=== PATIENT | female | born 1945 | race Hispanic/Latino ===

== ENCOUNTER 2018-02-17 13:22 | Inpatient (IN) | payer MEDICARE ==
[2018-02-17 13:22] VITALS: BMI 15.2
[2018-02-17] MEDS ORDERED: Sodium Chloride 0.9% 1,000 ML IV ONE (14:24)
[2018-02-17 14:25] LABS: BASO # 0.1 K/uL (0.0-0.2); BASO % 1.2 % (0.0-2.0); EOS % 0.5 % (0.0-4.0); HEMOGLOBIN 13.7 g/dL (11.0-16.0); LYMPH % 13.9 % (20.0-40.0); MEAN CELL VOLUME 91.6 fL (81.0-99.0); MEAN CORPUSCULAR HEMOGLOBIN 30.7 pg (27.0-31.0); MEAN CORPUSCULAR HGB CONC 33.5 g/dL (33.0-37.0); MEAN PLATELET VOLUME 9.4 fL (7.2-11.7); MONO # 0.6 K/uL (0.0-0.8); MONO % 8.3 % (0.0-10.0); NEUT # 5.3 K/uL (1.8-7.0); NEUT % 76.1 % (50.0-75.0); NRBC % 0.1 % (0.0-2.0); RBC 4.45 Mil/uL (3.80-5.20); RED CELL DISTRIBUTION WIDTH 15.9 % (11.5-14.5); WHITE BLOOD COUNT 6.9 K/uL (4.8-10.8)
[2018-02-17 14:39] LABS: INR 1.4; PROTHROMBIN TIME 15.3 SECONDS (9.7-12.2)
[2018-02-17 14:41] LABS: ALB/GLOB RATIO 1.1 (1.0-2.1); ALBUMIN 3.4 g/dL (3.5-5.0); ALT/SGPT 85 U/L (9-52); AST/SGOT 71 U/L (14-36); BLOOD UREA NITROGEN 30 mg/dL (7-17); CALCIUM 8.8 mg/dl (8.6-10.4); GFR AFRICAN-AMERICAN > 60; GFR NON-AFRICAN AMERICAN 55
--- NOTE | 2018-02-17 14:48 | C.PDOC ---
History Of Present Illness Patient is a 72 y/o female who presents to the ED by PMD with tachycardia and complaints of chest pain and SOB for the last 1 week. Patient reports to have been recently recovering from a cold. No other physical complaints at this time. Time Seen by Provider: 02/17/18 13:56 Chief Complaint (Nursing): Palpitations History Per: Patient History/Exam Limitations: no limitations Onset/Duration Of Symptoms: Days (1 week) Current Symptoms Are (Timing): Still Present Associated Symptoms: Other (shortness of breath) Recent travel outside of the [place]: No Past Medical History Reviewed: Historical Data, Nursing Documentation, Vital Signs Vital Signs: Last Vital Signs Temp 97.7 F 02/17/18 14:03 Pulse 104 H 02/17/18 14:54 Resp 20 02/17/18 14:54 BP 123/75 02/17/18 14:54 Pulse Ox 96 02/17/18 14:54 - Medical History PMH: Anxiety, HTN Surgical History: No Surg Hx Denies: Pacemaker - [facility] Procedures CLOSED ENDOSCOPIC BIOPSY OF LARGE INTESTINE (10/22/14) VACCINATION NEC (11/03/13) Family History: States: No Known Family Hx - Social History Hx Tobacco Use: No Hx Alcohol Use: No Hx Substance Use: No - Immunization History Hx Tetanus Toxoid Vaccination: No Hx Influenza Vaccination: No Hx Pneumococcal Vaccination: No Review Of Systems Cardiovascular: Positive for: Chest Pain, Palpitations Respiratory: Positive for: Shortness of Breath Physical Exam - Physical Exam Appears: Well, Non-toxic, No Acute Distress Skin: Normal Color, Warm, Dry Head: Atraumatic, Normacephalic Oral Mucosa: Moist Chest: Symmetrical Cardiovascular: Rhythm Irregular (irregularly irregular rate and rhythm) Respiratory: Normal Breath Sounds, No Rales, No Rhonchi, No Wheezing Gastrointestinal/Abdominal: Soft, No Tenderness Extremity: Normal ROM (x4) Neurological/Psych: Oriented x3, Normal Speech, Normal Cognition ED Course And Treatment - Laboratory Results Result Diagrams: 02/17/18 14:21 02/17/18 14:21 ECG: Interpreted By Me, Viewed By Me ECG Rhythm: Atrial Fibrillation Interpretation Of ECG: normal intervals, normal axis, nonspecific st/t wave changes Rate From EC (bpm ventricular rate) O2 Sat by Pulse Oximetry: 97 Progress Note: EKG, CXR, and blood work ordered. Cardizem and IV fluids administered. Disposition Discussed With : Jt Christine Doctor Will See Patient In The: Hospital Counseled Patient/Family Regarding: Studies Performed, Diagnosis - Disposition Disposition: HOSPITALIZED Disposition Time: 15:13 Condition: FAIR Forms: [facility] (Maori) - Clinical Impression Clinical Impression: Atrial fibrillation, CHF (congestive heart failure) - Scribe Statement The provider has reviewed the documentation as recorded by the Scribe Monika Francisco All medical record entries made by the Scribe were at my direction and personally dictated by me. I have reviewed the chart and agree that the record accurately reflects my personal performance of the history, physical exam, medical decision making, and the department course for this patient. I have also personally directed, reviewed, and agree with the discharge instructions and disposition.
[2018-02-17 14:50] LABS: B-TYPE NATRIURETIC PEPTIDE 13000 pg/mL (0-900)
[2018-02-17] MEDS ORDERED: Aspirin 325 mg EC Tablets PO STA (15:13)
[2018-02-17] MEDS ORDERED: Metoprolol 1 mg/ml Inj IVP ONE (15:56)
[2018-02-17] MEDS ORDERED: Metoprolol 1 mg/ml Inj IVP STA (19:12)
--- NOTE | 2018-02-17 19:17 | RAD ---
PROCEDURE: CHEST RADIOGRAPH, 1 VIEW HISTORY: SOB COMPARISON: None available. FINDINGS: LUNGS: Prominent lung markings seen at the lung bases. PLEURA: Small bilateral pleural effusions. CARDIOVASCULAR: The heart is upper normal limit in size. OSSEOUS STRUCTURES: No significant abnormalities. VISUALIZED UPPER ABDOMEN: Normal. OTHER FINDINGS: None. IMPRESSION: Reticular and haziness noted at both lower lobes may represent mild pulmonary congestion. Small bilateral pleural effusions.
--- NOTE | 2018-02-17 19:24 | CP.PCM.PN ---
<Anel Allen DO - Last Filed: 02/17/18 19:14> Subjective - Date & Time of Evaluation Date of Evaluation: 02/17/18 Time of Evaluation: 19:14 - Subjective Subjective: House doctor note Paged to evaluate patient for elevated heart rate in 120s, 130s. Upon evaluation patient was resting comfortably in bed with at bedside. Patient was eating dinner and speaking in full sentences. Patient denies palpitations, shortness of breath, chest pain or chest tightness. Patient's only complaint is of left leg pain in her [place] for past week. Telemetry and EKG reviewed. BP 124/89, HR 111 Patient resting comfortably in bed lungs CTA heart rate irregular, tachycardic Patient given stat order 5mg lopressor IVP. Will check d-dimer and lower extremity doppler as well. Objective - Vital Signs/Intake and Output Vital Signs (last 24 hours): Temp Pulse Resp BP Pulse Ox 97.3 F L 141 H 18 122/89 95 02/17/18 17:13 02/17/18 18:58 02/17/18 17:13 02/17/18 18:58 02/17/18 17:13 - Medications Medications: Current Medications Metoprolol Tartrate (Lopressor) 5 mg IVP STAT STA Stop: 02/17/18 19:13 - Labs Labs: 02/17/18 14:21 02/17/18 14:21 PT 15.3 SECONDS (9.7-12.2) H 02/17/18 14:21 INR 1.4 02/17/18 14:21 APTT 26 SECONDS (21-34) 02/17/18 14:21 <Sonia Curry V - Last Filed: 02/17/18 21:01> Objective - Vital Signs/Intake and Output Vital Signs (last 24 hours): Temp Pulse Resp BP Pulse Ox 97.3 F L 141 H 18 122/89 95 02/17/18 17:13 02/17/18 18:58 02/17/18 17:13 02/17/18 18:58 02/17/18 17:13 - Medications Medications: Current Medications Aspirin (Aspirin Chewable) 81 mg PO DAILY [facility] Digoxin (Lanoxin) 0.5 mg IVP ONCE ONE Stop: 02/17/18 21:01 Diltiazem HCl (Cardizem) 30 mg PO Q6 [facility] Enoxaparin Sodium (Lovenox) 40 mg SC DAILY [facility] Rosuvastatin Calcium (Crestor) 10 mg PO HS [facility] - Labs Labs: 02/17/18 14:21 02/17/18 14:21 PT 15.3 SECONDS (9.7-12.2) H 02/17/18 14:21 INR 1.4 02/17/18 14:21 APTT 26 SECONDS (21-34) 02/17/18 14:21 Attending/Attestation - Attestation Notes (Text): Brief Hospitalist Note: Patient is awaiting admitting orders. New onset atrial fibrillation: received cardizem 15mg IV, cardizem 10mg IV X2, and Lopressor 2.5mg IV. Elevated probnp-->suggestive for heart failurw Chest xray does not show pulmonary edema. Nursing staff reaching to PMD for admitting orders.
[2018-02-17] MEDS ORDERED: Enoxaparin 40 mg Syringe SC ONE (19:58)
[2018-02-17] MEDS ORDERED: Metoprolol Succinate 25 mg XL Tab PO ONE (20:00)
[2018-02-17] MEDS ORDERED: Digoxin 500 mcg/2ml (0.5 mg/2ml) Inj IVP ONE (21:00)
[2018-02-17 21:24] VITALS: PULSE 144
[2018-02-18] MEDS ORDERED: Benzocaine/Menthol (Cepacol) Lozenge MT ONE (03:35)
[2018-02-18 04:19] LABS: CK-MB 3.97 ng/mL (0.0-3.38)
[2018-02-18 04:47] LABS: TROPONIN I 0.098 ng/mL (0.00-0.120)
[2018-02-18] MEDS ORDERED: Acetaminophen 650mg/20.3ml solution UD PO PRN (06:45)
[2018-02-18] MEDS: Enoxaparin 40 mg Syringe SC SCH (10:58)
--- NOTE | 2018-02-18 12:18 | CP.PCM.CON ---
History of Present Illness - History of Present Illness History of Present Illness: I was asked to evaluate patient by Dr Christine. patient is a 72 year old female with PMH HTn who presents with chest pain and dyspnea. She states symptoms are progressive and occur with ambulation. Symptoms improve with rest. The patient was found to be in atrial fibrillation. She has no history of atrial fibrillation. Review of Systems - Constitutional Constitutional: absent: As Per HPI, Anorexia, Chills, Daytime Sleepiness, Excessive Sweating, Fatigue, Fever, Frequent Falls, Headache, Increased Appetite , Lethargy, Malaise, Night Sweats, Snoring, Sleep Apnea, Weight Gain, Weight Loss, Weakness, Other - EENT Eyes: absent: As Per HPI, Blind Spots, Blurred Vision, Change in Vision, Decreased Night Vision, Diplopia, Discharge, Dry Eye, Exophthalmos, Floaters, Irritation, Itchy Eyes, Loss of Peripheral Vision, Pain, Photophobia, Requires Corrective Lenses, Sees Flashes, Spots in Vision, Tunnel Vision, Other Visual Disturbances, Loss of Vision, Other Ears: absent: As Per HPI, Decreased Hearing, Ear Discharge, Ear Pain, Tinnitus, Abnormal Hearing, Disequilibrium, Dizziness, Other Nose/Mouth/Throat: absent: As Per HPI, Epistaxis, Nasal Congestion, Nasal Discharge, Nasal Obstruction, Nasal Trauma, Nose Pain, Post Nasal Drip, Sinus Pain, Sinus Pressure, Bleeding Gums, Change in Voice, Dental Pain, Dry Mouth, Dysphagia, Halitosis, Hoarsness, Lip Swelling, Mouth Lesions, Mouth Pain, Odynophagia, Sore Throat, Throat Swelling, Tongue Swelling, Facial Pain, Neck Pain, Neck Mass, Other - Cardiovascular Cardiovascular: Chest Pain, Dyspnea - Respiratory Respiratory: Dyspnea - Gastrointestinal Gastrointestinal: absent: As Per HPI, Abdominal Pain, Belching, Bloating, Change in Bowel Habits, Change in Stool Character, Coffee Ground Emesis, Constipation, Cramping, Diarrhea, Dyspepsia, Dysphagia, Early Satiety, Excessive Flatus, Fecal Incontinence, Heartburn, Hematemesis, Hematochezia, Loose Stools, Melena, Nausea, Odynophagia, Temesmus, Vomiting, Other - Genitourinary Genitourinary: absent: As Per HPI, Change in Urinary Stream, Difficulty Urinating, Dysuria, Flank Pain, Hematuria, Pyuria, Nocturia, Urinary Incontinence, Urinary Frequency, Urinary Hesitance, Urinary Urgency, Voiding Freq/Small Amts, Freq UTI, Hx Renal/Bladder Calculi, Hx /Renal Surgery, Bladder Distension, Other - Musculoskeletal Musculoskeletal: absent: As Per HPI, Abnormal Gait, Arthralgias, Atrophy, Back Pain, Deformity, Joint Swelling, Limited Range of Motion, Loss of Height, Muscle Cramps, Muscle Weakness, Myalgias, Neck Pain, Numbness, Radiating Pain into Limb, Stiffness, Tingling, Other - Integumentary Integumentary: absent: As Per HPI, Acne, Alopecia, Bleeding Lesions, Change in Hair, Change in Nails, Change in Pigmentation, Changing Lesions, Dry Skin, Erythema, Furuncle, Hirsutism, Lesions, New Lesions, Non-Healing Lesions, Photosensitivity, Pruritus, Rash, Skin Pain, Skin Ulcer, Sores, Striae, Swelling , Unusual Bruising, Wounds, Jaundice, Other - Neurological Neurological: absent: As Per HPI, Abnormal Gait, Abnormal Hearing, Abnormal Movements, Abnormal Speech, Behavioral Changes, Burning Sensations, Confusion, Convulsions, Disequilibrium, Dizziness, Numbness, Focal Weakness, Frequent Falls , Headaches, Lack of Coordination, Loss of Vision, Memory Loss, Paresthesias, Radicular Pain, Restless Legs, Sensory Deficit, Syncope, Tingling, Tremor, Vertigo, Weakness, Other Visual Disturbances, Other - Psychiatric Psychiatric: absent: As Per HPI, Abnormal Sleep Pattern, Anhedonia, Anxiety, Auditory Hallucinations, Behavioral Changes, Change in Appetite, Change in Libido, Confusion, Depression, Difficulty Concentrating, Hallucinations, Homicidal Ideation, Hopelessness, Irritability, Memory Loss, Mood Swings, Panic Attacks, Paranoia, Suicidal Ideation, Visual Hallucinations, Tactile Hallucinations, Other - Endocrine Endocrine: absent: As Per HPI, Change in Body Appearance, Change in Libido, Cold Intolorance, Deepening of Voice, Excessive Sweating, Fatigue, Flushing, Heat Intolorance, Increase in Ring/Shoe/Hat Size, Palpitations, Polydipsia, Polyphagia, Polyuria, Other - Hematologic/Lymphatic Hematologic: absent: As Per HPI, Easy Bleeding, Easy Bruising, Lymphadenopathy, Other Past Patient History - Past Medical History & Family History Past Medical History?: Yes - Past Social History Smoking Status: Never Smoked - CARDIAC Hx Cardiac Disorders: Yes Hx Hypertension: Yes Hx Pacemaker: No - PULMONARY Hx Respiratory Disorders: No - NEUROLOGICAL Hx Neurological Disorder: No Hx Paralysis: No - HEENT Hx HEENT Problems: Yes Other/Comment: "Difficulty swallowing" - RENAL Hx Chronic Kidney Disease: No - ENDOCRINE/METABOLIC Hx Endocrine Disorders: No - HEMATOLOGICAL/ONCOLOGICAL Hx Blood Disorders: No Hx Blood Transfusions: No - INTEGUMENTARY Hx Dermatological Problems: No - MUSCULOSKELETAL/RHEUMATOLOGICAL Hx Musculoskeletal Disorders: No Hx Falls: Yes - GASTROINTESTINAL Hx Gastrointestinal Disorders: No - GENITOURINARY/GYNECOLOGICAL Hx Genitourinary Disorders: No - PSYCHIATRIC Hx Psychophysiologic Disorder: Yes Hx Anxiety: Yes Hx Depression: Yes Hx Substance Use: No - SURGICAL HISTORY Hx Surgeries: Yes Hx Tonsillectomy: Yes (At 11 yo) - ANESTHESIA Hx Anesthesia: Yes Hx Anesthesia Reactions: No Hx Malignant Hyperthermia: No Meds Allergies/Adverse Reactions: Allergies Allergy/AdvReac Type Severity Reaction Status Date / Time No Known Allergies Allergy Verified 02/17/18 14:02 - Medications Medications: Current Medications Acetaminophen (Tylenol 650mg/20.3ml Solution Ud) 650 mg PO Q4 PRN Last Admin: 02/18/18 06:39 Dose: 650 mg Aspirin (Aspirin Chewable) 81 mg PO DAILY [facility] Last Admin: 02/18/18 10:59 Dose: 81 mg Diltiazem HCl (Cardizem) 60 mg PO Q8 [facility] Last Admin: 02/18/18 06:00 Dose: 60 mg Enoxaparin Sodium (Lovenox) 40 mg SC DAILY [facility] Last Admin: 02/18/18 10:58 Dose: 40 mg Rosuvastatin Calcium (Crestor) 10 mg PO HS [facility] Last Admin: 02/17/18 21:21 Dose: 10 mg Physical Exam - Constitutional Appears: Non-toxic - Head Exam Head Exam: NORMAL INSPECTION - Eye Exam Eye Exam: Normal appearance - ENT Exam ENT Exam: Mucous Membranes Moist - Neck Exam Neck exam: Positive for: Full Rom - Respiratory Exam Respiratory Exam: Decreased Breath Sounds - Cardiovascular Exam Cardiovascular Exam: Irregular Rhythm - GI/Abdominal Exam GI & Abdominal Exam: Normal Bowel Sounds - Rectal Exam Rectal Exam: Deferred - Extremities Exam Extremities exam: Negative for: pedal edema - Back Exam Back exam: NORMAL INSPECTION - Neurological Exam Neurological exam: Alert, Oriented x3 - Psychiatric Exam Psychiatric exam: Normal Affect - Skin Skin Exam: Normal Color Results - Vital Signs Recent Vital Signs: Last Vital Signs Temp 100.7 F H 02/18/18 08:29 Pulse 88 02/18/18 08:29 Resp 18 02/18/18 08:29 BP 127/74 02/18/18 08:29 Pulse Ox 98 02/18/18 08:29 - Labs Result Diagrams: 02/17/18 14:21 02/17/18 14:21 Labs: Laboratory Results - last 24 hr 02/17/18 02/17/18 02/17/18 14:21 14:21 14:21 WBC 6.9 RBC 4.45 Hgb 13.7 Hct 40.7 MCV 91.6 MCH 30.7 MCHC 33.5 RDW 15.9 H Plt Count 252 MPV 9.4 Neut % (Auto) 76.1 H Lymph % (Auto) 13.9 L [place] % (Auto) 8.3 Eos % (Auto) 0.5 Baso % (Auto) 1.2 Neut # (Auto) 5.3 Lymph # (Auto) 1.0 [place] # (Auto) 0.6 Eos # (Auto) 0.0 Baso # (Auto) 0.1 PT 15.3 H INR 1.4 APTT 26 D-Dimer, Quantitative Sodium 141 Potassium 3.7 Chloride 102 Carbon Dioxide 24 Anion Gap 18 BUN 30 H Creatinine 1.0 Est GFR ( Amer) > 60 Est GFR (Non-Af Amer) 55 Random Glucose 131 H Calcium 8.8 Magnesium 2.1 Total Bilirubin 1.0 AST 71 H ALT 85 H Alkaline Phosphatase 96 Total Creatine Kinase CK-MB (Mass) Troponin I 0.1080 NT-Pro-B Natriuret Pep 42535 H Total Protein 6.5 Albumin 3.4 L Globulin 3.1 Albumin/Globulin Ratio 1.1 TSH 3rd Generation 02/17/18 02/18/18 19:44 03:59 WBC RBC Hgb Hct MCV MCH MCHC RDW Plt Count MPV Neut % (Auto) Lymph % (Auto) [place] % (Auto) Eos % (Auto) Baso % (Auto) Neut # (Auto) Lymph # (Auto) [place] # (Auto) Eos # (Auto) Baso # (Auto) PT INR APTT D-Dimer, Quantitative 963 H Sodium Potassium Chloride Carbon Dioxide Anion Gap BUN Creatinine Est GFR ( Amer) Est GFR (Non-Af Amer) Random Glucose Calcium Magnesium Total Bilirubin AST ALT Alkaline Phosphatase Total Creatine Kinase 457 H CK-MB (Mass) 3.97 H Troponin I 0.0980 NT-Pro-B Natriuret Pep Total Protein Albumin Globulin Albumin/Globulin Ratio TSH 3rd Generation 1.36 - EKG Data EKG Interpreted by: Myself Assessment & Plan (1) Angina at rest Assessment and Plan: patient has risk factors for CAD. Recommend evaluation for myocardial ischemia. will schedule for stress test. check echocardiogram Status: Acute (2) Atrial fibrillation Assessment and Plan: will continue lovenox. check echocardiogram. If stress test is normal perfusion, will consider KARY/cardioversion. Status: Acute
--- NOTE | 2018-02-18 17:23 | CP.PCM.HP ---
History of Present Illness - History of Present Illness History of Present Illness: Patient is a 72 y/o female who presents to the ED by PMD with tachycardia and complaints of chest pain and SOB for the last 1 week. Patient reports to have been recently recovering from a cold. No other physical complaints at this time. Present on Admission - Present on Admission Any Indicators Present on Admission: No Past Patient History - Past Medical History & Family History Past Medical History?: Yes - Past Social History Smoking Status: Never Smoked - CARDIAC Hx Cardiac Disorders: Yes Hx Hypertension: Yes Hx Pacemaker: No - PULMONARY Hx Respiratory Disorders: No - NEUROLOGICAL Hx Neurological Disorder: No Hx Paralysis: No - HEENT Hx HEENT Problems: Yes Other/Comment: "Difficulty swallowing" - RENAL Hx Chronic Kidney Disease: No - ENDOCRINE/METABOLIC Hx Endocrine Disorders: No - HEMATOLOGICAL/ONCOLOGICAL Hx Blood Disorders: No Hx Blood Transfusions: No - INTEGUMENTARY Hx Dermatological Problems: No - MUSCULOSKELETAL/RHEUMATOLOGICAL Hx Musculoskeletal Disorders: No Hx Falls: Yes - GASTROINTESTINAL Hx Gastrointestinal Disorders: No - GENITOURINARY/GYNECOLOGICAL Hx Genitourinary Disorders: No - PSYCHIATRIC Hx Psychophysiologic Disorder: Yes Hx Anxiety: Yes Hx Depression: Yes Hx Substance Use: No - SURGICAL HISTORY Hx Surgeries: Yes Hx Tonsillectomy: Yes (At 11 yo) - ANESTHESIA Hx Anesthesia: Yes Hx Anesthesia Reactions: No Hx Malignant Hyperthermia: No Meds Allergies/Adverse Reactions: Allergies Allergy/AdvReac Type Severity Reaction Status Date / Time No Known Allergies Allergy Verified 02/17/18 14:02 Results - Vital Signs Recent Vital Signs: Last Vital Signs Temp 97.4 F L 02/18/18 15:31 Pulse 108 H 02/18/18 15:31 Resp 18 02/18/18 15:31 BP 112/67 02/18/18 15:31 Pulse Ox 94 L 02/18/18 15:31 - Labs Result Diagrams: 02/17/18 14:21 02/17/18 14:21 Labs: Laboratory Results - last 24 hr 02/17/18 02/18/18 19:44 03:59 D-Dimer, Quantitative 963 H Total Creatine Kinase 457 H CK-MB (Mass) 3.97 H Troponin I 0.0980 TSH 3rd Generation 1.36
--- NOTE | 2018-02-18 17:24 | CP.PCM.PN ---
Subjective - Date & Time of Evaluation Date of Evaluation: 02/18/18 Time of Evaluation: 19:00 - Subjective Subjective: patient has elevated heart rate in 120s, 130s. Upon evaluation patient was resting comfortably in bed with at bedside. Patient was eating dinner and speaking in full sentences. Patient denies palpitations, shortness of breath, chest pain or chest tightness. Patient's only complaint is of left leg pain in her [place] for past week. Telemetry and EKG reviewed. Objective - Vital Signs/Intake and Output Vital Signs (last 24 hours): Temp Pulse Resp BP Pulse Ox 97.4 F L 108 H 18 112/67 94 L 02/18/18 15:31 02/18/18 15:31 02/18/18 15:31 02/18/18 15:31 02/18/18 15:31 - Medications Medications: Current Medications Acetaminophen (Tylenol 650mg/20.3ml Solution Ud) 650 mg PO Q4 PRN Last Admin: 02/18/18 06:39 Dose: 650 mg Aspirin (Aspirin Chewable) 81 mg PO DAILY [facility] Last Admin: 02/18/18 10:59 Dose: 81 mg Diltiazem HCl (Cardizem) 60 mg PO Q8 [facility] Last Admin: 02/18/18 14:30 Dose: 60 mg Enoxaparin Sodium (Lovenox) 40 mg SC DAILY [facility] Last Admin: 02/18/18 10:58 Dose: 40 mg Rosuvastatin Calcium (Crestor) 10 mg PO HS [facility] Last Admin: 02/17/18 21:21 Dose: 10 mg - Labs Labs: 02/17/18 14:21 02/17/18 14:21 PT 15.3 SECONDS (9.7-12.2) H 02/17/18 14:21 INR 1.4 02/17/18 14:21 APTT 26 SECONDS (21-34) 02/17/18 14:21
[2018-02-18 19:14] LABS: SQUAMOUS EPITHIAL 3 /hpf (0-5); URINE AMORPHOUS SEDIMENT OCC /ul (<OCC); URINE BILIRUBIN NEGATIVE (NEGATIVE); URINE BLOOD NEGATIVE (NEGATIVE); URINE CLARITY Turbid (Clear); URINE COLOR Yellow (YELLOW); URINE GLUCOSE (UA) NORMAL (Normal); URINE LEUKOCYTE ESTERASE 2+ Leu/uL (Negative); URINE PROTEIN 1+ mg/dL (NEGATIVE); URINE UROBILINOGEN NORMAL mg/dL (0.2-1.0)
[2018-02-19 01:06] LABS: CK-MB 1.84 ng/mL (0.0-3.38); TROPONIN I 0.082 ng/mL (0.00-0.120)
[2018-02-19 01:35] LABS: URINE CLARITY Turbid (Clear); URINE COLOR YELLOW (YELLOW); URINE GLUCOSE (UA) NEGATIVE (Normal)
[2018-02-19 01:36] LABS: URINE BILIRUBIN NEGATIVE (NEGATIVE); URINE BLOOD NEGATIVE (NEGATIVE); URINE LEUKOCYTE ESTERASE NEGATIVE Leu/uL (Negative); URINE PROTEIN 30 mg/dL (NEGATIVE); URINE UROBILINOGEN 0.2 mg/dL (0.2-1.0)
[2018-02-19 01:37] LABS: URINE AMORPHOUS SEDIMENT MODERATE /ul (<OCC)
--- NOTE | 2018-02-19 08:02 | CP.PCM.PN ---
Subjective - Date & Time of Evaluation Date of Evaluation: 02/19/18 Time of Evaluation: 07:55 - Subjective Subjective: nuclear stress test performed. await nuclear images Objective - Vital Signs/Intake and Output Vital Signs (last 24 hours): Temp Pulse Resp BP Pulse Ox 98.1 F 114 H 20 137/92 H 95 02/18/18 23:00 02/19/18 05:25 02/19/18 05:25 02/19/18 05:25 02/19/18 05:25 Intake and Output: 02/19/18 02/19/18 06:59 18:59 Intake Total 480 Balance 480 - Medications Medications: Current Medications Acetaminophen (Tylenol 650mg/20.3ml Solution Ud) 650 mg PO Q4 PRN Last Admin: 02/18/18 06:39 Dose: 650 mg Aspirin (Aspirin Chewable) 81 mg PO DAILY [facility] Last Admin: 02/18/18 10:59 Dose: 81 mg Cephalexin Monohydrate (Keflex) 500 mg PO Q6H [facility] PRN Reason: Protocol Last Admin: 02/19/18 05:30 Dose: 500 mg Enoxaparin Sodium (Lovenox) 40 mg SC DAILY [facility] Last Admin: 02/18/18 10:58 Dose: 40 mg Rosuvastatin Calcium (Crestor) 10 mg PO HS [facility] Last Admin: 02/18/18 22:00 Dose: 10 mg - Labs Labs: 02/17/18 14:21 02/17/18 14:21 PT 15.3 SECONDS (9.7-12.2) H 02/17/18 14:21 INR 1.4 02/17/18 14:21 APTT 26 SECONDS (21-34) 02/17/18 14:21 Assessment and Plan (1) Angina at rest Status: Acute (2) Atrial fibrillation Status: Acute
[2018-02-19] MEDS: Enoxaparin 40 mg Syringe SC SCH (10:06)
[2018-02-19] MEDS ORDERED: Heparin25000 units/250ml 1/2NS 25,000 UNITS/250 ML BAG IV PRN (10:33)
[2018-02-19 14:03] LABS: INR 1.5; PROTHROMBIN TIME 16.3 SECONDS (9.7-12.2)
--- NOTE | 2018-02-19 14:05 | VASCLAB ---
PROCEDURE: Lower Extremity Venous Duplex Exam. HISTORY: left leg pain, new afib DVT PRIORS: None. TECHNIQUE: Bilateral common femoral, femoral, popliteal and posterior tibial, peroneal and great saphenous veins were evaluated. Flow was assessed with color Doppler, compressibility, assessment of phasic flow and augmentation response. Report prepared by Phu Srinivasan, RVT FINDINGS: RIGHT: 1. Common Femoral Vein: 1.1. Compressibility - Fully compressible: Thrombus - None : Flow - Pulsatile: Augmentation -Normal: Reflux - . 2. Femoral Vein: 2.1. Compressibility - Fully compressible: Thrombus - None : Flow - Pulsatile: Augmentation -Normal: Reflux - . 3. Popliteal Vein: 3.1. Compressibility - Fully compressible: Thrombus - None : Flow - Pulsatile: Augmentation -Normal: Reflux - . 4. Posterior Tibial Vein: 4.1. Compressibility - Fully compressible: Thrombus - None: Flow - : Augmentation -: Reflux - . 5. Peroneal Vein: 5.1. Compressibility - Fully compressible: Thrombus - None: Flow - : Augmentation -: Reflux - . 6. Great Saphenous Vein: 6.1. Compressibility - Fully compressible: Thrombus - None: Flow - Pulsatile: Augmentation - : Reflux - . LEFT: 1. Common Femoral Vein: 1.1. Compressibility - Fully compressible: Thrombus - None: Flow - Pulsatile: Augmentation -Normal: Reflux - . 2. Femoral Vein: 2.1. Compressibility - Fully compressible: Thrombus - None: Flow - Pulsatile: Augmentation -Normal: Reflux - . 3. Popliteal Vein: 3.1. Compressibility - Fully compressible: Thrombus - None : Flow - Pulsatile: Augmentation -Normal: Reflux - . 4. Posterior Tibial Vein: 4.1. Compressibility - Fully compressible: Thrombus - None: Flow - : Augmentation -: Reflux - . 5. Peroneal Vein: 5.1. Compressibility - Fully compressible: Thrombus - None: Flow - : Augmentation -: Reflux - . 6. Great Saphenous Vein: 6.1. Compressibility - Fully compressible: Thrombus - None: Flow - Pulsatile: Augmentation - : Reflux - . OTHER FINDINGS: Right: One of the gastrocnemius veins around the mid calf was dilated and occluded with echolucent THROMBUS. Left: Most of the greater/small saphenous vein were partially occluded with echogenic and even calcified THROMBUS. IMPRESSION: Right: Positive study for infrapopliteal deep venous thrombosis. Left: No evidence of deep vein thrombosis of the left lower extremity. Evidence of chronic superficial thrombophlebitis.
--- NOTE | 2018-02-19 17:50 | CP.PCM.PN ---
Subjective - Date & Time of Evaluation Date of Evaluation: 02/19/18 Time of Evaluation: 17:45 - Subjective Subjective: nuclear stress test reveals normal myocardial perfusion. will start Xarelto [address] Burger to cover me for the rest of the week. will discuss possible KARY/cardioversion Objective - Vital Signs/Intake and Output Vital Signs (last 24 hours): Temp Pulse Resp BP Pulse Ox 97.7 F 95 H 20 123/78 95 02/19/18 15:00 02/19/18 15:00 02/19/18 15:00 02/19/18 15:00 02/19/18 15:00 Intake and Output: 02/19/18 02/19/18 06:59 18:59 Intake Total 480 312 Balance 480 312 - Medications Medications: Current Medications Acetaminophen (Tylenol 650mg/20.3ml Solution Ud) 650 mg PO Q4 PRN Last Admin: 02/18/18 06:39 Dose: 650 mg Aspirin (Aspirin Chewable) 81 mg PO DAILY [facility] Last Admin: 02/19/18 10:05 Dose: 81 mg Cephalexin Monohydrate (Keflex) 500 mg PO Q6H [facility] PRN Reason: Protocol Last Admin: 02/19/18 13:30 Dose: 500 mg Diltiazem HCl (Cardizem) 60 mg PO Q6H [facility] Last Admin: 02/19/18 14:03 Dose: 60 mg Heparin Sodium/Sodium Chloride (Heparin 98947 Units/250ml 1/2 Normal Saline) 25 ,000 units in 250 mls @ 8.655 mls/hr IV .Q24H PRN; Protocol; 18 UNITS/KG/HR PRN Reason: PROTOCOL Last Admin: 02/19/18 13:39 Dose: 18 units/kg/hr, 8.655 mls/hr Rosuvastatin Calcium (Crestor) 10 mg PO HS [facility] Last Admin: 02/18/18 22:00 Dose: 10 mg - Labs Labs: 02/17/18 14:21 02/17/18 14:21 PT 16.3 SECONDS (9.7-12.2) H 02/19/18 13:15 INR 1.5 02/19/18 13:15 APTT 26 SECONDS (21-34) 02/17/18 14:21 Assessment and Plan (1) Angina at rest Status: Acute (2) Atrial fibrillation Status: Acute
[2018-02-19 20:55] LABS: BASO % 0.6 % (0.0-2.0); EOS # 0.1 K/uL (0.0-0.7); EOS % 1.3 % (0.0-4.0); LYMPH # 0.8 K/uL (1.0-4.3); LYMPH % 10.5 % (20.0-40.0); MEAN CELL VOLUME 91.5 fL (81.0-99.0); MEAN CORPUSCULAR HGB CONC 32.7 g/dL (33.0-37.0); MEAN PLATELET VOLUME 9.3 fL (7.2-11.7); MONO # 0.8 K/uL (0.0-0.8); MONO % 10.8 % (0.0-10.0); NEUT % 76.8 % (50.0-75.0); NRBC % 0.2 % (0.0-2.0); RBC 4.33 Mil/uL (3.80-5.20); WHITE BLOOD COUNT 7.8 K/uL (4.8-10.8)
--- NOTE | 2018-02-19 23:46 | CP.PCM.PN ---
Subjective - Date & Time of Evaluation Date of Evaluation: 02/19/18 Time of Evaluation: 20:00 - Subjective Subjective: Pt seen and examined at bedside, pt still have slightly elevated heart rate, she is afebrile, on cardizem and metoprolol, on heparin drip, pending stress myoveiw report, pt might need cath/ versus Objective - Vital Signs/Intake and Output Vital Signs (last 24 hours): Temp Pulse Resp BP Pulse Ox 97.7 F 114 H 20 123/78 95 02/19/18 15:00 02/19/18 16:00 02/19/18 15:00 02/19/18 15:00 02/19/18 15:00 Intake and Output: 02/19/18 02/20/18 18:59 06:59 Intake Total 312 Balance 312 - Medications Medications: Current Medications Acetaminophen (Tylenol 650mg/20.3ml Solution Ud) 650 mg PO Q4 PRN Last Admin: 02/18/18 06:39 Dose: 650 mg Aspirin (Aspirin Chewable) 81 mg PO DAILY [facility] Last Admin: 02/19/18 10:05 Dose: 81 mg Cephalexin Monohydrate (Keflex) 500 mg PO Q6H [facility] PRN Reason: Protocol Last Admin: 02/19/18 18:40 Dose: 500 mg Diltiazem HCl (Cardizem) 60 mg PO Q6H [facility] Last Admin: 02/19/18 22:20 Dose: 60 mg Heparin Sodium/Sodium Chloride (Heparin 42604 Units/250ml 1/2 Normal Saline) 25 ,000 units in 250 mls @ 8.655 mls/hr IV .Q24H PRN; Protocol; 18 UNITS/KG/HR PRN Reason: PROTOCOL Last Admin: 02/19/18 13:39 Dose: 18 units/kg/hr, 8.655 mls/hr Rivaroxaban (Xarelto) 20 mg PO DAILY [facility] Last Admin: 02/19/18 18:40 Dose: 20 mg Rosuvastatin Calcium (Crestor) 10 mg PO HS [facility] Last Admin: 02/19/18 22:20 Dose: 10 mg - Labs Labs: 02/19/18 20:18 02/17/18 14:21 PT 16.3 SECONDS (9.7-12.2) H 02/19/18 13:15 INR 1.5 02/19/18 13:15 APTT 64 SECONDS (21-34) H D 02/19/18 20:18 - Constitutional Appears: No Acute Distress - Head Exam Head Exam: ATRAUMATIC, NORMAL INSPECTION, NORMOCEPHALIC - Eye Exam Eye Exam: EOMI, Normal appearance, PERRL Pupil Exam: NORMAL ACCOMODATION, PERRL - Respiratory Exam Respiratory Exam: Decreased Breath Sounds, Rales, Rhonchi - Cardiovascular Exam Cardiovascular Exam: Irregular Rhythm, +S1, +S2 - GI/Abdominal Exam GI & Abdominal Exam: Soft, Normal Bowel Sounds. absent: Tenderness Assessment and Plan (1) Rapid atrial fibrillation Assessment & Plan: cath vs electric cardioversion Status: Acute (2) DVT (deep venous thrombosis) Status: Acute (3) Atrial fibrillation Status: Acute (4) CHF (congestive heart failure) Status: Acute
--- NOTE | 2018-02-20 06:57 | CARD ---
APPROVED REPORT EXAM: Two-dimensional and M-mode echocardiogram with Doppler and color Doppler. Other Information Quality : GoodRhythm : INDICATION Dyspnea Atrial Fibrillation Congestive Heart Failure 2D DIMENSIONS IVSd1.0 (0.7-1.1cm)Aortic Root (2D)3.4 (2.0-3.7cm) LVDd4.6 (3.9-5.9cm)PWd1.1 (0.7-1.1cm) LVDs3.0 (2.5-4.0cm)FS (%) 34.8 % LVEF (%)64.1 (>50%) M-Mode DIMENSIONS RVDd1.70 (2.1-3.2cm)Left Atrium (MM)4.02 (2.5-4.0cm) IVSd1.11 (0.7-1.1cm)Aortic Root3.31 (2.2-3.7cm) LVDd4.79 (4.0-5.6cm)Aortic Cusp Exc.2.30 (1.5-2.0cm) PWd1.07 (0.7-1.1cm)FS (%) 35 % LVDs3.10 (2.0-3.8cm)LVEF (%)65 (>50%) Aortic Valve AI P 1/2 [id number] Mitral Valve MV E Pmukgknm80.5cm/sMV A Bcgcumkj47.1cm/sE/A ratio0.9 TDI E/Lateral E'0.0E/Medial E'0.0 Tricuspid Valve TR Peak Aadbbysn372ou/sTR Peak Gr.[id number] LEFT VENTRICLE The left ventricle is normal size. There is normal left ventricular wall thickness. Left ventricle systolic function is moderately impaired. The Ejection Fraction is 35-40%. There is global hypokinesis of the left ventricle. Tissue Doppler imaging reveals abnormal left ventricular diastolic dysfunction. RIGHT VENTRICLE The right ventricle is normal size. There is normal right ventricular wall thickness. Systolic function is moderately reduced. ATRIA The left atrium is mildly dilated. The right atrium is moderately dilated. The interatrial septum bows toward left atrium consistent with elevated right atrial pressure. AORTIC VALVE The aortic valve is normal in structure. There is mild aortic regurgitation. There is no aortic valvular stenosis. There is no aortic valvular vegetation. MITRAL VALVE The mitral valve is normal in structure. There is no evidence of mitral valve prolapse. There is no mitral valve stenosis. Mitral regurgitation is mild. TRICUSPID VALVE The tricuspid valve is normal in structure. There is moderate tricuspid regurgitation. Right ventricular systolic pressure is estimated at 30-40 mmHg. There is mild pulmonary hypertension. PULMONIC VALVE The pulmonic valve is not well visualized. There is mild pulmonic valvular regurgitation. GREAT VESSELS The aortic root is normal in size. PERICARDIAL EFFUSION There is mild posterior pericardial effusion. There is large echo free space noted below the posterior wall which could represent lung parenchyma or left pleural effusion. Please correlate clinically. <Conclusion> Left ventricle systolic function is moderately impaired. The Ejection Fraction is 35-40%. Diastolic dysfunction. There is mild aortic regurgitation. Mitral regurgitation is mild. There is moderate tricuspid regurgitation. There is mild pulmonary hypertension. There is mild pulmonic valvular regurgitation.
[2018-02-20 07:00] LABS: BASO # 0.1 K/uL (0.0-0.2); BASO % 0.9 % (0.0-2.0); EOS # 0.1 K/uL (0.0-0.7); EOS % 1.4 % (0.0-4.0); HEMOGLOBIN 12.5 g/dL (11.0-16.0); LYMPH # 0.9 K/uL (1.0-4.3); MEAN CELL VOLUME 91.2 fL (81.0-99.0); MEAN CORPUSCULAR HEMOGLOBIN 29.8 pg (27.0-31.0); MEAN CORPUSCULAR HGB CONC 32.6 g/dL (33.0-37.0); MONO # 0.8 K/uL (0.0-0.8); MONO % 10.5 % (0.0-10.0); NEUT # 5.5 K/uL (1.8-7.0); NEUT % 75.2 % (50.0-75.0); NRBC % 0.1 % (0.0-2.0); RBC 4.18 Mil/uL (3.80-5.20); WHITE BLOOD COUNT 7.3 K/uL (4.8-10.8)
[2018-02-20 07:56] LABS: BLOOD UREA NITROGEN 11 mg/dL (7-17); CALCIUM 7.9 mg/dl (8.6-10.4); GFR AFRICAN-AMERICAN > 60; GFR NON-AFRICAN AMERICAN > 60
[2018-02-20] MEDS ORDERED: Heparin25000 units/250ml 1/2NS 25,000 UNITS/250 ML BAG IV PRN (09:15)
[2018-02-20] MEDS: Potassium Chloride 20 mEq/15 ml LIQ UD PO SCH ×2 (14:05→16:19)
--- NOTE | 2018-02-20 16:19 | CP.PCM.PN ---
Subjective - Date & Time of Evaluation Date of Evaluation: 02/20/18 Time of Evaluation: 16:20 - Subjective Subjective: ASKED TO SEE PT IN CARDIOLOGY COVERAGE BY DR VARGAS. PT WITHOUT CP OR SOB. NO PALP. DISCUSSED KARY AND CV WITH PT AND FAMILY. Objective - Vital Signs/Intake and Output Vital Signs (last 24 hours): Temp Pulse Resp BP Pulse Ox 98.3 F 99 H 20 124/75 95 02/20/18 08:14 02/20/18 14:16 02/20/18 08:14 02/20/18 08:14 02/20/18 08:14 Intake and Output: 02/20/18 02/20/18 06:59 18:59 Intake Total 68.8 Balance 68.8 - Medications Medications: Current Medications Acetaminophen (Tylenol 650mg/20.3ml Solution Ud) 650 mg PO Q4 PRN Last Admin: 02/18/18 06:39 Dose: 650 mg Aspirin (Aspirin Chewable) 81 mg PO DAILY [facility] Last Admin: 02/20/18 10:57 Dose: 81 mg Cephalexin Monohydrate (Keflex) 500 mg PO Q6H [facility] PRN Reason: Protocol Last Admin: 02/20/18 14:05 Dose: 500 mg Diltiazem HCl (Cardizem) 60 mg PO Q6H [facility] Last Admin: 02/20/18 14:12 Dose: 60 mg Heparin Sodium/Sodium Chloride (Heparin 61438 Units/250ml 1/2 Normal Saline) 25 ,000 units in 250 mls @ 7.212 mls/hr IV .Q24H PRN; Protocol; 15 UNITS/KG/HR PRN Reason: PROTOCOL Rivaroxaban (Xarelto) 20 mg PO DAILY [facility] Last Admin: 02/20/18 10:57 Dose: 20 mg Rosuvastatin Calcium (Crestor) 10 mg PO HS [facility] Last Admin: 02/19/18 22:20 Dose: 10 mg - Labs Labs: 02/20/18 06:53 02/20/18 06:53 PT 16.3 SECONDS (9.7-12.2) H 02/19/18 13:15 INR 1.5 02/19/18 13:15 APTT 134 SECONDS (21-34) H* D 02/20/18 06:53 - Constitutional Appears: Well - Head Exam Head Exam: ATRAUMATIC, NORMAL INSPECTION, NORMOCEPHALIC - Eye Exam Eye Exam: EOMI, Normal appearance, PERRL. absent: Conjunctival injection, Nystagmus, Periorbital swelling, Periorbital tenderness, Scleral icterus Pupil Exam: NORMAL ACCOMODATION, PERRL - ENT Exam ENT Exam: Mucous Membranes Moist, Normal Exam. absent: Mucous Membranes Dry, Normal External Ear Exam, Normal Oropharynx, TM's Normal Bilaterally - Neck Exam Neck Exam: Full ROM, Normal Inspection. absent: Lymphadenopathy, Meningismus, Tenderness, Thyromegaly - Respiratory Exam Respiratory Exam: Clear to Ausculation Bilateral, NORMAL BREATHING PATTERN. absent: Accessory Muscle Use, Chest Wall Tenderness, Decreased Breath Sounds, Prolonged Expiratory Phase, Rales, Rhonchi, Wheezes, Respiratory Distress, Stridor - Cardiovascular Exam Cardiovascular Exam: Irregular Rhythm, +S1, +S2, Murmur. absent: Bradycardia, Tachycardia, Clicks, Diastolic murmur, Gallop, REGULAR RHYTHM, JVD, RRR, Rubs, + S4 - GI/Abdominal Exam GI & Abdominal Exam: Soft, Normal Bowel Sounds. absent: Bruit, Distended, Firm , Guarding, Rigid, Tenderness, Diminished Bowel Sounds, Hernia, Hyperactive Bowel Sounds, Hypoactive Bowel Sounds, Organomegaly, Pulsatile Mass, Rebound, Mass - Extremities Exam Extremities Exam: Full ROM, Normal Capillary Refill, Normal Inspection. absent : Calf Tenderness, Joint Swelling, Pedal Edema, Tenderness - Back Exam Back Exam: NORMAL INSPECTION. absent: CVA tenderness (L), CVA tenderness (R), Full ROM, muscle spasm, paraspinal tenderness, rash noted, tenderness, vertebral tenderness - Neurological Exam Neurological Exam: Alert, Awake, CN II-XII Intact, Normal Gait, Oriented x3. absent: Abnormal Gait, Altered, Motor Sensory Deficit, Reflexes Normal - Psychiatric Exam Psychiatric exam: Normal Affect, Normal Mood. absent: Agitated, Anxious, Depressed, Flat Affect, Homicidal Ideation, Manic, Suicidal Ideation - Skin Skin Exam: Dry, Intact, Normal Color, Warm. absent: Abrasion, Cyanosis, Diaphoretic, Erythema, Mottled, Pallor, Pallor, Petechiae, Rash, Urticaria, Vesicles Assessment and Plan (1) PAF (paroxysmal atrial fibrillation) Status: Acute (2) Angina at rest Status: Acute (3) DVT (deep venous thrombosis) Status: Acute - Assessment and Plan (Free Text) Plan: PT NOW ON XARELTO. KARY CV TOMORROW. KEEP PT ON XARELTO FOR CV. CHECK LABS IN AM. NPO IN AM. KARY AT 1PM.
[2018-02-21 07:34] LABS: HEMOGLOBIN 14.1 g/dL (11.0-16.0); MEAN CELL VOLUME 90.8 fL (81.0-99.0); MEAN CORPUSCULAR HEMOGLOBIN 30.2 pg (27.0-31.0); MEAN CORPUSCULAR HGB CONC 33.3 g/dL (33.0-37.0); MEAN PLATELET VOLUME 8.7 fL (7.2-11.7); RBC 4.68 Mil/uL (3.80-5.20); RED CELL DISTRIBUTION WIDTH 15.6 % (11.5-14.5); WHITE BLOOD COUNT 8.5 K/uL (4.8-10.8)
[2018-02-21 07:53] LABS: ALB/GLOB RATIO 1.2 (1.0-2.1); ALBUMIN 3.8 g/dL (3.5-5.0); ALT/SGPT 52 U/L (9-52); AST/SGOT 44 U/L (14-36); BLOOD UREA NITROGEN 10 mg/dL (7-17); CALCIUM 8.6 mg/dl (8.6-10.4); GFR AFRICAN-AMERICAN > 60; GFR NON-AFRICAN AMERICAN > 60
--- NOTE | 2018-02-21 09:30 | CP.PCM.PN ---
Subjective - Date & Time of Evaluation Date of Evaluation: 02/21/18 Time of Evaluation: 18:00 - Subjective Subjective: Pt seen and examined at bedside Objective - Vital Signs/Intake and Output Vital Signs (last 24 hours): Temp Pulse Resp BP Pulse Ox 97.4 F L 123 H 20 144/78 94 L 02/21/18 07:00 02/21/18 07:00 02/21/18 07:00 02/21/18 07:00 02/21/18 07:00 Intake and Output: 02/21/18 02/21/18 06:59 18:59 Intake Total 400 Balance 400 - Medications Medications: Current Medications Acetaminophen (Tylenol 650mg/20.3ml Solution Ud) 650 mg PO Q4 PRN Last Admin: 02/18/18 06:39 Dose: 650 mg Aspirin (Aspirin Chewable) 81 mg PO DAILY [facility] Last Admin: 02/20/18 10:57 Dose: 81 mg Cephalexin Monohydrate (Keflex) 500 mg PO Q6H [facility] PRN Reason: Protocol Last Admin: 02/21/18 06:56 Dose: 500 mg Diltiazem HCl (Cardizem) 60 mg PO Q6H [facility] Last Admin: 02/21/18 03:10 Dose: 60 mg Rivaroxaban (Xarelto) 20 mg PO DAILY [facility] Last Admin: 02/20/18 10:57 Dose: 20 mg Rosuvastatin Calcium (Crestor) 10 mg PO HS [facility] Last Admin: 02/20/18 21:26 Dose: 10 mg - Labs Labs: 02/21/18 07:29 02/21/18 07:29 PT 16.3 SECONDS (9.7-12.2) H 02/19/18 13:15 INR 1.5 02/19/18 13:15 APTT 134 SECONDS (21-34) H* D 02/20/18 06:53 Assessment and Plan (1) Rapid atrial fibrillation Status: Acute (2) DVT (deep venous thrombosis) Status: Acute (3) Atrial fibrillation Status: Acute (4) CHF (congestive heart failure) Status: Acute
--- NOTE | 2018-02-21 09:30 | CP.PCM.PN ---
Subjective - Date & Time of Evaluation Date of Evaluation: 02/20/18 Time of Evaluation: 17:00 - Subjective Subjective: Pt seen and examined, is more Alert, afebrile, Denies any chest pain, SOB or Palpitations Afebrile Objective - Vital Signs/Intake and Output Vital Signs (last 24 hours): Temp Pulse Resp BP Pulse Ox 97.4 F L 123 H 20 144/78 94 L 02/21/18 07:00 02/21/18 07:00 02/21/18 07:00 02/21/18 07:00 02/21/18 07:00 Intake and Output: 02/21/18 02/21/18 06:59 18:59 Intake Total 400 Balance 400 - Medications Medications: Current Medications Acetaminophen (Tylenol 650mg/20.3ml Solution Ud) 650 mg PO Q4 PRN Last Admin: 02/18/18 06:39 Dose: 650 mg Aspirin (Aspirin Chewable) 81 mg PO DAILY [facility] Last Admin: 02/20/18 10:57 Dose: 81 mg Cephalexin Monohydrate (Keflex) 500 mg PO Q6H [facility] PRN Reason: Protocol Last Admin: 02/21/18 06:56 Dose: 500 mg Diltiazem HCl (Cardizem) 60 mg PO Q6H [facility] Last Admin: 02/21/18 03:10 Dose: 60 mg Rivaroxaban (Xarelto) 20 mg PO DAILY [facility] Last Admin: 02/20/18 10:57 Dose: 20 mg Rosuvastatin Calcium (Crestor) 10 mg PO HS [facility] Last Admin: 02/20/18 21:26 Dose: 10 mg - Labs Labs: 02/21/18 07:29 02/21/18 07:29 PT 16.3 SECONDS (9.7-12.2) H 02/19/18 13:15 INR 1.5 02/19/18 13:15 APTT 134 SECONDS (21-34) H* D 02/20/18 06:53 - Constitutional Appears: No Acute Distress - Head Exam Head Exam: ATRAUMATIC, NORMAL INSPECTION, NORMOCEPHALIC - ENT Exam ENT Exam: Mucous Membranes Moist, Normal Exam - Neck Exam Neck Exam: Full ROM, Normal Inspection. absent: Lymphadenopathy - Respiratory Exam Respiratory Exam: Clear to Ausculation Bilateral, NORMAL BREATHING PATTERN - Cardiovascular Exam Cardiovascular Exam: Tachycardia, Irregular Rhythm, +S1, +S2. absent: Murmur - GI/Abdominal Exam GI & Abdominal Exam: Soft, Normal Bowel Sounds. absent: Tenderness Assessment and Plan (1) Rapid atrial fibrillation Status: Acute (2) DVT (deep venous thrombosis) Status: Acute (3) Atrial fibrillation Status: Acute (4) CHF (congestive heart failure) Status: Acute
[2018-02-21] MEDS ORDERED: Lidocaine 4% (Laryng-O-Jet) Kit MM ONE ×2 (13:21→13:23)
[2018-02-21] MEDS ORDERED: Propofol 10 mg/ml Inj (20 ML) ONE ×2 (13:21→13:23)
[2018-02-21] MEDS ORDERED: Etomidate 20 mg/10ml Inj IV ONE (13:22)
[2018-02-21] MEDS ORDERED: Esmolol 100 mg/10ml Inj IV ONE (13:22)
--- NOTE | 2018-02-21 20:07 | CP.PCM.CON ---
History of Present Illness - History of Present Illness History of Present Illness: 72 year old female with a history of being underweight, anxiety, HTN, admitted with afib/flutter, found to have a right popliteal DVT. The patient denies immobility or trauma to her extremities. She notes to shortness of breath and palpitations which brought her to the hospital. She notes to occasional pain in her legs but no significant swelling. She is currently on Xarelto and notes to feeling better. She notes she has struggled with gaining weight for sometime and has a diminished appetite. Past medical history: HTN, anxiety, underweight Past surgical history: Denies Family history: Denies hematologic and oncologic problems Social history: Denies tobacco, alcohol, and illicit drug use. Allergies: NKA Review of systems: All remaining review of systems including HEENT, cardiovascular, respiratory, gastrointestinal, genitourinary, musculoskletal, dermatologic, neurologic, and psychiatric are negative unless mentioned in the HPI. Past Patient History - Past Medical History & Family History Past Medical History?: Yes - Past Social History Smoking Status: Never Smoked - CARDIAC Hx Hypertension: Yes - PULMONARY Hx Respiratory Disorders: No - NEUROLOGICAL Hx Neurological Disorder: No Hx Paralysis: No - HEENT Hx HEENT Problems: Yes Other/Comment: "Difficulty swallowing" - RENAL Hx Chronic Kidney Disease: No - ENDOCRINE/METABOLIC Hx Endocrine Disorders: No - HEMATOLOGICAL/ONCOLOGICAL Hx Blood Disorders: No Hx Blood Transfusions: No - INTEGUMENTARY Hx Dermatological Problems: No - MUSCULOSKELETAL/RHEUMATOLOGICAL Hx Musculoskeletal Disorders: No Hx Falls: Yes - GASTROINTESTINAL Hx Gastrointestinal Disorders: No - GENITOURINARY/GYNECOLOGICAL Hx Genitourinary Disorders: No - PSYCHIATRIC Hx Psychophysiologic Disorder: Yes Hx Anxiety: Yes Hx Depression: Yes Hx Substance Use: No - SURGICAL HISTORY Hx Surgeries: Yes Hx Tonsillectomy: Yes (At 11 yo) - ANESTHESIA Hx Anesthesia: Yes Hx Anesthesia Reactions: No Hx Malignant Hyperthermia: No Meds Home Medications: Home Medication List Medication Instructions Recorded Confirmed Type Aspirin [Aspirin Chewable] 81 mg PO DAILY 30 Days chew 02/24/18 Rx Metoprolol Succinate XL [Toprol XL] 25 mg PO Q12 30 Days tab 02/24/18 Rx Rivaroxaban [Xarelto] 20 mg PO DAILY 30 Days tab 02/24/18 Rx Rosuvastatin Calcium [Crestor] 10 mg PO HS 30 Days tab 02/24/18 Rx diltiaZEM [Cardizem] 60 mg PO Q6H 30 Days tab 02/24/18 Rx Allergies/Adverse Reactions: Allergies Allergy/AdvReac Type Severity Reaction Status Date / Time No Known Allergies Allergy Verified 02/17/18 14:02 - Medications Medications: Current Medications Acetaminophen (Tylenol 650mg/20.3ml Solution Ud) 650 mg PO Q4 PRN Last Admin: 02/18/18 06:39 Dose: 650 mg Aspirin (Aspirin Chewable) 81 mg PO DAILY [facility] Last Admin: 02/21/18 10:26 Dose: 81 mg Cephalexin Monohydrate (Keflex) 500 mg PO Q6H [facility] PRN Reason: Protocol Last Admin: 02/21/18 18:19 Dose: 500 mg Diltiazem HCl (Cardizem) 60 mg PO Q6H [facility] Last Admin: 02/21/18 15:02 Dose: 60 mg Rivaroxaban (Xarelto) 20 mg PO DAILY [facility] Last Admin: 02/21/18 10:26 Dose: 20 mg Rosuvastatin Calcium (Crestor) 10 mg PO HS [facility] Last Admin: 02/20/18 21:26 Dose: 10 mg Physical Exam - Head Exam Head Exam: ATRAUMATIC - Eye Exam Eye Exam: Normal appearance - ENT Exam ENT Exam: Mucous Membranes Dry - Respiratory Exam Respiratory Exam: NORMAL BREATHING PATTERN - Cardiovascular Exam Cardiovascular Exam: +S1, +S2 - GI/Abdominal Exam GI & Abdominal Exam: Normal Bowel Sounds - Extremities Exam Extremities exam: Positive for: normal inspection - Neurological Exam Neurological exam: Oriented x3 - Psychiatric Exam Psychiatric exam: Normal Affect, Normal Mood - Skin Skin Exam: Warm Results - Vital Signs Recent Vital Signs: Last Vital Signs Temp 98.2 F 02/21/18 15:00 Pulse 105 H 02/21/18 15:00 Resp 18 02/21/18 15:00 BP 107/85 02/21/18 15:00 Pulse Ox 95 02/21/18 15:00 - Labs Result Diagrams: 02/24/18 07:21 02/24/18 07:21 Labs: Laboratory Results - last 24 hr 02/21/18 02/21/18 02/21/18 07:29 07:29 07:29 WBC 8.5 RBC 4.68 Hgb 14.1 Hct 42.4 MCV 90.8 MCH 30.2 MCHC 33.3 RDW 15.6 H Plt Count 250 MPV 8.7 Sodium 139 Potassium 4.1 Chloride 101 Carbon Dioxide 26 Anion Gap 17 BUN 10 Creatinine 0.7 Est GFR ( Amer) > 60 Est GFR (Non-Af Amer) > 60 Random Glucose 97 Calcium 8.6 Magnesium 1.8 Total Bilirubin 1.1 AST 44 H D ALT 52 D Alkaline Phosphatase 129 H D C-React Prot High Sens > 15.00 H Total Protein 7.1 Albumin 3.8 Globulin 3.2 Albumin/Globulin Ratio 1.2 Assessment & Plan (1) DVT (deep venous thrombosis) Assessment and Plan: right poplitieal; unprovoked on thereapeutic Xarelto given underweight and unprovoked clotting, will send for CT C/A/P to rule out occult malignancy Status: Acute (2) Underweight Assessment and Plan: for CT scan Status: Acute (3) Coagulopathy Assessment and Plan: secondary to anticoagulation Thank you for this interesting consult. Status: Acute
--- NOTE | 2018-02-21 22:39 | CARD ---
APPROVED REPORT EKG Measurement Heart [id number] <Conclusion> Atrial fibrillation with rapid ventricular response with a competing junctional pacemaker Nonspecific T wave abnormality Abnormal ECG
--- NOTE | 2018-02-21 22:39 | CARD ---
APPROVED REPORT EKG Measurement Heart [id number] <Conclusion> Poor data quality, interpretation may be adversely affected Atrial fibrillation with rapid ventricular response Septal infarct, age undetermined Abnormal ECG
[2018-02-22] MEDS ORDERED: Iohexol 240 (50 ml) PO ONE (07:45)
[2018-02-22] MEDS ORDERED: Iodixanol 320 MG/ML 100 ML BOTTLE IV ONE (12:14)
--- NOTE | 2018-02-22 13:34 | CT ---
PROCEDURE: CT Chest, Abdomen and Pelvis with intravenous contrast HISTORY: wt loss , COMPARISON: Chest radiographs 02/17/2018. TECHNIQUE: Helical CT of the chest, abdomen and pelvis is not performed following oral and intravenous contrast administration. IV dose administered: Visipaque 320, 100 cc Radiation dose: Total exam DLP = 280.80 mGy-cm. This CT exam was performed using one or more of the following dose reduction techniques: Automated exposure control, adjustment of the mA and/or kV according to patient size, and/or use of iterative reconstruction technique. FINDINGS: CT CHEST WITH CONTRAST: LUNGS: Limited patchy infiltrate is seen at the left upper greater than right upper lobe with compressive atelectasis identified in the bilateral lower lobes related to pleural effusions described below no definitive pulmonary mass identified bilaterally. Central airways appear clear. MEDIASTINUM: Thoracic inlet appears unremarkable. Normal caliber aorta and pulmonary arterial trunk. No aortic dissection. Cardiomegaly is identified without pulmonary vascular congestion. Minimal pericardial effusion identified. LYMPH NODES: No significant lymphadenopathy throughout the chest including bilateral axillary regions, mediastinum bilateral hilar regions. Supraclavicular fossa appear unremarkable bilaterally. PLEURA: Mild bilateral pleural effusions are symmetric. BONES: Unremarkable. OTHER FINDINGS: None. CT ABDOMEN AND PELVIS: LIVER: 1.7 cm lucency is appreciated representing a cyst with a solitary septation internally. Enhancement throughout the liver is heterogeneous and is most likely a function of late arterial phase enhancement though an element of right heart failure is not completely excluded. A Sylvie's lobe is noted in the right lobe liver inferiorly. GALLBLADDER AND BILE DUCTS: Unremarkable. PANCREAS: No pancreatic mass identified however the pancreas duct appears upper limits normal caliber 2.5 mm. SPLEEN: Heterogeneous enhancement at the upper low spleen is likely a function of late arterial phase enhancement. ADRENALS: Unremarkable. No mass. KIDNEYS AND URETERS: There is a prominent left extrarenal pelvis with the bilateral kidneys otherwise normal. VASCULATURE: Unremarkable. No aortic aneurysm. BOWEL: Stomach appears unremarkable. No bowel obstruction is evident with prominent matter retained fecal material identified at the distal rectosigmoid without impaction grossly evident. APPENDIX: Normal appendix. PERITONEUM: Trace fluid inferior right pelvis of uncertain origin. No free air. LYMPH NODES: Unremarkable. No enlarged lymph nodes. BLADDER: Unremarkable. REPRODUCTIVE: Probable posterior uterine fibroid present. The adnexal compartments appear unremarkable bilaterally. BONES: No acute fracture. OTHER FINDINGS: None. IMPRESSION: 1. Limited patchy infiltrate left upper lobe. 2. Mild bilateral pleural effusions exerts compression atelectasis at the bilateral lower lobes. 3. 1.7 cm complex cyst right lobe liver. Inhomogeneous hepatic enhancement is felt to be a function of late arterial phase of enhancement rather than right-sided are failure/passive venous congestion. Clinically correlate. 4. Pancreatic duct upper limits normal caliber. Normal caliber biliary tree. No radiodense cholelithiasis in the gallbladder. No definitive pancreatic mass appreciable. 5. Trace fluid inferior right pelvis of uncertain origin.
--- NOTE | 2018-02-22 14:57 | CARD ---
APPROVED REPORT EXAM: Transesophageal echocardiogram with color flow Doppler and Synchronized Cardioversion. INDICATION Atrial Fibrillation Aortic Valve AI P 1/2 [id number] Mitral Valve E/A ratio0.0 TDI E/Lateral E'0.0E/Medial E'0.0 Reason For Test : Rule out Intracardiac Thrombus. PROCEDURE After obtaining informed consent, patient underwent transesophageal echo in the Echo Lab. Type of Sedation : Conscious Sedation Sedation was provided by anesthesiologist. Sedation was achieved with intravenously. Transesophageal probe was inserted and advanced into esophagus without difficulty. Echo enhancement indication: R/O Thrombus. The KARY was performed without complications. Throughout the procedure, the blood pressure, pulse oximetry, cardiac rhythm, and rate were monitored. The patient tolerated the procedure without adverse effects. Recovery from conscious sedation was uneventful and vital signs were stable. LEFT VENTRICLE The left ventricle is normal size. There is normal left ventricular wall thickness. The left ventricular ejection fraction is within the normal range. No regional wall motion abnormalities noted. No left ventricle thrombus noted on this study. There is no ventricular septal defect visualized. There is no left ventricular aneurysm. There is no mass noted in the left ventricle. RIGHT VENTRICLE The right ventricle is normal size. There is normal right ventricular wall thickness. The right ventricular systolic function is normal. ATRIA The left atrium size is normal. There is increased echogenicity in the left atrial appendage is suggestive of a thrombus. The right atrium size is normal. The interatrial septum is intact with no evidence for an atrial septal defect. AORTIC VALVE The aortic valve is normal in structure. There is mild to moderate aortic regurgitation. There is no aortic valvular stenosis. There is no aortic valvular vegetation. MITRAL VALVE The mitral valve is normal in structure. There is no evidence of mitral valve prolapse. There is no mitral valve stenosis. Mitral regurgitation is mild. TRICUSPID VALVE The tricuspid valve is normal in structure. There is mild tricuspid regurgitation. There is no tricuspid valve prolapse or vegetation. There is no tricuspid valve stenosis. PULMONIC VALVE The pulmonary valve is normal in structure. There is no pulmonic valvular regurgitation. There is no pulmonic valvular stenosis. GREAT VESSELS The aortic root is normal in size. The ascending aorta is normal in size. There ismoderate atherosclerotic plaque in the aortic arch. PERICARDIAL EFFUSION There is no pericardial effusion. BILATERAL PLEURAL EFFUSIONS NOTED. <Conclusion> There is increased echogenicity in the left atrial appendage is suggestive of a thrombus. The interatrial septum is intact with no evidence for an atrial septal defect. BILATERAL PLEURAL EFFUSIONS NOTED. There ismoderate atherosclerotic plaque in the aortic arch. There is mild tricuspid regurgitation. Mitral regurgitation is mild. There is mild to moderate aortic regurgitation. CARDIOVERSION WAS NOT PERFORMED GIVEN WENCESLAO THROMBUS.
--- NOTE | 2018-02-22 16:43 | CP.PCM.PN ---
Subjective - Date & Time of Evaluation Date of Evaluation: 02/22/18 Time of Evaluation: 16:40 - Subjective Subjective: PT WITHOUT SOB OR PALP. PT CURRENT IN AFLUTTER WITH 3 TO 1 CONDUCTION. EARLIER WAS IN 2 TO 1 CONDUCTION. Objective - Vital Signs/Intake and Output Vital Signs (last 24 hours): Temp Pulse Resp BP Pulse Ox 98.0 F 104 H 20 120/75 95 02/22/18 08:41 02/22/18 11:49 02/22/18 08:41 02/22/18 08:41 02/22/18 08:41 Intake and Output: 02/22/18 02/22/18 06:59 18:59 Intake Total 480 200 Balance 480 200 - Medications Medications: Current Medications Acetaminophen (Tylenol 650mg/20.3ml Solution Ud) 650 mg PO Q4 PRN Last Admin: 02/18/18 06:39 Dose: 650 mg Aspirin (Aspirin Chewable) 81 mg PO DAILY [facility] Last Admin: 02/22/18 10:37 Dose: 81 mg Diltiazem HCl (Cardizem) 60 mg PO Q6H [facility] Last Admin: 02/22/18 10:37 Dose: 60 mg Metoprolol Succinate (Toprol Xl) 12.5 mg PO Q12 [facility] Rivaroxaban (Xarelto) 20 mg PO DAILY [facility] Last Admin: 02/22/18 11:15 Dose: 20 mg Rosuvastatin Calcium (Crestor) 10 mg PO HS [facility] Last Admin: 02/21/18 21:57 Dose: 10 mg - Labs Labs: 02/21/18 07:29 02/21/18 07:29 PT 16.3 SECONDS (9.7-12.2) H 02/19/18 13:15 INR 1.5 02/19/18 13:15 APTT 134 SECONDS (21-34) H* D 02/20/18 06:53 - Constitutional Appears: Well - Head Exam Head Exam: ATRAUMATIC, NORMAL INSPECTION, NORMOCEPHALIC - Eye Exam Eye Exam: EOMI, Normal appearance, PERRL. absent: Conjunctival injection, Nystagmus, Periorbital swelling, Periorbital tenderness, Scleral icterus Pupil Exam: NORMAL ACCOMODATION, PERRL - ENT Exam ENT Exam: Mucous Membranes Moist, Normal Exam. absent: Mucous Membranes Dry, Normal External Ear Exam, Normal Oropharynx, TM's Normal Bilaterally - Neck Exam Neck Exam: Full ROM, Normal Inspection. absent: Lymphadenopathy, Meningismus, Tenderness, Thyromegaly - Respiratory Exam Respiratory Exam: Clear to Ausculation Bilateral, NORMAL BREATHING PATTERN. absent: Accessory Muscle Use, Chest Wall Tenderness, Decreased Breath Sounds, Prolonged Expiratory Phase, Rales, Rhonchi, Wheezes, Respiratory Distress, Stridor - Cardiovascular Exam Cardiovascular Exam: Irregular Rhythm, +S1, +S2, Murmur. absent: Bradycardia, Tachycardia, Clicks, Diastolic murmur, Gallop, REGULAR RHYTHM, JVD, RRR, Rubs, + S4 - GI/Abdominal Exam GI & Abdominal Exam: Soft, Normal Bowel Sounds. absent: Bruit, Distended, Firm , Guarding, Rigid, Tenderness, Diminished Bowel Sounds, Hernia, Hyperactive Bowel Sounds, Hypoactive Bowel Sounds, Organomegaly, Pulsatile Mass, Rebound, Mass - Rectal Exam Rectal Exam: Deferred - Extremities Exam Extremities Exam: Full ROM, Normal Capillary Refill, Normal Inspection. absent : Calf Tenderness, Joint Swelling, Pedal Edema, Tenderness - Back Exam Back Exam: NORMAL INSPECTION - Neurological Exam Neurological Exam: Alert, Awake, CN II-XII Intact, Normal Gait, Oriented x3. absent: Abnormal Gait, Altered, Motor Sensory Deficit, Reflexes Normal - Psychiatric Exam Psychiatric exam: Normal Affect, Normal Mood. absent: Agitated, Anxious, Depressed, Flat Affect, Homicidal Ideation, Manic, Suicidal Ideation - Skin Skin Exam: Dry, Intact, Normal Color, Warm. absent: Abrasion, Cyanosis, Diaphoretic, Erythema, Mottled, Pallor, Pallor, Petechiae, Rash, Urticaria, Vesicles Assessment and Plan (1) LA thrombus Status: Acute (2) DVT (deep venous thrombosis) Status: Acute (3) PAF (paroxysmal atrial fibrillation) Status: Acute (4) Atrial flutter Status: Acute (5) Angina at rest Status: Acute - Assessment and Plan (Free Text) Plan: CONTINUE ANTICOAG ADD TOPROL XL 25 Q12 ONCE HR CONTROLLED CAN GO HOME. NEEDS HEM W/U FOR HYPERCOAG STATE.
[2018-02-22] MEDS: Metoprolol Succinate 12.5 mg XL Tab PO SCH ×2 (17:23→21:19)
--- NOTE | 2018-02-22 22:54 | CP.PCM.PN ---
Subjective - Date & Time of Evaluation Date of Evaluation: 02/22/18 Time of Evaluation: 18:00 - Subjective Subjective: Pt seen and examined at bedside Objective - Vital Signs/Intake and Output Vital Signs (last 24 hours): Temp Pulse Resp BP Pulse Ox 97.7 F 107 H 18 103/67 96 02/22/18 15:00 02/22/18 16:00 02/22/18 15:00 02/22/18 15:00 02/22/18 15:00 Intake and Output: 02/22/18 02/23/18 18:59 06:59 Intake Total 200 Balance 200 - Medications Medications: Current Medications Acetaminophen (Tylenol 650mg/20.3ml Solution Ud) 650 mg PO Q4 PRN Last Admin: 02/18/18 06:39 Dose: 650 mg Aspirin (Aspirin Chewable) 81 mg PO DAILY [facility] Last Admin: 02/22/18 10:37 Dose: 81 mg Diltiazem HCl (Cardizem) 60 mg PO Q6H [facility] Last Admin: 02/22/18 21:19 Dose: 60 mg Metoprolol Succinate (Toprol Xl) 12.5 mg PO Q12 [facility] Last Admin: 02/22/18 21:19 Dose: 12.5 mg Rivaroxaban (Xarelto) 20 mg PO DAILY [facility] Last Admin: 02/22/18 11:15 Dose: 20 mg Rosuvastatin Calcium (Crestor) 10 mg PO HS [facility] Last Admin: 02/22/18 21:19 Dose: 10 mg - Labs Labs: 02/21/18 07:29 02/21/18 07:29 PT 16.3 SECONDS (9.7-12.2) H 02/19/18 13:15 INR 1.5 02/19/18 13:15 APTT 134 SECONDS (21-34) H* D 02/20/18 06:53 Assessment and Plan (1) Rapid atrial fibrillation Status: Acute (2) DVT (deep venous thrombosis) Status: Acute (3) Atrial fibrillation Status: Acute (4) CHF (congestive heart failure) Status: Acute
[2018-02-23 08:24] LABS: BASO # 0.1 K/uL (0.0-0.2); EOS # 0.2 K/uL (0.0-0.7); EOS % 2.1 % (0.0-4.0); HEMOGLOBIN 14.7 g/dL (11.0-16.0); LYMPH % 13.7 % (20.0-40.0); MEAN CELL VOLUME 90.8 fL (81.0-99.0); MEAN CORPUSCULAR HEMOGLOBIN 30.5 pg (27.0-31.0); MEAN CORPUSCULAR HGB CONC 33.6 g/dL (33.0-37.0); MEAN PLATELET VOLUME 8.5 fL (7.2-11.7); MONO # 0.8 K/uL (0.0-0.8); MONO % 11.6 % (0.0-10.0); NEUT # 5.1 K/uL (1.8-7.0); NEUT % 71.6 % (50.0-75.0); RBC 4.81 Mil/uL (3.80-5.20); RED CELL DISTRIBUTION WIDTH 15.6 % (11.5-14.5); WHITE BLOOD COUNT 7.2 K/uL (4.8-10.8)
[2018-02-23 08:35] LABS: BLOOD UREA NITROGEN 11 mg/dL (7-17); CALCIUM 8.6 mg/dl (8.6-10.4); GFR AFRICAN-AMERICAN > 60; GFR NON-AFRICAN AMERICAN > 60
[2018-02-23] MEDS: Metoprolol Succinate 25 mg XL Tab PO SCH ×2 (09:08→21:12)
--- NOTE | 2018-02-23 16:33 | CP.PCM.PN ---
Subjective - Date & Time of Evaluation Date of Evaluation: 02/23/18 Time of Evaluation: 19:40 - Subjective Subjective: pt seen and examined Objective - Vital Signs/Intake and Output Vital Signs (last 24 hours): Temp Pulse Resp BP Pulse Ox 98.1 F 90 20 96/68 L 99 02/23/18 15:08 02/23/18 15:08 02/23/18 15:08 02/23/18 15:08 02/23/18 15:08 Intake and Output: 02/23/18 02/23/18 06:59 18:59 Intake Total 400 Balance 400 - Medications Medications: Current Medications Acetaminophen (Tylenol 650mg/20.3ml Solution Ud) 650 mg PO Q4 PRN Last Admin: 02/18/18 06:39 Dose: 650 mg Aspirin (Aspirin Chewable) 81 mg PO DAILY [facility] Last Admin: 02/23/18 09:08 Dose: 81 mg Diltiazem HCl (Cardizem) 60 mg PO Q6H [facility] Last Admin: 02/23/18 14:49 Dose: 60 mg Metoprolol Succinate (Toprol Xl) 25 mg PO Q12 [facility] Last Admin: 02/23/18 09:08 Dose: 25 mg Rivaroxaban (Xarelto) 20 mg PO DAILY [facility] Last Admin: 02/23/18 09:08 Dose: 20 mg Rosuvastatin Calcium (Crestor) 10 mg PO HS [facility] Last Admin: 02/22/18 21:19 Dose: 10 mg - Labs Labs: 02/23/18 08:11 02/23/18 08:11 PT 16.3 SECONDS (9.7-12.2) H 02/19/18 13:15 INR 1.5 02/19/18 13:15 APTT 134 SECONDS (21-34) H* D 02/20/18 06:53 Assessment and Plan (1) Rapid atrial fibrillation Status: Acute (2) DVT (deep venous thrombosis) Status: Acute (3) Atrial fibrillation Status: Acute (4) CHF (congestive heart failure) Status: Acute
[2018-02-23] MEDS ORDERED: Magnesium Hydroxide Susp 30 ml UD PO PRN (19:48)
--- NOTE | 2018-02-23 19:49 | CP.PCM.PN ---
Subjective - Date & Time of Evaluation Date of Evaluation: 02/23/18 Time of Evaluation: 14:00 - Subjective Subjective: continued aflutter with occasional rapid response. pt ambulating at time of visit. Objective - Vital Signs/Intake and Output Vital Signs (last 24 hours): Temp Pulse Resp BP Pulse Ox 98.1 F 113 H 20 96/68 L 99 02/23/18 15:08 02/23/18 16:00 02/23/18 15:08 02/23/18 15:08 02/23/18 15:08 - Medications Medications: Current Medications Acetaminophen (Tylenol 650mg/20.3ml Solution Ud) 650 mg PO Q4 PRN Last Admin: 02/18/18 06:39 Dose: 650 mg Aspirin (Aspirin Chewable) 81 mg PO DAILY [facility] Last Admin: 02/23/18 09:08 Dose: 81 mg Diltiazem HCl (Cardizem) 60 mg PO Q6H [facility] Last Admin: 02/23/18 14:49 Dose: 60 mg Metoprolol Succinate (Toprol Xl) 25 mg PO Q12 [facility] Last Admin: 02/23/18 09:08 Dose: 25 mg Rivaroxaban (Xarelto) 20 mg PO DAILY [facility] Last Admin: 02/23/18 09:08 Dose: 20 mg Rosuvastatin Calcium (Crestor) 10 mg PO HS [facility] Last Admin: 02/22/18 21:19 Dose: 10 mg - Labs Labs: 02/23/18 08:11 02/23/18 08:11 PT 16.3 SECONDS (9.7-12.2) H 02/19/18 13:15 INR 1.5 02/19/18 13:15 APTT 134 SECONDS (21-34) H* D 02/20/18 06:53 - Constitutional Appears: Well - Head Exam Head Exam: ATRAUMATIC, NORMAL INSPECTION, NORMOCEPHALIC - Eye Exam Eye Exam: EOMI, Normal appearance, PERRL. absent: Conjunctival injection, Nystagmus, Periorbital swelling, Periorbital tenderness, Scleral icterus Pupil Exam: NORMAL ACCOMODATION, PERRL - ENT Exam ENT Exam: Mucous Membranes Moist, Normal Exam. absent: Mucous Membranes Dry, Normal External Ear Exam, Normal Oropharynx, TM's Normal Bilaterally - Neck Exam Neck Exam: Full ROM, Normal Inspection. absent: Lymphadenopathy, Meningismus, Tenderness, Thyromegaly - Respiratory Exam Respiratory Exam: Clear to Ausculation Bilateral, NORMAL BREATHING PATTERN. absent: Accessory Muscle Use, Chest Wall Tenderness, Decreased Breath Sounds, Prolonged Expiratory Phase, Rales, Rhonchi, Wheezes, Respiratory Distress, Stridor - Cardiovascular Exam Cardiovascular Exam: Tachycardia, Irregular Rhythm, +S1, +S2, Murmur. absent: Bradycardia, Clicks, Diastolic murmur, Gallop, REGULAR RHYTHM, JVD, RRR, Rubs, + S4 - GI/Abdominal Exam GI & Abdominal Exam: Soft, Normal Bowel Sounds. absent: Bruit, Distended, Firm , Guarding, Rigid, Tenderness, Diminished Bowel Sounds, Hernia, Hyperactive Bowel Sounds, Hypoactive Bowel Sounds, Organomegaly, Pulsatile Mass, Rebound, Mass - Rectal Exam Rectal Exam: Deferred - Extremities Exam Extremities Exam: Full ROM, Normal Capillary Refill, Normal Inspection. absent : Calf Tenderness, Joint Swelling, Pedal Edema, Tenderness - Back Exam Back Exam: NORMAL INSPECTION. absent: CVA tenderness (L), CVA tenderness (R), Full ROM, muscle spasm, paraspinal tenderness, rash noted, tenderness, vertebral tenderness - Neurological Exam Neurological Exam: Alert, Awake, CN II-XII Intact, Normal Gait, Oriented x3. absent: Abnormal Gait, Altered, Motor Sensory Deficit, Reflexes Normal - Psychiatric Exam Psychiatric exam: Normal Affect, Normal Mood. absent: Agitated, Anxious, Depressed, Flat Affect, Homicidal Ideation, Manic, Suicidal Ideation - Skin Skin Exam: Dry, Intact, Normal Color, Warm. absent: Abrasion, Cyanosis, Diaphoretic, Erythema, Mottled, Pallor, Pallor, Petechiae, Rash, Urticaria, Vesicles Assessment and Plan (1) LA thrombus Status: Acute (2) DVT (deep venous thrombosis) Status: Acute (3) PAF (paroxysmal atrial fibrillation) Status: Acute (4) Atrial flutter Status: Acute (5) Angina at rest Status: Acute - Assessment and Plan (Free Text) Plan: recommend titrating metoprolol for hr control. NO AMIODARONE, GIVEN RISK OF RESTORING SR AND CVA. d/w dr Christine
[2018-02-24 07:33] LABS: BASO # 0.1 K/uL (0.0-0.2); BASO % 1.3 % (0.0-2.0); EOS # 0.2 K/uL (0.0-0.7); EOS % 2.4 % (0.0-4.0); HEMOGLOBIN 13.8 g/dL (11.0-16.0); LYMPH # 1.3 K/uL (1.0-4.3); LYMPH % 18.3 % (20.0-40.0); MEAN CELL VOLUME 89.8 fL (81.0-99.0); MEAN CORPUSCULAR HEMOGLOBIN 30.2 pg (27.0-31.0); MEAN CORPUSCULAR HGB CONC 33.7 g/dL (33.0-37.0); MEAN PLATELET VOLUME 8.5 fL (7.2-11.7); MONO # 0.8 K/uL (0.0-0.8); MONO % 11.7 % (0.0-10.0); NEUT # 4.6 K/uL (1.8-7.0); NEUT % 66.3 % (50.0-75.0); NRBC % 0.1 % (0.0-2.0); RBC 4.55 Mil/uL (3.80-5.20); RED CELL DISTRIBUTION WIDTH 15.7 % (11.5-14.5); WHITE BLOOD COUNT 6.9 K/uL (4.8-10.8)
[2018-02-24 08:27] LABS: ALBUMIN 3.4 g/dL (3.5-5.0); ALT/SGPT 47 U/L (9-52); AST/SGOT 39 U/L (14-36); BLOOD UREA NITROGEN 16 mg/dL (7-17); CALCIUM 8.3 mg/dl (8.6-10.4); GFR AFRICAN-AMERICAN > 60; GFR NON-AFRICAN AMERICAN > 60
[2018-02-24] MEDS: Metoprolol Succinate 25 mg XL Tab PO SCH (09:13)
[2018-02-24 11:32] VITALS: O2SAT 97
--- NOTE | 2018-02-24 14:23 | CP.PCM.PN ---
Subjective - Date & Time of Evaluation Date of Evaluation: 02/24/18 Time of Evaluation: 14:23 - Subjective Subjective: PATIENT SEEN AND EXAMINED AT THE BEDSIDE NO SIGN OF DISTRESS NOTED Objective - Vital Signs/Intake and Output Vital Signs (last 24 hours): Temp Pulse Resp BP Pulse Ox 97.6 F 81 18 124/77 97 02/24/18 11:31 02/24/18 12:43 02/24/18 11:31 02/24/18 07:20 02/24/18 11:31 Intake and Output: 02/24/18 02/24/18 06:59 18:59 Intake Total 480 Balance 480 - Medications Medications: Current Medications Acetaminophen (Tylenol 650mg/20.3ml Solution Ud) 650 mg PO Q4 PRN Last Admin: 02/18/18 06:39 Dose: 650 mg Aspirin (Aspirin Chewable) 81 mg PO DAILY [facility] Last Admin: 02/24/18 09:13 Dose: 81 mg Diltiazem HCl (Cardizem) 60 mg PO Q6H [facility] Last Admin: 02/24/18 09:13 Dose: 60 mg Magnesium Hydroxide (Milk Of Magnesia) 30 ml PO DAILY PRN PRN Reason: Constipation Last Admin: 02/23/18 19:56 Dose: 30 ml Metoprolol Succinate (Toprol Xl) 25 mg PO Q12 [facility] Last Admin: 02/24/18 09:13 Dose: 25 mg Rivaroxaban (Xarelto) 20 mg PO DAILY [facility] Last Admin: 02/24/18 09:13 Dose: 20 mg Rosuvastatin Calcium (Crestor) 10 mg PO HS [facility] Last Admin: 02/23/18 21:12 Dose: 10 mg - Labs Labs: 02/24/18 07:21 02/24/18 07:21 PT 16.3 SECONDS (9.7-12.2) H 02/19/18 13:15 INR 1.5 02/19/18 13:15 APTT 134 SECONDS (21-34) H* D 02/20/18 06:53 Assessment and Plan - Assessment and Plan (Free Text) Assessment: FOLLOW UP WITH DR MALAGON IN 1-2 WEEK AT HIS OFFICE ---CALL FOR APPOINTMENT FOLLOW UP WITH DR PARIS AT HIS OFFICE 1-2 WEEK ---CALL FOR APPOINTMENT FOLLOW UP WITH DR CABRERA AT HIS OFFICE ---CALL FOR APPOINTMENT CONTINUE ALL YOUR HOME MEDICATION NEW PRESCRITPION GIVEN ASPIRIN 81 MG ONE TAB BY MOUTH DAILY XARELTO 20 MG ONE TAB BY MOUTH DAILY [facility] 10 MG ONE TAB BY MOUTH AT NIGHT CARDIZEM 60 MG ONE TAB BY MOUTH EVERY 6 HOURS TOPROL XL 25 MG ONE TAB BY MOUTH EVERY 12H ACTIVITY TOLERATED CALL DR MALAGON OR GO TO THE EMERGENCY ROOM IF SYMPTOMS RETURN OR WORSENING
[2018-02-24 16:01] VITALS: BP 104/73; PULSE 91; RESP 20; TEMP 98.2
--- NOTE | 2018-02-24 16:32 | CP.PCM.PN ---
Subjective - Date & Time of Evaluation Date of Evaluation: 02/22/18 Time of Evaluation: 16:00 - Subjective Subjective: No complaints. Objective - Vital Signs/Intake and Output Vital Signs (last 24 hours): Temp Pulse Resp BP Pulse Ox 98.2 F 91 H 20 104/73 97 02/24/18 15:10 02/24/18 16:23 02/24/18 15:10 02/24/18 15:10 02/24/18 15:10 Intake and Output: 02/24/18 02/24/18 06:59 18:59 Intake Total 480 Balance 480 - Medications Medications: Current Medications Acetaminophen (Tylenol 650mg/20.3ml Solution Ud) 650 mg PO Q4 PRN Last Admin: 02/18/18 06:39 Dose: 650 mg Aspirin (Aspirin Chewable) 81 mg PO DAILY [facility] Last Admin: 02/24/18 09:13 Dose: 81 mg Diltiazem HCl (Cardizem) 60 mg PO Q6H [facility] Last Admin: 02/24/18 14:40 Dose: 60 mg Magnesium Hydroxide (Milk Of Magnesia) 30 ml PO DAILY PRN PRN Reason: Constipation Last Admin: 02/23/18 19:56 Dose: 30 ml Metoprolol Succinate (Toprol Xl) 25 mg PO Q12 [facility] Last Admin: 02/24/18 09:13 Dose: 25 mg Rivaroxaban (Xarelto) 20 mg PO DAILY [facility] Last Admin: 02/24/18 09:13 Dose: 20 mg Rosuvastatin Calcium (Crestor) 10 mg PO HS [facility] Last Admin: 02/23/18 21:12 Dose: 10 mg - Labs Labs: 02/24/18 07:21 02/24/18 07:21 PT 16.3 SECONDS (9.7-12.2) H 02/19/18 13:15 INR 1.5 02/19/18 13:15 APTT 134 SECONDS (21-34) H* D 02/20/18 06:53 - Head Exam Head Exam: ATRAUMATIC - Eye Exam Eye Exam: Normal appearance - ENT Exam ENT Exam: Mucous Membranes Dry - Respiratory Exam Respiratory Exam: NORMAL BREATHING PATTERN - Cardiovascular Exam Cardiovascular Exam: +S1, +S2 - GI/Abdominal Exam GI & Abdominal Exam: Normal Bowel Sounds Assessment and Plan (1) DVT (deep venous thrombosis) Assessment & Plan: unprovoked onthereapeutic Xarelto no overt evidence of malignancy noted on CT; cyst in liver Status: Acute (2) Underweight Assessment & Plan: no overt evidence of malignancy by CT Status: Acute (3) Coagulopathy Assessment & Plan: secondary to anticoagulation Status: Acute
--- NOTE | 2018-02-24 16:33 | CP.PCM.PN ---
Subjective - Date & Time of Evaluation Date of Evaluation: 02/23/18 Time of Evaluation: 18:00 - Subjective Subjective: No complaints. Objective - Vital Signs/Intake and Output Vital Signs (last 24 hours): Temp Pulse Resp BP Pulse Ox 98.2 F 91 H 20 104/73 97 02/24/18 15:10 02/24/18 16:23 02/24/18 15:10 02/24/18 15:10 02/24/18 15:10 Intake and Output: 02/24/18 02/24/18 06:59 18:59 Intake Total 480 Balance 480 - Medications Medications: Current Medications Acetaminophen (Tylenol 650mg/20.3ml Solution Ud) 650 mg PO Q4 PRN Last Admin: 02/18/18 06:39 Dose: 650 mg Aspirin (Aspirin Chewable) 81 mg PO DAILY [facility] Last Admin: 02/24/18 09:13 Dose: 81 mg Diltiazem HCl (Cardizem) 60 mg PO Q6H [facility] Last Admin: 02/24/18 14:40 Dose: 60 mg Magnesium Hydroxide (Milk Of Magnesia) 30 ml PO DAILY PRN PRN Reason: Constipation Last Admin: 02/23/18 19:56 Dose: 30 ml Metoprolol Succinate (Toprol Xl) 25 mg PO Q12 [facility] Last Admin: 02/24/18 09:13 Dose: 25 mg Rivaroxaban (Xarelto) 20 mg PO DAILY [facility] Last Admin: 02/24/18 09:13 Dose: 20 mg Rosuvastatin Calcium (Crestor) 10 mg PO HS [facility] Last Admin: 02/23/18 21:12 Dose: 10 mg - Labs Labs: 02/24/18 07:21 02/24/18 07:21 PT 16.3 SECONDS (9.7-12.2) H 02/19/18 13:15 INR 1.5 02/19/18 13:15 APTT 134 SECONDS (21-34) H* D 02/20/18 06:53 - Head Exam Head Exam: ATRAUMATIC - Eye Exam Eye Exam: Normal appearance - ENT Exam ENT Exam: Mucous Membranes Dry - Respiratory Exam Respiratory Exam: NORMAL BREATHING PATTERN - Cardiovascular Exam Cardiovascular Exam: +S1, +S2 - GI/Abdominal Exam GI & Abdominal Exam: Normal Bowel Sounds Assessment and Plan (1) DVT (deep venous thrombosis) Assessment & Plan: unprovoked on Xarelto Status: Acute (2) Underweight Assessment & Plan: CT shows no overt evidence of malignancy Status: Acute (3) Coagulopathy Assessment & Plan: secondary to anticoagulation Status: Acute
--- NOTE | 2018-02-24 16:34 | CP.PCM.PN ---
Subjective - Date & Time of Evaluation Date of Evaluation: 02/24/18 Time of Evaluation: 16:05 - Subjective Subjective: No complaints, fiance at bedside. Objective - Vital Signs/Intake and Output Vital Signs (last 24 hours): Temp Pulse Resp BP Pulse Ox 98.2 F 91 H 20 104/73 97 02/24/18 15:10 02/24/18 16:23 02/24/18 15:10 02/24/18 15:10 02/24/18 15:10 Intake and Output: 02/24/18 02/24/18 06:59 18:59 Intake Total 480 Balance 480 - Medications Medications: Current Medications Acetaminophen (Tylenol 650mg/20.3ml Solution Ud) 650 mg PO Q4 PRN Last Admin: 02/18/18 06:39 Dose: 650 mg Aspirin (Aspirin Chewable) 81 mg PO DAILY [facility] Last Admin: 02/24/18 09:13 Dose: 81 mg Diltiazem HCl (Cardizem) 60 mg PO Q6H [facility] Last Admin: 02/24/18 14:40 Dose: 60 mg Magnesium Hydroxide (Milk Of Magnesia) 30 ml PO DAILY PRN PRN Reason: Constipation Last Admin: 02/23/18 19:56 Dose: 30 ml Metoprolol Succinate (Toprol Xl) 25 mg PO Q12 [facility] Last Admin: 02/24/18 09:13 Dose: 25 mg Rivaroxaban (Xarelto) 20 mg PO DAILY [facility] Last Admin: 02/24/18 09:13 Dose: 20 mg Rosuvastatin Calcium (Crestor) 10 mg PO HS [facility] Last Admin: 02/23/18 21:12 Dose: 10 mg - Labs Labs: 02/24/18 07:21 02/24/18 07:21 PT 16.3 SECONDS (9.7-12.2) H 02/19/18 13:15 INR 1.5 02/19/18 13:15 APTT 134 SECONDS (21-34) H* D 02/20/18 06:53 - Head Exam Head Exam: ATRAUMATIC - Eye Exam Eye Exam: Normal appearance - ENT Exam ENT Exam: Mucous Membranes Dry - Respiratory Exam Respiratory Exam: NORMAL BREATHING PATTERN - Cardiovascular Exam Cardiovascular Exam: +S1, +S2 - GI/Abdominal Exam GI & Abdominal Exam: Normal Bowel Sounds Assessment and Plan (1) DVT (deep venous thrombosis) Assessment & Plan: unprovoked on Xarelto Status: Acute (2) Underweight Assessment & Plan: no overt evidence of malignancy by CT Status: Acute (3) Coagulopathy Assessment & Plan: secondary to anticoagulation Status: Acute
--- NOTE | 2018-02-24 16:56 | CP.PCM.PN ---
Subjective - Date & Time of Evaluation Date of Evaluation: 02/24/18 Time of Evaluation: 16:55 - Subjective Subjective: PT WO COMPLAINTS. HR STABLE IN 80S. Objective - Vital Signs/Intake and Output Vital Signs (last 24 hours): Temp Pulse Resp BP Pulse Ox 98.2 F 91 H 20 104/73 97 02/24/18 15:10 02/24/18 16:23 02/24/18 15:10 02/24/18 15:10 02/24/18 15:10 Intake and Output: 02/24/18 02/24/18 06:59 18:59 Intake Total 480 Balance 480 - Medications Medications: Current Medications Acetaminophen (Tylenol 650mg/20.3ml Solution Ud) 650 mg PO Q4 PRN Last Admin: 02/18/18 06:39 Dose: 650 mg Aspirin (Aspirin Chewable) 81 mg PO DAILY [facility] Last Admin: 02/24/18 09:13 Dose: 81 mg Diltiazem HCl (Cardizem) 60 mg PO Q6H [facility] Last Admin: 02/24/18 14:40 Dose: 60 mg Magnesium Hydroxide (Milk Of Magnesia) 30 ml PO DAILY PRN PRN Reason: Constipation Last Admin: 02/23/18 19:56 Dose: 30 ml Metoprolol Succinate (Toprol Xl) 25 mg PO Q12 [facility] Last Admin: 02/24/18 09:13 Dose: 25 mg Rivaroxaban (Xarelto) 20 mg PO DAILY [facility] Last Admin: 02/24/18 09:13 Dose: 20 mg Rosuvastatin Calcium (Crestor) 10 mg PO HS [facility] Last Admin: 02/23/18 21:12 Dose: 10 mg - Labs Labs: 02/24/18 07:21 02/24/18 07:21 PT 16.3 SECONDS (9.7-12.2) H 02/19/18 13:15 INR 1.5 02/19/18 13:15 APTT 134 SECONDS (21-34) H* D 02/20/18 06:53 - Constitutional Appears: Well - Head Exam Head Exam: ATRAUMATIC, NORMAL INSPECTION, NORMOCEPHALIC - Eye Exam Eye Exam: EOMI, Normal appearance, PERRL. absent: Conjunctival injection, Nystagmus, Periorbital swelling, Periorbital tenderness, Scleral icterus Pupil Exam: NORMAL ACCOMODATION, PERRL - ENT Exam ENT Exam: Mucous Membranes Moist, Normal Exam. absent: Mucous Membranes Dry, Normal External Ear Exam, Normal Oropharynx, TM's Normal Bilaterally - Neck Exam Neck Exam: Full ROM, Normal Inspection. absent: Lymphadenopathy, Meningismus, Tenderness, Thyromegaly - Respiratory Exam Respiratory Exam: Clear to Ausculation Bilateral, NORMAL BREATHING PATTERN. absent: Accessory Muscle Use, Chest Wall Tenderness, Decreased Breath Sounds, Prolonged Expiratory Phase, Rales, Rhonchi, Wheezes, Respiratory Distress, Stridor - Cardiovascular Exam Cardiovascular Exam: Irregular Rhythm, +S1, +S2, Murmur. absent: Bradycardia, Tachycardia, Clicks, Diastolic murmur, Gallop, REGULAR RHYTHM, JVD, RRR, Rubs, + S4 - GI/Abdominal Exam GI & Abdominal Exam: Soft, Normal Bowel Sounds. absent: Bruit, Distended, Firm , Guarding, Rigid, Tenderness, Diminished Bowel Sounds, Hernia, Hyperactive Bowel Sounds, Hypoactive Bowel Sounds, Organomegaly, Pulsatile Mass, Rebound, Mass - Rectal Exam Rectal Exam: Deferred - Extremities Exam Extremities Exam: Full ROM, Normal Capillary Refill, Normal Inspection. absent : Calf Tenderness, Joint Swelling, Pedal Edema, Tenderness - Back Exam Back Exam: NORMAL INSPECTION. absent: CVA tenderness (L), CVA tenderness (R), Full ROM, muscle spasm, paraspinal tenderness, rash noted, tenderness, vertebral tenderness - Neurological Exam Neurological Exam: Alert, Awake, CN II-XII Intact, Normal Gait, Oriented x3. absent: Abnormal Gait, Altered, Motor Sensory Deficit, Reflexes Normal - Psychiatric Exam Psychiatric exam: Normal Affect, Normal Mood. absent: Agitated, Anxious, Depressed, Flat Affect, Homicidal Ideation, Manic, Suicidal Ideation - Skin Skin Exam: Dry, Intact, Normal Color, Warm Assessment and Plan (1) LA thrombus Status: Acute (2) DVT (deep venous thrombosis) Status: Acute (3) PAF (paroxysmal atrial fibrillation) Status: Acute (4) Atrial flutter Status: Acute (5) Angina at rest Status: Acute - Assessment and Plan (Free Text) Plan: CONTINUE CURRENT MED REGIMN. REASSESS VIA KARY IN 6-8 WEEKS.
--- NOTE | 2018-02-24 17:42 | PCM.HF ---
Heart Failure Core Measure - Heart Failure Ejection Fraction: 40 % or Greater KAROLINE Inhibitor Prescribed: No Contraindication/Reason for not providing: EF IS GREATER THAN 40 Beta-Theresa Prescribed: Metoprolol Succinate Angiotensin II Receptor Theresa Prescribed: No Contraindication/Reason for not providing: EF IS GREATER THAN 40 AnticoagulationTherapy for Atrial Fibrillation/Atrialflutter: Yes Contraindication/Reason for not providing: HX OF AFIB Aldosterone Antagonist Prescribed: No Contraindication/Reason for not providing: EF IS GREATER THAN 40 Hydralazine Nitrate Prescribed: No Contraindication/Reason for not providing: EF IS GREATER THAN 40 Implantable Cardioverter Defibrillator Therapy: No Contraindication/Reason for not providing: NOT INDICATED Cardiac Resynchronization Therapy Prescribed: No Contraindication/Reason for not providing: NOT INDICATED - Follow up Will be discharged to: Home Follow Up Date (must be within 7 days from discharge): 03/02/18 Follow Up Time: 09:00
--- NOTE | 2018-02-25 00:05 | CP.PCM.DIS ---
Provider - Provider Date of Admission: 02/17/18 15:11 Attending physician: Jt Christine MD Time Spent in preparation of Discharge (in minutes): 45 Diagnosis - Discharge Diagnosis (1) Rapid atrial fibrillation Status: Acute (2) DVT (deep venous thrombosis) Status: Acute (3) Atrial fibrillation Status: Acute (4) CHF (congestive heart failure) Status: Acute Hospital Course - Lab Results Lab Results: Most Recent Lab Values WBC 6.9 K/uL (4.8-10.8) 02/24/18 07:21 RBC 4.55 Mil/uL (3.80-5.20) 02/24/18 07:21 Hgb 13.8 g/dL (11.0-16.0) 02/24/18 07:21 Hct 40.8 % (34.0-47.0) 02/24/18 07:21 MCV 89.8 fL (81.0-99.0) 02/24/18 07:21 MCH 30.2 pg (27.0-31.0) 02/24/18 07:21 MCHC 33.7 g/dL (33.0-37.0) 02/24/18 07:21 RDW 15.7 % (11.5-14.5) H 02/24/18 07:21 Plt Count 297 K/uL (130-400) 02/24/18 07:21 MPV 8.5 fL (7.2-11.7) 02/24/18 07:21 Neut % (Auto) 66.3 % (50.0-75.0) 02/24/18 07:21 Lymph % (Auto) 18.3 % (20.0-40.0) L 02/24/18 07:21 [place] % (Auto) 11.7 % (0.0-10.0) H 02/24/18 07:21 Eos % (Auto) 2.4 % (0.0-4.0) 02/24/18 07:21 Baso % (Auto) 1.3 % (0.0-2.0) 02/24/18 07:21 Neut # (Auto) 4.6 K/uL (1.8-7.0) 02/24/18 07:21 Lymph # (Auto) 1.3 K/uL (1.0-4.3) 02/24/18 07:21 [place] # (Auto) 0.8 K/uL (0.0-0.8) 02/24/18 07:21 Eos # (Auto) 0.2 K/uL (0.0-0.7) 02/24/18 07:21 Baso # (Auto) 0.1 K/uL (0.0-0.2) 02/24/18 07:21 ESR 10 mm/hr (0-20) 02/22/18 07:09 PT 16.3 SECONDS (9.7-12.2) H 02/19/18 13:15 INR 1.5 02/19/18 13:15 APTT 134 SECONDS (21-34) H* D 02/20/18 06:53 D-Dimer, Quantitative 963 ng/mlDDU (0-243) H 02/17/18 19:44 Sodium 136 mmol/L (132-148) 02/24/18 07:21 Potassium 4.3 mmol/L (3.6-5.2) 02/24/18 07:21 Chloride 103 mmol/L (98-107) 02/24/18 07:21 Carbon Dioxide 22 mmol/L (22-30) 02/24/18 07:21 Anion Gap 15 (10-20) 02/24/18 07:21 BUN 16 mg/dL (7-17) 02/24/18 07:21 Creatinine 0.8 mg/dL (0.7-1.2) 02/24/18 07:21 Est GFR ( Amer) > 60 02/24/18 07:21 Est GFR (Non-Af Amer) > 60 02/24/18 07:21 Random Glucose 101 mg/dL (65-105) 02/24/18 07:21 Calcium 8.3 mg/dl (8.6-10.4) L 02/24/18 07:21 Magnesium 1.8 mg/dL (1.6-2.3) 02/21/18 07:29 Total Bilirubin 0.9 mg/dL (0.2-1.3) 02/24/18 07:21 AST 39 U/L (14-36) H 02/24/18 07:21 ALT 47 U/L (9-52) 02/24/18 07:21 Alkaline Phosphatase 147 U/L (38-126) H 02/24/18 07:21 Total Creatine Kinase 191 U/L (30-135) H 02/19/18 00:37 CK-MB (Mass) 1.84 ng/mL (0.0-3.38) 02/19/18 00:37 Troponin I 0.0820 ng/mL (0.00-0.120) 02/19/18 00:37 C-React Prot High Sens > 15.00 mg/L (1.00-3.00) H 02/21/18 07:29 NT-Pro-B Natriuret Pep 70657 pg/mL (0-900) H 02/17/18 14:21 Total Protein 6.7 g/dL (6.3-8.3) 02/24/18 07:21 Albumin 3.4 g/dL (3.5-5.0) L 02/24/18 07:21 Globulin 3.3 gm/dL (2.2-3.9) 02/24/18 07:21 Albumin/Globulin Ratio 1.0 (1.0-2.1) 02/24/18 07:21 TSH 3rd Generation 1.36 mIU/L (0.46-4.68) 02/18/18 03:59 Urine Color Yellow (YELLOW) 02/19/18 00:50 Urine Clarity Turbid (Clear) 02/19/18 00:50 Urine pH 6.0 (5.0-8.0) 02/19/18 00:50 Ur Specific [place] 1.025 (1.003-1.030) 02/19/18 00:50 Urine Protein 30 mg/dL (NEGATIVE) 02/19/18 00:50 Urine Glucose (UA) Negative mg/dL (Normal) 02/19/18 00:50 Urine Ketones Negative mg/dL (NEGATIVE) 02/19/18 00:50 Urine Blood Negative (NEGATIVE) 02/19/18 00:50 Urine Nitrate Negative (NEGATIVE) 02/19/18 00:50 Urine Bilirubin Negative (NEGATIVE) 02/19/18 00:50 Urine Urobilinogen 0.2 mg/dL (0.2-1.0) 02/19/18 00:50 Ur Leukocyte Esterase Negative Felix/uL (Negative) 02/19/18 00:50 Urine WBC (Auto) 4 /hpf (0-5) 02/19/18 00:50 Urine RBC (Auto) 1 /hpf (0-3) 02/19/18 00:50 Ur Squamous Epith Cells 3 /hpf (0-5) 02/18/18 18:59 Amorphous Sediment Moderate /ul (<OCC) H 02/19/18 00:50 - Hospital Course Hospital Course: PT SEEN AND EXAMINED IS STABLE FOR DISCHARGE, CONTINUE CURRENT MED REGIMN. REASSESS VIA KARY IN 6-8 WEEKS. Discharge Exam - Head Exam Head Exam: ATRAUMATIC Discharge Plan - Discharge Medications Prescriptions: Aspirin [Aspirin Chewable] 81 mg PO DAILY 30 Days chew diltiaZEM [Cardizem] 60 mg PO Q6H 30 Days tab Rosuvastatin Calcium [Crestor] 10 mg PO HS 30 Days tab Metoprolol Succinate XL [Toprol XL] 25 mg PO Q12 30 Days tab Rivaroxaban [Xarelto] 20 mg PO DAILY 30 Days tab - Follow Up Plan Condition: FAIR Disposition: HOME/ ROUTINE Instructions: Rivaroxaban, Aspirin, Diltiazem, Metoprolol, Rosuvastatin, Heart Failure (DC), Pacemaker (GEN), Pulmonary Edema (DC), Ascites (DC) Additional Instructions: FOLLOW UP WITH DR CHRISTINE IN 1-2 WEEK AT HIS OFFICE ---CALL FOR APPOINTMENT FOLLOW UP WITH DR MORA AT HIS OFFICE 1-2 WEEK ---CALL FOR APPOINTMENT FOLLOW UP WITH DR BURGER AT HIS OFFICE ---CALL FOR APPOINTMENT CONTINUE ALL YOUR HOME MEDICATION NEW PRESCRITPION GIVEN ASPIRIN 81 MG ONE TAB BY MOUTH DAILY XARELTO 20 MG ONE TAB BY MOUTH DAILY CRESTOR 10 MG ONE TAB BY MOUTH AT NIGHT CARDIZEM 60 MG ONE TAB BY MOUTH EVERY 6 HOURS TOPROL XL 25 MG ONE TAB BY MOUTH EVERY 12H ACTIVITY TOLERATED CALL DR CHRISTINE OR GO TO THE EMERGENCY ROOM IF SYMPTOMS RETURN OR WORSENING Referrals: Bubba Mora MD [Staff Provider] - Jt Christine MD [Staff Provider] - Steve Burger MD [Staff Provider] -
--- NOTE | 2018-02-26 07:37 | CARD ---
APPROVED REPORT Protocol: LEXISCAN Test Type: LEXISCAN STRESS Test Indications: ATRIAL FIRILLATION Medications: LIST Target HR: 150 bpm Resting ECG: atrial fibrillation Resting Heart Rate: 107 bpm Resting Blood Pressure: 126/80mmHg submaximum (85%): 128 bpm TEST SUMMARY [id number]:02..1.0108/.0. PREINFSNHYPERV.11:[id number]/80.0. INFUSIONDOSE 101:000.00.01.0120/.0. INFUSIONDOSE 201:[id number]/80.0. INFUSIONDOSE 300:[id number]/80.0. PROCEDURE Pharmacologic stress testing was performed using 0.4mg per 5ml of regadenoson given intravenously over 7-10 seconds. POST EXERCISE Reason for Termination: Protocol Completed Target HR: No Max HR: 123 bpm 94% of Maximum Predicted HR: 150 bpm Exercise duration: 02:28 min:sec, 0 Stage Exercise capacity: 1.0METs Max Blood Pressure: 126/80mmHg Heart Rate response to exercise: appropriate Chest Pain: No, none Angina index: 0 Arrhythmia: No, none ST Change: No, none Deviation: 0 mm INTERPRETATION Stress EKG Conclusion: AWAIT NUCLEAR IMAGES EXAM: Myocardial Perfusion STRESS/REST Imaging Protocol The imaging protocol used to acquire images was Stress Tc-99m/rest Tc-99m 1 day Rest Spect myocardial perfusion imaging was performed in supine position 45 minutes following the injection of 32.5 mCi of Tc-99 Myoview. Gated Stress Spect was performed 45 minutes after intravenous 12.5 mCi Tc-99 Myoview injection. The images were gated to evaluate regional wall motion and calculate ventricular ejection fraction.Images were reconstructed using backfilter projection method in short horizontal and verticle long axis. Spect slices were generated. RESTING DATA EDV67.02hdWS1.20L/min ESV31.00mlMyocardial Kish998.00g Av. Heart Rate88.00bpm EF54.00% STRESS DATA EDV69.00mlRU2.20L/min ESV26.00mlMyocardial Czdh595.00g EF62.00% Regional WT score at stress:2.00 Regional WM score at stress:1.00 Summed WT score at stress:25.00 Av. Heart Ceca680.00bpmSummed WM score at stress:11.00 LV Perf. Quant 17 Seg. SSS0.00 17 Seg. SRS0.00 17 Seg. SDS0.00 Stress Defect Extent (% LAD)0.00Rest Defect Extent (% LAD)0.00Rev. Defect Extent (% LAD)0.00 Stress Defect Extent (% LCX)0.00Rest Defect Extent (% LCX)0.00Rev. Defect Extent (% LCX)0.00 Stress Defect Extent (% RCA)0.00Rest Defect Extent (% RCA)0.00Rev. Defect Extent (% RCA)0.00 Stress Defect Extent (% EUGENIO)0.00Rest Defect Extent (% EUGENIO)0.00Rev. Defect Extent (% EUGENIO)0.00 Other Information Quality:Excellent IMPRESSION Normal Myocardial Perfusion exercise stress study Global LV Function: Normal Stress Test Summary: Nondiagnostic LV Perfusion Summary: Normal Left Ventricle LV Size/Shape: The left ventricle is normal size. LV Thickness: There is normal left ventricular wall thickness. LV Function:Left ventricle systolic function is normal. The Ejection Fraction is 55-60%. Regional Wall Motion:No regional wall motion abnormalities noted. Metabolism/Perfusion There are no perfusion/metabolism defects. Conclusion 1. The stress and resting images show normal perfusion.
--- NOTE | 2018-02-28 23:11 | PQF ---
CDI RESPONSE TEXT: Rapid atrial fibrillation systolic CDI QUERY TEXT: CHF Acuity and Type Congestive Heart Failure is documented in the Medical Record. Please document the type and acuity (in cludes probable or suspected) Such as: Type: -- Systolic -- Diastolic -- Combined -- Other, please specify Acuity: -- Acute -- Chronic -- Acute on chronic -- Other, please specify Also please document the underlying cause of the CHF (includes probable or suspected) The patient's Clinical Indicators include: Pro Bnp 02/17 [id number] Echo 02/20 - Moderate Reduced Systolic Function Query created by: Ileana Marques on 02/27/2018 7:35 AM Electronically signed by: Jt Christine MD 02/28/2018 11:07 PM
--- NOTE | 2018-02-28 23:15 | PQF ---
CDI RESPONSE TEXT: Systolic dysfunction CDI QUERY TEXT: CHF Acuity and Type Congestive Heart Failure is documented in the Medical Record. Please document the type and acuity (in cludes probable or suspected) Such as: Type: -- Systolic -- Diastolic -- Combined -- Other, please specify Acuity: -- Acute -- Chronic -- Acute on chronic -- Other, please specify Also please document the underlying cause of the CHF (includes probable or suspected) The patient's Clinical Indicators include: ProBnp [id number] Echo 02/20 Moderate reduced Systolic Function Query created by: Ileana Marques on 02/27/2018 9:06 AM Electronically signed by: Jt Christine MD 02/28/2018 11:12 PM
== END 2018-02-24 18:40 | disposition home or self-care (01) | DRG 308 ==
LOC: C.ER 13:22 → C.9E 15:11 → C.6T 16:30
PROVIDERS: ADMIT Internal Medicine; ATTEND Internal Medicine
PROC: B24BZZ4 Ultrasonography of Heart with Aorta, Transesophageal (ICD-10-PCS; principal; 2018-02-20)
PROC: 5A2204Z Restoration of Cardiac Rhythm, Single (ICD-10-PCS; 2018-02-20)
DX: I48.0 Paroxysmal atrial fibrillation (principal); I50.23 Acute on chronic systolic (congestive) heart failure; D68.9 Coagulation defect, unspecified; I20.0 Unstable angina; I48.92 Unspecified atrial flutter; I11.0 Hypertensive heart disease with heart failure; I80.02 Phlebitis and thrombophlebitis of superficial vessels of left lower extremity; R63.6 Underweight; R13.10 Dysphagia, unspecified

== ENCOUNTER 2018-07-14 03:28 | Inpatient (IN) | payer MEDICARE ==
[2018-07-14 03:29] VITALS: BMI 15.2
[2018-07-14] MEDS ORDERED: Azithromycin 500 MG in Sodium Chloride 0.9% 250 ML IVPB STA (04:07)
[2018-07-14] MEDS ORDERED: Azithromycin 500mg/250ML NS 500 MG/250 ML BAG IVPB ONE (04:20)
[2018-07-14] MEDS ORDERED: cefTRIAXone 1 gm 1 GM/100 ML BAG IVPB ONE (04:20)
[2018-07-14 04:21] LABS: BASO # 0.1 K/uL (0.0-0.2); BASO % 1.2 % (0.0-2.0); EOS % 0.5 % (0.0-4.0); HEMOGLOBIN 13.9 g/dL (11.0-16.0); LYMPH # 0.7 K/uL (1.0-4.3); MEAN CELL VOLUME 92.5 fL (81.0-99.0); MEAN CORPUSCULAR HEMOGLOBIN 29.8 pg (27.0-31.0); MEAN CORPUSCULAR HGB CONC 32.2 g/dL (33.0-37.0); MEAN PLATELET VOLUME 8.5 fL (7.2-11.7); MONO # 0.8 K/uL (0.0-0.8); MONO % 8.8 % (0.0-10.0); NEUT # 7.1 K/uL (1.8-7.0); NEUT % 81.5 % (50.0-75.0); NRBC % 0.5 % (0.0-2.0); PLATELET COUNT 280 K/uL (130-400); RBC 4.66 Mil/uL (3.80-5.20); RED CELL DISTRIBUTION WIDTH 16.3 % (11.5-14.5); WHITE BLOOD COUNT 8.7 K/uL (4.8-10.8)
--- NOTE | 2018-07-14 04:29 | C.PDOC ---
History Of Present Illness 72 year old female presents to the emergency department with complaints of cough and weakness for the last four days. states had fever to 100.7 at home. Patient denies pain, and reports that she is currently taking Xarelto. Time Seen by Provider: 07/14/18 03:34 Chief Complaint (Nursing): Cough, Cold, Congestion History Per: Patient History/Exam Limitations: no limitations Onset/Duration Of Symptoms: Days (4) Current Symptoms Are (Timing): Still Present Location Of Pain: None Associated Symptoms: Cough, Other (weakness) Past Medical History Reviewed: Historical Data, Nursing Documentation, Vital Signs Vital Signs: Last Vital Signs Temp 98.9 F 07/14/18 03:38 Pulse 80 07/14/18 03:38 Resp 16 07/14/18 03:38 BP 120/85 07/14/18 03:38 Pulse Ox 93 L 07/14/18 03:38 - Medical History PMH: Anxiety, Atrial Fibrillation, Depression, HTN Denies: Chronic Kidney Disease Surgical History: Tonsillectomy (At 11 yo) Denies: Pacemaker - [facility] Procedures CLOSED ENDOSCOPIC BIOPSY OF LARGE INTESTINE (10/22/14) TAOISM OF CARDIAC RHYTHM, SINGLE (02/17/18) ULTRASONOGRAPHY OF HEART WITH AORTA, TRANSESOPHAGEAL (02/17/18) VACCINATION NEC (11/03/13) Family History: States: No Known Family Hx - Social History Hx Tobacco Use: No Hx Alcohol Use: No Hx Substance Use: No - Immunization History Hx Tetanus Toxoid Vaccination: No Hx Influenza Vaccination: No Hx Pneumococcal Vaccination: No Review Of Systems Except As Marked, All Systems Reviewed And Found Negative. Constitutional: Positive for: Weakness. Negative for: Fever, Chills Respiratory: Positive for: Cough Physical Exam - Physical Exam Appears: Non-toxic, No Acute Distress Skin: Warm, Dry Head: Atraumatic, Normacephalic Eye(s): bilateral: Normal Inspection, PERRL, EOMI Oral Mucosa: Moist Neck: Normal, Supple Chest: Symmetrical, No Tenderness Cardiovascular: Rhythm Regular, No Murmur Respiratory: No Rales, Rhonchi (scattered), No Wheezing Gastrointestinal/Abdominal: Soft, No Tenderness, No Guarding, No Rebound Neurological/Psych: Oriented x3, Normal Speech, Normal Cognition ED Course And Treatment - Laboratory Results Result Diagrams: 07/16/18 06:34 07/16/18 06:34 ECG: Interpreted By Me ECG Rhythm: Sinus Rhythm ECG Interpretation: No Acute Changes (No ST-T Wave changes) Rate From EC O2 Sat by Pulse Oximetry: 93 (RA) Pulse Ox Interpretation: Abnormal Medical Decision Making Medical Decision Making: ro chf vs pna Plan: EKG Chemistry Bloodwork CXR Zithromax 500mg IVBP Rocephic 1gm NaCl IV Fluids Blood Culture cxr: congestion vs developing infiltrate to left middle lobe. empric antibiotics initated. accepted by dr true vargas. vitalst table for tele. Disposition - Disposition Disposition: HOSPITALIZED Disposition Time: 04:00 Condition: FAIR - Clinical Impression Clinical Impression: CHF (congestive heart failure), Pneumonia - Scribe Statement The provider has reviewed the documentation as recorded by the Scribe (Sreedhar Mckeon) Provider Attestation: All medical record entries made by the Scribe were at my direction and personally dictated by me. I have reviewed the chart and agree that the record accurately reflects my personal performance of the history, physical exam, medical decision making, and the department course for this patient. I have also personally directed, reviewed, and agree with the discharge instructions and disposition.
[2018-07-14 04:36] LABS: ALB/GLOB RATIO 1.2 (1.0-2.1); ALBUMIN 4.3 g/dL (3.5-5.0); ALT/SGPT 35 U/L (9-52); AST/SGOT 32 U/L (14-36); BLOOD UREA NITROGEN 20 mg/dL (7-17); CALCIUM 8.8 mg/dl (8.6-10.4); GFR NON-AFRICAN AMERICAN 55; INR 2.5; PROTHROMBIN TIME 27.3 SECONDS (9.7-12.2)
[2018-07-14 04:46] LABS: B-TYPE NATRIURETIC PEPTIDE 31900 pg/mL (0-900)
[2018-07-14 07:04] LABS: BASOPHIL 1 % (0-2); EOSINOPHIL 1 % (0-4); LYMPHOCYTE 11 % (20-40); MONOCYTE 8 % (0-10); NEUTROPHIL 78 % (50-75); PLATELET ESTIMATE NORMAL (NORMAL); REACTIVE LYMPHOCYTES 1 % (0-0); TOTAL CELLS COUNTED 100
--- NOTE | 2018-07-14 09:24 | RAD ---
Date of service: 07/14/2018 HISTORY: chest pain COMPARISON: Frontal chest radiograph 02/17/2018. FINDINGS: LUNGS: Patchy density is developing in the left base with none on the right. PLEURA: Mild left pleural effusion is increased. Trace right pleural effusion is not excluded versus fibrosis blunting the right costophrenic sulcus. No pneumothorax bilaterally. CARDIOVASCULAR: Calcific atherosclerotic changes are seen related to the thoracic aorta. Mild cardiomegaly. No pulmonary vascular congestion. OSSEOUS STRUCTURES: No significant abnormalities. VISUALIZED UPPER ABDOMEN: Normal. OTHER FINDINGS: None. IMPRESSION: Interval increase in left basilar pulmonary disease including patchy infiltrate and mild left pleural effusion. Trace right pleural effusion suggested. No pulmonary vascular congestion.
[2018-07-14] MEDS ORDERED: Patient's Own Medication - Tablet/Capusle PO SCH ×2 (10:00→18:00)
[2018-07-14] MEDS ORDERED: cefTRIAXone IV 1 gm in Dextros 50 ML IVPB SCH (10:00)
[2018-07-14] MEDS ORDERED: Metoprolol Succinate 25 mg XL Tab PO SCH (10:00)
[2018-07-14] MEDS ORDERED: Ergocalciferol 50,000 Intl Units Cap PO SCH (10:00)
[2018-07-14] MEDS: guaiFENesin DM 100 mg-10 mg/5 ml UD PO PRN ×3 (10:20→22:07)
[2018-07-14] MEDS ORDERED: Albuterol 0.083% Inhal Sol (2.5 mg/3 mL) UD INH PRN (10:30)
--- NOTE | 2018-07-14 12:44 | CP.PCM.HP ---
Past Patient History - Past Medical History & Family History Past Medical History?: Yes - Past Social History Smoking Status: Never Smoked - CARDIAC Hx Atrial Fibrillation: Yes Hx Hypertension: Yes Hx Pacemaker: No - PULMONARY Hx Respiratory Disorders: No - NEUROLOGICAL Hx Neurological Disorder: No Hx Paralysis: No - HEENT Hx HEENT Problems: Yes Other/Comment: "Difficulty swallowing" - RENAL Hx Chronic Kidney Disease: No - ENDOCRINE/METABOLIC Hx Endocrine Disorders: No - HEMATOLOGICAL/ONCOLOGICAL Hx Blood Disorders: No Hx Blood Transfusions: No - INTEGUMENTARY Hx Dermatological Problems: No - MUSCULOSKELETAL/RHEUMATOLOGICAL Hx Musculoskeletal Disorders: No Hx Falls: Yes - GASTROINTESTINAL Hx Gastrointestinal Disorders: No - GENITOURINARY/GYNECOLOGICAL Hx Genitourinary Disorders: No - PSYCHIATRIC Hx Anxiety: Yes Hx Depression: Yes Hx Substance Use: No - SURGICAL HISTORY Hx Tonsillectomy: Yes (At 11 yo) - ANESTHESIA Hx Anesthesia: Yes Hx Anesthesia Reactions: No Hx Malignant Hyperthermia: No Meds Allergies/Adverse Reactions: Allergies Allergy/AdvReac Type Severity Reaction Status Date / Time No Known Allergies Allergy Verified 07/14/18 03:41 Physical Exam - Constitutional Appears: Well - Head Exam Head Exam: ATRAUMATIC, NORMAL INSPECTION, NORMOCEPHALIC - Eye Exam Eye Exam: EOMI, Normal appearance, PERRL Pupil Exam: NORMAL ACCOMODATION, PERRL - ENT Exam ENT Exam: Mucous Membranes Moist, Normal Exam - Neck Exam Neck exam: Positive for: Normal Inspection - Respiratory Exam Respiratory Exam: Decreased Breath Sounds - Cardiovascular Exam Cardiovascular Exam: REGULAR RHYTHM, +S1, +S2 - GI/Abdominal Exam GI & Abdominal Exam: Diminished Bowel Sounds, Soft - Rectal Exam Rectal Exam: Deferred Results - Vital Signs Recent Vital Signs: Last Vital Signs Temp 98.5 F 07/14/18 07:00 Pulse 72 07/14/18 08:00 Resp 20 07/14/18 07:00 BP 143/80 07/14/18 12:19 Pulse Ox 94 L 07/14/18 07:00 - Labs Result Diagrams: 07/14/18 04:18 07/14/18 04:18 Labs: Laboratory Results - last 24 hr 07/14/18 07/14/18 07/14/18 04:18 04:18 04:18 WBC 8.7 RBC 4.66 Hgb 13.9 Hct 43.1 MCV 92.5 D MCH 29.8 MCHC 32.2 L RDW 16.3 H Plt Count 280 MPV 8.5 Neut % (Auto) 81.5 H Lymph % (Auto) 8.0 L [place] % (Auto) 8.8 Eos % (Auto) 0.5 Baso % (Auto) 1.2 Neut # (Auto) 7.1 H Lymph # (Auto) 0.7 L [place] # (Auto) 0.8 Eos # (Auto) 0.0 Baso # (Auto) 0.1 Neutrophils % (Manual) 78 H Lymphocytes % (Manual) 11 L Reactive Lymphs % 1 H Monocytes % (Manual) 8 Eosinophils % (Manual) 1 Basophils % (Manual) 1 Platelet Estimate Normal PT 27.3 H INR 2.5 APTT 37 H Sodium 137 Potassium 4.2 Chloride 102 Carbon Dioxide 22 Anion Gap 18 BUN 20 H Creatinine 1.0 Est GFR ( Amer) > 60 Est GFR (Non-Af Amer) 55 Random Glucose 127 H Calcium 8.8 Total Bilirubin 0.9 AST 32 ALT 35 Alkaline Phosphatase 123 Troponin I 0.0280 NT-Pro-B Natriuret Pep 18475 H Total Protein 7.9 Albumin 4.3 Globulin 3.6 Albumin/Globulin Ratio 1.2
[2018-07-14] MEDS: Patient's Own Medication - Tablet/Capusle PO SCH (22:07)
[2018-07-15] MEDS: guaiFENesin DM 100 mg-10 mg/5 ml UD PO PRN ×4 (06:14→21:46)
[2018-07-15 07:44] LABS: BASO # 0.1 K/uL (0.0-0.2); BASO % 1.1 % (0.0-2.0); HEMOGLOBIN 13.7 g/dL (11.0-16.0); LYMPH # 1.2 K/uL (1.0-4.3); LYMPH % 16.7 % (20.0-40.0); MEAN CELL VOLUME 91.2 fL (81.0-99.0); MEAN CORPUSCULAR HEMOGLOBIN 30.6 pg (27.0-31.0); MEAN CORPUSCULAR HGB CONC 33.5 g/dL (33.0-37.0); MEAN PLATELET VOLUME 9.1 fL (7.2-11.7); MONO % 14.3 % (0.0-10.0); NEUT # 4.8 K/uL (1.8-7.0); NEUT % 67.9 % (50.0-75.0); NRBC % 0.5 % (0.0-2.0); RBC 4.47 Mil/uL (3.80-5.20)
[2018-07-15 08:10] LABS: ALB/GLOB RATIO 1.1 (1.0-2.1); ALBUMIN 3.6 g/dL (3.5-5.0); CALCIUM 8.6 mg/dl (8.6-10.4)
[2018-07-15] MEDS: Patient's Own Medication - Tablet/Capusle PO SCH ×2 (10:21→21:45)
--- NOTE | 2018-07-15 13:02 | CP.PCM.PN ---
Subjective - Date & Time of Evaluation Date of Evaluation: 07/15/18 Time of Evaluation: 10:15 - Subjective Subjective: clinically same Objective - Vital Signs/Intake and Output Vital Signs (last 24 hours): Temp Pulse Resp BP Pulse Ox 98.1 F 68 20 124/81 98 07/15/18 07:00 07/15/18 07:57 07/15/18 07:00 07/15/18 09:01 07/15/18 07:00 Intake and Output: 07/15/18 07/15/18 06:59 18:59 Intake Total Balance - Medications Medications: Current Medications Albuterol Sulfate (Albuterol 0.083% Inhal Allegra (2.5 Mg/3 Ml) Ud) 2.5 mg INH RQ6 PRN PRN Reason: Shortness of Breath Diltiazem HCl (Cardizem) 120 mg PO BID [facility] Last Admin: 07/15/18 09:01 Dose: 120 mg Ergocalciferol (Drisdol 50,000 Intl Units Cap) 1 cap PO QWK [facility] Last Admin: 07/14/18 10:20 Dose: 1 cap Guaifenesin/Dextromethorphan (Robitussin Dm) 5 ml PO Q4H PRN PRN Reason: Cough Last Admin: 07/15/18 10:41 Dose: 5 ml Home Med (Patient's Own Medication) 100 tab PO Q12H [facility] Last Admin: 07/15/18 10:21 Dose: 100 tab Ceftriaxone Sodium 1 gm/ (Sodium Chloride) 100 mls @ 100 mls/hr IVPB DAILY [facility]; Protocol Last Admin: 07/15/18 10:20 Dose: 100 mls/hr Metoprolol Tartrate (Lopressor) 25 mg PO BID [facility] Last Admin: 07/15/18 09:01 Dose: 25 mg Rivaroxaban (Xarelto) 20 mg PO DAILY [facility] Last Admin: 07/15/18 09:01 Dose: 20 mg Rosuvastatin Calcium (Crestor) 5 mg PO HS [facility] Last Admin: 07/14/18 22:07 Dose: 5 mg Zolpidem Tartrate (Ambien) 5 mg PO HS [facility] Last Admin: 07/14/18 22:07 Dose: 5 mg - Labs Labs: 07/15/18 07:34 07/15/18 07:34 PT 27.3 SECONDS (9.7-12.2) H 07/14/18 04:18 INR 2.5 07/14/18 04:18 APTT 37 SECONDS (21-34) H 07/14/18 04:18 - Constitutional Appears: Well - Head Exam Head Exam: ATRAUMATIC, NORMAL INSPECTION, NORMOCEPHALIC - Eye Exam Eye Exam: EOMI, Normal appearance, PERRL Pupil Exam: NORMAL ACCOMODATION, PERRL - ENT Exam ENT Exam: Mucous Membranes Moist, Normal Exam - Neck Exam Neck Exam: Full ROM, Normal Inspection. absent: Lymphadenopathy - Respiratory Exam Respiratory Exam: Decreased Breath Sounds - Cardiovascular Exam Cardiovascular Exam: REGULAR RHYTHM, +S1, +S2 - GI/Abdominal Exam GI & Abdominal Exam: Soft, Diminished Bowel Sounds - Rectal Exam Rectal Exam: Deferred
[2018-07-15] MEDS ORDERED: Glucagon Recombinant 1 mg Inj ONE ×2 (22:52→22:54)
[2018-07-15] MEDS ORDERED: Sodium Chloride 0.9% 1,000 ML IV ONE (22:57)
[2018-07-15] MEDS ORDERED: Glucagon Recombinant 1 mg Inj IV STA (22:58)
--- NOTE | 2018-07-15 23:02 | PCM.RRT ---
<Vijaya Bray P - Last Filed: 07/16/18 07:50> HAND TUFTER Nurses Assessment - Situation Date: 07/15/18 Time HAND TUFTER was called: 22:41 HAND TUFTER Responder Arrival Time:: 22:42 HAND TUFTER Location:: T Med/Surg HAND TUFTER Reason for Call: Bradycardia HAND TUFTER Called By: RN - IV IV Inserted during HAND TUFTER?: No IV Fluids Initiated During HAND TUFTER?: Normal saline New IV Insertion Tolerance: Good - Respiratory HAND TUFTER Delivery Method: Nasal Cannula @L/min (3) Received Nebulizer Treatments: No Was the Patient Ventilated with Bag/Mask 100% O2?: No Secretions Suctioned?: No Was the Patient Intubated?: No Was the Patient Placed on a Ventilator?: No - Medication Medications Administered During HAND TUFTER: Atropine 1mg, Glucagon 2mg, Calcium chloride 1g, IVF - Diagnostic Test Ordered EKG: Yes Chest X-Ray: Yes CT Scan: Yes (head) - Stat Labs Ordered HAND TUFTER Stat Labs Ordered: CBC, ABG CPR started during HAND TUFTER?: No - Vital Signs Vital Signs: HR 30, BP: 93/53, SpO2 88%RA - Thuy Coma Scale Coma Scale Eye Opening: Spontaneous Coma Scale Motor: Obeys Commands Movement Coma Scale Verbal: Confused/able to answer Coma Scale Total: 14 - Sepsis Screen Part 1 Sepsis Screen Part 1: Hypotensive - Vital Signs at end of HAND TUFTER Vital Signs at end of HAND TUFTER: HR: 47, BP: 93/53, RR 16, SpO2 99% on 3L NC - Recommendations 5) HAND TUFTER Level of Care Recommendations: Transfer to ICU I.Reason for HAND TUFTER - A) Acute Change in Patient: (Select all that apply): Acute change in heart rate less than 50 or greater than 120 - Neurological Status (Select all that apply): Responsive - Respiratory Oxygen Delivery Method: Nasal Cannula @L/min (3L) - Constitutional Appears: Other (Lethargic) - Head Head Exam: ATRAUMATIC, NORMOCEPHALIC - Eyes Eye Exam: EOMI, PERRL (pupils dilated and sluggish to light (following atropine administration)) - Respiratory Exam Respiratory Exam: Decreased Breath Sounds (bilaterally) - Cardiovascular Exam Cardiovascular Exam: Bradycardia, +S1, +S2 - GI/Abdominal Exam GI & Abdominal Exam: Soft, Normal Bowel Sounds. absent: Guarding, Rigid, Tenderness - Neurological Exam Additional exam: Lethargic but arousable - Extremities Exam Extremities Exam: Full ROM. absent: Calf Tenderness Plan - Assessment of Findings&Treatment Plan Plan: -Atropine 1mg -glucagon 2mg IV -Calcium chloride 1g -IVF -CXR -EKG -Ammonia level -CBC -UA -Urine culture -rapid flu -Ct head without contrast -stef <Wicho Arias P - Last Filed: 07/24/18 08:48> HAND TUFTER Nurses Assessment - Vital Signs Vital Signs: Rapid Response Vital Sign Blood Pressure 93/53 Pulse Rate 28 Respiratory Rate 16 Oxygen Saturation 90 - Vital Signs at end of HAND TUFTER Vital Signs at end of HAND TUFTER: Rapid Response End Vital Sign Blood Pressure 93/53 Pulse Rate 47 Respiratory Rate 16 Additional Comments - Additional Comments Additional Comments: see note done on the same night.
[2018-07-15] MEDS ORDERED: Albuterol-Ipratrop 3 mg / 0.5 (3 ml) UD INH STA (23:09)
[2018-07-15] MEDS ORDERED: Calcium Chloride 1000 mg/10 ml Syringe IV ONE (23:27)
--- NOTE | 2018-07-15 23:56 | CP.PCM.CON ---
History of Present Illness - History of Present Illness History of Present Illness: CCM 72 yo female with hx A-fib /HTN/Anxiety /Depression /CKD / admitted with c/o cough and weakness x 4 days. Pt started on Ab. Today had [employer] called for loraine to 29 and hypotension with lethargy. Pt given atropine and glucagon and HR in creased to 48. Also got 275 of IV fluid. MAP improved to 65. Pt arousable but not complaining of anyting. denied pain/sob/n/v. ROS- as noted All- NKDA Social- no tob/ etoh /drugs Meds- reviewed/ BB /Cardizem xarelto FH- Unknown PE T- P-47 R 12 BP88/53 Lethargic, arousable Perrl Neck-+jvd Lungs- bialt bs Heart-rr abd- benign eXt- no edema Neuro- moves all ext. Labs, EKG, [id number] Rhythm-junctional A&P Bradycardia- prob med related Lethargy CMP r/o Bronchitis Hx A-fib Hx Anxiety /Depression Hx HTN Hx CKD Hold BB/Cardizem Rx Ca+ CT head stat check ABG /TSH /Flu test Ext PM pads to be placed maintain optimal lytes transfer to ICU may require Dobutamine d/w nursing staff and hospitalist Past Patient History - Past Medical History & Family History Past Medical History?: Yes - Past Social History Smoking Status: Never Smoked - CARDIAC Hx Atrial Fibrillation: Yes Hx Hypertension: Yes Hx Pacemaker: No - PULMONARY Hx Respiratory Disorders: No - NEUROLOGICAL Hx Neurological Disorder: No Hx Paralysis: No - HEENT Hx HEENT Problems: Yes Other/Comment: "Difficulty swallowing" - RENAL Hx Chronic Kidney Disease: No - ENDOCRINE/METABOLIC Hx Endocrine Disorders: No - HEMATOLOGICAL/ONCOLOGICAL Hx Blood Disorders: No Hx Blood Transfusions: No - INTEGUMENTARY Hx Dermatological Problems: No - MUSCULOSKELETAL/RHEUMATOLOGICAL Hx Musculoskeletal Disorders: No Hx Falls: Yes - GASTROINTESTINAL Hx Gastrointestinal Disorders: No - GENITOURINARY/GYNECOLOGICAL Hx Genitourinary Disorders: No - PSYCHIATRIC Hx Anxiety: Yes Hx Depression: Yes Hx Substance Use: No - SURGICAL HISTORY Hx Tonsillectomy: Yes (At 11 yo) - ANESTHESIA Hx Anesthesia: Yes Hx Anesthesia Reactions: No Hx Malignant Hyperthermia: No Meds Allergies/Adverse Reactions: Allergies Allergy/AdvReac Type Severity Reaction Status Date / Time No Known Allergies Allergy Verified 07/14/18 03:41 - Medications Medications: Current Medications Albuterol Sulfate (Albuterol 0.083% Inhal Allegra (2.5 Mg/3 Ml) Ud) 2.5 mg INH RQ6 PRN PRN Reason: Shortness of Breath Diltiazem HCl (Cardizem) 120 mg PO BID [facility] Last Admin: 07/15/18 18:01 Dose: 120 mg Ergocalciferol (Drisdol 50,000 Intl Units Cap) 1 cap PO QWK [facility] Last Admin: 07/14/18 10:20 Dose: 1 cap Guaifenesin/Dextromethorphan (Robitussin Dm) 5 ml PO Q4H PRN PRN Reason: Cough Last Admin: 07/15/18 21:46 Dose: 5 ml Home Med (Patient's Own Medication) 100 tab PO Q12H [facility] Last Admin: 07/15/18 21:45 Dose: 100 tab Ceftriaxone Sodium 1 gm/ (Sodium Chloride) 100 mls @ 100 mls/hr IVPB DAILY [facility]; Protocol Last Admin: 07/15/18 10:20 Dose: 100 mls/hr Sodium Chloride (Sodium Chloride 0.9%) 1,000 mls @ 1,000 mls/hr IV .Q1H ONE Stop: 07/15/18 23:56 Metoprolol Tartrate (Lopressor) 25 mg PO BID [facility] Last Admin: 07/15/18 18:01 Dose: 25 mg Rivaroxaban (Xarelto) 20 mg PO DAILY [facility] Last Admin: 07/15/18 09:01 Dose: 20 mg Rosuvastatin Calcium (Crestor) 5 mg PO HS [facility] Last Admin: 07/15/18 21:46 Dose: 5 mg Zolpidem Tartrate (Ambien) 5 mg PO HS [facility] Last Admin: 07/15/18 21:46 Dose: 5 mg Results - Vital Signs Recent Vital Signs: Last Vital Signs Temp 98.1 F 07/15/18 15:00 Pulse 55 L 07/15/18 20:00 Resp 20 07/15/18 15:00 BP 106/72 07/15/18 18:01 Pulse Ox 96 07/15/18 15:00 - Labs Result Diagrams: 07/16/18 01:14 07/16/18 01:14 Labs: Laboratory Results - last 24 hr 07/15/18 07/15/18 07/15/18 07:34 07:34 22:55 WBC 7.0 RBC 4.47 Hgb 13.7 Hct 40.8 MCV 91.2 MCH 30.6 MCHC 33.5 RDW 16.0 H Plt Count 257 MPV 9.1 Neut % (Auto) 67.9 Lymph % (Auto) 16.7 L [place] % (Auto) 14.3 H Eos % (Auto) 0.0 Baso % (Auto) 1.1 Neut # (Auto) 4.8 Lymph # (Auto) 1.2 [place] # (Auto) 1.0 H Eos # (Auto) 0.0 Baso # (Auto) 0.1 Sodium 134 Potassium 4.2 Chloride 96 L Carbon Dioxide 26 Anion Gap 15 BUN 22 H Creatinine 1.1 Est GFR ( Amer) 59 Est GFR (Non-Af Amer) 49 POC Glucose (mg/dL) 121 H Random Glucose 136 H Calcium 8.6 Total Bilirubin 0.8 AST 44 H D ALT 48 Alkaline Phosphatase 111 Total Protein 6.8 Albumin 3.6 Globulin 3.2 Albumin/Globulin Ratio 1.1 Assessment & Plan (1) Bradycardia Status: Acute (2) Encephalopathy Status: Acute (3) Atrial fibrillation Status: Chronic (4) Cardiomyopathy Status: Chronic
[2018-07-16] MEDS ORDERED: DOBUTamine 500mg/250ml D5W 500 MG/250 ML BAG IV SCH (01:00)
[2018-07-16 01:05] LABS: ABG ALLEN TEST NEG; ARTERIAL BLOOD GAS O2 SAT 99.2 % (95-98); ARTERIAL BLOOD GAS PCO2 39 mm/Hg (35-45); ARTERIAL BLOOD GAS PH 7.37 (7.35-7.45); ARTERIAL BLOOD GAS PO2 118 mm/Hg (80-100); ARTERIAL BLOOD GAS TCO2 23.7 mmol/L (22-28)
[2018-07-16 01:22] LABS: BASO # 0.1 K/uL (0.0-0.2); BASO % 1.3 % (0.0-2.0); EOS % 0.3 % (0.0-4.0); HEMOGLOBIN 12.7 g/dL (11.0-16.0); LYMPH # 1.2 K/uL (1.0-4.3); LYMPH % 15.3 % (20.0-40.0); MEAN CORPUSCULAR HGB CONC 32.9 g/dL (33.0-37.0); MEAN PLATELET VOLUME 8.8 fL (7.2-11.7); MONO % 12.2 % (0.0-10.0); NEUT # 5.8 K/uL (1.8-7.0); NEUT % 70.9 % (50.0-75.0); NRBC % 0.6 % (0.0-2.0); RBC 4.24 Mil/uL (3.80-5.20); RED CELL DISTRIBUTION WIDTH 16.1 % (11.5-14.5); WHITE BLOOD COUNT 8.2 K/uL (4.8-10.8)
[2018-07-16 01:35] LABS: ALBUMIN 3.1 g/dL (3.5-5.0)
[2018-07-16 01:45] LABS: TROPONIN I 0.05 ng/mL (0.00-0.120)
[2018-07-16 02:23] LABS: GRANULAR CAST 147 /lpf (0-1); SQUAMOUS EPITHIAL 13 /hpf (0-5); URINE BACTERIA MANY (<OCC); URINE BILIRUBIN NEGATIVE (NEGATIVE); URINE BLOOD 2+ (NEGATIVE); URINE CLARITY Hazy (Clear); URINE COLOR Amber (YELLOW); URINE GLUCOSE (UA) NORMAL (Normal); URINE HYALINE CAST >20 /lpf (0-2); URINE LEUKOCYTE ESTERASE 1+ Leu/uL (Negative); URINE PROTEIN 2+ mg/dL (NEGATIVE); URINE UROBILINOGEN NORMAL mg/dL (0.2-1.0); WBC CLUMPS FEW /hpf
[2018-07-16 06:42] LABS: BASO # 0.1 K/uL (0.0-0.2); EOS % 0.2 % (0.0-4.0); HEMOGLOBIN 12.8 g/dL (11.0-16.0); LYMPH # 0.6 K/uL (1.0-4.3); LYMPH % 7.9 % (20.0-40.0); MEAN CELL VOLUME 91.7 fL (81.0-99.0); MEAN CORPUSCULAR HEMOGLOBIN 29.9 pg (27.0-31.0); MEAN CORPUSCULAR HGB CONC 32.7 g/dL (33.0-37.0); MEAN PLATELET VOLUME 8.8 fL (7.2-11.7); MONO # 0.6 K/uL (0.0-0.8); MONO % 8.7 % (0.0-10.0); NEUT # 6.1 K/uL (1.8-7.0); NEUT % 82.2 % (50.0-75.0); NRBC % 0.3 % (0.0-2.0); PLATELET COUNT 203 K/uL (130-400); RBC 4.28 Mil/uL (3.80-5.20); RED CELL DISTRIBUTION WIDTH 15.9 % (11.5-14.5); WHITE BLOOD COUNT 7.4 K/uL (4.8-10.8)
[2018-07-16 06:49] LABS: ALB/GLOB RATIO 1.1 (1.0-2.1); ALBUMIN 3.1 g/dL (3.5-5.0); CALCIUM 8.9 mg/dl (8.6-10.4)
[2018-07-16] MEDS ORDERED: Sodium Chloride 0.9% 1,000 ML IV SCH (07:00)
[2018-07-16] MEDS ORDERED: Magnesium Sulfate 1 gm in D5W 1 GM/100 ML BAG IVPB ONE (08:00)
--- NOTE | 2018-07-16 08:06 | CP.PCM.PCO ---
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 * Symptomatic bradycardia, suspected escape rhythm, then sinus loraine with 1st deg heart block, with lethargy, hypotension, with partial response with atropine, glucagon, calcium chloride, ivf * Patient on CCB and metoprol, suspect not taking meds at home and became symptomatic when started in hospital * Low ef * PAF on xeralto * Head CT done was negative for bleeding, no co2 retention, + lactate due to 1, finch inserted for flow/out put, ua/cs, labs. * Patient transferred to ICU * Primary team notified by nursing.
--- NOTE | 2018-07-16 08:31 | CP.CCUPN ---
<Aleena Tsai - Last Filed: 07/16/18 14:55> CCU Subjective - Physician Review Events Since Last Encounter (Free Text): 07/16/18 08:29 MILLER ROD MILL called overnight for symptomatic bradycardia and hypotension- patient transferred to ICU Subjective (Free Text): 07/16/18 08:29 Patient was seen and examined this morning. She is very lethargic. No acute complaints. Critical Care Time Spent (in minutes): 35 CCU Objective - Vital Signs / Intake & Output Vital Signs (Last 4 hours): Vital Signs Pulse Resp BP Pulse Ox 07/16/18 06:00 50 L 16 131/60 100 07/16/18 05:00 55 L 18 141/58 L 100 Intake and Output (Last 8hrs): Intake & Output 07/15/18 07/16/18 07/16/18 22:59 06:59 14:59 Intake Total 300 1072 3.5 Output Total 200 Balance 300 872 3.5 Weight 104 lb 1.6 oz Intake: IV 37 Intake, IV Amount 1035 3.5 rt forearm 35 3.5 rt forearm 2nd port 1000 Oral 300 0 Output: Urine 200 Urethral (Gayle) 200 Other: # Voids Urine, Voided 2 # Bowel Movements 0 - Physical Exam Physical Exam Limitations: Positive for: Clinical Condition Head: Positive for: Atraumatic, Normocephalic Pupils: Positive for: PERRL Extroacular Muscles: Positive for: EOMI Conjunctiva: Positive for: Normal Mouth: Positive for: Moist Mucous Membranes Respiratory/Chest: Positive for: Clear to Auscultation. Negative for: Respiratory Distress, Accessory Muscle Use Cardiovascular: Positive for: Normal S1, S2, Bradycardic. Negative for: Murmurs Abdomen: Negative for: Tenderness, Distention Upper Extremity: Positive for: Normal Inspection Lower Extremity: Positive for: Normal Inspection Neurological: Positive for: GCS=15, CN II-XII Intact Skin: Positive for: Warm, Dry, Normal Color Psychiatric: Positive for: Alert - Medications Active Medications: Active Medications Generic Name Dose Route Start Last Admin Trade Name Freq PRN Reason Stop Dose Admin Albuterol Sulfate 2.5 mg 07/14/18 10:30 07/16/18 01:59 Albuterol 0.083% Inhal Allegra (2.5 Mg/3 Ml) Ud INH 2.5 mg RQ6 PRN Administration Shortness of Breath Ergocalciferol 1 cap 07/14/18 10:00 07/14/18 10:20 Drisdol 50,000 Intl Units Cap PO 1 cap QWK MAGALYS Administration Guaifenesin/Dextromethorphan 5 ml 07/14/18 09:00 07/15/18 21:46 Robitussin Dm PO 5 ml Q4H PRN Administration Cough Home Med 100 tab 07/14/18 22:00 07/15/18 21:45 Patient's Own Medication PO 100 tab Q12H MAGALYS Administration Ceftriaxone Sodium 1 gm/ 100 mls @ 100 mls/hr 07/14/18 10:00 07/15/18 10:20 Sodium Chloride IVPB 100 mls/hr DAILY MAGALYS Administration Protocol Dobutamine HCl/Dextrose 500 mg in 250 mls @ 7.083 mls/hr 07/16/18 01:00 07/16/18 06:36 Dobutamine/Dextrose 5% 500mg/250ml IV 2.5 mcg/kg/min .Q24H MAGALYS 3.541 mls/hr Titration Protocol 5 MCG/KG/MIN Sodium Chloride 1,000 mls @ 100 mls/hr 07/16/18 07:00 07/16/18 07:45 Sodium Chloride 0.9% IV 100 mls/hr .Q10H MAGALYS Administration Metoprolol Tartrate 25 mg 07/14/18 10:30 07/15/18 18:01 Lopressor PO 25 mg BID MAGALYS Administration Rivaroxaban 20 mg 07/14/18 10:00 07/15/18 09:01 Xarelto PO 20 mg DAILY MAGALYS Administration Rosuvastatin Calcium 5 mg 07/14/18 22:00 07/15/18 21:46 Crestor PO 5 mg HS MAGALYS Administration - Patient Studies Lab Studies: Microbiology Studies 07/14/18 07:30 Blood Culture - Preliminary Blood NO GROWTH AFTER 48 HOURS 07/14/18 07:30 Blood Culture - Preliminary Blood NO GROWTH AFTER 48 HOURS Lab Studies 07/16/18 07/16/18 07/16/18 Range/Units 06:34 06:34 02:15 WBC 7.4 (4.8-10.8) K/uL RBC 4.28 (3.80-5.20) Mil/uL Hgb 12.8 (11.0-16.0) g/dL Hct 39.2 (34.0-47.0) % MCV 91.7 (81.0-99.0) fL MCH 29.9 (27.0-31.0) pg MCHC 32.7 L (33.0-37.0) g/dL RDW 15.9 H (11.5-14.5) % Plt Count 203 (130-400) K/uL MPV 8.8 (7.2-11.7) fL Neut % (Auto) 82.2 H (50.0-75.0) % Lymph % (Auto) 7.9 L (20.0-40.0) % Riley % (Auto) 8.7 (0.0-10.0) % Eos % (Auto) 0.2 (0.0-4.0) % Baso % (Auto) 1.0 (0.0-2.0) % Neut # (Auto) 6.1 (1.8-7.0) K/uL Lymph # (Auto) 0.6 L (1.0-4.3) K/uL Riley # (Auto) 0.6 (0.0-0.8) K/uL Eos # (Auto) 0.0 (0.0-0.7) K/uL Baso # (Auto) 0.1 (0.0-0.2) K/uL Puncture Site pCO2 (35-45) mm/Hg pO2 (80-100) mm/Hg HCO3 (21-28) mmol/L ABG pH (7.35-7.45) ABG Total CO2 (22-28) mmol/L ABG O2 Saturation (95-98) % ABG Base Excess (-2.0-3.0) mmol/L [place]quito Test ABG Potassium (3.6-5.2) mmol/L A-a O2 Difference mm/Hg Respiratory Index Sodium 132 (132-148) mmol/l Chloride 101 (98-107) mmol/L Glucose (65-105) mg/dl Lactate (0.7-2.1) mmol/L Liter Flow FiO2 % Potassium 4.6 (3.6-5.2) mmol/L Carbon Dioxide 22 (22-30) mmol/L Anion Gap 15 (10-20) BUN 30 H (7-17) mg/dL Creatinine 1.2 (0.7-1.2) mg/dL Est GFR ( Amer) 54 Est GFR (Non-Af Amer) 44 POC Glucose (mg/dL) (65-110) mg/dL Random Glucose 106 H (65-105) mg/dL Calcium 8.9 (8.6-10.4) mg/dl Phosphorus 4.7 H (2.5-4.5) mg/dL Magnesium 1.7 (1.6-2.3) mg/dL Total Bilirubin 0.9 (0.2-1.3) mg/dL AST 47 H (14-36) U/L ALT 43 (9-52) U/L Alkaline Phosphatase 92 (38-126) U/L Ammonia (9-33) umol/L Troponin I (0.00-0.120) ng/mL Total Protein 6.0 L (6.3-8.3) g/dL Albumin 3.1 L (3.5-5.0) g/dL Globulin 2.9 (2.2-3.9) gm/dL Albumin/Globulin Ratio 1.1 (1.0-2.1) TSH 3rd Generation (0.46-4.68) mIU/L Arterial Blood Potassium (3.6-5.2) mmol/L Urine Color Hallie (YELLOW) Urine Clarity Hazy (Clear) Urine pH 5.0 (5.0-8.0) Ur Specific [place] 1.020 (1.003-1.030) Urine Protein 2+ H (NEGATIVE) mg/dL Urine Glucose (UA) Normal (Normal) mg/dL Urine Ketones Negative (NEGATIVE) mg/dL Urine Blood 2+ H (NEGATIVE) Urine Nitrate Negative (NEGATIVE) Urine Bilirubin Negative (NEGATIVE) Urine Urobilinogen Normal (0.2-1.0) mg/dL Ur Leukocyte Esterase 1+ H (Negative) Felix/uL Urine WBC (Auto) 44 H (0-5) /hpf Urine RBC (Auto) 248 H (0-3) /hpf Urine WBC Clumps (Auto) Few H (NONE) /hpf Ur Squamous Epith Cells 13 H (0-5) /hpf Urine Bacteria Many H (<OCC) Hyaline Casts >20 H (0-2) /lpf Granular Casts (Auto) 147 (0-1) /lpf Influenza Typ A,B (EIA) (NEGATIVE) 07/16/18 07/16/18 07/16/18 Range/Units 01:29 01:14 01:14 WBC 8.2 (4.8-10.8) K/uL RBC 4.24 (3.80-5.20) Mil/uL Hgb 12.7 (11.0-16.0) g/dL Hct 38.5 (34.0-47.0) % MCV 91.0 (81.0-99.0) fL MCH 30.0 (27.0-31.0) pg MCHC 32.9 L (33.0-37.0) g/dL RDW 16.1 H (11.5-14.5) % Plt Count 224 (130-400) K/uL MPV 8.8 (7.2-11.7) fL Neut % (Auto) 70.9 (50.0-75.0) % Lymph % (Auto) 15.3 L (20.0-40.0) % Riley % (Auto) 12.2 H (0.0-10.0) % Eos % (Auto) 0.3 (0.0-4.0) % Baso % (Auto) 1.3 (0.0-2.0) % Neut # (Auto) 5.8 (1.8-7.0) K/uL Lymph # (Auto) 1.2 (1.0-4.3) K/uL Riley # (Auto) 1.0 H (0.0-0.8) K/uL Eos # (Auto) 0.0 (0.0-0.7) K/uL Baso # (Auto) 0.1 (0.0-0.2) K/uL Puncture Site pCO2 (35-45) mm/Hg pO2 (80-100) mm/Hg HCO3 (21-28) mmol/L ABG pH (7.35-7.45) ABG Total CO2 (22-28) mmol/L ABG O2 Saturation (95-98) % ABG Base Excess (-2.0-3.0) mmol/L [place]quito Test ABG Potassium (3.6-5.2) mmol/L A-a O2 Difference mm/Hg Respiratory Index Sodium 131 L (132-148) mmol/l Chloride 101 (98-107) mmol/L Glucose (65-105) mg/dl Lactate (0.7-2.1) mmol/L Liter Flow FiO2 % Potassium 4.7 (3.6-5.2) mmol/L Carbon Dioxide 17 L (22-30) mmol/L Anion Gap 18 (10-20) BUN 28 H (7-17) mg/dL Creatinine 1.3 H (0.7-1.2) mg/dL Est GFR ( Amer) 49 Est GFR (Non-Af Amer) 40 POC Glucose (mg/dL) (65-110) mg/dL Random Glucose 115 H (65-105) mg/dL Calcium 10.0 (8.6-10.4) mg/dl Phosphorus 5.3 H (2.5-4.5) mg/dL Magnesium 1.8 (1.6-2.3) mg/dL Total Bilirubin 0.6 (0.2-1.3) mg/dL AST 41 H (14-36) U/L ALT 46 (9-52) U/L Alkaline Phosphatase 87 (38-126) U/L Ammonia (9-33) umol/L Troponin I 0.0500 (0.00-0.120) ng/mL Total Protein 6.0 L (6.3-8.3) g/dL Albumin 3.1 L (3.5-5.0) g/dL Globulin 3.0 (2.2-3.9) gm/dL Albumin/Globulin Ratio 1.0 (1.0-2.1) TSH 3rd Generation 6.85 H (0.46-4.68) mIU/L Arterial Blood Potassium (3.6-5.2) mmol/L Urine Color (YELLOW) Urine Clarity (Clear) Urine pH (5.0-8.0) Ur Specific [place] (1.003-1.030) Urine Protein (NEGATIVE) mg/dL Urine Glucose (UA) (Normal) mg/dL Urine Ketones (NEGATIVE) mg/dL Urine Blood (NEGATIVE) Urine Nitrate (NEGATIVE) Urine Bilirubin (NEGATIVE) Urine Urobilinogen (0.2-1.0) mg/dL Ur Leukocyte Esterase (Negative) Felix/uL Urine WBC (Auto) (0-5) /hpf Urine RBC (Auto) (0-3) /hpf Urine WBC Clumps (Auto) (NONE) /hpf Ur Squamous Epith Cells (0-5) /hpf Urine Bacteria (<OCC) Hyaline Casts (0-2) /lpf Granular Casts (Auto) (0-1) /lpf Influenza Typ A,B (EIA) Negative for flu a/b (NEGATIVE) 07/16/18 07/15/18 07/15/18 Range/Units 01:14 22:55 01:00 EST WBC (4.8-10.8) K/uL RBC (3.80-5.20) Mil/uL Hgb (11.0-16.0) g/dL Hct (34.0-47.0) % MCV (81.0-99.0) fL MCH (27.0-31.0) pg MCHC (33.0-37.0) g/dL RDW (11.5-14.5) % Plt Count (130-400) K/uL MPV (7.2-11.7) fL Neut % (Auto) (50.0-75.0) % Lymph % (Auto) (20.0-40.0) % Riley % (Auto) (0.0-10.0) % Eos % (Auto) (0.0-4.0) % Baso % (Auto) (0.0-2.0) % Neut # (Auto) (1.8-7.0) K/uL Lymph # (Auto) (1.0-4.3) K/uL Riley # (Auto) (0.0-0.8) K/uL Eos # (Auto) (0.0-0.7) K/uL Baso # (Auto) (0.0-0.2) K/uL Puncture Site Rbrachial pCO2 39 (35-45) mm/Hg pO2 118 H (80-100) mm/Hg HCO3 23.0 (21-28) mmol/L ABG pH 7.37 (7.35-7.45) ABG Total CO2 23.7 (22-28) mmol/L ABG O2 Saturation 99.2 H (95-98) % ABG Base Excess -2.5 L (-2.0-3.0) mmol/L [place]quito Test Neg ABG Potassium 4.3 (3.6-5.2) mmol/L A-a O2 Difference 90.0 mm/Hg Respiratory Index 0.8 Sodium 132.0 (132-148) mmol/l Chloride 101.0 (98-107) mmol/L Glucose 114 H (65-105) mg/dl Lactate 3.5 H (0.7-2.1) mmol/L Liter Flow 4.0 FiO2 36.0 % Potassium (3.6-5.2) mmol/L Carbon Dioxide (22-30) mmol/L Anion Gap (10-20) BUN (7-17) mg/dL Creatinine (0.7-1.2) mg/dL Est GFR ( Amer) Est GFR (Non-Af Amer) POC Glucose (mg/dL) 121 H (65-110) mg/dL Random Glucose (65-105) mg/dL Calcium (8.6-10.4) mg/dl Phosphorus (2.5-4.5) mg/dL Magnesium (1.6-2.3) mg/dL Total Bilirubin (0.2-1.3) mg/dL AST (14-36) U/L ALT (9-52) U/L Alkaline Phosphatase (38-126) U/L Ammonia 19 (9-33) umol/L Troponin I (0.00-0.120) ng/mL Total Protein (6.3-8.3) g/dL Albumin (3.5-5.0) g/dL Globulin (2.2-3.9) gm/dL Albumin/Globulin Ratio (1.0-2.1) TSH 3rd Generation (0.46-4.68) mIU/L Arterial Blood Potassium 4.3 (3.6-5.2) mmol/L Urine Color (YELLOW) Urine Clarity (Clear) Urine pH (5.0-8.0) Ur Specific [place] (1.003-1.030) Urine Protein (NEGATIVE) mg/dL Urine Glucose (UA) (Normal) mg/dL Urine Ketones (NEGATIVE) mg/dL Urine Blood (NEGATIVE) Urine Nitrate (NEGATIVE) Urine Bilirubin (NEGATIVE) Urine Urobilinogen (0.2-1.0) mg/dL Ur Leukocyte Esterase (Negative) Felix/uL Urine WBC (Auto) (0-5) /hpf Urine RBC (Auto) (0-3) /hpf Urine WBC Clumps (Auto) (NONE) /hpf Ur Squamous Epith Cells (0-5) /hpf Urine Bacteria (<OCC) Hyaline Casts (0-2) /lpf Granular Casts (Auto) (0-1) /lpf Influenza Typ A,B (EIA) (NEGATIVE) Laboratory Results - last 24 hr 07/15/18 07/15/18 07/16/18 01:00 EST 22:55 01:14 WBC RBC Hgb Hct MCV MCH MCHC RDW Plt Count MPV Neut % (Auto) Lymph % (Auto) Riley % (Auto) Eos % (Auto) Baso % (Auto) Neut # (Auto) Lymph # (Auto) Riley # (Auto) Eos # (Auto) Baso # (Auto) Puncture Site Rbrachial pCO2 39 pO2 118 H HCO3 23.0 ABG pH 7.37 ABG Total CO2 23.7 ABG O2 Saturation 99.2 H ABG Base Excess -2.5 L [place]quito Test Neg ABG Potassium 4.3 A-a O2 Difference 90.0 Respiratory Index 0.8 Sodium 132.0 Chloride 101.0 Glucose 114 H Lactate 3.5 H Liter Flow 4.0 FiO2 36.0 Potassium Carbon Dioxide Anion Gap BUN Creatinine Est GFR ( Amer) Est GFR (Non-Af Amer) POC Glucose (mg/dL) 121 H Random Glucose Calcium Phosphorus Magnesium Total Bilirubin AST ALT Alkaline Phosphatase Ammonia 19 Troponin I Total Protein Albumin Globulin Albumin/Globulin Ratio TSH 3rd Generation Arterial Blood Potassium 4.3 Urine Color Urine Clarity Urine pH Ur Specific [place] Urine Protein Urine Glucose (UA) Urine Ketones Urine Blood Urine Nitrate Urine Bilirubin Urine Urobilinogen Ur Leukocyte Esterase Urine WBC (Auto) Urine RBC (Auto) Urine WBC Clumps (Auto) Ur Squamous Epith Cells Urine Bacteria Hyaline Casts Granular Casts (Auto) Influenza Typ A,B (EIA) 07/16/18 07/16/18 07/16/18 01:14 01:14 01:29 WBC 8.2 RBC 4.24 Hgb 12.7 Hct 38.5 MCV 91.0 MCH 30.0 MCHC 32.9 L RDW 16.1 H Plt Count 224 MPV 8.8 Neut % (Auto) 70.9 Lymph % (Auto) 15.3 L Riley % (Auto) 12.2 H Eos % (Auto) 0.3 Baso % (Auto) 1.3 Neut # (Auto) 5.8 Lymph # (Auto) 1.2 Riley # (Auto) 1.0 H Eos # (Auto) 0.0 Baso # (Auto) 0.1 Puncture Site pCO2 pO2 HCO3 ABG pH ABG Total CO2 ABG O2 Saturation ABG Base Excess [place]quito Test ABG Potassium A-a O2 Difference Respiratory Index Sodium 131 L Chloride 101 Glucose Lactate Liter Flow FiO2 Potassium 4.7 Carbon Dioxide 17 L Anion Gap 18 BUN 28 H Creatinine 1.3 H Est GFR ( Amer) 49 Est GFR (Non-Af Amer) 40 POC Glucose (mg/dL) Random Glucose 115 H Calcium 10.0 Phosphorus 5.3 H Magnesium 1.8 Total Bilirubin 0.6 AST 41 H ALT 46 Alkaline Phosphatase 87 Ammonia Troponin I 0.0500 Total Protein 6.0 L Albumin 3.1 L Globulin 3.0 Albumin/Globulin Ratio 1.0 TSH 3rd Generation 6.85 H Arterial Blood Potassium Urine Color Urine Clarity Urine pH Ur Specific [place] Urine Protein Urine Glucose (UA) Urine Ketones Urine Blood Urine Nitrate Urine Bilirubin Urine Urobilinogen Ur Leukocyte Esterase Urine WBC (Auto) Urine RBC (Auto) Urine WBC Clumps (Auto) Ur Squamous Epith Cells Urine Bacteria Hyaline Casts Granular Casts (Auto) Influenza Typ A,B (EIA) Negative for flu a/b 07/16/18 07/16/18 07/16/18 02:15 06:34 06:34 WBC 7.4 RBC 4.28 Hgb 12.8 Hct 39.2 MCV 91.7 MCH 29.9 MCHC 32.7 L RDW 15.9 H Plt Count 203 MPV 8.8 Neut % (Auto) 82.2 H Lymph % (Auto) 7.9 L Riley % (Auto) 8.7 Eos % (Auto) 0.2 Baso % (Auto) 1.0 Neut # (Auto) 6.1 Lymph # (Auto) 0.6 L Riley # (Auto) 0.6 Eos # (Auto) 0.0 Baso # (Auto) 0.1 Puncture Site pCO2 pO2 HCO3 ABG pH ABG Total CO2 ABG O2 Saturation ABG Base Excess [place]quito Test ABG Potassium A-a O2 Difference Respiratory Index Sodium 132 Chloride 101 Glucose Lactate Liter Flow FiO2 Potassium 4.6 Carbon Dioxide 22 Anion Gap 15 BUN 30 H Creatinine 1.2 Est GFR ( Amer) 54 Est GFR (Non-Af Amer) 44 POC Glucose (mg/dL) Random Glucose 106 H Calcium 8.9 Phosphorus 4.7 H Magnesium 1.7 Total Bilirubin 0.9 AST 47 H ALT 43 Alkaline Phosphatase 92 Ammonia Troponin I Total Protein 6.0 L Albumin 3.1 L Globulin 2.9 Albumin/Globulin Ratio 1.1 TSH 3rd Generation Arterial Blood Potassium Urine Color Hallie Urine Clarity Hazy Urine pH 5.0 Ur Specific [place] 1.020 Urine Protein 2+ H Urine Glucose (UA) Normal Urine Ketones Negative Urine Blood 2+ H Urine Nitrate Negative Urine Bilirubin Negative Urine Urobilinogen Normal Ur Leukocyte Esterase 1+ H Urine WBC (Auto) 44 H Urine RBC (Auto) 248 H Urine WBC Clumps (Auto) Few H Ur Squamous Epith Cells 13 H Urine Bacteria Many H Hyaline Casts >20 H Granular Casts (Auto) 147 Influenza Typ A,B (EIA) EKG/Cardiology Studies: Cardiology / EKG Studies 07/15/18 22:55 EKG [ELECTROCARDIOGRAM] Stat Comment: Mode Of Transportation: Reason For Exam: bradycardia Results Reviewed to Date: Yes Review of Systems - Review of Systems Systems not reviewed;Unavailable: Acuity of Condition (lethargic) Critical Care Progress Note - Extremities/Vascular Does the Patient have a Central Venous Catheter?: No Does the Patient need a Central Venous Catheter?: No Does the Patient have a Gayle Catheter?: Yes Does the Patient need a Gayle Catheter?: Yes Catheter Insertion Criteria: Need for accurate measurement of output in critically ill patient - Prophylaxis GI Prophylaxis GI: Pepsid - Prophylaxis DVT Prophylaxis DVT: Not Indicated (Xarelto) - Nutrition Nutrition: Nutrition Category Date Time Status Heart Healthy Diet [DIET] Diets 07/14/18 Breakfast Active Assessment/Plan - Assessment and Plan (Free Text) Assessment: Patient is a 72 yo female with a history of Afib, HTN, anxiety, and depression who presented with a cough and generalized weakness. She was initially admitted to med/surg, but a [facility]ER ROD MILL was called due to symptomatic bradycardia and hypotension, and she was transferred to the ICU for Dobutamine drip. Plan: Neuro: - CT head negative - Monitor mental status- lethargic CV: Bradycardia - MILLER ROD MILL on 07/15 for symptomatic bradycardia - Trop negative x2 - Discontinue Dobutamine drip - Cardiology consulted (Augustin) Afib - Xarelto 20 mg PO daily - Metoprolol 25 mg PO BID- hold - Flecainide 100 mg PO BID- hold CHF - CXR: CHF type pattern, cardiomegaly - Pro-BNP 31,900 - Lasix PRN - Echo pending - Crestor 5 mg PO QHS Pulm: - Maintain spO2>92%- supplemental O2 PRN - Flu negative - CXR: CHF type pattern, L pleural effusion and/or consolidation, mod pulm venous congestion - CT chest pending - Douneb Q6H PRN GI: - Ammonia wnl - Heart healthy diet - Ensure Enlive x3 - Reading Teacher referral for poor PO intake : - I's & O's - Replete electrolytes PRN Endo: - Maintain euglycemia - TSH elevated (6.85) - Free T4, total T4 wnl Heme: - Monitor H&H - LE Dopplers pending ID: - Procal wnl - Blood Cx no growth >48 hrs - Rocephin 1 g IV daily PPx: VTE: on Xarelto GI: Pepcid 20 mg PO daily PT Code status: full code Case discussed with attending, Dr. Zimmerman. PGY-1 Aleena Tsai D.O. <Kaden Zimmerman - Last Filed: 07/16/18 19:34> CCU Objective - Vital Signs / Intake & Output Vital Signs (Last 4 hours): Vital Signs Temp Pulse Resp BP Pulse Ox 07/16/18 19:00 58 L 18 141/53 L 97 07/16/18 18:00 51 L 19 141/57 L 98 07/16/18 17:23 136/64 07/16/18 17:00 58 L 20 136/68 97 07/16/18 16:00 97.8 F 52 L 19 135/54 L 97 Intake and Output (Last 8hrs): Intake & Output 07/16/18 07/16/18 07/16/18 06:59 14:59 22:59 Intake Total 1072 367.5 200 Output Total 200 Balance 872 367.5 200 Weight 104 lb 1.6 oz Intake: IV 37 Intake, IV Amount 1035 317.5 Right Hand 300 rt forearm 35 17.5 rt forearm 2nd port 1000 Oral 0 50 200 Output: Urine 200 Urethral (Gayle) 200 - Medications Active Medications: Active Medications Generic Name Dose Route Start Last Admin Trade Name Freq PRN Reason Stop Dose Admin Albuterol Sulfate 2.5 mg 07/14/18 10:30 07/16/18 01:59 Albuterol 0.083% Inhal Allegra (2.5 Mg/3 Ml) Ud INH 2.5 mg RQ6 PRN Administration Shortness of Breath Ergocalciferol 1 cap 07/14/18 10:00 07/14/18 10:20 Drisdol 50,000 Intl Units Cap PO 1 cap QWK MAGALYS Administration Famotidine 20 mg 07/16/18 15:15 07/16/18 16:00 Pepcid PO 20 mg DAILY MAGALYS Administration Ceftriaxone Sodium 1 gm/ 100 mls @ 100 mls/hr 07/14/18 10:00 07/16/18 10:40 Sodium Chloride IVPB 100 mls/hr DAILY MAGALYS Administration Protocol Dobutamine HCl/Dextrose 500 mg in 250 mls @ 7.083 mls/hr 07/16/18 01:00 07/16/18 06:36 Dobutamine/Dextrose 5% 500mg/250ml IV 2.5 mcg/kg/min .Q24H MAGALYS 3.541 mls/hr Titration Protocol 5 MCG/KG/MIN Metoprolol Tartrate 25 mg 07/14/18 10:30 07/15/18 18:01 Lopressor PO 25 mg BID MAGALYS Administration Rivaroxaban 20 mg 07/14/18 10:00 07/16/18 09:24 Xarelto PO 20 mg DAILY MAGALYS Administration - Patient Studies Lab Studies: Microbiology Studies 07/16/18 06:00 MRSA Culture (Admit) - Final Nose MRSA NOT DETECTED 07/14/18 07:30 Blood Culture - Preliminary Blood NO GROWTH AFTER 48 HOURS 07/14/18 07:30 Blood Culture - Preliminary Blood NO GROWTH AFTER 48 HOURS Lab Studies 07/16/18 07/16/18 07/16/18 Range/Units 11:26 11:04 11:04 WBC (4.8-10.8) K/uL RBC (3.80-5.20) Mil/uL Hgb (11.0-16.0) g/dL Hct (34.0-47.0) % MCV (81.0-99.0) fL MCH (27.0-31.0) pg MCHC (33.0-37.0) g/dL RDW (11.5-14.5) % Plt Count (130-400) K/uL MPV (7.2-11.7) fL Neut % (Auto) (50.0-75.0) % Lymph % (Auto) (20.0-40.0) % Riley % (Auto) (0.0-10.0) % Eos % (Auto) (0.0-4.0) % Baso % (Auto) (0.0-2.0) % Neut # (Auto) (1.8-7.0) K/uL Lymph # (Auto) (1.0-4.3) K/uL Riley # (Auto) (0.0-0.8) K/uL Eos # (Auto) (0.0-0.7) K/uL Baso # (Auto) (0.0-0.2) K/uL Neutrophils % (Manual) (50-75) % Band Neutrophils % (0-2) % Lymphocytes % (Manual) (20-40) % Monocytes % (Manual) (0-10) % Platelet Estimate (NORMAL) Polychromasia Hypochromasia (manual) Anisocytosis (manual) Ovalocytes Puncture Site pCO2 (35-45) mm/Hg pO2 (80-100) mm/Hg HCO3 (21-28) mmol/L ABG pH (7.35-7.45) ABG Total CO2 (22-28) mmol/L ABG O2 Saturation (95-98) % ABG Base Excess (-2.0-3.0) mmol/L [place]quito Test ABG Potassium (3.6-5.2) mmol/L A-a O2 Difference mm/Hg Respiratory Index Sodium (132-148) mmol/l Chloride (98-107) mmol/L Glucose (65-105) mg/dl Lactate (0.7-2.1) mmol/L Liter Flow FiO2 % Potassium (3.6-5.2) mmol/L Carbon Dioxide (22-30) mmol/L Anion Gap (10-20) BUN (7-17) mg/dL Creatinine (0.7-1.2) mg/dL Est GFR ( Amer) Est GFR (Non-Af Amer) POC Glucose (mg/dL) (65-110) mg/dL Random Glucose (65-105) mg/dL Lactic Acid (0.7-2.1) mmol/L Calcium (8.6-10.4) mg/dl Phosphorus (2.5-4.5) mg/dL Magnesium (1.6-2.3) mg/dL Total Bilirubin (0.2-1.3) mg/dL AST (14-36) U/L ALT (9-52) U/L Alkaline Phosphatase (38-126) U/L Ammonia (9-33) umol/L Troponin I (0.00-0.120) ng/mL Total Protein (6.3-8.3) g/dL Albumin (3.5-5.0) g/dL Globulin (2.2-3.9) gm/dL Albumin/Globulin Ratio (1.0-2.1) Procalcitonin (0.19-0.49) NG/ML Free T4 2.11 (0.78-2.19) ng/dL Thyroxine (T4) 7.89 (5.5-11.0) ug/dL TSH 3rd Generation (0.46-4.68) mIU/L Arterial Blood Potassium (3.6-5.2) mmol/L Urine Color Yellow (YELLOW) Urine Clarity Hazy (Clear) Urine pH 5.0 (5.0-8.0) Ur Specific [place] 1.020 (1.003-1.030) Urine Protein 1+ H (NEGATIVE) mg/dL Urine Glucose (UA) Normal (Normal) mg/dL Urine Ketones Trace (NEGATIVE) mg/dL Urine Blood 2+ H (NEGATIVE) Urine Nitrate Negative (NEGATIVE) Urine Bilirubin Negative (NEGATIVE) Urine Urobilinogen Normal (0.2-1.0) mg/dL Ur Leukocyte Esterase 2+ H (Negative) Felix/uL Urine WBC (Auto) 53 H (0-5) /hpf Urine RBC (Auto) 25 H (0-3) /hpf Urine WBC Clumps (Auto) (NONE) /hpf Ur Squamous Epith Cells 1 (0-5) /hpf Urine Bacteria Rare (<OCC) Hyaline Casts 11-20 H (0-2) /lpf Granular Casts (Auto) (0-1) /lpf Influenza Typ A,B (EIA) (NEGATIVE) 07/16/18 07/16/18 07/16/18 Range/Units 11:04 06:34 06:34 WBC 7.4 (4.8-10.8) K/uL RBC 4.28 (3.80-5.20) Mil/uL Hgb 12.8 (11.0-16.0) g/dL Hct 39.2 (34.0-47.0) % MCV 91.7 (81.0-99.0) fL MCH 29.9 (27.0-31.0) pg MCHC 32.7 L (33.0-37.0) g/dL RDW 15.9 H (11.5-14.5) % Plt Count 203 (130-400) K/uL MPV 8.8 (7.2-11.7) fL Neut % (Auto) 82.2 H (50.0-75.0) % Lymph % (Auto) 7.9 L (20.0-40.0) % Riley % (Auto) 8.7 (0.0-10.0) % Eos % (Auto) 0.2 (0.0-4.0) % Baso % (Auto) 1.0 (0.0-2.0) % Neut # (Auto) 6.1 (1.8-7.0) K/uL Lymph # (Auto) 0.6 L (1.0-4.3) K/uL Riley # (Auto) 0.6 (0.0-0.8) K/uL Eos # (Auto) 0.0 (0.0-0.7) K/uL Baso # (Auto) 0.1 (0.0-0.2) K/uL Neutrophils % (Manual) 81 H (50-75) % Band Neutrophils % 1 (0-2) % Lymphocytes % (Manual) 9 L (20-40) % Monocytes % (Manual) 9 (0-10) % Platelet Estimate Normal (NORMAL) Polychromasia Slight Hypochromasia (manual) Slight Anisocytosis (manual) Slight Ovalocytes Slight Puncture Site pCO2 (35-45) mm/Hg pO2 (80-100) mm/Hg HCO3 (21-28) mmol/L ABG pH (7.35-7.45) ABG Total CO2 (22-28) mmol/L ABG O2 Saturation (95-98) % ABG Base Excess (-2.0-3.0) mmol/L [place] Test ABG Potassium (3.6-5.2) mmol/L A-a O2 Difference mm/Hg Respiratory Index Sodium 132 (132-148) mmol/l Chloride 101 (98-107) mmol/L Glucose (65-105) mg/dl Lactate (0.7-2.1) mmol/L Liter Flow FiO2 % Potassium 4.6 (3.6-5.2) mmol/L Carbon Dioxide 22 (22-30) mmol/L Anion Gap 15 (10-20) BUN 30 H (7-17) mg/dL Creatinine 1.2 (0.7-1.2) mg/dL Est GFR ( Amer) 54 Est GFR (Non-Af Amer) 44 POC Glucose (mg/dL) (65-110) mg/dL Random Glucose 106 H (65-105) mg/dL Lactic Acid 2.0 (0.7-2.1) mmol/L Calcium 8.9 (8.6-10.4) mg/dl Phosphorus 4.7 H (2.5-4.5) mg/dL Magnesium 1.7 (1.6-2.3) mg/dL Total Bilirubin 0.9 (0.2-1.3) mg/dL AST 47 H (14-36) U/L ALT 43 (9-52) U/L Alkaline Phosphatase 92 (38-126) U/L Ammonia (9-33) umol/L Troponin I (0.00-0.120) ng/mL Total Protein 6.0 L (6.3-8.3) g/dL Albumin 3.1 L (3.5-5.0) g/dL Globulin 2.9 (2.2-3.9) gm/dL Albumin/Globulin Ratio 1.1 (1.0-2.1) Procalcitonin (0.19-0.49) NG/ML Free T4 (0.78-2.19) ng/dL Thyroxine (T4) (5.5-11.0) ug/dL TSH 3rd Generation (0.46-4.68) mIU/L Arterial Blood Potassium (3.6-5.2) mmol/L Urine Color (YELLOW) Urine Clarity (Clear) Urine pH (5.0-8.0) Ur Specific [place] (1.003-1.030) Urine Protein (NEGATIVE) mg/dL Urine Glucose (UA) (Normal) mg/dL Urine Ketones (NEGATIVE) mg/dL Urine Blood (NEGATIVE) Urine Nitrate (NEGATIVE) Urine Bilirubin (NEGATIVE) Urine Urobilinogen (0.2-1.0) mg/dL Ur Leukocyte Esterase (Negative) Felix/uL Urine WBC (Auto) (0-5) /hpf Urine RBC (Auto) (0-3) /hpf Urine WBC Clumps (Auto) (NONE) /hpf Ur Squamous Epith Cells (0-5) /hpf Urine Bacteria (<OCC) Hyaline Casts (0-2) /lpf Granular Casts (Auto) (0-1) /lpf Influenza Typ A,B (EIA) (NEGATIVE) 07/16/18 07/16/18 07/16/18 Range/Units 02:15 01:29 01:14 WBC (4.8-10.8) K/uL RBC (3.80-5.20) Mil/uL Hgb (11.0-16.0) g/dL Hct (34.0-47.0) % MCV (81.0-99.0) fL MCH (27.0-31.0) pg MCHC (33.0-37.0) g/dL RDW (11.5-14.5) % Plt Count (130-400) K/uL MPV (7.2-11.7) fL Neut % (Auto) (50.0-75.0) % Lymph % (Auto) (20.0-40.0) % Riley % (Auto) (0.0-10.0) % Eos % (Auto) (0.0-4.0) % Baso % (Auto) (0.0-2.0) % Neut # (Auto) (1.8-7.0) K/uL Lymph # (Auto) (1.0-4.3) K/uL Riley # (Auto) (0.0-0.8) K/uL Eos # (Auto) (0.0-0.7) K/uL Baso # (Auto) (0.0-0.2) K/uL Neutrophils % (Manual) (50-75) % Band Neutrophils % (0-2) % Lymphocytes % (Manual) (20-40) % Monocytes % (Manual) (0-10) % Platelet Estimate (NORMAL) Polychromasia Hypochromasia (manual) Anisocytosis (manual) Ovalocytes Puncture Site pCO2 (35-45) mm/Hg pO2 (80-100) mm/Hg HCO3 (21-28) mmol/L ABG pH (7.35-7.45) ABG Total CO2 (22-28) mmol/L ABG O2 Saturation (95-98) % ABG Base Excess (-2.0-3.0) mmol/L [place] Test ABG Potassium (3.6-5.2) mmol/L A-a O2 Difference mm/Hg Respiratory Index Sodium 131 L (132-148) mmol/l Chloride 101 (98-107) mmol/L Glucose (65-105) mg/dl Lactate (0.7-2.1) mmol/L Liter Flow FiO2 % Potassium 4.7 (3.6-5.2) mmol/L Carbon Dioxide 17 L (22-30) mmol/L Anion Gap 18 (10-20) BUN 28 H (7-17) mg/dL Creatinine 1.3 H (0.7-1.2) mg/dL Est GFR ( Amer) 49 Est GFR (Non-Af Amer) 40 POC Glucose (mg/dL) (65-110) mg/dL Random Glucose 115 H (65-105) mg/dL Lactic Acid (0.7-2.1) mmol/L Calcium 10.0 (8.6-10.4) mg/dl Phosphorus 5.3 H (2.5-4.5) mg/dL Magnesium 1.8 (1.6-2.3) mg/dL Total Bilirubin 0.6 (0.2-1.3) mg/dL AST 41 H (14-36) U/L ALT 46 (9-52) U/L Alkaline Phosphatase 87 (38-126) U/L Ammonia (9-33) umol/L Troponin I 0.0500 (0.00-0.120) ng/mL Total Protein 6.0 L (6.3-8.3) g/dL Albumin 3.1 L (3.5-5.0) g/dL Globulin 3.0 (2.2-3.9) gm/dL Albumin/Globulin Ratio 1.0 (1.0-2.1) Procalcitonin (0.19-0.49) NG/ML Free T4 (0.78-2.19) ng/dL Thyroxine (T4) (5.5-11.0) ug/dL TSH 3rd Generation 6.85 H (0.46-4.68) mIU/L Arterial Blood Potassium (3.6-5.2) mmol/L Urine Color Hallie (YELLOW) Urine Clarity Hazy (Clear) Urine pH 5.0 (5.0-8.0) Ur Specific [place] 1.020 (1.003-1.030) Urine Protein 2+ H (NEGATIVE) mg/dL Urine Glucose (UA) Normal (Normal) mg/dL Urine Ketones Negative (NEGATIVE) mg/dL Urine Blood 2+ H (NEGATIVE) Urine Nitrate Negative (NEGATIVE) Urine Bilirubin Negative (NEGATIVE) Urine Urobilinogen Normal (0.2-1.0) mg/dL Ur Leukocyte Esterase 1+ H (Negative) Felix/uL Urine WBC (Auto) 44 H (0-5) /hpf Urine RBC (Auto) 248 H (0-3) /hpf Urine WBC Clumps (Auto) Few H (NONE) /hpf Ur Squamous Epith Cells 13 H (0-5) /hpf Urine Bacteria Many H (<OCC) Hyaline Casts >20 H (0-2) /lpf Granular Casts (Auto) 147 (0-1) /lpf Influenza Typ A,B (EIA) Negative for flu a/b (NEGATIVE) 07/16/18 07/16/18 07/16/18 Range/Units 01:14 01:14 01:14 WBC 8.2 (4.8-10.8) K/uL RBC 4.24 (3.80-5.20) Mil/uL Hgb 12.7 (11.0-16.0) g/dL Hct 38.5 (34.0-47.0) % MCV 91.0 (81.0-99.0) fL MCH 30.0 (27.0-31.0) pg MCHC 32.9 L (33.0-37.0) g/dL RDW 16.1 H (11.5-14.5) % Plt Count 224 (130-400) K/uL MPV 8.8 (7.2-11.7) fL Neut % (Auto) 70.9 (50.0-75.0) % Lymph % (Auto) 15.3 L (20.0-40.0) % Riley % (Auto) 12.2 H (0.0-10.0) % Eos % (Auto) 0.3 (0.0-4.0) % Baso % (Auto) 1.3 (0.0-2.0) % Neut # (Auto) 5.8 (1.8-7.0) K/uL Lymph # (Auto) 1.2 (1.0-4.3) K/uL Riley # (Auto) 1.0 H (0.0-0.8) K/uL Eos # (Auto) 0.0 (0.0-0.7) K/uL Baso # (Auto) 0.1 (0.0-0.2) K/uL Neutrophils % (Manual) (50-75) % Band Neutrophils % (0-2) % Lymphocytes % (Manual) (20-40) % Monocytes % (Manual) (0-10) % Platelet Estimate (NORMAL) Polychromasia Hypochromasia (manual) Anisocytosis (manual) Ovalocytes Puncture Site pCO2 (35-45) mm/Hg pO2 (80-100) mm/Hg HCO3 (21-28) mmol/L ABG pH (7.35-7.45) ABG Total CO2 (22-28) mmol/L ABG O2 Saturation (95-98) % ABG Base Excess (-2.0-3.0) mmol/L [place] Test ABG Potassium (3.6-5.2) mmol/L A-a O2 Difference mm/Hg Respiratory Index Sodium (132-148) mmol/l Chloride (98-107) mmol/L Glucose (65-105) mg/dl Lactate (0.7-2.1) mmol/L Liter Flow FiO2 % Potassium (3.6-5.2) mmol/L Carbon Dioxide (22-30) mmol/L Anion Gap (10-20) BUN (7-17) mg/dL Creatinine (0.7-1.2) mg/dL Est GFR ( Amer) Est GFR (Non-Af Amer) POC Glucose (mg/dL) (65-110) mg/dL Random Glucose (65-105) mg/dL Lactic Acid (0.7-2.1) mmol/L Calcium (8.6-10.4) mg/dl Phosphorus (2.5-4.5) mg/dL Magnesium (1.6-2.3) mg/dL Total Bilirubin (0.2-1.3) mg/dL AST (14-36) U/L ALT (9-52) U/L Alkaline Phosphatase (38-126) U/L Ammonia 19 (9-33) umol/L Troponin I (0.00-0.120) ng/mL Total Protein (6.3-8.3) g/dL Albumin (3.5-5.0) g/dL Globulin (2.2-3.9) gm/dL Albumin/Globulin Ratio (1.0-2.1) Procalcitonin 0.22 (0.19-0.49) NG/ML Free T4 (0.78-2.19) ng/dL Thyroxine (T4) (5.5-11.0) ug/dL TSH 3rd Generation (0.46-4.68) mIU/L Arterial Blood Potassium (3.6-5.2) mmol/L Urine Color (YELLOW) Urine Clarity (Clear) Urine pH (5.0-8.0) Ur Specific [place] (1.003-1.030) Urine Protein (NEGATIVE) mg/dL Urine Glucose (UA) (Normal) mg/dL Urine Ketones (NEGATIVE) mg/dL Urine Blood (NEGATIVE) Urine Nitrate (NEGATIVE) Urine Bilirubin (NEGATIVE) Urine Urobilinogen (0.2-1.0) mg/dL Ur Leukocyte Esterase (Negative) Felix/uL Urine WBC (Auto) (0-5) /hpf Urine RBC (Auto) (0-3) /hpf Urine WBC Clumps (Auto) (NONE) /hpf Ur Squamous Epith Cells (0-5) /hpf Urine Bacteria (<OCC) Hyaline Casts (0-2) /lpf Granular Casts (Auto) (0-1) /lpf Influenza Typ A,B (EIA) (NEGATIVE) 07/15/18 07/15/18 Range/Units 22:55 01:00 EST WBC (4.8-10.8) K/uL RBC (3.80-5.20) Mil/uL Hgb (11.0-16.0) g/dL Hct (34.0-47.0) % MCV (81.0-99.0) fL MCH (27.0-31.0) pg MCHC (33.0-37.0) g/dL RDW (11.5-14.5) % Plt Count (130-400) K/uL MPV (7.2-11.7) fL Neut % (Auto) (50.0-75.0) % Lymph % (Auto) (20.0-40.0) % Riley % (Auto) (0.0-10.0) % Eos % (Auto) (0.0-4.0) % Baso % (Auto) (0.0-2.0) % Neut # (Auto) (1.8-7.0) K/uL Lymph # (Auto) (1.0-4.3) K/uL Riley # (Auto) (0.0-0.8) K/uL Eos # (Auto) (0.0-0.7) K/uL Baso # (Auto) (0.0-0.2) K/uL Neutrophils % (Manual) (50-75) % Band Neutrophils % (0-2) % Lymphocytes % (Manual) (20-40) % Monocytes % (Manual) (0-10) % Platelet Estimate (NORMAL) Polychromasia Hypochromasia (manual) Anisocytosis (manual) Ovalocytes Puncture Site Rbrachial pCO2 39 (35-45) mm/Hg pO2 118 H (80-100) mm/Hg HCO3 23.0 (21-28) mmol/L ABG pH 7.37 (7.35-7.45) ABG Total CO2 23.7 (22-28) mmol/L ABG O2 Saturation 99.2 H (95-98) % ABG Base Excess -2.5 L (-2.0-3.0) mmol/L [place] Test Neg ABG Potassium 4.3 (3.6-5.2) mmol/L A-a O2 Difference 90.0 mm/Hg Respiratory Index 0.8 Sodium 132.0 (132-148) mmol/l Chloride 101.0 (98-107) mmol/L Glucose 114 H (65-105) mg/dl Lactate 3.5 H (0.7-2.1) mmol/L Liter Flow 4.0 FiO2 36.0 % Potassium (3.6-5.2) mmol/L Carbon Dioxide (22-30) mmol/L Anion Gap (10-20) BUN (7-17) mg/dL Creatinine (0.7-1.2) mg/dL Est GFR ( Amer) Est GFR (Non-Af Amer) POC Glucose (mg/dL) 121 H (65-110) mg/dL Random Glucose (65-105) mg/dL Lactic Acid (0.7-2.1) mmol/L Calcium (8.6-10.4) mg/dl Phosphorus (2.5-4.5) mg/dL Magnesium (1.6-2.3) mg/dL Total Bilirubin (0.2-1.3) mg/dL AST (14-36) U/L ALT (9-52) U/L Alkaline Phosphatase (38-126) U/L Ammonia (9-33) umol/L Troponin I (0.00-0.120) ng/mL Total Protein (6.3-8.3) g/dL Albumin (3.5-5.0) g/dL Globulin (2.2-3.9) gm/dL Albumin/Globulin Ratio (1.0-2.1) Procalcitonin (0.19-0.49) NG/ML Free T4 (0.78-2.19) ng/dL Thyroxine (T4) (5.5-11.0) ug/dL TSH 3rd Generation (0.46-4.68) mIU/L Arterial Blood Potassium 4.3 (3.6-5.2) mmol/L Urine Color (YELLOW) Urine Clarity (Clear) Urine pH (5.0-8.0) Ur Specific [place] (1.003-1.030) Urine Protein (NEGATIVE) mg/dL Urine Glucose (UA) (Normal) mg/dL Urine Ketones (NEGATIVE) mg/dL Urine Blood (NEGATIVE) Urine Nitrate (NEGATIVE) Urine Bilirubin (NEGATIVE) Urine Urobilinogen (0.2-1.0) mg/dL Ur Leukocyte Esterase (Negative) Felix/uL Urine WBC (Auto) (0-5) /hpf Urine RBC (Auto) (0-3) /hpf Urine WBC Clumps (Auto) (NONE) /hpf Ur Squamous Epith Cells (0-5) /hpf Urine Bacteria (<OCC) Hyaline Casts (0-2) /lpf Granular Casts (Auto) (0-1) /lpf Influenza Typ A,B (EIA) (NEGATIVE) Laboratory Results - last 24 hr 07/15/18 07/15/18 07/16/18 01:00 EST 22:55 01:14 WBC RBC Hgb Hct MCV MCH MCHC RDW Plt Count MPV Neut % (Auto) Lymph % (Auto) Riley % (Auto) Eos % (Auto) Baso % (Auto) Neut # (Auto) Lymph # (Auto) Riley # (Auto) Eos # (Auto) Baso # (Auto) Neutrophils % (Manual) Band Neutrophils % Lymphocytes % (Manual) Monocytes % (Manual) Platelet Estimate Polychromasia Hypochromasia (manual) Anisocytosis (manual) Ovalocytes Puncture Site Rbrachial pCO2 39 pO2 118 H HCO3 23.0 ABG pH 7.37 ABG Total CO2 23.7 ABG O2 Saturation 99.2 H ABG Base Excess -2.5 L [place] Test Neg ABG Potassium 4.3 A-a O2 Difference 90.0 Respiratory Index 0.8 Sodium 132.0 Chloride 101.0 Glucose 114 H Lactate 3.5 H Liter Flow 4.0 FiO2 36.0 Potassium Carbon Dioxide Anion Gap BUN Creatinine Est GFR ( Amer) Est GFR (Non-Af Amer) POC Glucose (mg/dL) 121 H Random Glucose Lactic Acid Calcium Phosphorus Magnesium Total Bilirubin AST ALT Alkaline Phosphatase Ammonia 19 Troponin I Total Protein Albumin Globulin Albumin/Globulin Ratio Procalcitonin Free T4 Thyroxine (T4) TSH 3rd Generation Arterial Blood Potassium 4.3 Urine Color Urine Clarity Urine pH Ur Specific [place] Urine Protein Urine Glucose (UA) Urine Ketones Urine Blood Urine Nitrate Urine Bilirubin Urine Urobilinogen Ur Leukocyte Esterase Urine WBC (Auto) Urine RBC (Auto) Urine WBC Clumps (Auto) Ur Squamous Epith Cells Urine Bacteria Hyaline Casts Granular Casts (Auto) Influenza Typ A,B (EIA) 07/16/18 07/16/18 07/16/18 01:14 01:14 01:14 WBC 8.2 RBC 4.24 Hgb 12.7 Hct 38.5 MCV 91.0 MCH 30.0 MCHC 32.9 L RDW 16.1 H Plt Count 224 MPV 8.8 Neut % (Auto) 70.9 Lymph % (Auto) 15.3 L Riley % (Auto) 12.2 H Eos % (Auto) 0.3 Baso % (Auto) 1.3 Neut # (Auto) 5.8 Lymph # (Auto) 1.2 Riley # (Auto) 1.0 H Eos # (Auto) 0.0 Baso # (Auto) 0.1 Neutrophils % (Manual) Band Neutrophils % Lymphocytes % (Manual) Monocytes % (Manual) Platelet Estimate Polychromasia Hypochromasia (manual) Anisocytosis (manual) Ovalocytes Puncture Site pCO2 pO2 HCO3 ABG pH ABG Total CO2 ABG O2 Saturation ABG Base Excess [place] Test ABG Potassium A-a O2 Difference Respiratory Index Sodium 131 L Chloride 101 Glucose Lactate Liter Flow FiO2 Potassium 4.7 Carbon Dioxide 17 L Anion Gap 18 BUN 28 H Creatinine 1.3 H Est GFR ( Amer) 49 Est GFR (Non-Af Amer) 40 POC Glucose (mg/dL) Random Glucose 115 H Lactic Acid Calcium 10.0 Phosphorus 5.3 H Magnesium 1.8 Total Bilirubin 0.6 AST 41 H ALT 46 Alkaline Phosphatase 87 Ammonia Troponin I 0.0500 Total Protein 6.0 L Albumin 3.1 L Globulin 3.0 Albumin/Globulin Ratio 1.0 Procalcitonin 0.22 Free T4 Thyroxine (T4) TSH 3rd Generation 6.85 H Arterial Blood Potassium Urine Color Urine Clarity Urine pH Ur Specific [place] Urine Protein Urine Glucose (UA) Urine Ketones Urine Blood Urine Nitrate Urine Bilirubin Urine Urobilinogen Ur Leukocyte Esterase Urine WBC (Auto) Urine RBC (Auto) Urine WBC Clumps (Auto) Ur Squamous Epith Cells Urine Bacteria Hyaline Casts Granular Casts (Auto) Influenza Typ A,B (EIA) 07/16/18 07/16/18 07/16/18 01:29 02:15 06:34 WBC 7.4 RBC 4.28 Hgb 12.8 Hct 39.2 MCV 91.7 MCH 29.9 MCHC 32.7 L RDW 15.9 H Plt Count 203 MPV 8.8 Neut % (Auto) 82.2 H Lymph % (Auto) 7.9 L Riley % (Auto) 8.7 Eos % (Auto) 0.2 Baso % (Auto) 1.0 Neut # (Auto) 6.1 Lymph # (Auto) 0.6 L Riley # (Auto) 0.6 Eos # (Auto) 0.0 Baso # (Auto) 0.1 Neutrophils % (Manual) 81 H Band Neutrophils % 1 Lymphocytes % (Manual) 9 L Monocytes % (Manual) 9 Platelet Estimate Normal Polychromasia Slight Hypochromasia (manual) Slight Anisocytosis (manual) Slight Ovalocytes Slight Puncture Site pCO2 pO2 HCO3 ABG pH ABG Total CO2 ABG O2 Saturation ABG Base Excess [place] Test ABG Potassium A-a O2 Difference Respiratory Index Sodium Chloride Glucose Lactate Liter Flow FiO2 Potassium Carbon Dioxide Anion Gap BUN Creatinine Est GFR ( Amer) Est GFR (Non-Af Amer) POC Glucose (mg/dL) Random Glucose Lactic Acid Calcium Phosphorus Magnesium Total Bilirubin AST ALT Alkaline Phosphatase Ammonia Troponin I Total Protein Albumin Globulin Albumin/Globulin Ratio Procalcitonin Free T4 Thyroxine (T4) TSH 3rd Generation Arterial Blood Potassium Urine Color Hallie Urine Clarity Hazy Urine pH 5.0 Ur Specific [place] 1.020 Urine Protein 2+ H Urine Glucose (UA) Normal Urine Ketones Negative Urine Blood 2+ H Urine Nitrate Negative Urine Bilirubin Negative Urine Urobilinogen Normal Ur Leukocyte Esterase 1+ H Urine WBC (Auto) 44 H Urine RBC (Auto) 248 H Urine WBC Clumps (Auto) Few H Ur Squamous Epith Cells 13 H Urine Bacteria Many H Hyaline Casts >20 H Granular Casts (Auto) 147 Influenza Typ A,B (EIA) Negative for flu a/b 07/16/18 07/16/18 07/16/18 06:34 11:04 11:04 WBC RBC Hgb Hct MCV MCH MCHC RDW Plt Count MPV Neut % (Auto) Lymph % (Auto) Riley % (Auto) Eos % (Auto) Baso % (Auto) Neut # (Auto) Lymph # (Auto) Riley # (Auto) Eos # (Auto) Baso # (Auto) Neutrophils % (Manual) Band Neutrophils % Lymphocytes % (Manual) Monocytes % (Manual) Platelet Estimate Polychromasia Hypochromasia (manual) Anisocytosis (manual) Ovalocytes Puncture Site pCO2 pO2 HCO3 ABG pH ABG Total CO2 ABG O2 Saturation ABG Base Excess [place] Test ABG Potassium A-a O2 Difference Respiratory Index Sodium 132 Chloride 101 Glucose Lactate Liter Flow FiO2 Potassium 4.6 Carbon Dioxide 22 Anion Gap 15 BUN 30 H Creatinine 1.2 Est GFR ( Amer) 54 Est GFR (Non-Af Amer) 44 POC Glucose (mg/dL) Random Glucose 106 H Lactic Acid 2.0 Calcium 8.9 Phosphorus 4.7 H Magnesium 1.7 Total Bilirubin 0.9 AST 47 H ALT 43 Alkaline Phosphatase 92 Ammonia Troponin I Total Protein 6.0 L Albumin 3.1 L Globulin 2.9 Albumin/Globulin Ratio 1.1 Procalcitonin Free T4 Thyroxine (T4) 7.89 TSH 3rd Generation Arterial Blood Potassium Urine Color Urine Clarity Urine pH Ur Specific [place] Urine Protein Urine Glucose (UA) Urine Ketones Urine Blood Urine Nitrate Urine Bilirubin Urine Urobilinogen Ur Leukocyte Esterase Urine WBC (Auto) Urine RBC (Auto) Urine WBC Clumps (Auto) Ur Squamous Epith Cells Urine Bacteria Hyaline Casts Granular Casts (Auto) Influenza Typ A,B (EIA) 07/16/18 07/16/18 11:04 11:26 WBC RBC Hgb Hct MCV MCH MCHC RDW Plt Count MPV Neut % (Auto) Lymph % (Auto) Riley % (Auto) Eos % (Auto) Baso % (Auto) Neut # (Auto) Lymph # (Auto) Riley # (Auto) Eos # (Auto) Baso # (Auto) Neutrophils % (Manual) Band Neutrophils % Lymphocytes % (Manual) Monocytes % (Manual) Platelet Estimate Polychromasia Hypochromasia (manual) Anisocytosis (manual) Ovalocytes Puncture Site pCO2 pO2 HCO3 ABG pH ABG Total CO2 ABG O2 Saturation ABG Base Excess [place] Test ABG Potassium A-a O2 Difference Respiratory Index Sodium Chloride Glucose Lactate Liter Flow FiO2 Potassium Carbon Dioxide Anion Gap BUN Creatinine Est GFR ( Amer) Est GFR (Non-Af Amer) POC Glucose (mg/dL) Random Glucose Lactic Acid Calcium Phosphorus Magnesium Total Bilirubin AST ALT Alkaline Phosphatase Ammonia Troponin I Total Protein Albumin Globulin Albumin/Globulin Ratio Procalcitonin Free T4 2.11 Thyroxine (T4) TSH 3rd Generation Arterial Blood Potassium Urine Color Yellow Urine Clarity Hazy Urine pH 5.0 Ur Specific [place] 1.020 Urine Protein 1+ H Urine Glucose (UA) Normal Urine Ketones Trace Urine Blood 2+ H Urine Nitrate Negative Urine Bilirubin Negative Urine Urobilinogen Normal Ur Leukocyte Esterase 2+ H Urine WBC (Auto) 53 H Urine RBC (Auto) 25 H Urine WBC Clumps (Auto) Ur Squamous Epith Cells 1 Urine Bacteria Rare Hyaline Casts 11-20 H Granular Casts (Auto) Influenza Typ A,B (EIA) EKG/Cardiology Studies: Cardiology / EKG Studies 07/15/18 22:55 EKG [ELECTROCARDIOGRAM] Stat Comment: Mode Of Transportation: Reason For Exam: bradycardia Critical Care Progress Note - Nutrition Nutrition: Nutrition Category Date Time Status Heart Healthy Diet [DIET] Diets 07/14/18 Breakfast Active Attending/Attestation - Attestation I have personally seen and examined this patient.: Yes I have fully participated in the care of the patient.: Yes I have reviewed all pertinent clinical information: Yes Notes (Text): 07/16/18 19:34 more awake and responding lasix repeat cxr cardio f/u
[2018-07-16 08:42] LABS: BANDS 1 % (0-2); LYMPHOCYTE 9 % (20-40); MONOCYTE 9 % (0-10); NEUTROPHIL 81 % (50-75); PLATELET ESTIMATE NORMAL (NORMAL); TOTAL CELLS COUNTED 100
[2018-07-16 08:43] LABS: ANISOCYTOSIS SLIGHT; HYPOCHROMIC SLIGHT; OVALOCYTES SLIGHT; POLYCHROMIC SLIGHT
[2018-07-16] MEDS: Patient's Own Medication - Tablet/Capusle PO SCH (09:23)
--- NOTE | 2018-07-16 09:56 | CT ---
Date of service: 07/16/2018 PROCEDURE: CT HEAD WITHOUT CONTRAST. HISTORY: Lethargy. COMPARISON: None available. TECHNIQUE: Axial computed tomography images were obtained through the head/brain without intravenous contrast. Radiation dose: Total exam DLP = 3139.62 mGy-cm. This CT exam was performed using one or more of the following dose reduction techniques: Automated exposure control, adjustment of the mA and/or kV according to patient size, and/or use of iterative reconstruction technique. FINDINGS: Note that the examination is limited by motion artifact and further degraded by significant streak and beam hardening artifact arising from dental amalgam which obscure partially obscures the posterior fossa structures. HEMORRHAGE: No acute parenchymal, subarachnoid or extra-axial hemorrhage. BRAIN: Moderate to fairly significant chronic periventricular white matter ischemic changes are seen extending peripherally into the deep and subcortical white matter both cerebral hemispheres. Changes exhibit more patchy appearance in the deep and subcortical regions bilaterally. There also appears to be involvement of both basal nuclei. Note that the possibility of a small hyperacute infarct cannot be excluded based on this study. Questionable chronic infarct left superior cerebellar. Moderate-significant generalized volume loss. VENTRICLES: No obstructive hydrocephalus. CALVARIUM: There are no acute calvarial fractures.. Note made of a torus palatinus. PARANASAL SINUSES: Mild mucosal thickening seen within both maxillary antra. MASTOID AIR CELLS: Unremarkable as visualized. No inflammatory changes. OTHER FINDINGS: None. IMPRESSION: Limited study due to motion artifact and significant streak and beam hardening artifact as described. Moderate to significant chronic white matter ischemic changes with involving both basal nuclei. Questionable small chronic infarct left superior cerebellum. The possibility of a small hyperacute infarct cannot be excluded. Moderate to significant generalized volume loss.
[2018-07-16 11:35] LABS: SQUAMOUS EPITHIAL 1 /hpf (0-5); URINE BACTERIA RARE (<OCC); URINE BILIRUBIN NEGATIVE (NEGATIVE); URINE BLOOD 2+ (NEGATIVE); URINE CLARITY Hazy (Clear); URINE COLOR Yellow (YELLOW); URINE GLUCOSE (UA) NORMAL (Normal); URINE LEUKOCYTE ESTERASE 2+ Leu/uL (Negative); URINE PROTEIN 1+ mg/dL (NEGATIVE); URINE UROBILINOGEN NORMAL mg/dL (0.2-1.0)
--- NOTE | 2018-07-16 14:00 | RAD ---
HISTORY: Bradycardia, hypotension COMPARISON: Chest x-ray performed 07/14/18 TECHNIQUE: Chest, one view. FINDINGS: LUNGS: Probable small left pleural effusion and/or consolidation. Moderate pulmonary venous congestion. Please note that chest x-ray has limited sensitivity for the detection of pulmonary masses. CARDIOVASCULAR: Cardiomegaly. Dense atherosclerotic calcification present. OSSEOUS STRUCTURES: Osseous demineralization. VISUALIZED UPPER ABDOMEN: Unremarkable. OTHER FINDINGS: None. IMPRESSION: CHF type pattern with evidence of cardiomegaly, left pleural effusion and/or consolidation and moderate pulmonary venous congestion. Preliminary impression was provided by [facility].
--- NOTE | 2018-07-16 14:43 | CP.PCM.PN ---
Subjective - Date & Time of Evaluation Date of Evaluation: 07/16/18 Time of Evaluation: 11:30 - Subjective Subjective: clinically same Objective - Vital Signs/Intake and Output Vital Signs (last 24 hours): Temp Pulse Resp BP Pulse Ox 97.4 F L 54 L 18 141/67 97 07/16/18 12:00 07/16/18 14:00 07/16/18 14:00 07/16/18 14:00 07/16/18 14:00 Intake and Output: 07/16/18 07/16/18 06:59 18:59 Intake Total 1372 367.5 Output Total 200 Balance 1172 367.5 - Medications Medications: Current Medications Albuterol Sulfate (Albuterol 0.083% Inhal Allegra (2.5 Mg/3 Ml) Ud) 2.5 mg INH RQ6 PRN PRN Reason: Shortness of Breath Last Admin: 07/16/18 01:59 Dose: 2.5 mg Ergocalciferol (Drisdol 50,000 Intl Units Cap) 1 cap PO QWK [facility] Last Admin: 07/14/18 10:20 Dose: 1 cap Ceftriaxone Sodium 1 gm/ (Sodium Chloride) 100 mls @ 100 mls/hr IVPB DAILY [facility]; Protocol Last Admin: 07/16/18 10:40 Dose: 100 mls/hr Dobutamine HCl/Dextrose (Dobutamine/Dextrose 5% 500mg/250ml) 500 mg in 250 mls @ 7.083 mls/hr IV .Q24H [facility]; Protocol Last Titration: 07/16/18 06:36 Dose: 2.5 mcg/kg/min, 3.541 mls/hr Metoprolol Tartrate (Lopressor) 25 mg PO BID [facility] Last Admin: 07/15/18 18:01 Dose: 25 mg Rivaroxaban (Xarelto) 20 mg PO DAILY [facility] Last Admin: 07/16/18 09:24 Dose: 20 mg - Labs Labs: 07/16/18 06:34 07/16/18 06:34 PT 27.3 SECONDS (9.7-12.2) H 07/14/18 04:18 INR 2.5 07/14/18 04:18 APTT 37 SECONDS (21-34) H 07/14/18 04:18
--- NOTE | 2018-07-16 17:18 | CT ---
Date of service: 07/16/2018 PROCEDURE: CT Chest without contrast HISTORY: Effusions COMPARISON: None comparison made with prior CT scan chest abdomen pelvis 02/22/2018.. TECHNIQUE: Contiguous axial images were obtained through the chest without intravenous contrast enhancement. Sagittal and coronal reconstructions were performed. Radiation dose: Total exam DLP = 273.67 mGy-cm. This CT exam was performed using one or more of the following dose reduction techniques: Automated exposure control, adjustment of the mA and/or kV according to patient size, and/or use of iterative reconstruction technique.. FINDINGS: LUNGS: Bilateral atelectatic changes lower lobes and upper lobes left greater than right MEDIASTINUM: Heart remains enlarged... Fluid is present within the superior pericardial region. Ascending thoracic aorta measures approximately 3.35 cm and descending thoracic aorta measures approximately 2.3 cm. Mild aortic atherosclerotic calcification. Pulmonary trunk measures approximately 3.1 cm. PLEURA: Bilateral pleural effusions left larger than right. BONES: Mild multilevel degenerative spondylosis of the thoracic spine. UPPER ABDOMEN: There is a small approximately 2.0 x 1.6 cm elliptical shaped cyst anterior aspect right lobe liver. OTHER FINDINGS: None. IMPRESSION: Bilateral atelectatic changes lower lobes and upper lobes left greater than right Bilateral pleural effusions left larger than right.. Small hepatic cyst.
--- NOTE | 2018-07-16 18:45 | CP.PCM.CON ---
History of Present Illness - History of Present Illness History of Present Illness: I was asked to evaluate patient by Dr José Miguel Buchanan. Patient seen 07/16/18 at 1830 Patient is a 72 year old female with atrial fibrillation, HTN who presents with cough and fever. The patient was previously admitted to the hospital in February with atrial fibrillation with rapid ventricular response. Nuclear stress test was negative for ischemia. KARY was performed by Dr Miguel ALVARADOCamelia zendejas. Cardioversion was not done and patient was placed on Xarelto. The patient has not had cardiac follow up since February, but reportedly was on flecainide. She was admitted with CXR consistent with pneumonia. Of note previous LV function gucci l. The patient developed symptomatic bradycardia. She was transferred to ICU. No current chest pain. Review of Systems - Constitutional Constitutional: absent: As Per HPI, Anorexia, Chills, Daytime Sleepiness, Excessive Sweating, Fatigue, Fever, Frequent Falls, Headache, Increased Appetite, Lethargy, Malaise, Night Sweats, Snoring, Sleep Apnea, Weight Gain, Weight Loss, Weakness, Other - EENT Eyes: absent: As Per HPI, Blind Spots, Blurred Vision, Change in Vision, Decreased Night Vision, Diplopia, Discharge, Dry Eye, Exophthalmos, Floaters, Irritation, Itchy Eyes, Loss of Peripheral Vision, Pain, Photophobia, Requires Corrective Lenses, Sees Flashes, Spots in Vision, Tunnel Vision, Other Visual Disturbances, Loss of Vision, Other Ears: absent: As Per HPI, Decreased Hearing, Ear Discharge, Ear Pain, Tinnitus, Abnormal Hearing, Disequilibrium, Dizziness, Other Nose/Mouth/Throat: absent: As Per HPI, Epistaxis, Nasal Congestion, Nasal Discharge, Nasal Obstruction, Nasal Trauma, Nose Pain, Post Nasal Drip, Sinus Pain, Sinus Pressure, Bleeding Gums, Change in Voice, Dental Pain, Dry Mouth, Dysphagia, Halitosis, Hoarsness, Lip Swelling, Mouth Lesions, Mouth Pain, Odynophagia, Sore Throat, Throat Swelling, Tongue Swelling, Facial Pain, Neck Pain, Neck Mass, Other - Cardiovascular Cardiovascular: Slow Heart Rate - Respiratory Respiratory: Cough, Chest Congestion, Excessive Mucous Production - Gastrointestinal Gastrointestinal: absent: As Per HPI, Abdominal Pain, Belching, Bloating, Change in Bowel Habits, Change in Stool Character, Coffee Ground Emesis, Constipation, Cramping, Diarrhea, Dyspepsia, Dysphagia, Early Satiety, Excessive Flatus, Fecal Incontinence, Heartburn, Hematemesis, Hematochezia, Loose Stools, Melena, Nausea, Odynophagia, Temesmus, Vomiting, Other - Genitourinary Genitourinary: absent: As Per HPI, Change in Urinary Stream, Difficulty Urinating, Dysuria, Flank Pain, Hematuria, Pyuria, Nocturia, Urinary Incontinence, Urinary Frequency, Urinary Hesitance, Urinary Urgency, Voiding Freq/Small Amts, Freq UTI, Hx Renal/Bladder Calculi, Hx /Renal Surgery, Bladder Distension, Other - Musculoskeletal Musculoskeletal: absent: As Per HPI, Abnormal Gait, Arthralgias, Atrophy, Back Pain, Deformity, Joint Swelling, Limited Range of Motion, Loss of Height, Muscle Cramps, Muscle Weakness, Myalgias, Neck Pain, Numbness, Radiating Pain into Limb, Stiffness, Tingling, Other - Integumentary Integumentary: absent: As Per HPI, Acne, Alopecia, Bleeding Lesions, Change in Hair, Change in Nails, Change in Pigmentation, Changing Lesions, Dry Skin, Erythema, Furuncle, Hirsutism, Lesions, New Lesions, Non-Healing Lesions, Photosensitivity, Pruritus, Rash, Skin Pain, Skin Ulcer, Sores, Striae, Swelling, Unusual Bruising, Wounds, Jaundice, Other - Neurological Neurological: absent: As Per HPI, Abnormal Gait, Abnormal Hearing, Abnormal Mo vements, Abnormal Speech, Behavioral Changes, Burning Sensations, Confusion, Convulsions, Disequilibrium, Dizziness, Numbness, Focal Weakness, Frequent Falls, Headaches, Lack of Coordination, Loss of Vision, Memory Loss, Paresthesias, Radicular Pain, Restless Legs, Sensory Deficit, Syncope, Tingling, Tremor, Vertigo, Weakness, Other Visual Disturbances, Other - Psychiatric Psychiatric: absent: As Per HPI, Abnormal Sleep Pattern, Anhedonia, Anxiety, Auditory Hallucinations, Behavioral Changes, Change in Appetite, Change in Libido, Confusion, Depression, Difficulty Concentrating, Hallucinations, Homicidal Ideation, Hopelessness, Irritability, Memory Loss, Mood Swings, Panic Attacks, Paranoia, Suicidal Ideation, Visual Hallucinations, Tactile Hallucinati ons, Other - Endocrine Endocrine: absent: As Per HPI, Change in Body Appearance, Change in Libido, Cold Intolorance, Deepening of Voice, Excessive Sweating, Fatigue, Flushing, Heat Intolorance, Increase in Ring/Shoe/Hat Size, Palpitations, Polydipsia, Polyphagi a, Polyuria, Other - Hematologic/Lymphatic Hematologic: absent: As Per HPI, Easy Bleeding, Easy Bruising, Lymphadenopathy, Other Past Patient History - Past Medical History & Family History Past Medical History?: Yes - Past Social History Smoking Status: Never Smoked - CARDIAC Hx Atrial Fibrillation: Yes Hx Hypertension: Yes Hx Pacemaker: No - PULMONARY Hx Respiratory Disorders: No - NEUROLOGICAL Hx Neurological Disorder: No Hx Paralysis: No - HEENT Hx HEENT Problems: Yes Other/Comment: "Difficulty swallowing" - RENAL Hx Chronic Kidney Disease: No - ENDOCRINE/METABOLIC Hx Endocrine Disorders: No - HEMATOLOGICAL/ONCOLOGICAL Hx Blood Disorders: No Hx Blood Transfusions: No - INTEGUMENTARY Hx Dermatological Problems: No - MUSCULOSKELETAL/RHEUMATOLOGICAL Hx Musculoskeletal Disorders: No Hx Falls: Yes - GASTROINTESTINAL Hx Gastrointestinal Disorders: No - GENITOURINARY/GYNECOLOGICAL Hx Genitourinary Disorders: No - PSYCHIATRIC Hx Anxiety: Yes Hx Depression: Yes Hx Substance Use: No - SURGICAL HISTORY Hx Tonsillectomy: Yes (At 11 yo) - ANESTHESIA Hx Anesthesia: Yes Hx Anesthesia Reactions: No Hx Malignant Hyperthermia: No Meds Allergies/Adverse Reactions: Allergies Allergy/AdvReac Type Severity Reaction Status Date / Time No Known Allergies Allergy Verified 07/14/18 03:41 - Medications Medications: Current Medications Albuterol Sulfate (Albuterol 0.083% Inhal Allegra (2.5 Mg/3 Ml) Ud) 2.5 mg INH RQ6 PRN PRN Reason: Shortness of Breath Last Admin: 07/16/18 01:59 Dose: 2.5 mg Ergocalciferol (Drisdol 50,000 Intl Units Cap) 1 cap PO QWK MAGALYS Last Admin: 07/14/18 10:20 Dose: 1 cap Famotidine (Pepcid) 20 mg PO DAILY MAGALYS Last Admin: 07/16/18 16:00 Dose: 20 mg Ceftriaxone Sodium 1 gm/ (Sodium Chloride) 100 mls @ 100 mls/hr IVPB DAILY MAGALYS; Protocol Last Admin: 07/16/18 10:40 Dose: 100 mls/hr Dobutamine HCl/Dextrose (Dobutamine/Dextrose 5% 500mg/250ml) 500 mg in 250 mls @ 7.083 mls/hr IV .Q24H MAGALYS; Protocol Last Titration: 07/16/18 06:36 Dose: 2.5 mcg/kg/min, 3.541 mls/hr Metoprolol Tartrate (Lopressor) 25 mg PO BID [facility] Last Admin: 07/15/18 18:01 Dose: 25 mg Rivaroxaban (Xarelto) 20 mg PO DAILY [facility] Last Admin: 07/16/18 09:24 Dose: 20 mg Physical Exam - Constitutional Appears: Non-toxic - Head Exam Head Exam: NORMAL INSPECTION - Eye Exam Eye Exam: Normal appearance - ENT Exam ENT Exam: Mucous Membranes Moist, Normal Exam, Normal Oropharynx - Neck Exam Neck exam: Positive for: Full Rom, Normal Inspection. Negative for: Lymphadenopathy, Meningismus, Tenderness - Respiratory Exam Respiratory Exam: Decreased Breath Sounds, Rhonchi - Cardiovascular Exam Cardiovascular Exam: Bradycardia, REGULAR RHYTHM - GI/Abdominal Exam GI & Abdominal Exam: Normal Bowel Sounds - Rectal Exam Rectal Exam: Deferred - Extremities Exam Extremities exam: Negative for: pedal edema - Back Exam Back exam: NORMAL INSPECTION - Neurological Exam Neurological exam: Alert, Oriented x3 - Psychiatric Exam Psychiatric exam: Normal Affect - Skin Skin Exam: Normal Color Results - Vital Signs Recent Vital Signs: Last Vital Signs Temp 97.8 F 07/16/18 16:00 Pulse 58 L 07/16/18 17:00 Resp 20 07/16/18 17:00 BP 136/64 07/16/18 17:23 Pulse Ox 97 07/16/18 17:00 - Labs Result Diagrams: 07/16/18 06:34 07/16/18 06:34 Labs: Laboratory Results - last 24 hr 07/15/18 07/15/18 07/16/18 01:00 EST 22:55 01:14 WBC RBC Hgb Hct MCV MCH MCHC RDW Plt Count MPV Neut % (Auto) Lymph % (Auto) [place] % (Auto) Eos % (Auto) Baso % (Auto) Neut # (Auto) Lymph # (Auto) [place] # (Auto) Eos # (Auto) Baso # (Auto) Neutrophils % (Manual) Band Neutrophils % Lymphocytes % (Manual) Monocytes % (Manual) Platelet Estimate Polychromasia Hypochromasia (manual) Anisocytosis (manual) Ovalocytes Puncture Site Rbrachial pCO2 39 pO2 118 H HCO3 23.0 ABG pH 7.37 ABG Total CO2 23.7 ABG O2 Saturation 99.2 H ABG Base Excess -2.5 L [place] Test Neg ABG Potassium 4.3 A-a O2 Difference 90.0 Respiratory Index 0.8 Sodium 132.0 Chloride 101.0 Glucose 114 H Lactate 3.5 H Liter Flow 4.0 FiO2 36.0 Potassium Carbon Dioxide Anion Gap BUN Creatinine Est GFR ( Amer) Est GFR (Non-Af Amer) POC Glucose (mg/dL) 121 H Random Glucose Lactic Acid Calcium Phosphorus Magnesium Total Bilirubin AST ALT Alkaline Phosphatase Ammonia 19 Troponin I Total Protein Albumin Globulin Albumin/Globulin Ratio Procalcitonin Free T4 Thyroxine (T4) TSH 3rd Generation Arterial Blood Potassium 4.3 Urine Color Urine Clarity Urine pH Ur Specific [place] Urine Protein Urine Glucose (UA) Urine Ketones Urine Blood Urine Nitrate Urine Bilirubin Urine Urobilinogen Ur Leukocyte Esterase Urine WBC (Auto) Urine RBC (Auto) Urine WBC Clumps (Auto) Ur Squamous Epith Cells Urine Bacteria Hyaline Casts Granular Casts (Auto) Influenza Typ A,B (EIA) 07/16/18 07/16/18 07/16/18 01:14 01:14 01:14 WBC 8.2 RBC 4.24 Hgb 12.7 Hct 38.5 MCV 91.0 MCH 30.0 MCHC 32.9 L RDW 16.1 H Plt Count 224 MPV 8.8 Neut % (Auto) 70.9 Lymph % (Auto) 15.3 L [place] % (Auto) 12.2 H Eos % (Auto) 0.3 Baso % (Auto) 1.3 Neut # (Auto) 5.8 Lymph # (Auto) 1.2 [place] # (Auto) 1.0 H Eos # (Auto) 0.0 Baso # (Auto) 0.1 Neutrophils % (Manual) Band Neutrophils % Lymphocytes % (Manual) Monocytes % (Manual) Platelet Estimate Polychromasia Hypochromasia (manual) Anisocytosis (manual) Ovalocytes Puncture Site pCO2 pO2 HCO3 ABG pH ABG Total CO2 ABG O2 Saturation ABG Base Excess [place] Test ABG Potassium A-a O2 Difference Respiratory Index Sodium 131 L Chloride 101 Glucose Lactate Liter Flow FiO2 Potassium 4.7 Carbon Dioxide 17 L Anion Gap 18 BUN 28 H Creatinine 1.3 H Est GFR ( Amer) 49 Est GFR (Non-Af Amer) 40 POC Glucose (mg/dL) Random Glucose 115 H Lactic Acid Calcium 10.0 Phosphorus 5.3 H Magnesium 1.8 Total Bilirubin 0.6 AST 41 H ALT 46 Alkaline Phosphatase 87 Ammonia Troponin I 0.0500 Total Protein 6.0 L Albumin 3.1 L Globulin 3.0 Albumin/Globulin Ratio 1.0 Procalcitonin 0.22 Free T4 Thyroxine (T4) TSH 3rd Generation 6.85 H Arterial Blood Potassium Urine Color Urine Clarity Urine pH Ur Specific [place] Urine Protein Urine Glucose (UA) Urine Ketones Urine Blood Urine Nitrate Urine Bilirubin Urine Urobilinogen Ur Leukocyte Esterase Urine WBC (Auto) Urine RBC (Auto) Urine WBC Clumps (Auto) Ur Squamous Epith Cells Urine Bacteria Hyaline Casts Granular Casts (Auto) Influenza Typ A,B (EIA) 07/16/18 07/16/18 07/16/18 01:29 02:15 06:34 WBC 7.4 RBC 4.28 Hgb 12.8 Hct 39.2 MCV 91.7 MCH 29.9 MCHC 32.7 L RDW 15.9 H Plt Count 203 MPV 8.8 Neut % (Auto) 82.2 H Lymph % (Auto) 7.9 L [place] % (Auto) 8.7 Eos % (Auto) 0.2 Baso % (Auto) 1.0 Neut # (Auto) 6.1 Lymph # (Auto) 0.6 L [place] # (Auto) 0.6 Eos # (Auto) 0.0 Baso # (Auto) 0.1 Neutrophils % (Manual) 81 H Band Neutrophils % 1 Lymphocytes % (Manual) 9 L Monocytes % (Manual) 9 Platelet Estimate Normal Polychromasia Slight Hypochromasia (manual) Slight Anisocytosis (manual) Slight Ovalocytes Slight Puncture Site pCO2 pO2 HCO3 ABG pH ABG Total CO2 ABG O2 Saturation ABG Base Excess [place] Test ABG Potassium A-a O2 Difference Respiratory Index Sodium Chloride Glucose Lactate Liter Flow FiO2 Potassium Carbon Dioxide Anion Gap BUN Creatinine Est GFR ( Amer) Est GFR (Non-Af Amer) POC Glucose (mg/dL) Random Glucose Lactic Acid Calcium Phosphorus Magnesium Total Bilirubin AST ALT Alkaline Phosphatase Ammonia Troponin I Total Protein Albumin Globulin Albumin/Globulin Ratio Procalcitonin Free T4 Thyroxine (T4) TSH 3rd Generation Arterial Blood Potassium Urine Color Hallie Urine Clarity Hazy Urine pH 5.0 Ur Specific [place] 1.020 Urine Protein 2+ H Urine Glucose (UA) Normal Urine Ketones Negative Urine Blood 2+ H Urine Nitrate Negative Urine Bilirubin Negative Urine Urobilinogen Normal Ur Leukocyte Esterase 1+ H Urine WBC (Auto) 44 H Urine RBC (Auto) 248 H Urine WBC Clumps (Auto) Few H Ur Squamous Epith Cells 13 H Urine Bacteria Many H Hyaline Casts >20 H Granular Casts (Auto) 147 Influenza Typ A,B (EIA) Negative for flu a/b 07/16/18 07/16/18 07/16/18 06:34 11:04 11:04 WBC RBC Hgb Hct MCV MCH MCHC RDW Plt Count MPV Neut % (Auto) Lymph % (Auto) [place] % (Auto) Eos % (Auto) Baso % (Auto) Neut # (Auto) Lymph # (Auto) [place] # (Auto) Eos # (Auto) Baso # (Auto) Neutrophils % (Manual) Band Neutrophils % Lymphocytes % (Manual) Monocytes % (Manual) Platelet Estimate Polychromasia Hypochromasia (manual) Anisocytosis (manual) Ovalocytes Puncture Site pCO2 pO2 HCO3 ABG pH ABG Total CO2 ABG O2 Saturation ABG Base Excess [place] Test ABG Potassium A-a O2 Difference Respiratory Index Sodium 132 Chloride 101 Glucose Lactate Liter Flow FiO2 Potassium 4.6 Carbon Dioxide 22 Anion Gap 15 BUN 30 H Creatinine 1.2 Est GFR ( Amer) 54 Est GFR (Non-Af Amer) 44 POC Glucose (mg/dL) Random Glucose 106 H Lactic Acid 2.0 Calcium 8.9 Phosphorus 4.7 H Magnesium 1.7 Total Bilirubin 0.9 AST 47 H ALT 43 Alkaline Phosphatase 92 Ammonia Troponin I Total Protein 6.0 L Albumin 3.1 L Globulin 2.9 Albumin/Globulin Ratio 1.1 Procalcitonin Free T4 Thyroxine (T4) 7.89 TSH 3rd Generation Arterial Blood Potassium Urine Color Urine Clarity Urine pH Ur Specific [place] Urine Protein Urine Glucose (UA) Urine Ketones Urine Blood Urine Nitrate Urine Bilirubin Urine Urobilinogen Ur Leukocyte Esterase Urine WBC (Auto) Urine RBC (Auto) Urine WBC Clumps (Auto) Ur Squamous Epith Cells Urine Bacteria Hyaline Casts Granular Casts (Auto) Influenza Typ A,B (EIA) 07/16/18 07/16/18 11:04 11:26 WBC RBC Hgb Hct MCV MCH MCHC RDW Plt Count MPV Neut % (Auto) Lymph % (Auto) [place] % (Auto) Eos % (Auto) Baso % (Auto) Neut # (Auto) Lymph # (Auto) [place] # (Auto) Eos # (Auto) Baso # (Auto) Neutrophils % (Manual) Band Neutrophils % Lymphocytes % (Manual) Monocytes % (Manual) Platelet Estimate Polychromasia Hypochromasia (manual) Anisocytosis (manual) Ovalocytes Puncture Site pCO2 pO2 HCO3 ABG pH ABG Total CO2 ABG O2 Saturation ABG Base Excess [place] Test ABG Potassium A-a O2 Difference Respiratory Index Sodium Chloride Glucose Lactate Liter Flow FiO2 Potassium Carbon Dioxide Anion Gap BUN Creatinine Est GFR ( Amer) Est GFR (Non-Af Amer) POC Glucose (mg/dL) Random Glucose Lactic Acid Calcium Phosphorus Magnesium Total Bilirubin AST ALT Alkaline Phosphatase Ammonia Troponin I Total Protein Albumin Globulin Albumin/Globulin Ratio Procalcitonin Free T4 2.11 Thyroxine (T4) TSH 3rd Generation Arterial Blood Potassium Urine Color Yellow Urine Clarity Hazy Urine pH 5.0 Ur Specific [place] 1.020 Urine Protein 1+ H Urine Glucose (UA) Normal Urine Ketones Trace Urine Blood 2+ H Urine Nitrate Negative Urine Bilirubin Negative Urine Urobilinogen Normal Ur Leukocyte Esterase 2+ H Urine WBC (Auto) 53 H Urine RBC (Auto) 25 H Urine WBC Clumps (Auto) Ur Squamous Epith Cells 1 Urine Bacteria Rare Hyaline Casts 11-20 H Granular Casts (Auto) Influenza Typ A,B (EIA) - EKG Data EKG Interpreted by: Myself Rate: Bradycardia Assessment & Plan (1) Bradycardia Assessment and Plan: landy medication related. recommend holding betablocker. can hold flecainide but will consider restarting to maintain sinus rhythm. Status: Acute (2) HTN (hypertension) Assessment and Plan: will hold AV prateek blokce agents at this time. Status: Acute (3) PAF (paroxysmal atrial fibrillation) Assessment and Plan: currently sinus bradycardia. maintain Xarelto. Status: Acute
--- NOTE | 2018-07-16 21:36 | CARD ---
APPROVED REPORT Date of service: 07/15/2018 EKG Measurement Heart [id number] <Conclusion> Suspect arm lead reversal, interpretation assumes no reversal Sinus bradycardia with 1st degree AV block Right axis deviation Nonspecific ST and T wave abnormality Abnormal ECG
[2018-07-17 06:17] LABS: BASO % 0.5 % (0.0-2.0); EOS % 0.5 % (0.0-4.0); HEMOGLOBIN 13.2 g/dL (11.0-16.0); LYMPH # 0.6 K/uL (1.0-4.3); LYMPH % 8.4 % (20.0-40.0); MEAN CELL VOLUME 91.1 fL (81.0-99.0); MEAN CORPUSCULAR HEMOGLOBIN 29.9 pg (27.0-31.0); MEAN CORPUSCULAR HGB CONC 32.9 g/dL (33.0-37.0); MEAN PLATELET VOLUME 8.9 fL (7.2-11.7); MONO # 0.9 K/uL (0.0-0.8); MONO % 13.3 % (0.0-10.0); NEUT # 5.4 K/uL (1.8-7.0); NEUT % 77.3 % (50.0-75.0); NRBC % 0.1 % (0.0-2.0); PLATELET COUNT 211 K/uL (130-400); RED CELL DISTRIBUTION WIDTH 15.7 % (11.5-14.5); WHITE BLOOD COUNT 6.9 K/uL (4.8-10.8)
[2018-07-17 06:55] LABS: ALBUMIN 3.2 g/dL (3.5-5.0); CALCIUM 8.4 mg/dl (8.6-10.4)
--- NOTE | 2018-07-17 08:17 | CP.CCUPN ---
<Aleena Tsai - Last Filed: 07/17/18 12:29> CCU Subjective - Physician Review Events Since Last Encounter (Free Text): 07/17/18 08:16 Patient is now in Afib RVR Subjective (Free Text): 07/17/18 08:16 Patient was seen and examined this morning. She is more alert. Her only complaint is that she is not allowed to walk around. She is not short of breath. her cough is improving. Critical Care Time Spent (in minutes): 35 CCU Objective - Vital Signs / Intake & Output Vital Signs (Last 4 hours): Vital Signs Pulse Resp BP Pulse Ox 07/17/18 06:00 59 L 20 156/64 H 100 07/17/18 05:00 59 L 22 156/67 H 98 Intake and Output (Last 8hrs): Intake & Output 07/16/18 07/17/18 07/17/18 22:59 06:59 14:59 Intake Total 150 Output Total 1385 540 Balance -1235 -540 Weight 97 lb 12.8 oz Intake: Oral 150 Output: Urine 1385 540 Urethral (Gayle) 1385 540 - Physical Exam Head: Positive for: Atraumatic, Normocephalic Pupils: Positive for: PERRL Extroacular Muscles: Positive for: EOMI Conjunctiva: Positive for: Normal Mouth: Positive for: Moist Mucous Membranes Respiratory/Chest: Positive for: Clear to Auscultation. Negative for: Respiratory Distress, Accessory Muscle Use Cardiovascular: Positive for: Normal S1, S2, Bradycardic. Negative for: Murmurs Abdomen: Negative for: Tenderness, Distention Upper Extremity: Positive for: Normal Inspection Lower Extremity: Positive for: Normal Inspection Neurological: Positive for: GCS=15, CN II-XII Intact Skin: Positive for: Warm, Dry, Normal Color Psychiatric: Positive for: Alert - Medications Active Medications: Active Medications Generic Name Dose Route Start Last Admin Trade Name Freq PRN Reason Stop Dose Admin Albuterol Sulfate 2.5 mg 07/14/18 10:30 07/16/18 01:59 Albuterol 0.083% Inhal Allegra (2.5 Mg/3 Ml) Ud INH 2.5 mg RQ6 PRN Administration Shortness of Breath Ergocalciferol 1 cap 07/14/18 10:00 07/14/18 10:20 Drisdol 50,000 Intl Units Cap PO 1 cap QWK MAGALYS Administration Famotidine 20 mg 07/16/18 15:15 07/16/18 16:00 Pepcid PO 20 mg DAILY MAGALYS Administration Ceftriaxone Sodium 1 gm/ 100 mls @ 100 mls/hr 07/14/18 10:00 07/16/18 10:40 Sodium Chloride IVPB 100 mls/hr DAILY MAGALYS Administration Protocol Dobutamine HCl/Dextrose 500 mg in 250 mls @ 7.083 mls/hr 07/16/18 01:00 07/16/18 06:36 Dobutamine/Dextrose 5% 500mg/250ml IV 2.5 mcg/kg/min .Q24H MAGALYS 3.541 mls/hr Titration Protocol 5 MCG/KG/MIN Magnesium Sulfate/Dextrose 1 gm in 100 mls @ 200 mls/hr 07/17/18 08:14 Magnesium Sulfate 1 Gm/100 Ml D5w IVPB 07/17/18 08:43 ONCE ONE Metoprolol Tartrate 25 mg 07/14/18 10:30 07/15/18 18:01 Lopressor PO 25 mg BID MAGALYS Administration Rivaroxaban 20 mg 07/14/18 10:00 07/16/18 09:24 Xarelto PO 20 mg DAILY MAGALYS Administration - Patient Studies Lab Studies: Microbiology Studies 07/14/18 07:30 Blood Culture - Preliminary Blood NO GROWTH AFTER 3 DAYS 07/14/18 07:30 Blood Culture - Preliminary Blood NO GROWTH AFTER 3 DAYS 07/16/18 06:00 MRSA Culture (Admit) - Final Nose MRSA NOT DETECTED Lab Studies 07/17/18 07/17/18 07/16/18 Range/Units 06:08 06:08 11:26 WBC 6.9 (4.8-10.8) K/uL RBC 4.40 (3.80-5.20) Mil/uL Hgb 13.2 (11.0-16.0) g/dL Hct 40.1 (34.0-47.0) % MCV 91.1 (81.0-99.0) fL MCH 29.9 (27.0-31.0) pg MCHC 32.9 L (33.0-37.0) g/dL RDW 15.7 H (11.5-14.5) % Plt Count 211 (130-400) K/uL MPV 8.9 (7.2-11.7) fL Neut % (Auto) 77.3 H (50.0-75.0) % Lymph % (Auto) 8.4 L (20.0-40.0) % Pen[place] % (Auto) 13.3 H (0.0-10.0) % Eos % (Auto) 0.5 (0.0-4.0) % Baso % (Auto) 0.5 (0.0-2.0) % Neut # (Auto) 5.4 (1.8-7.0) K/uL Lymph # (Auto) 0.6 L (1.0-4.3) K/uL [place] # (Auto) 0.9 H (0.0-0.8) K/uL Eos # (Auto) 0.0 (0.0-0.7) K/uL Baso # (Auto) 0.0 (0.0-0.2) K/uL Neutrophils % (Manual) (50-75) % Band Neutrophils % (0-2) % Lymphocytes % (Manual) (20-40) % Monocytes % (Manual) (0-10) % Platelet Estimate (NORMAL) Polychromasia Hypochromasia (manual) Anisocytosis (manual) Ovalocytes Sodium 136 (132-148) mmol/L Potassium 3.6 (3.6-5.2) mmol/L Chloride 97 L (98-107) mmol/L Carbon Dioxide 28 (22-30) mmol/L Anion Gap 15 (10-20) BUN 29 H (7-17) mg/dL Creatinine 1.1 (0.7-1.2) mg/dL Est GFR ( Amer) 59 Est GFR (Non-Af Amer) 49 Random Glucose 81 (65-105) mg/dL Lactic Acid (0.7-2.1) mmol/L Calcium 8.4 L (8.6-10.4) mg/dl Phosphorus 3.8 (2.5-4.5) mg/dL Magnesium 1.7 (1.6-2.3) mg/dL Total Bilirubin 0.7 (0.2-1.3) mg/dL AST 57 H D (14-36) U/L ALT 58 H D (9-52) U/L Alkaline Phosphatase 102 (38-126) U/L Total Protein 6.2 L (6.3-8.3) g/dL Albumin 3.2 L (3.5-5.0) g/dL Globulin 3.1 (2.2-3.9) gm/dL Albumin/Globulin Ratio 1.0 (1.0-2.1) Procalcitonin (0.19-0.49) NG/ML Free T4 (0.78-2.19) ng/dL Thyroxine (T4) (5.5-11.0) ug/dL Urine Color Yellow (YELLOW) Urine Clarity Hazy (Clear) Urine pH 5.0 (5.0-8.0) Ur Specific [place] 1.020 (1.003-1.030) Urine Protein 1+ H (NEGATIVE) mg/dL Urine Glucose (UA) Normal (Normal) mg/dL Urine Ketones Trace (NEGATIVE) mg/dL Urine Blood 2+ H (NEGATIVE) Urine Nitrate Negative (NEGATIVE) Urine Bilirubin Negative (NEGATIVE) Urine Urobilinogen Normal (0.2-1.0) mg/dL Ur Leukocyte Esterase 2+ H (Negative) Felix/uL Urine WBC (Auto) 53 H (0-5) /hpf Urine RBC (Auto) 25 H (0-3) /hpf Ur Squamous Epith Cells 1 (0-5) /hpf Urine Bacteria Rare (<OCC) Hyaline Casts 11-20 H (0-2) /lpf 07/16/18 07/16/18 07/16/18 Range/Units 11:04 11:04 11:04 WBC (4.8-10.8) K/uL RBC (3.80-5.20) Mil/uL Hgb (11.0-16.0) g/dL Hct (34.0-47.0) % MCV (81.0-99.0) fL MCH (27.0-31.0) pg MCHC (33.0-37.0) g/dL RDW (11.5-14.5) % Plt Count (130-400) K/uL MPV (7.2-11.7) fL Neut % (Auto) (50.0-75.0) % Lymph % (Auto) (20.0-40.0) % Pen[place] % (Auto) (0.0-10.0) % Eos % (Auto) (0.0-4.0) % Baso % (Auto) (0.0-2.0) % Neut # (Auto) (1.8-7.0) K/uL Lymph # (Auto) (1.0-4.3) K/uL [place] # (Auto) (0.0-0.8) K/uL Eos # (Auto) (0.0-0.7) K/uL Baso # (Auto) (0.0-0.2) K/uL Neutrophils % (Manual) (50-75) % Band Neutrophils % (0-2) % Lymphocytes % (Manual) (20-40) % Monocytes % (Manual) (0-10) % Platelet Estimate (NORMAL) Polychromasia Hypochromasia (manual) Anisocytosis (manual) Ovalocytes Sodium (132-148) mmol/L Potassium (3.6-5.2) mmol/L Chloride (98-107) mmol/L Carbon Dioxide (22-30) mmol/L Anion Gap (10-20) BUN (7-17) mg/dL Creatinine (0.7-1.2) mg/dL Est GFR ( Amer) Est GFR (Non-Af Amer) Random Glucose (65-105) mg/dL Lactic Acid 2.0 (0.7-2.1) mmol/L Calcium (8.6-10.4) mg/dl Phosphorus (2.5-4.5) mg/dL Magnesium (1.6-2.3) mg/dL Total Bilirubin (0.2-1.3) mg/dL AST (14-36) U/L ALT (9-52) U/L Alkaline Phosphatase (38-126) U/L Total Protein (6.3-8.3) g/dL Albumin (3.5-5.0) g/dL Globulin (2.2-3.9) gm/dL Albumin/Globulin Ratio (1.0-2.1) Procalcitonin (0.19-0.49) NG/ML Free T4 2.11 (0.78-2.19) ng/dL Thyroxine (T4) 7.89 (5.5-11.0) ug/dL Urine Color (YELLOW) Urine Clarity (Clear) Urine pH (5.0-8.0) Ur Specific [place] (1.003-1.030) Urine Protein (NEGATIVE) mg/dL Urine Glucose (UA) (Normal) mg/dL Urine Ketones (NEGATIVE) mg/dL Urine Blood (NEGATIVE) Urine Nitrate (NEGATIVE) Urine Bilirubin (NEGATIVE) Urine Urobilinogen (0.2-1.0) mg/dL Ur Leukocyte Esterase (Negative) Felix/uL Urine WBC (Auto) (0-5) /hpf Urine RBC (Auto) (0-3) /hpf Ur Squamous Epith Cells (0-5) /hpf Urine Bacteria (<OCC) Hyaline Casts (0-2) /lpf 07/16/18 07/16/18 Range/Units 06:34 01:14 WBC (4.8-10.8) K/uL RBC (3.80-5.20) Mil/uL Hgb (11.0-16.0) g/dL Hct (34.0-47.0) % MCV (81.0-99.0) fL MCH (27.0-31.0) pg MCHC (33.0-37.0) g/dL RDW (11.5-14.5) % Plt Count (130-400) K/uL MPV (7.2-11.7) fL Neut % (Auto) (50.0-75.0) % Lymph % (Auto) (20.0-40.0) % [place] % (Auto) (0.0-10.0) % Eos % (Auto) (0.0-4.0) % Baso % (Auto) (0.0-2.0) % Neut # (Auto) (1.8-7.0) K/uL Lymph # (Auto) (1.0-4.3) K/uL [place] # (Auto) (0.0-0.8) K/uL Eos # (Auto) (0.0-0.7) K/uL Baso # (Auto) (0.0-0.2) K/uL Neutrophils % (Manual) 81 H (50-75) % Band Neutrophils % 1 (0-2) % Lymphocytes % (Manual) 9 L (20-40) % Monocytes % (Manual) 9 (0-10) % Platelet Estimate Normal (NORMAL) Polychromasia Slight Hypochromasia (manual) Slight Anisocytosis (manual) Slight Ovalocytes Slight Sodium (132-148) mmol/L Potassium (3.6-5.2) mmol/L Chloride (98-107) mmol/L Carbon Dioxide (22-30) mmol/L Anion Gap (10-20) BUN (7-17) mg/dL Creatinine (0.7-1.2) mg/dL Est GFR ( Amer) Est GFR (Non-Af Amer) Random Glucose (65-105) mg/dL Lactic Acid (0.7-2.1) mmol/L Calcium (8.6-10.4) mg/dl Phosphorus (2.5-4.5) mg/dL Magnesium (1.6-2.3) mg/dL Total Bilirubin (0.2-1.3) mg/dL AST (14-36) U/L ALT (9-52) U/L Alkaline Phosphatase (38-126) U/L Total Protein (6.3-8.3) g/dL Albumin (3.5-5.0) g/dL Globulin (2.2-3.9) gm/dL Albumin/Globulin Ratio (1.0-2.1) Procalcitonin 0.22 (0.19-0.49) NG/ML Free T4 (0.78-2.19) ng/dL Thyroxine (T4) (5.5-11.0) ug/dL Urine Color (YELLOW) Urine Clarity (Clear) Urine pH (5.0-8.0) Ur Specific [place] (1.003-1.030) Urine Protein (NEGATIVE) mg/dL Urine Glucose (UA) (Normal) mg/dL Urine Ketones (NEGATIVE) mg/dL Urine Blood (NEGATIVE) Urine Nitrate (NEGATIVE) Urine Bilirubin (NEGATIVE) Urine Urobilinogen (0.2-1.0) mg/dL Ur Leukocyte Esterase (Negative) Felix/uL Urine WBC (Auto) (0-5) /hpf Urine RBC (Auto) (0-3) /hpf Ur Squamous Epith Cells (0-5) /hpf Urine Bacteria (<OCC) Hyaline Casts (0-2) /lpf Laboratory Results - last 24 hr 07/16/18 07/16/18 07/16/18 01:14 06:34 11:04 WBC RBC Hgb Hct MCV MCH MCHC RDW Plt Count MPV Neut % (Auto) Lymph % (Auto) [place] % (Auto) Eos % (Auto) Baso % (Auto) Neut # (Auto) Lymph # (Auto) [place] # (Auto) Eos # (Auto) Baso # (Auto) Neutrophils % (Manual) 81 H Band Neutrophils % 1 Lymphocytes % (Manual) 9 L Monocytes % (Manual) 9 Platelet Estimate Normal Polychromasia Slight Hypochromasia (manual) Slight Anisocytosis (manual) Slight Ovalocytes Slight Sodium Potassium Chloride Carbon Dioxide Anion Gap BUN Creatinine Est GFR ( Amer) Est GFR (Non-Af Amer) Random Glucose Lactic Acid 2.0 Calcium Phosphorus Magnesium Total Bilirubin AST ALT Alkaline Phosphatase Total Protein Albumin Globulin Albumin/Globulin Ratio Procalcitonin 0.22 Free T4 Thyroxine (T4) Urine Color Urine Clarity Urine pH Ur Specific [place] Urine Protein Urine Glucose (UA) Urine Ketones Urine Blood Urine Nitrate Urine Bilirubin Urine Urobilinogen Ur Leukocyte Esterase Urine WBC (Auto) Urine RBC (Auto) Ur Squamous Epith Cells Urine Bacteria Hyaline Casts 07/16/18 07/16/18 07/16/18 11:04 11:04 11:26 WBC RBC Hgb Hct MCV MCH MCHC RDW Plt Count MPV Neut % (Auto) Lymph % (Auto) [place] % (Auto) Eos % (Auto) Baso % (Auto) Neut # (Auto) Lymph # (Auto) [place] # (Auto) Eos # (Auto) Baso # (Auto) Neutrophils % (Manual) Band Neutrophils % Lymphocytes % (Manual) Monocytes % (Manual) Platelet Estimate Polychromasia Hypochromasia (manual) Anisocytosis (manual) Ovalocytes Sodium Potassium Chloride Carbon Dioxide Anion Gap BUN Creatinine Est GFR ( Amer) Est GFR (Non-Af Amer) Random Glucose Lactic Acid Calcium Phosphorus Magnesium Total Bilirubin AST ALT Alkaline Phosphatase Total Protein Albumin Globulin Albumin/Globulin Ratio Procalcitonin Free T4 2.11 Thyroxine (T4) 7.89 Urine Color Yellow Urine Clarity Hazy Urine pH 5.0 Ur Specific [place] 1.020 Urine Protein 1+ H Urine Glucose (UA) Normal Urine Ketones Trace Urine Blood 2+ H Urine Nitrate Negative Urine Bilirubin Negative Urine Urobilinogen Normal Ur Leukocyte Esterase 2+ H Urine WBC (Auto) 53 H Urine RBC (Auto) 25 H Ur Squamous Epith Cells 1 Urine Bacteria Rare Hyaline Casts 11-20 H 07/17/18 07/17/18 06:08 06:08 WBC 6.9 RBC 4.40 Hgb 13.2 Hct 40.1 MCV 91.1 MCH 29.9 MCHC 32.9 L RDW 15.7 H Plt Count 211 MPV 8.9 Neut % (Auto) 77.3 H Lymph % (Auto) 8.4 L [place] % (Auto) 13.3 H Eos % (Auto) 0.5 Baso % (Auto) 0.5 Neut # (Auto) 5.4 Lymph # (Auto) 0.6 L [place] # (Auto) 0.9 H Eos # (Auto) 0.0 Baso # (Auto) 0.0 Neutrophils % (Manual) Band Neutrophils % Lymphocytes % (Manual) Monocytes % (Manual) Platelet Estimate Polychromasia Hypochromasia (manual) Anisocytosis (manual) Ovalocytes Sodium 136 Potassium 3.6 Chloride 97 L Carbon Dioxide 28 Anion Gap 15 BUN 29 H Creatinine 1.1 Est GFR ( Amer) 59 Est GFR (Non-Af Amer) 49 Random Glucose 81 Lactic Acid Calcium 8.4 L Phosphorus 3.8 Magnesium 1.7 Total Bilirubin 0.7 AST 57 H D ALT 58 H D Alkaline Phosphatase 102 Total Protein 6.2 L Albumin 3.2 L Globulin 3.1 Albumin/Globulin Ratio 1.0 Procalcitonin Free T4 Thyroxine (T4) Urine Color Urine Clarity Urine pH Ur Specific [place] Urine Protein Urine Glucose (UA) Urine Ketones Urine Blood Urine Nitrate Urine Bilirubin Urine Urobilinogen Ur Leukocyte Esterase Urine WBC (Auto) Urine RBC (Auto) Ur Squamous Epith Cells Urine Bacteria Hyaline Casts Review of Systems - Review of Systems All systems: reviewed and no additional remarkable complaints except - Constitutional Constitutional: absent: Fever, Chills, Sweats - EENT Eyes: UNREMARKABLE Ears: UNREMARKABLE Nose/Mouth/Throat: UNREMARKABLE - Cardiovascular Cardiovascular: UNREMARKABLE. absent: Chest Pain, Dyspnea, Palpitations - Respiratory Respiratory: Cough. absent: Dyspnea - Gastrointestinal Gastrointestinal: UNREMARKABLE. absent: Abdominal Pain, Change in Bowel Habits - Genitourinary Genitourinary: UNREMARKABLE - Integumentary Integumentary: UNREMARKABLE. absent: Lesions - Neurological Neurological: UNREMARKABLE - Psychiatric Psychiatric: UNREMARKABLE - Endocrine Endocrine: UNREMARKABLE - Hematologic/Lymphatic Hematologic: UNREMARKABLE Critical Care Progress Note - Extremities/Vascular Does the Patient have a Central Venous Catheter?: No Does the Patient need a Central Venous Catheter?: No Does the Patient have a Gayle Catheter?: Yes Does the Patient need a Gayle Catheter?: Yes Catheter Insertion Criteria: Patient requires prolonged immobilization - Prophylaxis GI Prophylaxis GI: Pepsid - Prophylaxis DVT Prophylaxis DVT: Not Indicated (Xarelto) - Nutrition Nutrition: Nutrition Category Date Time Status Heart Healthy Diet [DIET] Diets 07/14/18 Breakfast Active Assessment/Plan - Assessment and Plan (Free Text) Assessment: Patient is a 72 yo female with a history of Afib, HTN, anxiety, and depression who presented with a cough and generalized weakness. She was initially admitted to med/surg, but a POWER STATION OPERATOR was called due to symptomatic bradycardia and hypotension, and she was transferred to the ICU for Dobutamine drip. She has a mod-large L sided pleural effusion. 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 Plan: Neuro: - Lethargy/AMS improved - CT head negative - Monitor mental status CV: Consider sick sinus syndrome Afib RVR - Cardizem 10 mg IVP x1 - cardizem drip - Xarelto 20 mg PO daily - Metoprolol 25 mg PO BID- hold - Flecainide 100 mg PO BID- hold Bradycardia- resolved - POWER STATION OPERATOR on 07/15 for symptomatic bradycardia - Trop negative x2 - Discontinue Dobutamine drip - Cardiology consulted ([facility]) CHF - CXR: CHF type pattern, cardiomegaly - Pro-BNP 31,900 - Lasix PRN - Echo pending- h/o LA thrombus - Crestor 5 mg PO QHS Pulm: - Maintain spO2>92%- supplemental O2 PRN - Albuterol Q6H PRN - Flu negative - CXR: CHF type pattern, L pleural effusion and/or consolidation, mod pulm venous congestion - CT chest: b/l pleural effusions L>R - Douneb Q6H PRN - IR ([place])- possible L thoracentesis GI: - Ammonia wnl - Heart healthy diet - Ensure Enlive x3 - [facility] referral for poor PO intake : - I's & O's - Discontinue Gayle - Replete electrolytes PRN Endo: - Maintain euglycemia - TSH elevated (6.85) - Free T4, total T4 wnl Heme: - Monitor H&H - LE Dopplers pending ID: - No leukocytosis - Procal wnl - Blood Cx no growth >3 days - Rocephin 1 g IV daily PPx: VTE: on Xarelto GI: Pepcid 20 mg PO daily PT Code status: full code Case discussed with attending, Dr. Lora. PGY-1 Aleena Tsai D.O. <Tyson Lora S - Last Filed: 07/17/18 18:16> CCU Objective - Vital Signs / Intake & Output Vital Signs (Last 4 hours): Vital Signs Temp Pulse Resp BP Pulse Ox 07/17/18 18:03 124 H 21 125/71 91 L 07/17/18 18:00 129 H 19 75 L 07/17/18 17:03 114 H 21 117/75 07/17/18 17:00 117 H 20 07/17/18 16:49 118/68 07/17/18 16:03 115 H 20 118/68 96 07/17/18 16:00 125 H 19 93 L 07/17/18 15:00 115 H 19 98 07/17/18 14:57 97.7 F Intake and Output (Last 8hrs): Intake & Output 07/17/18 07/17/18 07/17/18 06:59 14:59 22:59 Intake Total 410 260 Output Total 540 120 0 Balance -540 290 260 Weight 97 lb 12.8 oz Intake: IV 15 Intake, IV Amount 210 25 Right Hand 200 rt forearm 2nd port 10 25 Oral 200 220 Output: Urine 540 120 Urethral (Gayle) 540 120 Emesis 0 0 Other: # Voids Urine, Voided 1 # Bowel Movements 0 1 - Medications Active Medications: Active Medications Generic Name Dose Route Start Last Admin Trade Name Lawsonq PRN Reason Stop Dose Admin Albuterol Sulfate 2.5 mg 07/14/18 10:30 07/16/18 01:59 Albuterol 0.083% Inhal Allegra (2.5 Mg/3 Ml) Ud INH 2.5 mg RQ6 PRN Administration Shortness of Breath Ergocalciferol 1 cap 07/14/18 10:00 07/14/18 10:20 Drisdol 50,000 Intl Units Cap PO 1 cap QWK MAGALYS Administration Famotidine 20 mg 07/16/18 15:15 07/17/18 11:00 Pepcid PO 20 mg DAILY MAGALYS Administration Ceftriaxone Sodium 1 gm/ 100 mls @ 100 mls/hr 07/14/18 10:00 07/17/18 11:00 Sodium Chloride IVPB 100 mls/hr DAILY MAGALYS Administration Protocol Diltiazem HCl 125 mg/ Dextrose 125 mls @ 5 mls/hr 07/17/18 13:00 07/17/18 16:00 IV 10 mg/hr .Q24H MAGALYS 10 mls/hr Titration Protocol 5 MG/HR Metoprolol Tartrate 25 mg 07/14/18 10:30 07/15/18 18:01 Lopressor PO 25 mg BID MAGALYS Administration Rivaroxaban 20 mg 07/14/18 10:00 07/17/18 11:00 Xarelto PO 20 mg DAILY MAGALYS Administration - Patient Studies Lab Studies: Microbiology Studies 07/16/18 06:00 Urine Culture - Final Urine,Gayle No Growth (<1,000 CFU/ML) 07/14/18 07:30 Blood Culture - Preliminary Blood NO GROWTH AFTER 3 DAYS 07/14/18 07:30 Blood Culture - Preliminary Blood NO GROWTH AFTER 3 DAYS Lab Studies 07/17/18 07/17/18 Range/Units 06:08 06:08 WBC 6.9 (4.8-10.8) K/uL RBC 4.40 (3.80-5.20) Mil/uL Hgb 13.2 (11.0-16.0) g/dL Hct 40.1 (34.0-47.0) % MCV 91.1 (81.0-99.0) fL MCH 29.9 (27.0-31.0) pg MCHC 32.9 L (33.0-37.0) g/dL RDW 15.7 H (11.5-14.5) % Plt Count 211 (130-400) K/uL MPV 8.9 (7.2-11.7) fL Neut % (Auto) 77.3 H (50.0-75.0) % Lymph % (Auto) 8.4 L (20.0-40.0) % [place] % (Auto) 13.3 H (0.0-10.0) % Eos % (Auto) 0.5 (0.0-4.0) % Baso % (Auto) 0.5 (0.0-2.0) % Neut # (Auto) 5.4 (1.8-7.0) K/uL Lymph # (Auto) 0.6 L (1.0-4.3) K/uL [place] # (Auto) 0.9 H (0.0-0.8) K/uL Eos # (Auto) 0.0 (0.0-0.7) K/uL Baso # (Auto) 0.0 (0.0-0.2) K/uL Neutrophils % (Manual) 79 H (50-75) % Band Neutrophils % 1 (0-2) % Lymphocytes % (Manual) 8 L (20-40) % Monocytes % (Manual) 12 H (0-10) % Platelet Estimate Normal (NORMAL) Poikilocytosis (manual Slight Anisocytosis (manual) Slight Tear Drop Cells Slight Jal Cells Slight Sodium 136 (132-148) mmol/L Potassium 3.6 (3.6-5.2) mmol/L Chloride 97 L (98-107) mmol/L Carbon Dioxide 28 (22-30) mmol/L Anion Gap 15 (10-20) BUN 29 H (7-17) mg/dL Creatinine 1.1 (0.7-1.2) mg/dL Est GFR ( Amer) 59 Est GFR (Non-Af Amer) 49 Random Glucose 81 (65-105) mg/dL Calcium 8.4 L (8.6-10.4) mg/dl Phosphorus 3.8 (2.5-4.5) mg/dL Magnesium 1.7 (1.6-2.3) mg/dL Total Bilirubin 0.7 (0.2-1.3) mg/dL AST 57 H D (14-36) U/L ALT 58 H D (9-52) U/L Alkaline Phosphatase 102 (38-126) U/L Total Protein 6.2 L (6.3-8.3) g/dL Albumin 3.2 L (3.5-5.0) g/dL Globulin 3.1 (2.2-3.9) gm/dL Albumin/Globulin Ratio 1.0 (1.0-2.1) Laboratory Results - last 24 hr 07/17/18 07/17/18 06:08 06:08 WBC 6.9 RBC 4.40 Hgb 13.2 Hct 40.1 MCV 91.1 MCH 29.9 MCHC 32.9 L RDW 15.7 H Plt Count 211 MPV 8.9 Neut % (Auto) 77.3 H Lymph % (Auto) 8.4 L [place] % (Auto) 13.3 H Eos % (Auto) 0.5 Baso % (Auto) 0.5 Neut # (Auto) 5.4 Lymph # (Auto) 0.6 L [place] # (Auto) 0.9 H Eos # (Auto) 0.0 Baso # (Auto) 0.0 Neutrophils % (Manual) 79 H Band Neutrophils % 1 Lymphocytes % (Manual) 8 L Monocytes % (Manual) 12 H Platelet Estimate Normal Poikilocytosis (manual Slight Anisocytosis (manual) Slight Tear Drop Cells Slight Jal Cells Slight Sodium 136 Potassium 3.6 Chloride 97 L Carbon Dioxide 28 Anion Gap 15 BUN 29 H Creatinine 1.1 Est GFR ( Amer) 59 Est GFR (Non-Af Amer) 49 Random Glucose 81 Calcium 8.4 L Phosphorus 3.8 Magnesium 1.7 Total Bilirubin 0.7 AST 57 H D ALT 58 H D Alkaline Phosphatase 102 Total Protein 6.2 L Albumin 3.2 L Globulin 3.1 Albumin/Globulin Ratio 1.0 Critical Care Progress Note - Nutrition Nutrition: Nutrition Category Date Time Status Heart Healthy Diet [DIET] Diets 07/14/18 Breakfast Active Attending/Attestation - Attestation I have personally seen and examined this patient.: Yes I have fully participated in the care of the patient.: Yes I have reviewed all pertinent clinical information: Yes Notes (Text): 07/17/18 18:15 Patient seen and examined in the intensive care unit. Patient started on Cardizem drip for A. fib with rapid ventricular rate Echocardiogram with normal ejection fraction Continue xarelto Continue Lasix and antibiotics
[2018-07-17 08:28] LABS: BANDS 1 % (0-2); TOTAL CELLS COUNTED 100
[2018-07-17 08:29] LABS: ANISOCYTOSIS SLIGHT; BURR CELLS SLIGHT; LYMPHOCYTE 8 % (20-40); MONOCYTE 12 % (0-10); NEUTROPHIL 79 % (50-75); PLATELET ESTIMATE NORMAL (NORMAL); POIKILOCYTOSIS SLIGHT; TEARDROP CELLS SLIGHT
[2018-07-17] MEDS ORDERED: Magnesium Sulfate 1 gm in D5W 1 GM/100 ML BAG IVPB ONE ×2 (08:30→12:00)
--- NOTE | 2018-07-17 12:46 | CP.PCM.PN ---
Subjective - Date & Time of Evaluation Date of Evaluation: 07/17/18 Time of Evaluation: 12:30 - Subjective Subjective: Patient developed rapid atrial fibrillation this morning. She denies current chest pain or palpitations. Objective - Vital Signs/Intake and Output Vital Signs (last 24 hours): Temp Pulse Resp BP Pulse Ox 97.8 F 59 L 20 156/64 H 100 07/17/18 04:00 07/17/18 06:00 07/17/18 06:00 07/17/18 06:00 07/17/18 06:00 Intake and Output: 07/17/18 07/17/18 06:59 18:59 Intake Total 50 Output Total 1790 Balance -1740 - Medications Medications: Current Medications Albuterol Sulfate (Albuterol 0.083% Inhal Allegra (2.5 Mg/3 Ml) Ud) 2.5 mg INH RQ6 PRN PRN Reason: Shortness of Breath Last Admin: 07/16/18 01:59 Dose: 2.5 mg Ergocalciferol (Drisdol 50,000 Intl Units Cap) 1 cap PO QWK [facility] Last Admin: 07/14/18 10:20 Dose: 1 cap Famotidine (Pepcid) 20 mg PO DAILY [facility] Last Admin: 07/17/18 11:00 Dose: 20 mg Ceftriaxone Sodium 1 gm/ (Sodium Chloride) 100 mls @ 100 mls/hr IVPB DAILY [facility]; Protocol Last Admin: 07/17/18 11:00 Dose: 100 mls/hr Dobutamine HCl/Dextrose (Dobutamine/Dextrose 5% 500mg/250ml) 500 mg in 250 mls @ 7.083 mls/hr IV .Q24H [facility]; Protocol Last Titration: 07/16/18 06:36 Dose: 2.5 mcg/kg/min, 3.541 mls/hr Magnesium Sulfate/Dextrose (Magnesium Sulfate 1 Gm/100 Ml D5w) 1 gm in 100 mls @ 100 mls/hr IVPB ONCE ONE Stop: 07/17/18 12:59 Last Admin: 07/17/18 12:00 Dose: 100 mls/hr Metoprolol Tartrate (Lopressor) 25 mg PO BID [facility] Last Admin: 07/15/18 18:01 Dose: 25 mg Rivaroxaban (Xarelto) 20 mg PO DAILY [facility] Last Admin: 07/17/18 11:00 Dose: 20 mg - Labs Labs: 07/17/18 06:08 07/17/18 06:08 PT 27.3 SECONDS (9.7-12.2) H 07/14/18 04:18 INR 2.5 07/14/18 04:18 APTT 37 SECONDS (21-34) H 07/14/18 04:18 - Constitutional Appears: Non-toxic - Head Exam Head Exam: NORMAL INSPECTION - Eye Exam Eye Exam: Normal appearance - ENT Exam ENT Exam: Mucous Membranes Moist - Neck Exam Neck Exam: Full ROM - Respiratory Exam Respiratory Exam: NORMAL BREATHING PATTERN - Cardiovascular Exam Cardiovascular Exam: Tachycardia, Irregular Rhythm - GI/Abdominal Exam GI & Abdominal Exam: Normal Bowel Sounds - Rectal Exam Rectal Exam: Deferred - Extremities Exam Extremities Exam: absent: Pedal Edema - Back Exam Back Exam: NORMAL INSPECTION - Neurological Exam Neurological Exam: Alert, Awake, Oriented x3 - Psychiatric Exam Psychiatric exam: Normal Affect - Skin Skin Exam: Normal Color Assessment and Plan (1) PAF (paroxysmal atrial fibrillation) Assessment & Plan: now in atrial fibrillation with rapid ventricular response. recommend IV cardizem and start oral. can use cardizem drip if necessary for control of heart rate. maintain Xarelto Status: Acute (2) Bradycardia Assessment & Plan: resolved Status: Acute (3) HTN (hypertension) Assessment & Plan: will treat with cardizem. Status: Acute
--- NOTE | 2018-07-17 13:39 | RAD ---
Date of service: 07/17/2018 HISTORY: pleural effusion COMPARISON: 07/15/2018 FINDINGS: LUNGS: No definite infiltrate. Cannot rule out infiltrate at left base due to superimposed opacity of pleural effusion. PLEURA: Moderate left pleural effusion. No evidence of right pleural effusion. No pneumothorax. CARDIOVASCULAR: There is atherosclerotic calcification of the aortic arch. Normal cardiac size. No pulmonary vascular congestion. OSSEOUS STRUCTURES: No significant abnormalities. VISUALIZED UPPER ABDOMEN: Normal. OTHER FINDINGS: None. IMPRESSION: Moderate left pleural effusion. No definite infiltrate.
--- NOTE | 2018-07-17 15:28 | CARD ---
APPROVED REPORT Date of service: 07/14/2018 EKG Measurement Heart [id number] <Conclusion> Normal sinus rhythm Possible Left atrial enlargement Right axis deviation Septal infarct, age undetermined Abnormal ECG
--- NOTE | 2018-07-17 17:31 | CARD ---
APPROVED REPORT Date of service: 07/17/2018 EXAM: Two-dimensional and M-mode echocardiogram with Doppler and color Doppler. Other Information Quality : GoodRhythm : INDICATION Congestive Heart Failure Thrombus PNEUMONIA 2D DIMENSIONS IVSd0.9 (0.7-1.1cm)LVDd4.7 (3.9-5.9cm) PWd1.1 (0.7-1.1cm)LA Opmzrv69 (18-58mL) LVDs4.0 (2.5-4.0cm)FS (%) 15.6 % LVEF (%)32.9 (>50%)LVEF (Harvey's)35.10 % M-Mode DIMENSIONS RVDd1.95 (2.1-3.2cm)Left Atrium (MM)4.00 (2.5-4.0cm) IVSd0.93 (0.7-1.1cm)Aortic Root3.25 (2.2-3.7cm) LVDd5.08 (4.0-5.6cm)Aortic Cusp Exc.2.34 (1.5-2.0cm) PWd0.96 (0.7-1.1cm)FS (%) 12 % LVDs4.46 (2.0-3.8cm)TAPSE11.07 cm LVEF (%)26 (>50%) Aortic Valve AI P 1/2 [id number] Mitral Valve MV E Iuxaahee50.3cm/sE/A ratio0.0 TDI Medial E' Peak V2.29cm/sE/Lateral E'0.0E/Medial E'29.4 Tricuspid Valve TR Peak [id number]/sTR Peak Gr.[id number] LEFT VENTRICLE The left ventricle is normal size. There is normal left ventricular wall thickness. The left ventricular function is severely reduced, with diffuse hypokinesis. The left ventricular ejection fraction is about 15% THere is diffuse hypokinesis, with best motion in the basal-lateral and basal-inferolateral griffin. The left ventricular diastolic function is ondeterminate. No left ventricle thrombus noted on this study. There is no ventricular septal defect visualized. There is no left ventricular aneurysm. There is no mass noted in the left ventricle. RIGHT VENTRICLE The right ventricle is normal size. There is normal right ventricular wall thickness. The right ventricular systolic function is normal. ATRIA The left atrial volume index is markedly dilated. The right atrium size is markedly dilated. The interatrial septum is intact with no evidence for an atrial septal defect. AORTIC VALVE The aortic valve is normal in structure and function. Mild aortic regurgitation is present. There is no aortic valvular stenosis. There is no aortic valvular vegetation. MITRAL VALVE The mitral valve is normal in structure and function. There is no evidence of mitral valve prolapse. There is no mitral valve stenosis. There is no mitral valve regurgitation noted. TRICUSPID VALVE The tricuspid valve is normal in structure and function. There is mild tricuspid valve regurgitation noted. There is no tricuspid valve prolapse or vegetation. There is no tricuspid valve stenosis. PULMONIC VALVE The pulmonary valve is normal in structure and function. There is no pulmonic valvular regurgitation. There is no pulmonic valvular stenosis. GREAT VESSELS The aortic root is normal in size. The ascending aorta is normal in size. The pulmonary artery is normal. The IVC is not seen. PERICARDIAL EFFUSION THere is a very trivial pericardial effusion. There are large pleural effusions. <Conclusion> The left ventricular function is severely reduced, with diffuse hypokinesis. Best wall motion is in the basal-lateral and basal-inferolateral griffin. The left ventricular ejection fraction is about 15% The left atrial volume index is markedly dilated. The right atrium size is markedly dilated. Mild aortic regurgitation is present. There are large pleural effusions. THere is a very trivial pericardial effusion.
--- NOTE | 2018-07-17 21:23 | CP.PCM.PN ---
Subjective - Date & Time of Evaluation Date of Evaluation: 07/17/18 Time of Evaluation: 10:30 - Subjective Subjective: clinically same Objective - Vital Signs/Intake and Output Vital Signs (last 24 hours): Temp Pulse Resp BP Pulse Ox 97.7 F 111 H 13 120/71 97 07/17/18 14:57 07/17/18 20:03 07/17/18 20:03 07/17/18 20:03 07/17/18 20:03 Intake and Output: 07/17/18 07/18/18 18:59 06:59 Intake Total 680 20 Output Total 1120 700 Balance -440 -680 - Medications Medications: Current Medications Albuterol Sulfate (Albuterol 0.083% Inhal Allegra (2.5 Mg/3 Ml) Ud) 2.5 mg INH RQ6 PRN PRN Reason: Shortness of Breath Last Admin: 07/16/18 01:59 Dose: 2.5 mg Ergocalciferol (Drisdol 50,000 Intl Units Cap) 1 cap PO QWK [facility] Last Admin: 07/14/18 10:20 Dose: 1 cap Famotidine (Pepcid) 20 mg PO DAILY [facility] Last Admin: 07/17/18 11:00 Dose: 20 mg Ceftriaxone Sodium 1 gm/ (Sodium Chloride) 100 mls @ 100 mls/hr IVPB DAILY [facility]; Protocol Last Admin: 07/17/18 11:00 Dose: 100 mls/hr Diltiazem HCl 125 mg/ Dextrose 125 mls @ 5 mls/hr IV .Q24H [facility]; Protocol Last Titration: 07/17/18 15:00 Dose: 10 mg/hr, 10 mls/hr Metoprolol Tartrate (Lopressor) 25 mg PO BID [facility] Last Admin: 07/17/18 18:20 Dose: 25 mg Rivaroxaban (Xarelto) 20 mg PO DAILY [facility] Last Admin: 07/17/18 11:00 Dose: 20 mg - Labs Labs: 07/17/18 06:08 07/17/18 06:08 PT 27.3 SECONDS (9.7-12.2) H 07/14/18 04:18 INR 2.5 07/14/18 04:18 APTT 37 SECONDS (21-34) H 07/14/18 04:18
[2018-07-18 06:16] LABS: BASO % 0.7 % (0.0-2.0); EOS # 0.1 K/uL (0.0-0.7); EOS % 1.4 % (0.0-4.0); LYMPH % 16.2 % (20.0-40.0); MEAN CELL VOLUME 89.5 fL (81.0-99.0); MEAN CORPUSCULAR HEMOGLOBIN 30.3 pg (27.0-31.0); MEAN CORPUSCULAR HGB CONC 33.9 g/dL (33.0-37.0); MEAN PLATELET VOLUME 8.8 fL (7.2-11.7); MONO % 15.2 % (0.0-10.0); NEUT # 4.2 K/uL (1.8-7.0); NEUT % 66.5 % (50.0-75.0); NRBC % 0.1 % (0.0-2.0); RBC 4.63 Mil/uL (3.80-5.20); RED CELL DISTRIBUTION WIDTH 15.9 % (11.5-14.5); WHITE BLOOD COUNT 6.3 K/uL (4.8-10.8)
[2018-07-18 07:05] LABS: ALBUMIN 3.1 g/dL (3.5-5.0); ALT/SGPT 47 U/L (9-52); AST/SGOT 45 U/L (14-36); BLOOD UREA NITROGEN 22 mg/dL (7-17); CALCIUM 7.9 mg/dl (8.6-10.4); GFR NON-AFRICAN AMERICAN > 60
--- NOTE | 2018-07-18 07:31 | CP.CCUPN ---
<Aleena Tsai - Last Filed: 07/18/18 14:23> CCU Subjective - Physician Review Events Since Last Encounter (Free Text): 07/18/18 07:30 no over night events Subjective (Free Text): 07/18/18 07:30 Patient was seen and examined this morning. She is sitting up in bed, no acute distress. Still Afib RVR, asymptomatic. Cough improving. Saturating well on NC. Critical Care Time Spent (in minutes): 35 CCU Objective - Vital Signs / Intake & Output Vital Signs (Last 4 hours): Vital Signs Temp Pulse Resp BP Pulse Ox 07/18/18 06:00 105 H 19 112/78 97 07/18/18 05:00 108 H 22 112/78 98 07/18/18 04:00 98 F 104 H 20 112/78 97 Intake and Output (Last 8hrs): Intake & Output 07/17/18 07/18/18 07/18/18 22:59 06:59 14:59 Intake Total 310 190 Output Total 1600 1100 Balance -1290 -910 Weight 94 lb 11.2 oz Intake: IV 15 110 Intake, IV Amount 75 80 rt forearm 2nd port 75 80 Oral 220 Output: Urine 1600 1100 Urine, Voided 1600 1100 Emesis 0 Other: # Voids Urine, Voided 2 2 # Bowel Movements 1 - Physical Exam Head: Positive for: Atraumatic, Normocephalic Pupils: Positive for: PERRL Extroacular Muscles: Positive for: EOMI Conjunctiva: Positive for: Normal Mouth: Positive for: Moist Mucous Membranes Respiratory/Chest: Positive for: Clear to Auscultation. Negative for: Respiratory Distress, Accessory Muscle Use Cardiovascular: Positive for: Normal S1, S2, Bradycardic. Negative for: Murmurs Abdomen: Negative for: Tenderness, Distention Upper Extremity: Positive for: Normal Inspection Lower Extremity: Positive for: Normal Inspection Neurological: Positive for: GCS=15, CN II-XII Intact Skin: Positive for: Warm, Dry, Normal Color Psychiatric: Positive for: Alert - Medications Active Medications: Active Medications Generic Name Dose Route Start Last Admin Trade Name Freq PRN Reason Stop Dose Admin Albuterol Sulfate 2.5 mg 07/14/18 10:30 07/16/18 01:59 Albuterol 0.083% Inhal Allegra (2.5 Mg/3 Ml) Ud INH 2.5 mg RQ6 PRN Administration Shortness of Breath Ergocalciferol 1 cap 07/14/18 10:00 07/14/18 10:20 Drisdol 50,000 Intl Units Cap PO 1 cap QWK [facility] Administration Famotidine 20 mg 07/16/18 15:15 07/17/18 11:00 Pepcid PO 20 mg DAILY [facility] Administration Ceftriaxone Sodium 1 gm/ 100 mls @ 100 mls/hr 07/14/18 10:00 07/17/18 11:00 Sodium Chloride IVPB 100 mls/hr DAILY [facility] Administration Protocol Diltiazem HCl 125 mg/ Dextrose 125 mls @ 5 mls/hr 07/17/18 13:00 07/18/18 01:31 IV 10 mg/hr .Q24H [facility] 10 mls/hr Administration Protocol 5 MG/HR Potassium Chloride 20 meq in 100 mls @ 50 mls/hr 07/18/18 07:23 Potassium Chloride 20 Meq/100 Ml IVPB 07/18/18 09:22 ONCE ONE Potassium Chloride 20 meq in 100 mls @ 50 mls/hr 07/18/18 07:24 Potassium Chloride 20 Meq/100 Ml IVPB 07/18/18 09:23 ONCE ONE Potassium Chloride 20 meq in 100 mls @ 50 mls/hr 07/18/18 07:25 Potassium Chloride 20 Meq/100 Ml IVPB 07/18/18 09:24 ONCE ONE Metoprolol Tartrate 25 mg 07/14/18 10:30 07/17/18 18:20 Lopressor PO 25 mg BID [facility] Administration Potassium Chloride 20 meq 07/18/18 10:00 K-Dur 20 Meq Er Tab PO 07/19/18 10:01 DAILY [facility] Rivaroxaban 20 mg 07/14/18 10:00 07/17/18 11:00 Xarelto PO 20 mg DAILY [facility] Administration - Patient Studies Lab Studies: Microbiology Studies 07/16/18 06:00 MRSA Culture (Admit) - Final Nose MRSA NOT DETECTED 07/16/18 11:26 Urine Culture - Final Urine,Gayle No Growth (<1,000 CFU/ML) 07/16/18 06:00 Urine Culture - Final Urine,Gayle No Growth (<1,000 CFU/ML) 07/14/18 07:30 Blood Culture - Preliminary Blood NO GROWTH AFTER 3 DAYS 07/14/18 07:30 Blood Culture - Preliminary Blood NO GROWTH AFTER 3 DAYS Lab Studies 07/18/18 07/18/18 07/17/18 Range/Units 06:01 06:01 06:08 WBC 6.3 (4.8-10.8) K/uL RBC 4.63 (3.80-5.20) Mil/uL Hgb 14.0 (11.0-16.0) g/dL Hct 41.4 (34.0-47.0) % MCV 89.5 (81.0-99.0) fL MCH 30.3 (27.0-31.0) pg MCHC 33.9 (33.0-37.0) g/dL RDW 15.9 H (11.5-14.5) % Plt Count 227 (130-400) K/uL MPV 8.8 (7.2-11.7) fL Neut % (Auto) 66.5 (50.0-75.0) % Lymph % (Auto) 16.2 L (20.0-40.0) % Merrick % (Auto) 15.2 H (0.0-10.0) % Eos % (Auto) 1.4 (0.0-4.0) % Baso % (Auto) 0.7 (0.0-2.0) % Neut # (Auto) 4.2 (1.8-7.0) K/uL Lymph # (Auto) 1.0 (1.0-4.3) K/uL Merrick # (Auto) 1.0 H (0.0-0.8) K/uL Eos # (Auto) 0.1 (0.0-0.7) K/uL Baso # (Auto) 0.0 (0.0-0.2) K/uL Neutrophils % (Manual) 79 H (50-75) % Band Neutrophils % 1 (0-2) % Lymphocytes % (Manual) 8 L (20-40) % Monocytes % (Manual) 12 H (0-10) % Platelet Estimate Normal (NORMAL) Poikilocytosis (manual Slight Anisocytosis (manual) Slight Tear Drop Cells Slight [place] Cells Slight Sodium 135 (132-148) mmol/L Potassium 2.7 L (3.6-5.2) mmol/L Chloride 89 L (98-107) mmol/L Carbon Dioxide 35 H (22-30) mmol/L Anion Gap 14 (10-20) BUN 22 H (7-17) mg/dL Creatinine 0.9 (0.7-1.2) mg/dL Est GFR ( Amer) > 60 Est GFR (Non-Af Amer) > 60 Random Glucose 92 (65-105) mg/dL Calcium 7.9 L (8.6-10.4) mg/dl Phosphorus 2.3 L (2.5-4.5) mg/dL Magnesium 1.5 L (1.6-2.3) mg/dL Total Bilirubin 0.7 (0.2-1.3) mg/dL AST 45 H D (14-36) U/L ALT 47 (9-52) U/L Alkaline Phosphatase 101 (38-126) U/L Total Protein 6.4 (6.3-8.3) g/dL Albumin 3.1 L (3.5-5.0) g/dL Globulin 3.3 (2.2-3.9) gm/dL Albumin/Globulin Ratio 1.0 (1.0-2.1) Laboratory Results - last 24 hr 07/17/18 07/18/18 07/18/18 06:08 06:01 06:01 WBC 6.3 RBC 4.63 Hgb 14.0 Hct 41.4 MCV 89.5 MCH 30.3 MCHC 33.9 RDW 15.9 H Plt Count 227 MPV 8.8 Neut % (Auto) 66.5 Lymph % (Auto) 16.2 L Merrick % (Auto) 15.2 H Eos % (Auto) 1.4 Baso % (Auto) 0.7 Neut # (Auto) 4.2 Lymph # (Auto) 1.0 Merrick # (Auto) 1.0 H Eos # (Auto) 0.1 Baso # (Auto) 0.0 Neutrophils % (Manual) 79 H Band Neutrophils % 1 Lymphocytes % (Manual) 8 L Monocytes % (Manual) 12 H Platelet Estimate Normal Poikilocytosis (manual Slight Anisocytosis (manual) Slight Tear Drop Cells Slight Andrae Cells Slight Sodium 135 Potassium 2.7 L Chloride 89 L Carbon Dioxide 35 H Anion Gap 14 BUN 22 H Creatinine 0.9 Est GFR ( Amer) > 60 Est GFR (Non-Af Amer) > 60 Random Glucose 92 Calcium 7.9 L Phosphorus 2.3 L Magnesium 1.5 L Total Bilirubin 0.7 AST 45 H D ALT 47 Alkaline Phosphatase 101 Total Protein 6.4 Albumin 3.1 L Globulin 3.3 Albumin/Globulin Ratio 1.0 Review of Systems - Review of Systems All systems: reviewed and no additional remarkable complaints except - Constitutional Constitutional: absent: Fever, Chills, Sweats - EENT Eyes: UNREMARKABLE Ears: UNREMARKABLE Nose/Mouth/Throat: UNREMARKABLE - Cardiovascular Cardiovascular: UNREMARKABLE. absent: Chest Pain, Diaphoresis, Dyspnea - Respiratory Respiratory: Cough. absent: Dyspnea - Gastrointestinal Gastrointestinal: UNREMARKABLE. absent: Abdominal Pain, Change in Bowel Habits, Nausea, Vomiting - Genitourinary Genitourinary: UNREMARKABLE. absent: Dysuria, Hematuria - Reproductive: Female Reproductive:Female: Post Menopausal - Menstruation Menstruation: Post Menopausal - Musculoskeletal Musculoskeletal: UNREMARKABLE - Integumentary Integumentary: UNREMARKABLE. absent: Lesions - Neurological Neurological: UNREMARKABLE - Psychiatric Psychiatric: Anxiety - Endocrine Endocrine: UNREMARKABLE - Hematologic/Lymphatic Hematologic: UNREMARKABLE Critical Care Progress Note - Extremities/Vascular Does the Patient have a Central Venous Catheter?: No Does the Patient need a Central Venous Catheter?: No Does the Patient have a Gayle Catheter?: No Does the Patient need a Gayle Catheter?: No - Prophylaxis GI Prophylaxis GI: Pepsid - Prophylaxis DVT Prophylaxis DVT: Not Indicated (Xarelto) - Nutrition Nutrition: Nutrition Category Date Time Status Heart Healthy Diet [DIET] Diets 07/14/18 Breakfast Active Assessment/Plan - Assessment and Plan (Free Text) Assessment: Patient is a 72 yo female with a history of Afib, HTN, anxiety, and depression who presented with a cough and generalized weakness. She was initially admitted to med/surg, but a BEVELING MACHINE OPERATOR was called due to symptomatic bradycardia and hypotension, and she was transferred to the ICU for Dobutamine drip. She has a mod-large L sided pleural effusion. She has a history of L atrial appendage thrombus and is on Xarelto. TTE and KARY do not show vegetation. EF 15%- will get EP eval. Plan: Neuro: - Lethargy/AMS improved - CT head negative - Monitor mental status CV: Consider sick sinus syndrome Afib RVR - Cardizem drip - Decrease Xarelto to 15 mg PO daily - Restart Metoprolol 25 mg PO BID - Flecainide 100 mg PO BID- hold Bradycardia- resolved - BEVELING MACHINE OPERATOR on 07/15 for symptomatic bradycardia - Trop negative x2 - Discontinue Dobutamine drip - Cardiology consulted (Augustin) CHF - CXR: CHF type pattern, cardiomegaly - Pro-BNP 31,900 - Lasix PRN - KARY: EF 15%, diffuse hypokinesis, RA and LA dilated - TTE: no thrombus visualized - EP consulted (Bebeto) - Crestor 5 mg PO QHS Pulm: - Maintain spO2>92%- supplemental O2 PRN - Albuterol Q6H PRN - Flu negative - CXR: CHF type pattern, L pleural effusion and/or consolidation, mod pulm venous congestion - Subsequent CXR: no change in L pleural effusion - CT chest: b/l pleural effusions L>R - Douneb Q6H PRN - IR ([place])- rec diuresis > thoracentesis GI: - Heart healthy diet - Ensure Enlive x3 - Metal Building Assembler referral for poor PO intake : - I's & O's - Replete electrolytes PRN - Urine electrolytes pending- hypokalemic metabolic alkalosis Endo: - Maintain euglycemia - TSH elevated (6.85) - Free T4, total T4 wnl Heme: - Monitor H&H - Monitor PT/INR/PTT - LE Dopplers: no DVT ID: - No leukocytosis, afebrile - Procal wnl - Blood Cx no growth >4 days - Rocephin 1 g IV daily PPx: VTE: on Xarelto GI: Pepcid 20 mg PO daily PT Code status: full code Case discussed with attending, Dr. Lora. PGY-1 Aleena Tsai D.O. <Tyson Lora - Last Filed: 07/18/18 17:36> CCU Objective - Vital Signs / Intake & Output Vital Signs (Last 4 hours): Vital Signs Temp Pulse Resp BP Pulse Ox 07/18/18 15:24 98.2 F 97 07/18/18 15:02 86 23 107/59 L 94 L 07/18/18 15:00 77 25 H 94 L 07/18/18 14:03 96 H 24 112/49 L 94 L 07/18/18 14:00 91 H 16 91 L Intake and Output (Last 8hrs): Intake & Output 07/18/18 07/18/18 07/18/18 06:59 14:59 22:59 Intake Total 190 1280 5 Output Total 1100 0 0 Balance -910 1280 5 Weight 94 lb 11.2 oz Intake: IV 110 70 Intake, IV Amount 80 550 5 Right Hand 500 rt forearm 2nd port 80 50 5 Oral 660 Output: Urine 1100 Urine, Voided 1100 Emesis 0 0 Other: # Voids Urine, Voided 2 1 # Bowel Movements 0 0 - Medications Active Medications: Active Medications Generic Name Dose Route Start Last Admin Trade Name Freq PRN Reason Stop Dose Admin Ergocalciferol 1 cap 07/14/18 10:00 07/14/18 10:20 Drisdol 50,000 Intl Units Cap PO 1 cap QWK [facility] Administration Famotidine 20 mg 07/16/18 15:15 07/18/18 10:18 Pepcid PO 20 mg DAILY [facility] Administration Ceftriaxone Sodium 1 gm/ 100 mls @ 100 mls/hr 07/14/18 10:00 07/18/18 11:04 Sodium Chloride IVPB 100 mls/hr DAILY [facility] Administration Protocol Diltiazem HCl 125 mg/ Dextrose 125 mls @ 5 mls/hr 07/17/18 13:00 07/18/18 12:51 IV 5 mg/hr .Q24H [facility] 5 mls/hr Titration Protocol 5 MG/HR Ipratropium [place] 0.5 mg 07/18/18 14:40 Atrovent IH RQ6 PRN Shortness of Breath Metoprolol Tartrate 25 mg 07/14/18 10:30 07/18/18 11:04 Lopressor PO 25 mg BID [facility] Administration Potassium Chloride 20 meq 07/18/18 10:00 07/18/18 10:18 K-Dur 20 Meq Er Tab PO 07/19/18 10:01 20 meq DAILY [facility] Administration Rivaroxaban 15 mg 07/18/18 09:03 07/18/18 10:27 Xarelto PO 15 mg DAILY [facility] Administration - Patient Studies Lab Studies: Microbiology Studies 07/14/18 07:30 Blood Culture - Preliminary Blood NO GROWTH AFTER 4 DAYS 07/14/18 07:30 Blood Culture - Preliminary Blood NO GROWTH AFTER 4 DAYS 07/16/18 06:00 MRSA Culture (Admit) - Final Nose MRSA NOT DETECTED 07/16/18 11:26 Urine Culture - Final Urine,Gayle No Growth (<1,000 CFU/ML) 07/16/18 06:00 Urine Culture - Final Urine,Gayle No Growth (<1,000 CFU/ML) Lab Studies 07/18/18 07/18/18 07/18/18 Range/Units 16:10 14:55 14:55 WBC (4.8-10.8) K/uL RBC (3.80-5.20) Mil/uL Hgb (11.0-16.0) g/dL Hct (34.0-47.0) % MCV (81.0-99.0) fL MCH (27.0-31.0) pg MCHC (33.0-37.0) g/dL RDW (11.5-14.5) % Plt Count (130-400) K/uL MPV (7.2-11.7) fL Neut % (Auto) (50.0-75.0) % Lymph % (Auto) (20.0-40.0) % [place] % (Auto) (0.0-10.0) % Eos % (Auto) (0.0-4.0) % Baso % (Auto) (0.0-2.0) % Neut # (Auto) (1.8-7.0) K/uL Lymph # (Auto) (1.0-4.3) K/uL [place] # (Auto) (0.0-0.8) K/uL Eos # (Auto) (0.0-0.7) K/uL Baso # (Auto) (0.0-0.2) K/uL Puncture Site pCO2 (35-45) mm/Hg pO2 (80-100) mm/Hg HCO3 (21-28) mmol/L ABG pH (7.35-7.45) ABG Total CO2 (22-28) mmol/L ABG O2 Saturation (95-98) % ABG Base Excess (-2.0-3.0) mmol/L ABG Hemoglobin (11.7-17.4) g/dL ABG Carboxyhemoglobin (0.5-1.5) % POC ABG HHb (Measured) (0.0-5.0) % ABG Methemoglobin (0.0-3.0) % [place] Test A-a O2 Difference mm/Hg Respiratory Index Hgb O2 Saturation (95.0-98.0) % Liter Flow FiO2 % Sodium 134 (132-148) mmol/L Potassium 4.5 (3.6-5.2) mmol/L Chloride 92 L (98-107) mmol/L Carbon Dioxide 36 H (22-30) mmol/L Anion Gap 11 (10-20) BUN 21 H (7-17) mg/dL Creatinine 0.8 (0.7-1.2) mg/dL Est GFR ( Amer) > 60 Est GFR (Non-Af Amer) > 60 Random Glucose 110 H (65-105) mg/dL Calcium 7.9 L (8.6-10.4) mg/dl Phosphorus 2.4 L (2.5-4.5) mg/dL Magnesium 2.3 (1.6-2.3) mg/dL Total Bilirubin 0.7 (0.2-1.3) mg/dL AST 44 H (14-36) U/L ALT 43 (9-52) U/L Alkaline Phosphatase 102 (38-126) U/L Total Protein 6.1 L (6.3-8.3) g/dL Albumin 3.0 L (3.5-5.0) g/dL Globulin 3.0 (2.2-3.9) gm/dL Albumin/Globulin Ratio 1.0 (1.0-2.1) Ur Random Sodium 93 mmol/L Ur Random Potassium 25.9 mmol/L 07/18/18 07/18/18 07/18/18 Range/Units 10:03 06:01 06:01 WBC 6.3 (4.8-10.8) K/uL RBC 4.63 (3.80-5.20) Mil/uL Hgb 14.0 (11.0-16.0) g/dL Hct 41.4 (34.0-47.0) % MCV 89.5 (81.0-99.0) fL MCH 30.3 (27.0-31.0) pg MCHC 33.9 (33.0-37.0) g/dL RDW 15.9 H (11.5-14.5) % Plt Count 227 (130-400) K/uL MPV 8.8 (7.2-11.7) fL Neut % (Auto) 66.5 (50.0-75.0) % Lymph % (Auto) 16.2 L (20.0-40.0) % [place] % (Auto) 15.2 H (0.0-10.0) % Eos % (Auto) 1.4 (0.0-4.0) % Baso % (Auto) 0.7 (0.0-2.0) % Neut # (Auto) 4.2 (1.8-7.0) K/uL Lymph # (Auto) 1.0 (1.0-4.3) K/uL [place] # (Auto) 1.0 H (0.0-0.8) K/uL Eos # (Auto) 0.1 (0.0-0.7) K/uL Baso # (Auto) 0.0 (0.0-0.2) K/uL Puncture Site Lra pCO2 44 (35-45) mm/Hg pO2 96 (80-100) mm/Hg HCO3 36.0 H (21-28) mmol/L ABG pH 7.55 H (7.35-7.45) ABG Total CO2 39.9 H (22-28) mmol/L ABG O2 Saturation 99.0 H (95-98) % ABG Base Excess 14.3 H (-2.0-3.0) mmol/L ABG Hemoglobin 14.5 (11.7-17.4) g/dL ABG Carboxyhemoglobin 1.5 (0.5-1.5) % POC ABG HHb (Measured) 1.0 (0.0-5.0) % ABG Methemoglobin 1.2 (0.0-3.0) % [place] Test Pos A-a O2 Difference 77.0 mm/Hg Respiratory Index 0.8 Hgb O2 Saturation 96.2 (95.0-98.0) % Liter Flow 3.0 FiO2 32.0 % Sodium 135 (132-148) mmol/L Potassium 2.7 L (3.6-5.2) mmol/L Chloride 89 L (98-107) mmol/L Carbon Dioxide 35 H (22-30) mmol/L Anion Gap 14 (10-20) BUN 22 H (7-17) mg/dL Creatinine 0.9 (0.7-1.2) mg/dL Est GFR ( Amer) > 60 Est GFR (Non-Af Amer) > 60 Random Glucose 92 (65-105) mg/dL Calcium 7.9 L (8.6-10.4) mg/dl Phosphorus 2.3 L (2.5-4.5) mg/dL Magnesium 1.5 L (1.6-2.3) mg/dL Total Bilirubin 0.7 (0.2-1.3) mg/dL AST 45 H D (14-36) U/L ALT 47 (9-52) U/L Alkaline Phosphatase 101 (38-126) U/L Total Protein 6.4 (6.3-8.3) g/dL Albumin 3.1 L (3.5-5.0) g/dL Globulin 3.3 (2.2-3.9) gm/dL Albumin/Globulin Ratio 1.0 (1.0-2.1) Ur Random Sodium mmol/L Ur Random Potassium mmol/L Laboratory Results - last 24 hr 07/18/18 07/18/18 07/18/18 06:01 06:01 10:03 WBC 6.3 RBC 4.63 Hgb 14.0 Hct 41.4 MCV 89.5 MCH 30.3 MCHC 33.9 RDW 15.9 H Plt Count 227 MPV 8.8 Neut % (Auto) 66.5 Lymph % (Auto) 16.2 L [place] % (Auto) 15.2 H Eos % (Auto) 1.4 Baso % (Auto) 0.7 Neut # (Auto) 4.2 Lymph # (Auto) 1.0 [place] # (Auto) 1.0 H Eos # (Auto) 0.1 Baso # (Auto) 0.0 Puncture Site Lra pCO2 44 pO2 96 HCO3 36.0 H ABG pH 7.55 H ABG Total CO2 39.9 H ABG O2 Saturation 99.0 H ABG Base Excess 14.3 H ABG Hemoglobin 14.5 ABG Carboxyhemoglobin 1.5 POC ABG HHb (Measured) 1.0 ABG Methemoglobin 1.2 [place] Test Pos A-a O2 Difference 77.0 Respiratory Index 0.8 Hgb O2 Saturation 96.2 Liter Flow 3.0 FiO2 32.0 Sodium 135 Potassium 2.7 L Chloride 89 L Carbon Dioxide 35 H Anion Gap 14 BUN 22 H Creatinine 0.9 Est GFR ( Amer) > 60 Est GFR (Non-Af Amer) > 60 Random Glucose 92 Calcium 7.9 L Phosphorus 2.3 L Magnesium 1.5 L Total Bilirubin 0.7 AST 45 H D ALT 47 Alkaline Phosphatase 101 Total Protein 6.4 Albumin 3.1 L Globulin 3.3 Albumin/Globulin Ratio 1.0 Ur Random Sodium Ur Random Potassium 07/18/18 07/18/18 07/18/18 14:55 14:55 16:10 WBC RBC Hgb Hct MCV MCH MCHC RDW Plt Count MPV Neut % (Auto) Lymph % (Auto) Merrick % (Auto) Eos % (Auto) Baso % (Auto) Neut # (Auto) Lymph # (Auto) Merrick # (Auto) Eos # (Auto) Baso # (Auto) Puncture Site pCO2 pO2 HCO3 ABG pH ABG Total CO2 ABG O2 Saturation ABG Base Excess ABG Hemoglobin ABG Carboxyhemoglobin POC ABG HHb (Measured) ABG Methemoglobin [place] Test A-a O2 Difference Respiratory Index Hgb O2 Saturation Liter Flow FiO2 Sodium 134 Potassium 4.5 Chloride 92 L Carbon Dioxide 36 H Anion Gap 11 BUN 21 H Creatinine 0.8 Est GFR ( Amer) > 60 Est GFR (Non-Af Amer) > 60 Random Glucose 110 H Calcium 7.9 L Phosphorus 2.4 L Magnesium 2.3 Total Bilirubin 0.7 AST 44 H ALT 43 Alkaline Phosphatase 102 Total Protein 6.1 L Albumin 3.0 L Globulin 3.0 Albumin/Globulin Ratio 1.0 Ur Random Sodium 93 Ur Random Potassium 25.9 Critical Care Progress Note - Nutrition Nutrition: Nutrition Category Date Time Status Heart Healthy Diet [DIET] Diets 07/14/18 Breakfast Active Attending/Attestation - Attestation I have personally seen and examined this patient.: Yes I have fully participated in the care of the patient.: Yes I have reviewed all pertinent clinical information: Yes Notes (Text): 07/18/18 17:34 patient seen and examined in the intensive care unit. Continue Cardizem and beta alberto EPS/cardiology for AICD/ evaluation continue diuretics Replace potassium
[2018-07-18] MEDS ORDERED: Potassium & Sodium Phosphate PO ONE (08:00)
--- NOTE | 2018-07-18 09:20 | RAD ---
Date of service: 07/18/2018 HISTORY: pleural effusion COMPARISON: Portable chest 07/17/2018. FINDINGS: LUNGS: Right lung remains clear, however, moderate left pleural effusion persists with underlying airspace disease not excluded. Cardiac silhouette is obscured. No definite pulmonary vascular congestion. No pneumothorax bilaterally. PLEURA: As above. CARDIOVASCULAR: No aortic atherosclerotic calcification present. OSSEOUS STRUCTURES: No significant abnormalities. VISUALIZED UPPER ABDOMEN: Normal. OTHER FINDINGS: None. IMPRESSION: No significant interval change in left pleural effusion with underlying airspace disease not excluded. Right lung remains clear. No definite pulmonary vascular congestion.
[2018-07-18] MEDS ORDERED: Potassium Chloride 20 mEq ER Tab PO SCH (10:00)
[2018-07-18] MEDS: Magnesium Sulfate 1 gm in D5W 1 GM/100 ML BAG IVPB SCH ×2 (10:08→11:04)
[2018-07-18 10:17] LABS: ABG ALLEN TEST POS; ARTERIAL BLOOD GAS HEMOGLOBIN 14.5 g/dL (11.7-17.4); ARTERIAL BLOOD GAS PCO2 44 mm/Hg (35-45); ARTERIAL BLOOD GAS PH 7.55 (7.35-7.45); ARTERIAL BLOOD GAS PO2 96 mm/Hg (80-100); ARTERIAL BLOOD GAS TCO2 39.9 mmol/L (22-28)
[2018-07-18] MEDS ORDERED: Potassium Chloride 20 mEq ER Tab PO ONE (11:36)
--- NOTE | 2018-07-18 13:01 | CP.PCM.PN ---
Subjective - Date & Time of Evaluation Date of Evaluation: 07/18/18 Time of Evaluation: 12:30 - Subjective Subjective: Patient remains in atrial fibrillation. Her heart rate improved and cardizem was discontinued. She has recurrence of rapid heart rate. She was also noted to be hypokalemic, but is currently being repleted Objective - Vital Signs/Intake and Output Vital Signs (last 24 hours): Temp Pulse Resp BP Pulse Ox 98 F 105 H 19 100/59 L 97 07/18/18 04:00 07/18/18 06:00 07/18/18 06:00 07/18/18 11:04 07/18/18 06:00 Intake and Output: 07/18/18 07/18/18 06:59 18:59 Intake Total 230 70 Output Total 1800 Balance -1570 70 - Medications Medications: Current Medications Albuterol Sulfate (Albuterol 0.083% Inhal Allegra (2.5 Mg/3 Ml) Ud) 2.5 mg INH RQ6 PRN PRN Reason: Shortness of Breath Last Admin: 07/16/18 01:59 Dose: 2.5 mg Ergocalciferol (Drisdol 50,000 Intl Units Cap) 1 cap PO QWK [facility] Last Admin: 07/14/18 10:20 Dose: 1 cap Famotidine (Pepcid) 20 mg PO DAILY [facility] Last Admin: 07/18/18 10:18 Dose: 20 mg Ceftriaxone Sodium 1 gm/ (Sodium Chloride) 100 mls @ 100 mls/hr IVPB DAILY [facility]; Protocol Last Admin: 07/18/18 11:04 Dose: 100 mls/hr Diltiazem HCl 125 mg/ Dextrose 125 mls @ 5 mls/hr IV .Q24H [facility]; Protocol Last Titration: 07/18/18 12:51 Dose: 5 mg/hr, 5 mls/hr Potassium Chloride (Potassium Chloride 20 Meq/100 Ml) 20 meq in 100 mls @ 50 mls/hr IVPB ONCE ONE Stop: 07/18/18 14:14 Last Admin: 07/18/18 11:56 Dose: Not Given Metoprolol Tartrate (Lopressor) 25 mg PO BID [facility] Last Admin: 07/18/18 11:04 Dose: 25 mg Potassium Chloride (K-Dur 20 Meq Er Tab) 20 meq PO DAILY [facility] Stop: 07/19/18 10:01 Last Admin: 07/18/18 10:18 Dose: 20 meq Rivaroxaban (Xarelto) 15 mg PO DAILY [facility] Last Admin: 07/18/18 10:27 Dose: 15 mg - Labs Labs: 07/18/18 06:01 07/18/18 06:01 PT 27.3 SECONDS (9.7-12.2) H 07/14/18 04:18 INR 2.5 07/14/18 04:18 APTT 37 SECONDS (21-34) H 07/14/18 04:18 - Constitutional Appears: Non-toxic - Head Exam Head Exam: NORMAL INSPECTION - Eye Exam Eye Exam: Normal appearance - ENT Exam ENT Exam: Mucous Membranes Moist - Neck Exam Neck Exam: Full ROM, Normal Inspection. absent: Lymphadenopathy - Respiratory Exam Respiratory Exam: absent: Decreased Breath Sounds - Cardiovascular Exam Cardiovascular Exam: Tachycardia, Irregular Rhythm - GI/Abdominal Exam GI & Abdominal Exam: Normal Bowel Sounds - Rectal Exam Rectal Exam: Deferred - Extremities Exam Extremities Exam: absent: Pedal Edema - Back Exam Back Exam: NORMAL INSPECTION - Neurological Exam Neurological Exam: Alert - Psychiatric Exam Psychiatric exam: Normal Affect - Skin Skin Exam: Normal Color Assessment and Plan (1) Rapid atrial fibrillation Assessment & Plan: will need conitnued rate control. cardizem drip. will give digoxin. replete KDarryl jaen-baptisteitnue anticoagulation Status: Acute (2) Cardiomyopathy Assessment & Plan: the EF has declined from February. The left atrium is dilated. will attempt rate control. last evaluation for myocardial ischemia in February was negative. I suspect patient has had progressive repeated atrial fibrillation. She has not had cardiology follow up since February. Given cardiomyopathy, would consider EP evaluation. patient needs at minimum a Lifevest. will ask Dr Tate for EP evaluation. Dr Soni will cover me 07/18-07/23 Status: Chronic
[2018-07-18] MEDS ORDERED: Digoxin 500 mcg/2ml (0.5 mg/2ml) Inj IVP ONE (13:15)
[2018-07-18] MEDS ORDERED: Ipratropium 0.02% Inhal Soln (0.5 mg/2.5 ml) UD IH PRN (14:40)
[2018-07-18 16:37] LABS: ALT/SGPT 43 U/L (9-52); AST/SGOT 44 U/L (14-36); BLOOD UREA NITROGEN 21 mg/dL (7-17); CALCIUM 7.9 mg/dl (8.6-10.4); GFR NON-AFRICAN AMERICAN > 60
[2018-07-18] MEDS ORDERED: guaiFENesin DM 100 mg-10 mg/5 ml UD PO PRN (20:14)
--- NOTE | 2018-07-18 20:22 | CP.PCM.PN ---
Subjective - Date & Time of Evaluation Date of Evaluation: 07/18/18 Time of Evaluation: 10:30 - Subjective Subjective: clinically same Objective - Vital Signs/Intake and Output Vital Signs (last 24 hours): Temp Pulse Resp BP Pulse Ox 98.2 F 87 13 136/75 98 07/18/18 15:24 07/18/18 19:03 07/18/18 19:03 07/18/18 19:03 07/18/18 19:03 Intake and Output: 07/18/18 07/19/18 18:59 06:59 Intake Total 1600 5 Output Total 400 Balance 1200 5 - Medications Medications: Current Medications Famotidine (Pepcid) 20 mg PO DAILY [facility] Last Admin: 07/18/18 10:18 Dose: 20 mg Guaifenesin/Dextromethorphan (Robitussin Dm) 5 ml PO Q4H PRN PRN Reason: Cough Ceftriaxone Sodium 1 gm/ (Sodium Chloride) 100 mls @ 100 mls/hr IVPB DAILY [facility]; Protocol Last Admin: 07/18/18 11:04 Dose: 100 mls/hr Diltiazem HCl 125 mg/ Dextrose 125 mls @ 5 mls/hr IV .Q24H [facility]; Protocol Last Titration: 07/18/18 12:51 Dose: 5 mg/hr, 5 mls/hr Ipratropium [place] (Atrovent) 0.5 mg IH RQ6 PRN PRN Reason: Shortness of Breath Metoprolol Tartrate (Lopressor) 25 mg PO BID [facility] Last Admin: 07/18/18 19:01 Dose: 25 mg Potassium Chloride (K-Dur 20 Meq Er Tab) 20 meq PO DAILY [facility] Stop: 07/19/18 10:01 Last Admin: 07/18/18 10:18 Dose: 20 meq Rivaroxaban (Xarelto) 15 mg PO DAILY [facility] Last Admin: 07/18/18 10:27 Dose: 15 mg - Labs Labs: 07/18/18 06:01 07/18/18 16:10 PT 27.3 SECONDS (9.7-12.2) H 07/14/18 04:18 INR 2.5 07/14/18 04:18 APTT 37 SECONDS (21-34) H 07/14/18 04:18 - Constitutional Appears: Well - Head Exam Head Exam: ATRAUMATIC, NORMAL INSPECTION, NORMOCEPHALIC - Eye Exam Eye Exam: EOMI, Normal appearance, PERRL Pupil Exam: NORMAL ACCOMODATION, PERRL - ENT Exam ENT Exam: Mucous Membranes Moist, Normal Exam - Neck Exam Neck Exam: Full ROM, Normal Inspection. absent: Lymphadenopathy - Respiratory Exam Respiratory Exam: Decreased Breath Sounds - Cardiovascular Exam Cardiovascular Exam: REGULAR RHYTHM, +S1, +S2 - GI/Abdominal Exam GI & Abdominal Exam: Soft, Diminished Bowel Sounds - Rectal Exam Rectal Exam: Deferred
[2018-07-19 06:06] LABS: BASO # 0.1 K/uL (0.0-0.2); BASO % 1.2 % (0.0-2.0); EOS # 0.1 K/uL (0.0-0.7); EOS % 2.8 % (0.0-4.0); HEMOGLOBIN 14.4 g/dL (11.0-16.0); MEAN CELL VOLUME 90.9 fL (81.0-99.0); MEAN PLATELET VOLUME 8.8 fL (7.2-11.7); MONO # 0.8 K/uL (0.0-0.8); MONO % 14.4 % (0.0-10.0); NEUT # 3.4 K/uL (1.8-7.0); NEUT % 63.6 % (50.0-75.0); NRBC % 0.1 % (0.0-2.0); RBC 4.79 Mil/uL (3.80-5.20); WHITE BLOOD COUNT 5.3 K/uL (4.8-10.8)
[2018-07-19 06:39] LABS: ALB/GLOB RATIO 0.9 (1.0-2.1); ALBUMIN 3.1 g/dL (3.5-5.0); ALT/SGPT 47 U/L (9-52); AST/SGOT 47 U/L (14-36); BLOOD UREA NITROGEN 22 mg/dL (7-17); CALCIUM 8.1 mg/dl (8.6-10.4); GFR NON-AFRICAN AMERICAN > 60
--- NOTE | 2018-07-19 07:40 | CP.CCUPN ---
<Aleena Tsai - Last Filed: 07/19/18 18:35> CCU Subjective - Physician Review Events Since Last Encounter (Free Text): 07/19/18 07:39 no over night events Subjective (Free Text): 07/19/18 07:39 Patient was seen and examined this morning. She is comfortable. Still with cough- wet sounding but not producing sputum. No SOB. Patient removed her NC O2. She and her boyfriend were informed about her poor heart function (EF 15%), and that an companion was consulted. Patient's boyfriend expressed anger over patient's care while hospitalized and made threats to multiple people, including this copywriter, that he will roberto. Specifically, he was upset that the patient's nurse gave her an IV medication that "burned" her. It was explained to the patient and boyfriend that this was replacement potassium due to hypokalemia. The IV was immediately stopped and she was given oral potassium instead. Additionally, the boyfriend complained about the light technician being "rough" when evaluating the patient's lower extremities for thromboses. This was not witnessed by this copywriter. Critical Care Time Spent (in minutes): 35 CCU Objective - Vital Signs / Intake & Output Vital Signs (Last 4 hours): Vital Signs Pulse Resp BP Pulse Ox 07/19/18 06:03 84 16 136/68 100 07/19/18 04:03 98 H 15 146/74 99 Intake and Output (Last 8hrs): Intake & Output 07/18/18 07/19/18 07/19/18 22:59 06:59 14:59 Intake Total 515 400 5 Output Total 400 400 0 Balance 115 0 5 Weight 98 lb 8.48 oz Intake: IV 55 Intake, IV Amount 40 40 5 rt forearm 2nd port 40 40 5 Oral 420 360 Output: Urine 400 400 0 Urine, Voided 400 400 0 Emesis 0 Other: # Voids Urine, Voided 1 # Bowel Movements 0 - Physical Exam Head: Positive for: Atraumatic, Normocephalic Pupils: Positive for: PERRL Extroacular Muscles: Positive for: EOMI Conjunctiva: Positive for: Normal Mouth: Positive for: Moist Mucous Membranes Respiratory/Chest: Positive for: Clear to Auscultation. Negative for: Respiratory Distress, Accessory Muscle Use Cardiovascular: Positive for: Normal S1, S2, Bradycardic. Negative for: Murmurs Abdomen: Negative for: Tenderness, Distention Upper Extremity: Positive for: Normal Inspection Lower Extremity: Positive for: Normal Inspection Neurological: Positive for: GCS=15, CN II-XII Intact Skin: Positive for: Warm, Dry, Normal Color Psychiatric: Positive for: Alert - Medications Active Medications: Active Medications Generic Name Dose Route Start Last Admin Trade Name Freq PRN Reason Stop Dose Admin Famotidine 20 mg 07/16/18 15:15 07/18/18 10:18 Pepcid PO 20 mg DAILY MAGALYS Administration Guaifenesin/Dextromethorphan 5 ml 07/18/18 20:14 07/18/18 20:36 Robitussin Dm PO 5 ml Q4H PRN Administration Cough Ceftriaxone Sodium 1 gm/ 100 mls @ 100 mls/hr 07/14/18 10:00 07/18/18 11:04 Sodium Chloride IVPB 100 mls/hr DAILY MAGALYS Administration Protocol Diltiazem HCl 125 mg/ Dextrose 125 mls @ 5 mls/hr 07/17/18 13:00 07/18/18 20:00 IV 5 mg/hr .Q24H MAGALYS 5 mls/hr Administration Protocol 5 MG/HR Ipratropium Stendal 0.5 mg 07/18/18 14:40 Atrovent IH RQ6 PRN Shortness of Breath Metoprolol Tartrate 25 mg 07/14/18 10:30 07/18/18 19:01 Lopressor PO 25 mg BID MAGALYS Administration Potassium Chloride 20 meq 07/18/18 10:00 07/18/18 10:18 K-Dur 20 Meq Er Tab PO 07/19/18 10:01 20 meq DAILY MAGALYS Administration Rivaroxaban 15 mg 07/18/18 09:03 07/18/18 10:27 Xarelto PO 15 mg DAILY MAGALYS Administration - Patient Studies Lab Studies: Microbiology Studies 07/14/18 07:30 Blood Culture - Final Blood NO GROWTH AFTER 5 DAYS Gram Stain - Final TEST NOT PERFORMED 07/14/18 07:30 Blood Culture - Final Blood NO GROWTH AFTER 5 DAYS Gram Stain - Final TEST NOT PERFORMED Lab Studies 07/19/18 07/19/18 07/18/18 Range/Units 05:56 05:56 16:10 WBC 5.3 (4.8-10.8) K/uL RBC 4.79 (3.80-5.20) Mil/uL Hgb 14.4 (11.0-16.0) g/dL Hct 43.6 (34.0-47.0) % MCV 90.9 (81.0-99.0) fL MCH 30.0 (27.0-31.0) pg MCHC 33.0 (33.0-37.0) g/dL RDW 16.0 H (11.5-14.5) % Plt Count 228 (130-400) K/uL MPV 8.8 (7.2-11.7) fL Neut % (Auto) 63.6 (50.0-75.0) % Lymph % (Auto) 18.0 L (20.0-40.0) % [place] % (Auto) 14.4 H (0.0-10.0) % Eos % (Auto) 2.8 (0.0-4.0) % Baso % (Auto) 1.2 (0.0-2.0) % Neut # (Auto) 3.4 (1.8-7.0) K/uL Lymph # (Auto) 1.0 (1.0-4.3) K/uL [place] # (Auto) 0.8 (0.0-0.8) K/uL Eos # (Auto) 0.1 (0.0-0.7) K/uL Baso # (Auto) 0.1 (0.0-0.2) K/uL Puncture Site pCO2 (35-45) mm/Hg pO2 (80-100) mm/Hg HCO3 (21-28) mmol/L ABG pH (7.35-7.45) ABG Total CO2 (22-28) mmol/L ABG O2 Saturation (95-98) % ABG Base Excess (-2.0-3.0) mmol/L ABG Hemoglobin (11.7-17.4) g/dL ABG Carboxyhemoglobin (0.5-1.5) % POC ABG HHb (Measured) (0.0-5.0) % ABG Methemoglobin (0.0-3.0) % [place] Test A-a O2 Difference mm/Hg Respiratory Index Hgb O2 Saturation (95.0-98.0) % Liter Flow FiO2 % Sodium 138 134 (132-148) mmol/L Potassium 3.9 4.5 (3.6-5.2) mmol/L Chloride 96 L 92 L (98-107) mmol/L Carbon Dioxide 33 H 36 H (22-30) mmol/L Anion Gap 13 11 (10-20) BUN 22 H 21 H (7-17) mg/dL Creatinine 0.7 0.8 (0.7-1.2) mg/dL Est GFR ( Amer) > 60 > 60 Est GFR (Non-Af Amer) > 60 > 60 Random Glucose 118 H 110 H (65-105) mg/dL Calcium 8.1 L 7.9 L (8.6-10.4) mg/dl Phosphorus 2.4 L 2.4 L (2.5-4.5) mg/dL Magnesium 1.9 2.3 (1.6-2.3) mg/dL Total Bilirubin 0.7 0.7 (0.2-1.3) mg/dL AST 47 H 44 H (14-36) U/L ALT 47 43 (9-52) U/L Alkaline Phosphatase 112 102 (38-126) U/L Total Protein 6.5 6.1 L (6.3-8.3) g/dL Albumin 3.1 L 3.0 L (3.5-5.0) g/dL Globulin 3.4 3.0 (2.2-3.9) gm/dL Albumin/Globulin Ratio 0.9 L 1.0 (1.0-2.1) Ur Random Sodium mmol/L Ur Random Potassium mmol/L 07/18/18 07/18/18 07/18/18 Range/Units 14:55 14:55 10:03 WBC (4.8-10.8) K/uL RBC (3.80-5.20) Mil/uL Hgb (11.0-16.0) g/dL Hct (34.0-47.0) % MCV (81.0-99.0) fL MCH (27.0-31.0) pg MCHC (33.0-37.0) g/dL RDW (11.5-14.5) % Plt Count (130-400) K/uL MPV (7.2-11.7) fL Neut % (Auto) (50.0-75.0) % Lymph % (Auto) (20.0-40.0) % [place] % (Auto) (0.0-10.0) % Eos % (Auto) (0.0-4.0) % Baso % (Auto) (0.0-2.0) % Neut # (Auto) (1.8-7.0) K/uL Lymph # (Auto) (1.0-4.3) K/uL [place] # (Auto) (0.0-0.8) K/uL Eos # (Auto) (0.0-0.7) K/uL Baso # (Auto) (0.0-0.2) K/uL Puncture Site Lra pCO2 44 (35-45) mm/Hg pO2 96 (80-100) mm/Hg HCO3 36.0 H (21-28) mmol/L ABG pH 7.55 H (7.35-7.45) ABG Total CO2 39.9 H (22-28) mmol/L ABG O2 Saturation 99.0 H (95-98) % ABG Base Excess 14.3 H (-2.0-3.0) mmol/L ABG Hemoglobin 14.5 (11.7-17.4) g/dL ABG Carboxyhemoglobin 1.5 (0.5-1.5) % POC ABG HHb (Measured) 1.0 (0.0-5.0) % ABG Methemoglobin 1.2 (0.0-3.0) % [place] Test Pos A-a O2 Difference 77.0 mm/Hg Respiratory Index 0.8 Hgb O2 Saturation 96.2 (95.0-98.0) % Liter Flow 3.0 FiO2 32.0 % Sodium (132-148) mmol/L Potassium (3.6-5.2) mmol/L Chloride (98-107) mmol/L Carbon Dioxide (22-30) mmol/L Anion Gap (10-20) BUN (7-17) mg/dL Creatinine (0.7-1.2) mg/dL Est GFR ( Amer) Est GFR (Non-Af Amer) Random Glucose (65-105) mg/dL Calcium (8.6-10.4) mg/dl Phosphorus (2.5-4.5) mg/dL Magnesium (1.6-2.3) mg/dL Total Bilirubin (0.2-1.3) mg/dL AST (14-36) U/L ALT (9-52) U/L Alkaline Phosphatase (38-126) U/L Total Protein (6.3-8.3) g/dL Albumin (3.5-5.0) g/dL Globulin (2.2-3.9) gm/dL Albumin/Globulin Ratio (1.0-2.1) Ur Random Sodium 93 mmol/L Ur Random Potassium 25.9 mmol/L Laboratory Results - last 24 hr 07/18/18 07/18/18 07/18/18 10:03 14:55 14:55 WBC RBC Hgb Hct MCV MCH MCHC RDW Plt Count MPV Neut % (Auto) Lymph % (Auto) [place] % (Auto) Eos % (Auto) Baso % (Auto) Neut # (Auto) Lymph # (Auto) [place] # (Auto) Eos # (Auto) Baso # (Auto) Puncture Site Lra pCO2 44 pO2 96 HCO3 36.0 H ABG pH 7.55 H ABG Total CO2 39.9 H ABG O2 Saturation 99.0 H ABG Base Excess 14.3 H ABG Hemoglobin 14.5 ABG Carboxyhemoglobin 1.5 POC ABG HHb (Measured) 1.0 ABG Methemoglobin 1.2 [place] Test Pos A-a O2 Difference 77.0 Respiratory Index 0.8 Hgb O2 Saturation 96.2 Liter Flow 3.0 FiO2 32.0 Sodium Potassium Chloride Carbon Dioxide Anion Gap BUN Creatinine Est GFR ( Amer) Est GFR (Non-Af Amer) Random Glucose Calcium Phosphorus Magnesium Total Bilirubin AST ALT Alkaline Phosphatase Total Protein Albumin Globulin Albumin/Globulin Ratio Ur Random Sodium 93 Ur Random Potassium 25.9 07/18/18 07/19/18 07/19/18 16:10 05:56 05:56 WBC 5.3 RBC 4.79 Hgb 14.4 Hct 43.6 MCV 90.9 MCH 30.0 MCHC 33.0 RDW 16.0 H Plt Count 228 MPV 8.8 Neut % (Auto) 63.6 Lymph % (Auto) 18.0 L [place] % (Auto) 14.4 H Eos % (Auto) 2.8 Baso % (Auto) 1.2 Neut # (Auto) 3.4 Lymph # (Auto) 1.0 [place] # (Auto) 0.8 Eos # (Auto) 0.1 Baso # (Auto) 0.1 Puncture Site pCO2 pO2 HCO3 ABG pH ABG Total CO2 ABG O2 Saturation ABG Base Excess ABG Hemoglobin ABG Carboxyhemoglobin POC ABG HHb (Measured) ABG Methemoglobin [place] Test A-a O2 Difference Respiratory Index Hgb O2 Saturation Liter Flow FiO2 Sodium 134 138 Potassium 4.5 3.9 Chloride 92 L 96 L Carbon Dioxide 36 H 33 H Anion Gap 11 13 BUN 21 H 22 H Creatinine 0.8 0.7 Est GFR ( Amer) > 60 > 60 Est GFR (Non-Af Amer) > 60 > 60 Random Glucose 110 H 118 H Calcium 7.9 L 8.1 L Phosphorus 2.4 L 2.4 L Magnesium 2.3 1.9 Total Bilirubin 0.7 0.7 AST 44 H 47 H ALT 43 47 Alkaline Phosphatase 102 112 Total Protein 6.1 L 6.5 Albumin 3.0 L 3.1 L Globulin 3.0 3.4 Albumin/Globulin Ratio 1.0 0.9 L Ur Random Sodium Ur Random Potassium Review of Systems - Review of Systems All systems: reviewed and no additional remarkable complaints except - Constitutional Constitutional: Weakness. absent: Fever, Chills, Sweats - EENT Eyes: UNREMARKABLE. absent: Change in Vision Ears: UNREMARKABLE Nose/Mouth/Throat: UNREMARKABLE - Cardiovascular Cardiovascular: absent: Chest Pain, Palpitations, UNREMARKABLE - Respiratory Respiratory: Cough. absent: Dyspnea - Gastrointestinal Gastrointestinal: UNREMARKABLE. absent: Abdominal Pain, Change in Bowel Habits - Genitourinary Genitourinary: Urinary Frequency - Musculoskeletal Musculoskeletal: UNREMARKABLE - Integumentary Integumentary: UNREMARKABLE - Neurological Neurological: UNREMARKABLE - Psychiatric Psychiatric: Anxiety - Endocrine Endocrine: UNREMARKABLE - Hematologic/Lymphatic Hematologic: UNREMARKABLE Critical Care Progress Note - Extremities/Vascular Does the Patient have a Central Venous Catheter?: No Does the Patient need a Central Venous Catheter?: No Does the Patient have a Gayle Catheter?: No Does the Patient need a Gayel Catheter?: No - Prophylaxis GI Prophylaxis GI: Pepsid - Prophylaxis DVT Prophylaxis DVT: Not Indicated (Xarelto) - Nutrition Nutrition: Nutrition Category Date Time Status Heart Healthy Diet [DIET] Diets 07/14/18 Breakfast Active Assessment/Plan - Assessment and Plan (Free Text) Assessment: Patient is a 72 yo female with a history of Afib, HTN, anxiety, and depression who presented with a cough and generalized weakness. She was initially admitted to med/surg, but a NURSING ADMIN was called due to symptomatic bradycardia and hypotension, and she was transferred to the ICU for Dobutamine drip. She has a mod-large L sided pleural effusion. She has a history of L atrial appendage thrombus and is on Xarelto. TTE and KARY do not show vegetation. EF 15%- will get EP eval. Plan: Neuro: - Lethargy/AMS improved - CT head negative - Monitor mental status CV: Consider sick sinus syndrome Afib RVR - Discontinue Cardizem drip - Cardizem 5 mg IV Q4H PRN - Xarelto to 15 mg PO daily - Metoprolol 25 mg PO BID Bradycardia- resolved - NURSING ADMIN on 07/15 for symptomatic bradycardia - Trop negative x2 - Discontinue Dobutamine drip - Cardiology consulted ([facility]) CHF - CXR: CHF type pattern, cardiomegaly - Pro-BNP 31,900 - Lasix PRN - KARY: EF 15%, diffuse hypokinesis, RA and LA dilated - TTE: no thrombus visualized - EP consulted ([facility]) - Crestor 5 mg PO QHS Pulm: - Maintain spO2>92%- supplemental O2 PRN - Flu negative - CXR: CHF type pattern, L pleural effusion and/or consolidation, mod pulm venous congestion - Subsequent CXR: no change in L pleural effusion - CT chest: b/l pleural effusions L>R - Atrovent Q4H - Promethazine/Codeine 5 mL PO Q4H PRN - IR ([facility])- rec diuresis > thoracentesis GI: - Heart healthy diet - Ensure Enlive x3 - Physics Technical Officer referral for poor PO intake : - I's & O's - Replete electrolytes PRN - Urine electrolytes pending- hypokalemic metabolic alkalosis, resolved Endo: - Maintain euglycemia - TSH elevated (6.85) - Free T4, total T4 wnl Heme: - Monitor H&H - Monitor PT/INR/PTT - LE Dopplers: no DVT ID: - No leukocytosis, afebrile - Procal wnl - Blood Cx no growth - Rocephin 1 g IV daily PPx: VTE: on Xarelto GI: Pepcid 20 mg PO daily PT Code status: full code Case discussed with attending, Dr. Karoline Buchanan. PGY-1 Aleena Tsai D.O. <Jean-Pierre Buchanan - Last Filed: 07/20/18 16:22> CCU Objective - Vital Signs / Intake & Output Intake and Output (Last 8hrs): Intake & Output 07/20/18 07/20/18 07/20/18 06:59 14:59 22:59 Intake Total 360 0 Output Total 450 0 Balance -90 0 Weight 100 lb 4.8 oz Intake: Oral 360 0 Output: Urine 450 0 Urine, Voided 450 0 - Medications Active Medications: Active Medications Generic Name Dose Route Start Last Admin Trade Name Freq PRN Reason Stop Dose Admin Diltiazem HCl 5 mg 07/19/18 11:31 Cardizem IVP Q4 PRN Heart rate Docusate Sodium 100 mg 07/20/18 18:00 Colace PO BID MAGALYS Famotidine 20 mg 07/16/18 15:15 07/20/18 10:35 Pepcid PO 20 mg DAILY MAGALYS Administration Ceftriaxone Sodium 1 gm/ 100 mls @ 100 mls/hr 07/14/18 10:00 07/20/18 10:35 Sodium Chloride IVPB 100 mls/hr DAILY MAGALYS Administration Protocol Diltiazem HCl 125 mg/ Dextrose 125 mls @ 5 mls/hr 07/17/18 13:00 07/19/18 09:20 IV 0 mg/hr .Q24H MAGALYS 0 mls/hr Titration Protocol 5 MG/HR Ipratropium Stendal 0.5 mg 07/19/18 12:00 07/20/18 12:56 Atrovent IH 0.5 mg RQ4 MAGALYS Administration Lactulose 20 gm 07/20/18 22:00 Enulose PO HS MAGALYS Metoprolol Tartrate 75 mg 07/20/18 10:00 07/20/18 10:35 Lopressor PO 75 mg BID MAGALYS Administration Promethazine HCl/Codeine 5 ml 07/19/18 12:00 07/20/18 15:46 Phenergan/Codeine Oral Syrup PO 5 ml Q4 PRN Administration Cough and congestion Rivaroxaban 15 mg 07/18/18 09:03 07/20/18 10:34 Xarelto PO 15 mg DAILY MAGALYS Administration - Patient Studies Lab Studies: Lab Studies 07/20/18 07/20/18 07/20/18 Range/Units 06:09 06:09 06:09 WBC 6.9 (4.8-10.8) K/uL RBC 4.77 (3.80-5.20) Mil/uL Hgb 14.1 (11.0-16.0) g/dL Hct 43.4 (34.0-47.0) % MCV 91.0 (81.0-99.0) fL MCH 29.7 (27.0-31.0) pg MCHC 32.6 L (33.0-37.0) g/dL RDW 16.0 H (11.5-14.5) % Plt Count 235 (130-400) K/uL MPV 8.7 (7.2-11.7) fL Neut % (Auto) 69.5 (50.0-75.0) % Lymph % (Auto) 15.3 L (20.0-40.0) % [place] % (Auto) 10.8 H (0.0-10.0) % Eos % (Auto) 3.2 (0.0-4.0) % Baso % (Auto) 1.2 (0.0-2.0) % Neut # (Auto) 4.8 (1.8-7.0) K/uL Lymph # (Auto) 1.0 (1.0-4.3) K/uL [place] # (Auto) 0.7 (0.0-0.8) K/uL Eos # (Auto) 0.2 (0.0-0.7) K/uL Baso # (Auto) 0.1 (0.0-0.2) K/uL PT 18.1 H (9.7-12.2) SECONDS INR 1.7 APTT 35 H (21-34) SECONDS Sodium 137 (132-148) mmol/L Potassium 4.3 (3.6-5.2) mmol/L Chloride 99 (98-107) mmol/L Carbon Dioxide 32 H (22-30) mmol/L Anion Gap 10 (10-20) BUN 19 H (7-17) mg/dL Creatinine 0.8 (0.7-1.2) mg/dL Est GFR ( Amer) > 60 Est GFR (Non-Af Amer) > 60 Random Glucose 93 (65-105) mg/dL Calcium 8.2 L (8.6-10.4) mg/dl Phosphorus 2.8 (2.5-4.5) mg/dL Magnesium 1.7 (1.6-2.3) mg/dL Total Bilirubin 0.6 (0.2-1.3) mg/dL AST 41 H (14-36) U/L ALT 39 (9-52) U/L Alkaline Phosphatase 131 H (38-126) U/L Total Protein 6.5 (6.3-8.3) g/dL Albumin 3.2 L (3.5-5.0) g/dL Globulin 3.3 (2.2-3.9) gm/dL Albumin/Globulin Ratio 1.0 (1.0-2.1) Urine Chloride (32-290) mmol/L 07/18/18 Range/Units 17:30 WBC (4.8-10.8) K/uL RBC (3.80-5.20) Mil/uL Hgb (11.0-16.0) g/dL Hct (34.0-47.0) % MCV (81.0-99.0) fL MCH (27.0-31.0) pg MCHC (33.0-37.0) g/dL RDW (11.5-14.5) % Plt Count (130-400) K/uL MPV (7.2-11.7) fL Neut % (Auto) (50.0-75.0) % Lymph % (Auto) (20.0-40.0) % [place] % (Auto) (0.0-10.0) % Eos % (Auto) (0.0-4.0) % Baso % (Auto) (0.0-2.0) % Neut # (Auto) (1.8-7.0) K/uL Lymph # (Auto) (1.0-4.3) K/uL [place] # (Auto) (0.0-0.8) K/uL Eos # (Auto) (0.0-0.7) K/uL Baso # (Auto) (0.0-0.2) K/uL PT (9.7-12.2) SECONDS INR APTT (21-34) SECONDS Sodium (132-148) mmol/L Potassium (3.6-5.2) mmol/L Chloride (98-107) mmol/L Carbon Dioxide (22-30) mmol/L Anion Gap (10-20) BUN (7-17) mg/dL Creatinine (0.7-1.2) mg/dL Est GFR ( Amer) Est GFR (Non-Af Amer) Random Glucose (65-105) mg/dL Calcium (8.6-10.4) mg/dl Phosphorus (2.5-4.5) mg/dL Magnesium (1.6-2.3) mg/dL Total Bilirubin (0.2-1.3) mg/dL AST (14-36) U/L ALT (9-52) U/L Alkaline Phosphatase (38-126) U/L Total Protein (6.3-8.3) g/dL Albumin (3.5-5.0) g/dL Globulin (2.2-3.9) gm/dL Albumin/Globulin Ratio (1.0-2.1) Urine Chloride 80 (32-290) mmol/L Laboratory Results - last 24 hr 07/18/18 07/20/18 07/20/18 17:30 06:09 06:09 WBC 6.9 RBC 4.77 Hgb 14.1 Hct 43.4 MCV 91.0 MCH 29.7 MCHC 32.6 L RDW 16.0 H Plt Count 235 MPV 8.7 Neut % (Auto) 69.5 Lymph % (Auto) 15.3 L [place] % (Auto) 10.8 H Eos % (Auto) 3.2 Baso % (Auto) 1.2 Neut # (Auto) 4.8 Lymph # (Auto) 1.0 [place] # (Auto) 0.7 Eos # (Auto) 0.2 Baso # (Auto) 0.1 PT INR APTT Sodium 137 Potassium 4.3 Chloride 99 Carbon Dioxide 32 H Anion Gap 10 BUN 19 H Creatinine 0.8 Est GFR ( Amer) > 60 Est GFR (Non-Af Amer) > 60 Random Glucose 93 Calcium 8.2 L Phosphorus 2.8 Magnesium 1.7 Total Bilirubin 0.6 AST 41 H ALT 39 Alkaline Phosphatase 131 H Total Protein 6.5 Albumin 3.2 L Globulin 3.3 Albumin/Globulin Ratio 1.0 Urine Chloride 80 07/20/18 06:09 WBC RBC Hgb Hct MCV MCH MCHC RDW Plt Count MPV Neut % (Auto) Lymph % (Auto) [place] % (Auto) Eos % (Auto) Baso % (Auto) Neut # (Auto) Lymph # (Auto) [place] # (Auto) Eos # (Auto) Baso # (Auto) PT 18.1 H INR 1.7 APTT 35 H Sodium Potassium Chloride Carbon Dioxide Anion Gap BUN Creatinine Est GFR ( Amer) Est GFR (Non-Af Amer) Random Glucose Calcium Phosphorus Magnesium Total Bilirubin AST ALT Alkaline Phosphatase Total Protein Albumin Globulin Albumin/Globulin Ratio Urine Chloride Critical Care Progress Note - Nutrition Nutrition: Nutrition Category Date Time Status Heart Healthy Diet [DIET] Diets 07/14/18 Breakfast Active Assessment/Plan - Assessment and Plan (Free Text) Plan: PAtient with h/o severe heart failure being treated for P. A-fib with IV cardizem. PAtient titrated off cardizem and placed on oral metoprolol -Severe systolic heart failure: continue treatment as per cardiology, consider anticoagulation dual antiplatelet and acei as BP tolerates -CADSvasc score >2: consider AC and Av prateek alberto -PAtiet will benefit rom external vest and/or internal AICD. Patient remains hemodynamically stable. d/w ICU team - Date & Time Date: 07/19/18 Time: 21:00
[2018-07-19 10:07] LABS: BARBITURATES, UR NEGATIVE (NEGATIVE); BENZODIAZEPINES, UR NEGATIVE (NEGATIVE); OPIATES, UR NEGATIVE (NEGATIVE); PHENCYCLIDINE, UR NEGATIVE (NEGATIVE)
[2018-07-19] MEDS: Promethazine/Cod 6.25mg-10mg/5ml Syr UD PO PRN (12:24)
--- NOTE | 2018-07-19 14:17 | VASCLAB ---
Date of service: 07/17/2018 PROCEDURE: Lower Extremity Venous Duplex Exam. HISTORY: r/o DVT PRIORS: None. TECHNIQUE: Bilateral common femoral, femoral, popliteal and posterior tibial, peroneal and great saphenous veins were evaluated. Flow was assessed with color Doppler, compressibility, assessment of phasic flow and augmentation response. Report prepared by Tyson Hoyt, BS, RVT FINDINGS: RIGHT: 1. Common Femoral Vein: 1.1. Compressibility - Fully compressible: Thrombus - None : Flow - Phasic: Augmentation -Normal: Reflux - None. 2. Femoral Vein: 2.1. Compressibility - Fully compressible: Thrombus - None : Flow - Phasic: Augmentation -Normal: Reflux - None. 3. Popliteal Vein: 3.1. Compressibility - Fully compressible: Thrombus - None : Flow - Phasic: Augmentation -Normal: Reflux - None. 4. Posterior Tibial Vein: 4.1. Compressibility - Fully compressible: Thrombus - None: Flow - Phasic: Augmentation -Normal: Reflux - None. 5. Peroneal Vein: 5.1. Compressibility - Fully compressible: Thrombus - None: Flow - Phasic: Augmentation -Normal: Reflux - None. 6. Great Saphenous Vein: 6.1. Compressibility - Fully compressible: Thrombus - None: Flow - Phasic: Augmentation - Normal: Reflux - None. LEFT: 1. Common Femoral Vein: 1.1. Compressibility - Fully compressible: Thrombus - None: Flow - Phasic: Augmentation -Normal: Reflux - None. 2. Femoral Vein: 2.1. Compressibility - Fully compressible: Thrombus - None: Flow - Phasic: Augmentation -Normal: Reflux - None. 3. Popliteal Vein: 3.1. Compressibility - Fully compressible: Thrombus - None : Flow - Phasic: Augmentation -Normal: Reflux - None. 4. Posterior Tibial Vein: 4.1. Compressibility - Fully compressible: Thrombus - None: Flow - Phasic: Augmentation -Normal: Reflux - None. 5. Peroneal Vein: 5.1. Compressibility - Fully compressible: Thrombus - None: Flow - Phasic: Augmentation -Normal: Reflux - None. 6. Great Saphenous Vein: 6.1. Compressibility - Fully compressible: Thrombus - None: Flow - Phasic: Augmentation - Normal: Reflux - None. OTHER FINDINGS: Right: None significant. Left: None significant. IMPRESSION: Right: No evidence of deep or superficial vein thrombosis of the right lower extremity. Normal valve function noted of the right side. 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 No evidence of deep vein thrombosis of the left lower extremity. Normal valve function noted of the left side.
--- NOTE | 2018-07-19 16:13 | CP.PCM.PN ---
Subjective - Date & Time of Evaluation Date of Evaluation: 07/19/18 Time of Evaluation: 11:30 - Subjective Subjective: clinically same Objective - Vital Signs/Intake and Output Vital Signs (last 24 hours): Temp Pulse Resp BP Pulse Ox 98 F 89 26 H 130/84 96 07/19/18 08:00 07/19/18 14:03 07/19/18 14:03 07/19/18 14:03 07/19/18 14:03 Intake and Output: 07/19/18 07/19/18 06:59 18:59 Intake Total 595 622 Output Total 400 300 Balance 195 322 - Medications Medications: Current Medications Diltiazem HCl (Cardizem) 5 mg IVP Q4 PRN PRN Reason: Heart rate Famotidine (Pepcid) 20 mg PO DAILY [facility] Last Admin: 07/19/18 09:07 Dose: 20 mg Ceftriaxone Sodium 1 gm/ (Sodium Chloride) 100 mls @ 100 mls/hr IVPB DAILY [facility]; Protocol Last Admin: 07/19/18 09:24 Dose: 100 mls/hr Diltiazem HCl 125 mg/ Dextrose 125 mls @ 5 mls/hr IV .Q24H MAGALYS; Protocol Last Titration: 07/19/18 09:20 Dose: 0 mg/hr, 0 mls/hr Ipratropium [place] (Atrovent) 0.5 mg IH RQ4 MAGALYS Metoprolol Tartrate (Lopressor) 50 mg PO BID [facility] Last Admin: 07/19/18 09:40 Dose: Not Given Promethazine HCl/Codeine (Phenergan/Codeine Oral Syrup) 5 ml PO Q4 PRN PRN Reason: Cough and congestion Last Admin: 07/19/18 12:24 Dose: 5 ml Rivaroxaban (Xarelto) 15 mg PO DAILY [facility] Last Admin: 07/19/18 09:06 Dose: 15 mg - Labs Labs: 07/19/18 05:56 07/19/18 05:56 PT 27.3 SECONDS (9.7-12.2) H 07/14/18 04:18 INR 2.5 07/14/18 04:18 APTT 37 SECONDS (21-34) H 07/14/18 04:18 - Constitutional Appears: Well - Head Exam Head Exam: ATRAUMATIC, NORMAL INSPECTION, NORMOCEPHALIC - Eye Exam Eye Exam: EOMI, Normal appearance, PERRL Pupil Exam: NORMAL ACCOMODATION, PERRL - ENT Exam ENT Exam: Mucous Membranes Moist, Normal Exam - Neck Exam Neck Exam: Full ROM, Normal Inspection. absent: Lymphadenopathy - Respiratory Exam Respiratory Exam: Decreased Breath Sounds - Cardiovascular Exam Cardiovascular Exam: REGULAR RHYTHM, +S1, +S2 - GI/Abdominal Exam GI & Abdominal Exam: Soft, Diminished Bowel Sounds - Rectal Exam Rectal Exam: Deferred
--- NOTE | 2018-07-19 18:09 | CP.PCM.CON ---
History of Present Illness - History of Present Illness History of Present Illness: reason for consultation: shortness of breath/COPD/pleural effusion Patient is a 72 y/o female with PMHx of Afib, HTN, and an xiety/depression, who presented to the ED on 07/14/18 with complaint of cough and weakness for 4 days. She states she also had fever of 101F. Patient has recently been hospitalized in February for atrial fibrillation with rapid ventricular response. Pulmonology was consulted due to abnormal CXR findings revealing moderate left pleural effusion. Currently, patient states cough has improved since admission, but requires stronger medication to control the symptom. Denies fever, shortness of breath, chest pain. PMHx: Afib, HTN, anxiety/depression Meds: Xarelto, Ambien, Flecainide, Cardizem, Metroprolol Allergies: denies Social: denies tobacco, alcohol, and drug use FHx: unknown -CT Chest (07/16): bilateral atelectatic changes lower lobes and upper lobes, left greater than right; bilateral pleural effusions, left greater than right -CXR (07/18): no significant interval change in left pleural effusion with underlying airspace disease not excluded; right lung remains clear; no definite pulmonary vascular congestion. Review of Systems - Review of Systems All systems: reviewed and no additional remarkable complaints except (Comp laining off productive cough) Past Patient History - Past Medical History & Family History Past Medical History?: Yes - Past Social History Smoking Status: Never Smoked - CARDIAC Hx Hypertension: Yes - PULMONARY Hx Respiratory Disorders: No - NEUROLOGICAL Hx Neurological Disorder: No Hx Paralysis: No - HEENT Hx HEENT Problems: Yes Other/Comment: "Difficulty swallowing" - RENAL Hx Chronic Kidney Disease: No - ENDOCRINE/METABOLIC Hx Endocrine Disorders: No - HEMATOLOGICAL/ONCOLOGICAL Hx Blood Disorders: No Hx Blood Transfusions: No - INTEGUMENTARY Hx Dermatological Problems: No - MUSCULOSKELETAL/RHEUMATOLOGICAL Hx Musculoskeletal Disorders: No Hx Falls: Yes - GASTROINTESTINAL Hx Gastrointestinal Disorders: No - GENITOURINARY/GYNECOLOGICAL Hx Genitourinary Disorders: No - PSYCHIATRIC Hx Anxiety: Yes Hx Depression: Yes Hx Substance Use: No - SURGICAL HISTORY Hx Tonsillectomy: Yes (At 11 yo) - ANESTHESIA Hx Anesthesia: Yes Hx Anesthesia Reactions: No Hx Malignant Hyperthermia: No Meds Allergies/Adverse Reactions: Allergies Allergy/AdvReac Type Severity Reaction Status Date / Time No Known Allergies Allergy Verified 07/14/18 03:41 - Medications Medications: Current Medications Diltiazem HCl (Cardizem) 5 mg IVP Q4 PRN PRN Reason: Heart rate Famotidine (Pepcid) 20 mg PO DAILY [facility] Last Admin: 07/19/18 09:07 Dose: 20 mg Ceftriaxone Sodium 1 gm/ (Sodium Chloride) 100 mls @ 100 mls/hr IVPB DAILY [facility]; Protocol Last Admin: 07/19/18 09:24 Dose: 100 mls/hr Diltiazem HCl 125 mg/ Dextrose 125 mls @ 5 mls/hr IV .Q24H [facility]; Protocol Last Titration: 07/19/18 09:20 Dose: 0 mg/hr, 0 mls/hr Ipratropium [place] (Atrovent) 0.5 mg IH RQ4 [facility]ALYS Metoprolol Tartrate (Lopressor) 50 mg PO BID [facility] Last Admin: 07/19/18 09:40 Dose: Not Given Promethazine HCl/Codeine (Phenergan/Codeine Oral Syrup) 5 ml PO Q4 PRN PRN Reason: Cough and congestion Last Admin: 07/19/18 12:24 Dose: 5 ml Rivaroxaban (Xarelto) 15 mg PO DAILY [facility] Last Admin: 07/19/18 09:06 Dose: 15 mg Physical Exam - Head Exam Head Exam: ATRAUMATIC, NORMOCEPHALIC - ENT Exam ENT Exam: Mucous Membranes Moist - Neck Exam Neck exam: Positive for: Normal Inspection - Respiratory Exam Respiratory Exam: Rhonchi, Wheezes - Cardiovascular Exam Cardiovascular Exam: Irregular Rhythm - GI/Abdominal Exam GI & Abdominal Exam: Normal Bowel Sounds - Extremities Exam Extremities exam: Positive for: normal inspection - Neurological Exam Neurological exam: Alert, Oriented x3 Results - Vital Signs Recent Vital Signs: Last Vital Signs Temp 98.2 F 07/19/18 17:00 Pulse 109 H 07/19/18 17:00 Resp 18 07/19/18 17:00 BP 116/66 07/19/18 17:00 Pulse Ox 94 L 07/19/18 17:00 - Labs Result Diagrams: 07/19/18 05:56 07/19/18 05:56 Labs: Laboratory Results - last 24 hr 07/19/18 07/19/18 07/19/18 05:56 05:56 09:23 WBC 5.3 RBC 4.79 Hgb 14.4 Hct 43.6 MCV 90.9 MCH 30.0 MCHC 33.0 RDW 16.0 H Plt Count 228 MPV 8.8 Neut % (Auto) 63.6 Lymph % (Auto) 18.0 L [place] % (Auto) 14.4 H Eos % (Auto) 2.8 Baso % (Auto) 1.2 Neut # (Auto) 3.4 Lymph # (Auto) 1.0 [place] # (Auto) 0.8 Eos # (Auto) 0.1 Baso # (Auto) 0.1 Sodium 138 Potassium 3.9 Chloride 96 L Carbon Dioxide 33 H Anion Gap 13 BUN 22 H Creatinine 0.7 Est GFR ( Amer) > 60 Est GFR (Non-Af Amer) > 60 Random Glucose 118 H Calcium 8.1 L Phosphorus 2.4 L Magnesium 1.9 Total Bilirubin 0.7 AST 47 H ALT 47 Alkaline Phosphatase 112 Total Protein 6.5 Albumin 3.1 L Globulin 3.4 Albumin/Globulin Ratio 0.9 L Urine Opiates Screen Negative Urine Methadone Screen Negative Ur Barbiturates Screen Negative Ur Phencyclidine Scrn Negative Ur Amphetamines Screen Negative U Benzodiazepines Scrn Negative U Oth Cocaine Metabols Negative U Cannabinoids Screen Negative Assessment & Plan (1) Pleural effusion due to CHF (congestive heart failure) Status: Acute Comment: bilateral pleural effusion secondary to CHF. Continue diuretics. Patient on anticoagulation for A. fib and left atrial thrombus. Followup chest x-ray. Continue antibiotics. Antitussive. EPS eval for low ejection fraction (2) COPD (chronic obstructive pulmonary disease) Status: Acute (3) Atrial fibrillation Status: Chronic
[2018-07-19] MEDS: Ipratropium 0.02% Inhal Soln (0.5 mg/2.5 ml) UD IH SCH (20:46)
[2018-07-20] MEDS: Ipratropium 0.02% Inhal Soln (0.5 mg/2.5 ml) UD IH SCH ×7 (00:43→23:51)
[2018-07-20 06:14] LABS: BASO # 0.1 K/uL (0.0-0.2); BASO % 1.2 % (0.0-2.0); EOS # 0.2 K/uL (0.0-0.7); EOS % 3.2 % (0.0-4.0); HEMOGLOBIN 14.1 g/dL (11.0-16.0); LYMPH % 15.3 % (20.0-40.0); MEAN CORPUSCULAR HEMOGLOBIN 29.7 pg (27.0-31.0); MEAN CORPUSCULAR HGB CONC 32.6 g/dL (33.0-37.0); MEAN PLATELET VOLUME 8.7 fL (7.2-11.7); MONO # 0.7 K/uL (0.0-0.8); MONO % 10.8 % (0.0-10.0); NEUT # 4.8 K/uL (1.8-7.0); NEUT % 69.5 % (50.0-75.0); RBC 4.77 Mil/uL (3.80-5.20); WHITE BLOOD COUNT 6.9 K/uL (4.8-10.8)
[2018-07-20 06:22] LABS: INR 1.7; PROTHROMBIN TIME 18.1 SECONDS (9.7-12.2)
[2018-07-20 06:33] LABS: ALBUMIN 3.2 g/dL (3.5-5.0); ALT/SGPT 39 U/L (9-52); AST/SGOT 41 U/L (14-36); BLOOD UREA NITROGEN 19 mg/dL (7-17); CALCIUM 8.2 mg/dl (8.6-10.4); GFR NON-AFRICAN AMERICAN > 60
--- NOTE | 2018-07-20 07:53 | CP.CCUPN ---
<Aleena Tsai - Last Filed: 07/20/18 13:39> CCU Subjective - Physician Review Events Since Last Encounter (Free Text): 07/20/18 07:53 no over night events Subjective (Free Text): 07/20/18 07:53 Patient was seen and examined this morning. She is comfortable. No shortness of breath. Cough improving. Still Afib RVR but rate is improving and patient is asymptomatic. Critical Care Time Spent (in minutes): 35 CCU Objective - Vital Signs / Intake & Output Vital Signs (Last 4 hours): Vital Signs Pulse Resp BP Pulse Ox 07/20/18 07:03 102 H 23 120/77 96 07/20/18 06:03 110 H 24 135/87 98 07/20/18 05:05 119 H 136/97 H 92 L 07/20/18 04:03 138/99 H 07/20/18 04:00 102 H 19 99 Intake and Output (Last 8hrs): Intake & Output 07/19/18 07/20/18 07/20/18 22:59 06:59 14:59 Intake Total 338 360 0 Output Total 180 450 0 Balance 158 -90 0 Weight 100 lb 4.8 oz Intake: Oral 338 360 0 Output: Urine 180 450 0 Urine, Voided 180 450 0 Other: # Voids Urine, Voided 1 - Physical Exam Head: Positive for: Atraumatic, Normocephalic Pupils: Positive for: PERRL Extroacular Muscles: Positive for: EOMI Conjunctiva: Positive for: Normal Mouth: Positive for: Moist Mucous Membranes Respiratory/Chest: Positive for: Clear to Auscultation. Negative for: Respiratory Distress, Accessory Muscle Use Cardiovascular: Positive for: Normal S1, S2, Bradycardic. Negative for: Murmurs Abdomen: Negative for: Tenderness, Distention Upper Extremity: Positive for: Normal Inspection Lower Extremity: Positive for: Normal Inspection Neurological: Positive for: GCS=15, CN II-XII Intact Skin: Positive for: Warm, Dry, Normal Color Psychiatric: Positive for: Alert - Medications Active Medications: Active Medications Generic Name Dose Route Start Last Admin Trade Name Freq PRN Reason Stop Dose Admin Diltiazem HCl 5 mg 07/19/18 11:31 Cardizem IVP Q4 PRN Heart rate Famotidine 20 mg 07/16/18 15:15 07/19/18 09:07 Pepcid PO 20 mg DAILY MAGALYS Administration Ceftriaxone Sodium 1 gm/ 100 mls @ 100 mls/hr 07/14/18 10:00 07/19/18 09:24 Sodium Chloride IVPB 100 mls/hr DAILY [facility] Administration Protocol Diltiazem HCl 125 mg/ Dextrose 125 mls @ 5 mls/hr 07/17/18 13:00 07/19/18 09:20 IV 0 mg/hr .Q24H [facility] 0 mls/hr Titration Protocol 5 MG/HR Ipratropium [place] 0.5 mg 07/19/18 12:00 07/20/18 03:34 Atrovent IH Not Given RQ4 MAGALYS Metoprolol Tartrate 50 mg 07/19/18 10:00 07/19/18 18:07 Lopressor PO 50 mg BID MAGALYS Administration Promethazine HCl/Codeine 5 ml 07/19/18 12:00 07/19/18 12:24 Phenergan/Codeine Oral Syrup PO 5 ml Q4 PRN Administration Cough and congestion Rivaroxaban 15 mg 07/18/18 09:03 07/19/18 09:06 Xarelto PO 15 mg DAILY [facility] Administration - Patient Studies Lab Studies: Microbiology Studies 07/14/18 07:30 Blood Culture - Final Blood NO GROWTH AFTER 5 DAYS Gram Stain - Final TEST NOT PERFORMED 07/14/18 07:30 Blood Culture - Final Blood NO GROWTH AFTER 5 DAYS Gram Stain - Final TEST NOT PERFORMED Lab Studies 07/20/18 07/20/18 07/20/18 Range/Units 06:09 06:09 06:09 WBC 6.9 (4.8-10.8) K/uL RBC 4.77 (3.80-5.20) Mil/uL Hgb 14.1 (11.0-16.0) g/dL Hct 43.4 (34.0-47.0) % MCV 91.0 (81.0-99.0) fL MCH 29.7 (27.0-31.0) pg MCHC 32.6 L (33.0-37.0) g/dL RDW 16.0 H (11.5-14.5) % Plt Count 235 (130-400) K/uL MPV 8.7 (7.2-11.7) fL Neut % (Auto) 69.5 (50.0-75.0) % Lymph % (Auto) 15.3 L (20.0-40.0) % [place] % (Auto) 10.8 H (0.0-10.0) % Eos % (Auto) 3.2 (0.0-4.0) % Baso % (Auto) 1.2 (0.0-2.0) % Neut # (Auto) 4.8 (1.8-7.0) K/uL Lymph # (Auto) 1.0 (1.0-4.3) K/uL [place] # (Auto) 0.7 (0.0-0.8) K/uL Eos # (Auto) 0.2 (0.0-0.7) K/uL Baso # (Auto) 0.1 (0.0-0.2) K/uL PT 18.1 H (9.7-12.2) SECONDS INR 1.7 APTT 35 H (21-34) SECONDS Sodium 137 (132-148) mmol/L Potassium 4.3 (3.6-5.2) mmol/L Chloride 99 (98-107) mmol/L Carbon Dioxide 32 H (22-30) mmol/L Anion Gap 10 (10-20) BUN 19 H (7-17) mg/dL Creatinine 0.8 (0.7-1.2) mg/dL Est GFR ( Amer) > 60 Est GFR (Non-Af Amer) > 60 Random Glucose 93 (65-105) mg/dL Calcium 8.2 L (8.6-10.4) mg/dl Phosphorus 2.8 (2.5-4.5) mg/dL Magnesium 1.7 (1.6-2.3) mg/dL Total Bilirubin 0.6 (0.2-1.3) mg/dL AST 41 H (14-36) U/L ALT 39 (9-52) U/L Alkaline Phosphatase 131 H (38-126) U/L Total Protein 6.5 (6.3-8.3) g/dL Albumin 3.2 L (3.5-5.0) g/dL Globulin 3.3 (2.2-3.9) gm/dL Albumin/Globulin Ratio 1.0 (1.0-2.1) Urine Opiates Screen (NEGATIVE) Urine Methadone Screen (NEGATIVE) Ur Barbiturates Screen (NEGATIVE) Ur Phencyclidine Scrn (NEGATIVE) Ur Amphetamines Screen (NEGATIVE) U Benzodiazepines Scrn (NEGATIVE) U Oth Cocaine Metabols (NEGATIVE) U Cannabinoids Screen (NEGATIVE) 07/19/18 Range/Units 09:23 WBC (4.8-10.8) K/uL RBC (3.80-5.20) Mil/uL Hgb (11.0-16.0) g/dL Hct (34.0-47.0) % MCV (81.0-99.0) fL MCH (27.0-31.0) pg MCHC (33.0-37.0) g/dL RDW (11.5-14.5) % Plt Count (130-400) K/uL MPV (7.2-11.7) fL Neut % (Auto) (50.0-75.0) % Lymph % (Auto) (20.0-40.0) % [place] % (Auto) (0.0-10.0) % Eos % (Auto) (0.0-4.0) % Baso % (Auto) (0.0-2.0) % Neut # (Auto) (1.8-7.0) K/uL Lymph # (Auto) (1.0-4.3) K/uL [place] # (Auto) (0.0-0.8) K/uL Eos # (Auto) (0.0-0.7) K/uL Baso # (Auto) (0.0-0.2) K/uL PT (9.7-12.2) SECONDS INR APTT (21-34) SECONDS Sodium (132-148) mmol/L Potassium (3.6-5.2) mmol/L Chloride (98-107) mmol/L Carbon Dioxide (22-30) mmol/L Anion Gap (10-20) BUN (7-17) mg/dL Creatinine (0.7-1.2) mg/dL Est GFR ( Amer) Est GFR (Non-Af Amer) Random Glucose (65-105) mg/dL Calcium (8.6-10.4) mg/dl Phosphorus (2.5-4.5) mg/dL Magnesium (1.6-2.3) mg/dL Total Bilirubin (0.2-1.3) mg/dL AST (14-36) U/L ALT (9-52) U/L Alkaline Phosphatase (38-126) U/L Total Protein (6.3-8.3) g/dL Albumin (3.5-5.0) g/dL Globulin (2.2-3.9) gm/dL Albumin/Globulin Ratio (1.0-2.1) Urine Opiates Screen Negative (NEGATIVE) Urine Methadone Screen Negative (NEGATIVE) Ur Barbiturates Screen Negative (NEGATIVE) Ur Phencyclidine Scrn Negative (NEGATIVE) Ur Amphetamines Screen Negative (NEGATIVE) U Benzodiazepines Scrn Negative (NEGATIVE) U Oth Cocaine Metabols Negative (NEGATIVE) U Cannabinoids Screen Negative (NEGATIVE) Laboratory Results - last 24 hr 07/19/18 07/20/18 07/20/18 09:23 06:09 06:09 WBC 6.9 RBC 4.77 Hgb 14.1 Hct 43.4 MCV 91.0 MCH 29.7 MCHC 32.6 L RDW 16.0 H Plt Count 235 MPV 8.7 Neut % (Auto) 69.5 Lymph % (Auto) 15.3 L [place] % (Auto) 10.8 H Eos % (Auto) 3.2 Baso % (Auto) 1.2 Neut # (Auto) 4.8 Lymph # (Auto) 1.0 [place] # (Auto) 0.7 Eos # (Auto) 0.2 Baso # (Auto) 0.1 PT INR APTT Sodium 137 Potassium 4.3 Chloride 99 Carbon Dioxide 32 H Anion Gap 10 BUN 19 H Creatinine 0.8 Est GFR ( Amer) > 60 Est GFR (Non-Af Amer) > 60 Random Glucose 93 Calcium 8.2 L Phosphorus 2.8 Magnesium 1.7 Total Bilirubin 0.6 AST 41 H ALT 39 Alkaline Phosphatase 131 H Total Protein 6.5 Albumin 3.2 L Globulin 3.3 Albumin/Globulin Ratio 1.0 Urine Opiates Screen Negative Urine Methadone Screen Negative Ur Barbiturates Screen Negative Ur Phencyclidine Scrn Negative Ur Amphetamines Screen Negative U Benzodiazepines Scrn Negative U Oth Cocaine Metabols Negative U Cannabinoids Screen Negative 07/20/18 06:09 WBC RBC Hgb Hct MCV MCH MCHC RDW Plt Count MPV Neut % (Auto) Lymph % (Auto) [place] % (Auto) Eos % (Auto) Baso % (Auto) Neut # (Auto) Lymph # (Auto) [place] # (Auto) Eos # (Auto) Baso # (Auto) PT 18.1 H INR 1.7 APTT 35 H Sodium Potassium Chloride Carbon Dioxide Anion Gap BUN Creatinine Est GFR ( Amer) Est GFR (Non-Af Amer) Random Glucose Calcium Phosphorus Magnesium Total Bilirubin AST ALT Alkaline Phosphatase Total Protein Albumin Globulin Albumin/Globulin Ratio Urine Opiates Screen Urine Methadone Screen Ur Barbiturates Screen Ur Phencyclidine Scrn Ur Amphetamines Screen U Benzodiazepines Scrn U Oth Cocaine Metabols U Cannabinoids Screen Review of Systems - Review of Systems All systems: reviewed and no additional remarkable complaints except - EENT Eyes: UNREMARKABLE Ears: UNREMARKABLE Nose/Mouth/Throat: UNREMARKABLE - Cardiovascular Cardiovascular: UNREMARKABLE. absent: Chest Pain, Diaphoresis, Dyspnea, Edema - Respiratory Respiratory: UNREMARKABLE. absent: Cough, Dyspnea - Gastrointestinal Gastrointestinal: UNREMARKABLE. absent: Abdominal Pain, Nausea, Vomiting - Genitourinary Genitourinary: UNREMARKABLE - Musculoskeletal Musculoskeletal: UNREMARKABLE - Integumentary Integumentary: UNREMARKABLE - Neurological Neurological: UNREMARKABLE - Psychiatric Psychiatric: UNREMARKABLE - Endocrine Endocrine: UNREMARKABLE - Hematologic/Lymphatic Hematologic: UNREMARKABLE Critical Care Progress Note - Extremities/Vascular Does the Patient have a Central Venous Catheter?: No Does the Patient need a Central Venous Catheter?: No Does the Patient have a Gayle Catheter?: No Does the Patient need a Gayle Catheter?: No - Prophylaxis GI Prophylaxis GI: Pepsid - Prophylaxis DVT Prophylaxis DVT: Not Indicated (Xarelto) - Nutrition Nutrition: Nutrition Category Date Time Status Heart Healthy Diet [DIET] Diets 07/14/18 Breakfast Active Assessment/Plan - Assessment and Plan (Free Text) Assessment: Patient is a 72 yo female with a history of Afib, HTN, anxiety, and depression who presented with a cough and generalized weakness. She was initially admitted to med/surg, but a NON DESTRUCTIVE TESTER was called due to symptomatic bradycardia and hypotension, and she was transferred to the ICU for Dobutamine drip. She has a mod-large L sided pleural effusion. She has a history of L atrial appendage thrombus and is on Xarelto. TTE and KARY do not show vegetation. EF 15%- will get EP eval. She is able to be transferred to telemetry unit. Plan: Neuro: - Lethargy/AMS improved - CT head negative - Monitor mental status CV: Consider sick sinus syndrome Afib RVR- rate improving - Cardizem 5 mg IV Q4H PRN - Xarelto to 15 mg PO daily - Increase Metoprolol to 75 mg PO BID Bradycardia- resolved - NON DESTRUCTIVE TESTER on 07/15 for symptomatic bradycardia - Trop negative x2 - Cardiology consulted ([facility]) CHF - CXR: CHF type pattern, cardiomegaly - Pro-BNP 31,900 - KARY: EF 15%, diffuse hypokinesis, RA and LA dilated - TTE: no thrombus visualized - EP consulted ([facility]) - Crestor 5 mg PO QHS Pulm: - Maintain spO2>92%- supplemental O2 PRN - Flu negative - CXR: CHF type pattern, L pleural effusion and/or consolidation, mod pulm venous congestion - Subsequent CXR: no change in L pleural effusion - CT chest: b/l pleural effusions L>R - Atrovent Q4H - Promethazine/Codeine 5 mL PO Q4H PRN - IR ([facility])- rec diuresis > thoracentesis GI: - Heart healthy diet - Ensure Enlive x3 - Manager Of Organizational Development referral for poor PO intake : - I's & O's - Replete electrolytes PRN - Urine Na 93, K 25.9, Cl 80 Endo: - Maintain euglycemia - TSH elevated (6.85) - Free T4, total T4 wnl Heme: - Monitor H&H - Monitor PT/INR/PTT - LE Dopplers: no DVT ID: - No leukocytosis, afebrile - Procal wnl - Blood Cx no growth - Rocephin 1 g IV daily PPx: VTE: on Xarelto GI: Pepcid 20 mg PO daily PT/OT Code status: full code Case discussed with attending, Dr. Karoline Buchanan. PGY-1 Aleena Tsai D.O. <Jean-Pierre Buchanan - Last Filed: 07/20/18 16:27> CCU Objective - Vital Signs / Intake & Output Intake and Output (Last 8hrs): Intake & Output 07/20/18 07/20/18 07/20/18 06:59 14:59 22:59 Intake Total 360 0 Output Total 450 0 Balance -90 0 Weight 100 lb 4.8 oz Intake: Oral 360 0 Output: Urine 450 0 Urine, Voided 450 0 - Medications Active Medications: Active Medications Generic Name Dose Route Start Last Admin Trade Name Freq PRN Reason Stop Dose Admin Diltiazem HCl 5 mg 07/19/18 11:31 Cardizem IVP Q4 PRN Heart rate Docusate Sodium 100 mg 07/20/18 18:00 Colace PO BID MAGALYS Famotidine 20 mg 07/16/18 15:15 07/20/18 10:35 Pepcid PO 20 mg DAILY [facility] Administration Ceftriaxone Sodium 1 gm/ 100 mls @ 100 mls/hr 07/14/18 10:00 07/20/18 10:35 Sodium Chloride IVPB 100 mls/hr DAILY [facility] Administration Protocol Diltiazem HCl 125 mg/ Dextrose 125 mls @ 5 mls/hr 07/17/18 13:00 07/19/18 09:20 IV 0 mg/hr .Q24H [facility] 0 mls/hr Titration Protocol 5 MG/HR Ipratropium [place] 0.5 mg 07/19/18 12:00 07/20/18 12:56 Atrovent IH 0.5 mg RQ4 MAGALYS Administration Lactulose 20 gm 07/20/18 22:00 Enulose PO HS MAG[facility] Metoprolol Tartrate 75 mg 07/20/18 10:00 07/20/18 10:35 Lopressor PO 75 mg BID MAG[facility]YS Administration Promethazine HCl/Codeine 5 ml 07/19/18 12:00 07/20/18 15:46 Phenergan/Codeine Oral Syrup PO 5 ml Q4 PRN Administration Cough and congestion Rivaroxaban 15 mg 07/18/18 09:03 07/20/18 10:34 Xarelto PO 15 mg DAILY [facility] Administration - Patient Studies Lab Studies: Lab Studies 07/20/18 07/20/18 07/20/18 Range/Units 06:09 06:09 06:09 WBC 6.9 (4.8-10.8) K/uL RBC 4.77 (3.80-5.20) Mil/uL Hgb 14.1 (11.0-16.0) g/dL Hct 43.4 (34.0-47.0) % MCV 91.0 (81.0-99.0) fL MCH 29.7 (27.0-31.0) pg MCHC 32.6 L (33.0-37.0) g/dL RDW 16.0 H (11.5-14.5) % Plt Count 235 (130-400) K/uL MPV 8.7 (7.2-11.7) fL Neut % (Auto) 69.5 (50.0-75.0) % Lymph % (Auto) 15.3 L (20.0-40.0) % [place] % (Auto) 10.8 H (0.0-10.0) % Eos % (Auto) 3.2 (0.0-4.0) % Baso % (Auto) 1.2 (0.0-2.0) % Neut # (Auto) 4.8 (1.8-7.0) K/uL Lymph # (Auto) 1.0 (1.0-4.3) K/uL [place] # (Auto) 0.7 (0.0-0.8) K/uL Eos # (Auto) 0.2 (0.0-0.7) K/uL Baso # (Auto) 0.1 (0.0-0.2) K/uL PT 18.1 H (9.7-12.2) SECONDS INR 1.7 APTT 35 H (21-34) SECONDS Sodium 137 (132-148) mmol/L Potassium 4.3 (3.6-5.2) mmol/L Chloride 99 (98-107) mmol/L Carbon Dioxide 32 H (22-30) mmol/L Anion Gap 10 (10-20) BUN 19 H (7-17) mg/dL Creatinine 0.8 (0.7-1.2) mg/dL Est GFR ( Amer) > 60 Est GFR (Non-Af Amer) > 60 Random Glucose 93 (65-105) mg/dL Calcium 8.2 L (8.6-10.4) mg/dl Phosphorus 2.8 (2.5-4.5) mg/dL Magnesium 1.7 (1.6-2.3) mg/dL Total Bilirubin 0.6 (0.2-1.3) mg/dL AST 41 H (14-36) U/L ALT 39 (9-52) U/L Alkaline Phosphatase 131 H (38-126) U/L Total Protein 6.5 (6.3-8.3) g/dL Albumin 3.2 L (3.5-5.0) g/dL Globulin 3.3 (2.2-3.9) gm/dL Albumin/Globulin Ratio 1.0 (1.0-2.1) Urine Chloride (32-290) mmol/L 07/18/18 Range/Units 17:30 WBC (4.8-10.8) K/uL RBC (3.80-5.20) Mil/uL Hgb (11.0-16.0) g/dL Hct (34.0-47.0) % MCV (81.0-99.0) fL MCH (27.0-31.0) pg MCHC (33.0-37.0) g/dL RDW (11.5-14.5) % Plt Count (130-400) K/uL MPV (7.2-11.7) fL Neut % (Auto) (50.0-75.0) % Lymph % (Auto) (20.0-40.0) % [place] % (Auto) (0.0-10.0) % Eos % (Auto) (0.0-4.0) % Baso % (Auto) (0.0-2.0) % Neut # (Auto) (1.8-7.0) K/uL Lymph # (Auto) (1.0-4.3) K/uL [place] # (Auto) (0.0-0.8) K/uL Eos # (Auto) (0.0-0.7) K/uL Baso # (Auto) (0.0-0.2) K/uL PT (9.7-12.2) SECONDS INR APTT (21-34) SECONDS Sodium (132-148) mmol/L Potassium (3.6-5.2) mmol/L Chloride (98-107) mmol/L Carbon Dioxide (22-30) mmol/L Anion Gap (10-20) BUN (7-17) mg/dL Creatinine (0.7-1.2) mg/dL Est GFR ( Amer) Est GFR (Non-Af Amer) Random Glucose (65-105) mg/dL Calcium (8.6-10.4) mg/dl Phosphorus (2.5-4.5) mg/dL Magnesium (1.6-2.3) mg/dL Total Bilirubin (0.2-1.3) mg/dL AST (14-36) U/L ALT (9-52) U/L Alkaline Phosphatase (38-126) U/L Total Protein (6.3-8.3) g/dL Albumin (3.5-5.0) g/dL Globulin (2.2-3.9) gm/dL Albumin/Globulin Ratio (1.0-2.1) Urine Chloride 80 (32-290) mmol/L Laboratory Results - last 24 hr 07/18/18 07/20/18 07/20/18 17:30 06:09 06:09 WBC 6.9 RBC 4.77 Hgb 14.1 Hct 43.4 MCV 91.0 MCH 29.7 MCHC 32.6 L RDW 16.0 H Plt Count 235 MPV 8.7 Neut % (Auto) 69.5 Lymph % (Auto) 15.3 L [place] % (Auto) 10.8 H Eos % (Auto) 3.2 Baso % (Auto) 1.2 Neut # (Auto) 4.8 Lymph # (Auto) 1.0 [place] # (Auto) 0.7 Eos # (Auto) 0.2 Baso # (Auto) 0.1 PT INR APTT Sodium 137 Potassium 4.3 Chloride 99 Carbon Dioxide 32 H Anion Gap 10 BUN 19 H Creatinine 0.8 Est GFR ( Amer) > 60 Est GFR (Non-Af Amer) > 60 Random Glucose 93 Calcium 8.2 L Phosphorus 2.8 Magnesium 1.7 Total Bilirubin 0.6 AST 41 H ALT 39 Alkaline Phosphatase 131 H Total Protein 6.5 Albumin 3.2 L Globulin 3.3 Albumin/Globulin Ratio 1.0 Urine Chloride 80 07/20/18 06:09 WBC RBC Hgb Hct MCV MCH MCHC RDW Plt Count MPV Neut % (Auto) Lymph % (Auto) [place] % (Auto) Eos % (Auto) Baso % (Auto) Neut # (Auto) Lymph # (Auto) [place] # (Auto) Eos # (Auto) Baso # (Auto) PT 18.1 H INR 1.7 APTT 35 H Sodium Potassium Chloride Carbon Dioxide Anion Gap BUN Creatinine Est GFR ( Amer) Est GFR (Non-Af Amer) Random Glucose Calcium Phosphorus Magnesium Total Bilirubin AST ALT Alkaline Phosphatase Total Protein Albumin Globulin Albumin/Globulin Ratio Urine Chloride Critical Care Progress Note - Nutrition Nutrition: Nutrition Category Date Time Status Heart Healthy Diet [DIET] Diets 07/14/18 Breakfast Active Assessment/Plan - Assessment and Plan (Free Text) Plan: Patient with h/o severe heart failure being treated for P. A-fib with IV cardizem. PAtient titrated off cardizem and placed on oral metoprolol -Severe systolic heart failure: continue treatment as per cardiology, consider anticoagulation dual antiplatelet and acei as BP tolerates -CADSvasc score >2: consider AC and Av prateek alberto -Patient will benefit from external vest and/or internal AICD. Patient remains hemodynamically stable. d/w ICU team -lopressor increased to 75 mg BID - Date & Time Date: 07/20/18 Time: 16:26
[2018-07-20] MEDS ORDERED: Magnesium Sulfate 1 gm in D5W 1 GM/100 ML BAG IVPB ONE ×2 (07:55→11:00)
--- NOTE | 2018-07-20 08:26 | RAD ---
Date of service: 07/20/2018 HISTORY: pleural effusions COMPARISON: 07/18/2018. FINDINGS: LUNGS: The lungs are well inflated. The right lung is clear. There is airspace disease in the left lower lobe. PLEURA: Improving small left pleural effusion. No right pleural effusion. No pneumothorax. CARDIOVASCULAR: Mild cardiomegaly. Atherosclerotic aortic arch calcifications are present. OSSEOUS STRUCTURES: Within normal limits for the patient's age. VISUALIZED UPPER ABDOMEN: Normal. OTHER FINDINGS: None. IMPRESSION: Improving left pleural effusion and left lower lobe atelectasis/pneumonia.
--- NOTE | 2018-07-20 15:09 | CP.PCM.PN ---
Subjective - Date & Time of Evaluation Date of Evaluation: 07/20/18 Time of Evaluation: 15:05 - Subjective Subjective: Patient with severe L V systolic dysfunction, Atrial fibrillation and pneumonia. Still have cough and SOB. Objective - Vital Signs/Intake and Output Vital Signs (last 24 hours): Temp Pulse Resp BP Pulse Ox 98.2 F 102 H 23 127/75 96 07/19/18 17:00 07/20/18 07:03 07/20/18 07:03 07/20/18 10:35 07/20/18 07:03 Intake and Output: 07/20/18 07/20/18 06:59 18:59 Intake Total 360 0 Output Total 450 0 Balance -90 0 - Medications Medications: Current Medications Diltiazem HCl (Cardizem) 5 mg IVP Q4 PRN PRN Reason: Heart rate Famotidine (Pepcid) 20 mg PO DAILY [facility] Last Admin: 07/20/18 10:35 Dose: 20 mg Ceftriaxone Sodium 1 gm/ (Sodium Chloride) 100 mls @ 100 mls/hr IVPB DAILY [facility]; Protocol Last Admin: 07/20/18 10:35 Dose: 100 mls/hr Diltiazem HCl 125 mg/ Dextrose 125 mls @ 5 mls/hr IV .Q24H [facility]; Protocol Last Titration: 07/19/18 09:20 Dose: 0 mg/hr, 0 mls/hr Ipratropium [place] (Atrovent) 0.5 mg IH RQ4 [facility] Last Admin: 07/20/18 12:56 Dose: 0.5 mg Metoprolol Tartrate (Lopressor) 75 mg PO BID [facility] Last Admin: 07/20/18 10:35 Dose: 75 mg Promethazine HCl/Codeine (Phenergan/Codeine Oral Syrup) 5 ml PO Q4 PRN PRN Reason: Cough and congestion Last Admin: 07/19/18 12:24 Dose: 5 ml Rivaroxaban (Xarelto) 15 mg PO DAILY [facility] Last Admin: 07/20/18 10:34 Dose: 15 mg - Labs Labs: 07/20/18 06:09 07/20/18 06:09 PT 18.1 SECONDS (9.7-12.2) H 07/20/18 06:09 INR 1.7 07/20/18 06:09 APTT 35 SECONDS (21-34) H 07/20/18 06:09 - Head Exam Head Exam: NORMOCEPHALIC - Neck Exam Neck Exam: Normal Inspection - Respiratory Exam Respiratory Exam: Decreased Breath Sounds - Cardiovascular Exam Cardiovascular Exam: Irregular Rhythm Assessment and Plan (1) CHF (congestive heart failure) Assessment & Plan: severe LV systolic dysfunction. Fluid restriction to 1 L/Day. Add Digoxin in regimen. Dscussed with patient and friend For life vest and possible AICD. Status: Acute (2) Atrial fibrillation Assessment & Plan: Rate not well controlled. Increase beta blockers as tolerated. Will Discuss with EP. Status: Chronic
[2018-07-20] MEDS: Promethazine/Cod 6.25mg-10mg/5ml Syr UD PO PRN (15:46)
[2018-07-20] MEDS ORDERED: Digoxin 500 mcg/2ml (0.5 mg/2ml) Inj IVP ONE ×2 (16:28→18:00)
--- NOTE | 2018-07-20 18:59 | CP.PCM.PN ---
Subjective - Date & Time of Evaluation Date of Evaluation: 07/20/18 Time of Evaluation: 12:00 - Subjective Subjective: clinically same Objective - Vital Signs/Intake and Output Vital Signs (last 24 hours): Temp Pulse Resp BP Pulse Ox 98.2 F 108 H 25 H 124/71 98 07/19/18 17:00 07/20/18 18:02 07/20/18 18:02 07/20/18 18:02 07/20/18 18:02 Intake and Output: 07/20/18 07/20/18 06:59 18:59 Intake Total 360 480 Output Total 450 600 Balance -90 -120 - Medications Medications: Current Medications Diltiazem HCl (Cardizem) 5 mg IVP Q4 PRN PRN Reason: Heart rate Docusate Sodium (Colace) 100 mg PO BID [facility] Famotidine (Pepcid) 20 mg PO DAILY [facility] Last Admin: 07/20/18 10:35 Dose: 20 mg Ceftriaxone Sodium 1 gm/ (Sodium Chloride) 100 mls @ 100 mls/hr IVPB DAILY [facility]; Protocol Last Admin: 07/20/18 10:35 Dose: 100 mls/hr Ipratropium [place] (Atrovent) 0.5 mg IH RQ4 [facility] Last Admin: 07/20/18 16:50 Dose: Not Given Lactulose (Enulose) 20 gm PO HS [facility] Lisinopril (Zestril) 2.5 mg PO DAILY [facility] Metoprolol Tartrate (Lopressor) 75 mg PO BID [facility] Last Admin: 07/20/18 10:35 Dose: 75 mg Promethazine HCl/Codeine (Phenergan/Codeine Oral Syrup) 5 ml PO Q4 PRN PRN Reason: Cough and congestion Last Admin: 07/20/18 15:46 Dose: 5 ml Rivaroxaban (Xarelto) 15 mg PO DAILY [facility] Last Admin: 07/20/18 10:34 Dose: 15 mg - Labs Labs: 07/20/18 06:09 07/20/18 06:09 PT 18.1 SECONDS (9.7-12.2) H 07/20/18 06:09 INR 1.7 07/20/18 06:09 APTT 35 SECONDS (21-34) H 07/20/18 06:09 - Constitutional Appears: Well - Head Exam Head Exam: ATRAUMATIC, NORMAL INSPECTION, NORMOCEPHALIC - Eye Exam Eye Exam: EOMI, Normal appearance, PERRL Pupil Exam: NORMAL ACCOMODATION, PERRL - ENT Exam ENT Exam: Mucous Membranes Moist, Normal Exam - Neck Exam Neck Exam: Full ROM, Normal Inspection. absent: Lymphadenopathy - Respiratory Exam Respiratory Exam: Decreased Breath Sounds - Cardiovascular Exam Cardiovascular Exam: REGULAR RHYTHM, +S1, +S2 - GI/Abdominal Exam GI & Abdominal Exam: Soft, Diminished Bowel Sounds - Rectal Exam Rectal Exam: Deferred
[2018-07-20] MEDS ORDERED: Digoxin 500 mcg/2ml (0.5 mg/2ml) Inj ONE (19:07)
[2018-07-20 19:08] VITALS: PULSE 109
[2018-07-21] MEDS: Ipratropium 0.02% Inhal Soln (0.5 mg/2.5 ml) UD IH SCH ×5 (03:10→20:21)
[2018-07-21] MEDS: Promethazine/Cod 6.25mg-10mg/5ml Syr UD PO PRN (10:00)
--- NOTE | 2018-07-21 19:51 | CP.PCM.PN ---
Subjective - Date & Time of Evaluation Date of Evaluation: 07/21/18 Time of Evaluation: 10:45 - Subjective Subjective: clinically same Objective - Vital Signs/Intake and Output Vital Signs (last 24 hours): Temp Pulse Resp BP Pulse Ox 97.9 F 98 H 25 H 148/64 96 07/21/18 16:00 07/21/18 16:00 07/21/18 16:00 07/21/18 17:38 07/21/18 16:00 Intake and Output: 07/21/18 07/22/18 18:59 06:59 Intake Total 240 Output Total 200 Balance 40 - Medications Medications: Current Medications Diltiazem HCl (Cardizem) 5 mg IVP Q4 PRN PRN Reason: Heart rate Docusate Sodium (Colace) 100 mg PO BID [facility] Last Admin: 07/21/18 17:39 Dose: Not Given Famotidine (Pepcid) 20 mg PO DAILY [facility] Last Admin: 07/21/18 10:00 Dose: 20 mg Ipratropium [place] (Atrovent) 0.5 mg IH RQ4 [facility] Last Admin: 07/21/18 16:15 Dose: Not Given Lactulose (Enulose) 20 gm PO HS [facility] Last Admin: 07/20/18 22:00 Dose: Not Given Lisinopril (Zestril) 2.5 mg PO DAILY [facility] Last Admin: 07/21/18 09:59 Dose: 2.5 mg Metoprolol Tartrate (Lopressor) 75 mg PO BID [facility] Last Admin: 07/21/18 17:38 Dose: 75 mg Promethazine HCl/Codeine (Phenergan/Codeine Oral Syrup) 5 ml PO Q4 PRN PRN Reason: Cough and congestion Last Admin: 07/21/18 10:00 Dose: 5 ml Rivaroxaban (Xarelto) 15 mg PO DAILY [facility] Last Admin: 07/21/18 10:00 Dose: 15 mg - Labs Labs: 07/20/18 06:09 07/20/18 06:09 PT 18.1 SECONDS (9.7-12.2) H 07/20/18 06:09 INR 1.7 07/20/18 06:09 APTT 35 SECONDS (21-34) H 07/20/18 06:09 - Constitutional Appears: Well - Head Exam Head Exam: ATRAUMATIC, NORMAL INSPECTION, NORMOCEPHALIC - Eye Exam Eye Exam: EOMI, Normal appearance, PERRL Pupil Exam: NORMAL ACCOMODATION, PERRL - ENT Exam ENT Exam: Mucous Membranes Moist, Normal Exam - Neck Exam Neck Exam: Full ROM, Normal Inspection. absent: Lymphadenopathy - Respiratory Exam Respiratory Exam: Decreased Breath Sounds - Cardiovascular Exam Cardiovascular Exam: REGULAR RHYTHM, +S1, +S2 - GI/Abdominal Exam GI & Abdominal Exam: Soft, Diminished Bowel Sounds - Rectal Exam Rectal Exam: Deferred
--- NOTE | 2018-07-21 22:07 | CP.PCM.PN ---
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; mechanism is unclear; a tachycardia induced cardiomyopathy remains a possibility given their poor medical follow up; although the data is nebulous she may be a candidate for sudden prophylaxis; her fragility and minimal subcutaneous issue is a concern for wound dehiscence; an external defibrillator (life vest) until documentation of permanence of LV systolic dysfunction is reasonable Atrial fibrillation is likely related to the cardiomyopathy, needs rate control (maximize beta blockade, could add digoxin) and anticoagulation; would discontinue flecainide; also of note significantly prolonged QTc interval; Cardioversion and amiodarone is an option IF the left atrial appendage thrombus has resolved, QTc normalizes and thyroid function tests are normal Discussed prognosis options procedures and risks with patient and her ; they verbalized understanding and agreed to proceed with a life vest Objective - Vital Signs/Intake and Output Vital Signs (last 24 hours): Temp Pulse Resp BP Pulse Ox 97.9 F 83 24 148/64 97 07/21/18 16:00 07/21/18 17:30 07/21/18 17:30 07/21/18 17:38 07/21/18 17:30 Intake and Output: 07/21/18 07/22/18 18:59 06:59 Intake Total 700 Output Total 650 Balance 50 - Medications Medications: Current Medications Diltiazem HCl (Cardizem) 5 mg IVP Q4 PRN PRN Reason: Heart rate Docusate Sodium (Colace) 100 mg PO BID [facility] Last Admin: 07/21/18 17:39 Dose: Not Given Famotidine (Pepcid) 20 mg PO DAILY [facility] Last Admin: 07/21/18 10:00 Dose: 20 mg Ceftriaxone Sodium 1 gm/ (Sodium Chloride) 100 mls @ 100 mls/hr IVPB DAILY [facility]; Protocol Stop: 07/28/18 10:00 Ipratropium [place] (Atrovent) 0.5 mg IH RQ4 [facility] Last Admin: 07/21/18 20:21 Dose: Not Given Lactulose (Enulose) 20 gm PO HS [facility] Last Admin: 07/20/18 22:00 Dose: Not Given Lisinopril (Zestril) 2.5 mg PO DAILY [facility] Last Admin: 07/21/18 09:59 Dose: 2.5 mg Metoprolol Tartrate (Lopressor) 75 mg PO BID [facility] Last Admin: 07/21/18 17:38 Dose: 75 mg Promethazine HCl/Codeine (Phenergan/Codeine Oral Syrup) 5 ml PO Q4 PRN PRN Reason: Cough and congestion Last Admin: 07/21/18 10:00 Dose: 5 ml Rivaroxaban (Xarelto) 15 mg PO DAILY [facility] Last Admin: 07/21/18 10:00 Dose: 15 mg - Labs Labs: 07/20/18 06:09 07/20/18 06:09 PT 18.1 SECONDS (9.7-12.2) H 07/20/18 06:09 INR 1.7 07/20/18 06:09 APTT 35 SECONDS (21-34) H 07/20/18 06:09
[2018-07-22] MEDS: Ipratropium 0.02% Inhal Soln (0.5 mg/2.5 ml) UD IH SCH ×5 (00:12→16:29)
--- NOTE | 2018-07-22 14:21 | CP.PCM.PN ---
Subjective - Date & Time of Evaluation Date of Evaluation: 07/22/18 Time of Evaluation: 11:15 - Subjective Subjective: clinically same Objective - Vital Signs/Intake and Output Vital Signs (last 24 hours): Temp Pulse Resp BP Pulse Ox 97.9 F 85 24 148/73 97 07/21/18 16:00 07/22/18 08:00 07/21/18 17:30 07/22/18 09:51 07/21/18 17:30 Intake and Output: 07/22/18 07/22/18 06:59 18:59 Intake Total 120 Output Total 300 Balance -180 - Medications Medications: Current Medications Diltiazem HCl (Cardizem) 5 mg IVP Q4 PRN PRN Reason: Heart rate Docusate Sodium (Colace) 100 mg PO BID [facility] Last Admin: 07/22/18 09:51 Dose: 100 mg Famotidine (Pepcid) 20 mg PO DAILY [facility] Last Admin: 07/22/18 09:51 Dose: 20 mg Ceftriaxone Sodium 1 gm/ (Sodium Chloride) 100 mls @ 100 mls/hr IVPB DAILY [facility]; Protocol Stop: 07/28/18 10:00 Last Admin: 07/22/18 09:51 Dose: 100 mls/hr Ipratropium [place] (Atrovent) 0.5 mg IH RQ4 [facility] Last Admin: 07/22/18 11:07 Dose: Not Given Lactulose (Enulose) 20 gm PO HS [facility] Last Admin: 07/21/18 22:00 Dose: Not Given Lisinopril (Zestril) 2.5 mg PO DAILY [facility] Last Admin: 07/22/18 09:51 Dose: 2.5 mg Metoprolol Tartrate (Lopressor) 75 mg PO BID [facility] Last Admin: 07/22/18 09:51 Dose: 75 mg Promethazine HCl/Codeine (Phenergan/Codeine Oral Syrup) 5 ml PO Q4 PRN PRN Reason: Cough and congestion Last Admin: 07/21/18 10:00 Dose: 5 ml Rivaroxaban (Xarelto) 15 mg PO DAILY [facility] Last Admin: 07/22/18 09:51 Dose: 15 mg - Labs Labs: 07/20/18 06:09 07/20/18 06:09 PT 18.1 SECONDS (9.7-12.2) H 07/20/18 06:09 INR 1.7 07/20/18 06:09 APTT 35 SECONDS (21-34) H 07/20/18 06:09 - Constitutional Appears: Well - Head Exam Head Exam: ATRAUMATIC, NORMAL INSPECTION, NORMOCEPHALIC - Eye Exam Eye Exam: EOMI, Normal appearance, PERRL Pupil Exam: NORMAL ACCOMODATION, PERRL - ENT Exam ENT Exam: Mucous Membranes Moist, Normal Exam - Neck Exam Neck Exam: Full ROM, Normal Inspection. absent: Lymphadenopathy - Respiratory Exam Respiratory Exam: Decreased Breath Sounds - Cardiovascular Exam Cardiovascular Exam: REGULAR RHYTHM, +S1, +S2 - GI/Abdominal Exam GI & Abdominal Exam: Soft, Diminished Bowel Sounds - Rectal Exam Rectal Exam: Deferred
[2018-07-22 17:54] VITALS: RESP 20
--- NOTE | 2018-07-22 19:29 | CP.PCM.PN ---
Subjective - Date & Time of Evaluation Date of Evaluation: 07/22/18 Time of Evaluation: 19:27 - Subjective Subjective: No interval change Transferred to the floor Denied dizziness palpitations Exam No distress Lying flat in bed Normal venous pressures No neck bruits No goiter Left basal dullness Clear lungs ?PMI Normal heart sounds intensity No edema DP (+=+) Telemetry: reviewed Labs; No current labs Stable cardiomyopathy: awaiting life vest Atrial fibrillation: rate controlled Prolonged QTc DW patient and issues, caveats with life vest use and plans for possible defibrillator implant Plan: as outlined earlier Objective - Vital Signs/Intake and Output Vital Signs (last 24 hours): Temp Pulse Resp BP Pulse Ox 99.1 F 84 20 137/77 96 07/22/18 17:53 07/22/18 17:53 07/22/18 17:53 07/22/18 17:53 07/22/18 17:53 - Medications Medications: Current Medications Diltiazem HCl (Cardizem) 5 mg IVP Q4 PRN PRN Reason: Heart rate Docusate Sodium (Colace) 100 mg PO BID [facility] Last Admin: 07/22/18 17:13 Dose: 100 mg Famotidine (Pepcid) 20 mg PO DAILY [facility] Last Admin: 07/22/18 09:51 Dose: 20 mg Ceftriaxone Sodium 1 gm/ (Sodium Chloride) 100 mls @ 100 mls/hr IVPB DAILY [facility]; Protocol Stop: 07/28/18 10:00 Last Admin: 07/22/18 09:51 Dose: 100 mls/hr Ipratropium [place] (Atrovent) 0.5 mg IH RQ4 [facility] Last Admin: 07/22/18 16:29 Dose: Not Given Lactulose (Enulose) 20 gm PO HS [facility] Last Admin: 07/21/18 22:00 Dose: Not Given Lisinopril (Zestril) 2.5 mg PO DAILY [facility] Last Admin: 07/22/18 09:51 Dose: 2.5 mg Metoprolol Tartrate (Lopressor) 75 mg PO BID [facility] Last Admin: 07/22/18 17:13 Dose: 75 mg Promethazine HCl/Codeine (Phenergan/Codeine Oral Syrup) 5 ml PO Q4 PRN PRN Reason: Cough and congestion Last Admin: 07/21/18 10:00 Dose: 5 ml Rivaroxaban (Xarelto) 15 mg PO DAILY [facility] Last Admin: 07/22/18 09:51 Dose: 15 mg - Labs Labs: 07/20/18 06:09 07/20/18 06:09 PT 18.1 SECONDS (9.7-12.2) H 07/20/18 06:09 INR 1.7 07/20/18 06:09 APTT 35 SECONDS (21-34) H 07/20/18 06:09
[2018-07-22] MEDS: Promethazine/Cod 6.25mg-10mg/5ml Syr UD PO PRN (21:20)
[2018-07-23] MEDS: Ipratropium 0.02% Inhal Soln (0.5 mg/2.5 ml) UD IH SCH ×5 (00:56→19:53)
--- NOTE | 2018-07-23 08:04 | CP.PCM.PN ---
Subjective - Date & Time of Evaluation Date of Evaluation: 07/23/18 Time of Evaluation: 06:30 - Subjective Subjective: The patient seen and examined Still complaining of slight cough but overall feeling much better aWaiting for life vest Afebrile Denies shortness of breath No chest pain Objective - Vital Signs/Intake and Output Vital Signs (last 24 hours): Temp Pulse Resp BP Pulse Ox 98 F 61 20 127/74 98 07/22/18 23:25 07/22/18 23:25 07/22/18 23:25 07/22/18 23:25 07/22/18 23:25 Intake and Output: 07/23/18 07/23/18 06:59 18:59 Intake Total 240 Balance 240 - Medications Medications: Current Medications Diltiazem HCl (Cardizem) 5 mg IVP Q4 PRN PRN Reason: Heart rate Docusate Sodium (Colace) 100 mg PO BID [facility] Last Admin: 07/22/18 17:13 Dose: 100 mg Famotidine (Pepcid) 20 mg PO DAILY [facility] Last Admin: 07/22/18 09:51 Dose: 20 mg Ceftriaxone Sodium 1 gm/ (Sodium Chloride) 100 mls @ 100 mls/hr IVPB DAILY [facility]; Protocol Stop: 07/28/18 10:00 Last Admin: 07/22/18 09:51 Dose: 100 mls/hr Ipratropium [place] (Atrovent) 0.5 mg IH RQ4 [facility] Last Admin: 07/23/18 00:56 Dose: Not Given Lactulose (Enulose) 20 gm PO HS [facility] Last Admin: 07/22/18 21:17 Dose: Not Given Lisinopril (Zestril) 2.5 mg PO DAILY [facility] Last Admin: 07/22/18 09:51 Dose: 2.5 mg Metoprolol Tartrate (Lopressor) 75 mg PO BID [facility] Last Admin: 07/22/18 17:13 Dose: 75 mg Promethazine HCl/Codeine (Phenergan/Codeine Oral Syrup) 5 ml PO Q4 PRN PRN Reason: Cough and congestion Last Admin: 07/22/18 21:20 Dose: 5 ml Rivaroxaban (Xarelto) 15 mg PO DAILY [facility] Last Admin: 07/22/18 09:51 Dose: 15 mg - Labs Labs: 07/20/18 06:09 07/20/18 06:09 PT 18.1 SECONDS (9.7-12.2) H 07/20/18 06:09 INR 1.7 07/20/18 06:09 APTT 35 SECONDS (21-34) H 07/20/18 06:09 - Head Exam Head Exam: ATRAUMATIC, NORMOCEPHALIC - ENT Exam ENT Exam: Mucous Membranes Moist - Neck Exam Neck Exam: Normal Inspection - Respiratory Exam Respiratory Exam: Decreased Breath Sounds - Cardiovascular Exam Cardiovascular Exam: Irregular Rhythm - GI/Abdominal Exam GI & Abdominal Exam: Soft, Normal Bowel Sounds Assessment and Plan (1) COPD (chronic obstructive pulmonary disease) Assessment & Plan: continue bronchodilators Inhaled steroids Followup chest x-ray Life vest Anticoagulation Status: Acute (2) Pleural effusion due to CHF (congestive heart failure) Status: Acute (3) Atrial fibrillation Status: Chronic
[2018-07-23] MEDS: Promethazine/Cod 6.25mg-10mg/5ml Syr UD PO PRN ×3 (09:52→22:16)
--- NOTE | 2018-07-23 14:45 | CP.PCM.PN ---
Subjective - Date & Time of Evaluation Date of Evaluation: 07/23/18 Time of Evaluation: 07:15 - Subjective Subjective: clinically same Objective - Vital Signs/Intake and Output Vital Signs (last 24 hours): Temp Pulse Resp BP Pulse Ox 97.9 F 57 L 20 147/72 97 07/23/18 08:10 07/23/18 08:10 07/23/18 08:10 07/23/18 09:52 07/23/18 08:10 Intake and Output: 07/23/18 07/23/18 06:59 18:59 Intake Total 240 Balance 240 - Medications Medications: Current Medications Diltiazem HCl (Cardizem) 5 mg IVP Q4 PRN PRN Reason: Heart rate Docusate Sodium (Colace) 100 mg PO BID [facility] Last Admin: 07/23/18 09:52 Dose: 100 mg Famotidine (Pepcid) 20 mg PO DAILY [facility] Last Admin: 07/23/18 09:52 Dose: 20 mg Ipratropium [place] (Atrovent) 0.5 mg IH RQ4 [facility] Last Admin: 07/23/18 13:47 Dose: 0.5 mg Lactulose (Enulose) 20 gm PO HS [facility] Last Admin: 07/22/18 21:17 Dose: Not Given Lisinopril (Zestril) 2.5 mg PO DAILY [facility] Last Admin: 07/23/18 09:52 Dose: 2.5 mg Metoprolol Tartrate (Lopressor) 75 mg PO BID [facility] Last Admin: 07/23/18 09:52 Dose: Not Given Promethazine HCl/Codeine (Phenergan/Codeine Oral Syrup) 5 ml PO Q4 PRN PRN Reason: Cough and congestion Last Admin: 07/23/18 14:04 Dose: 5 ml Rivaroxaban (Xarelto) 15 mg PO DAILY [facility] Last Admin: 07/23/18 09:52 Dose: 15 mg - Labs Labs: 07/20/18 06:09 07/20/18 06:09 PT 18.1 SECONDS (9.7-12.2) H 07/20/18 06:09 INR 1.7 07/20/18 06:09 APTT 35 SECONDS (21-34) H 07/20/18 06:09 - Constitutional Appears: Well - Head Exam Head Exam: ATRAUMATIC, NORMAL INSPECTION, NORMOCEPHALIC - Eye Exam Eye Exam: EOMI, Normal appearance, PERRL Pupil Exam: NORMAL ACCOMODATION, PERRL - ENT Exam ENT Exam: Mucous Membranes Moist, Normal Exam - Neck Exam Neck Exam: Full ROM, Normal Inspection. absent: Lymphadenopathy - Respiratory Exam Respiratory Exam: Decreased Breath Sounds - Cardiovascular Exam Cardiovascular Exam: REGULAR RHYTHM, +S1, +S2 - GI/Abdominal Exam GI & Abdominal Exam: Soft, Diminished Bowel Sounds - Rectal Exam Rectal Exam: Deferred Assessment and Plan - Assessment and Plan (Free Text) Plan: patietn is at risk for sudden cardiac recommend Lifevest discussed with [facility] i spoke to dr. ann and also dr. adrianna agudelo spoke to Medications reviewed Heart rate is stable Laboratory seen As ordered
--- NOTE | 2018-07-23 19:15 | CP.PCM.PN ---
Subjective - Date & Time of Evaluation Date of Evaluation: 07/23/18 Time of Evaluation: 19:10 - Subjective Subjective: patient denies chest pain or dyspnea. is at the bedside Objective - Vital Signs/Intake and Output Vital Signs (last 24 hours): Temp Pulse Resp BP Pulse Ox 98.1 F 69 20 117/66 97 07/23/18 15:00 07/23/18 15:00 07/23/18 15:00 07/23/18 17:30 07/23/18 15:00 - Medications Medications: Current Medications Diltiazem HCl (Cardizem) 5 mg IVP Q4 PRN PRN Reason: Heart rate Docusate Sodium (Colace) 100 mg PO BID [facility] Last Admin: 07/23/18 17:29 Dose: 100 mg Famotidine (Pepcid) 20 mg PO DAILY [facility] Last Admin: 07/23/18 09:52 Dose: 20 mg Ipratropium [place] (Atrovent) 0.5 mg IH RQ4 [facility] Last Admin: 07/23/18 15:42 Dose: Not Given Lactulose (Enulose) 20 gm PO HS [facility] Last Admin: 07/22/18 21:17 Dose: Not Given Lisinopril (Zestril) 2.5 mg PO DAILY [facility] Last Admin: 07/23/18 09:52 Dose: 2.5 mg Metoprolol Tartrate (Lopressor) 75 mg PO BID [facility] Last Admin: 07/23/18 17:30 Dose: 75 mg Promethazine HCl/Codeine (Phenergan/Codeine Oral Syrup) 5 ml PO Q4 PRN PRN Reason: Cough and congestion Last Admin: 07/23/18 14:04 Dose: 5 ml Rivaroxaban (Xarelto) 15 mg PO DAILY [facility] Last Admin: 07/23/18 09:52 Dose: 15 mg - Labs Labs: 07/20/18 06:09 07/20/18 06:09 PT 18.1 SECONDS (9.7-12.2) H 07/20/18 06:09 INR 1.7 07/20/18 06:09 APTT 35 SECONDS (21-34) H 07/20/18 06:09 - Constitutional Appears: Non-toxic - Head Exam Head Exam: NORMAL INSPECTION - Eye Exam Eye Exam: Normal appearance - ENT Exam ENT Exam: Mucous Membranes Moist - Neck Exam Neck Exam: Full ROM - Respiratory Exam Respiratory Exam: NORMAL BREATHING PATTERN - Cardiovascular Exam Cardiovascular Exam: Irregular Rhythm - GI/Abdominal Exam GI & Abdominal Exam: Normal Bowel Sounds - Rectal Exam Rectal Exam: Deferred - Extremities Exam Extremities Exam: absent: Pedal Edema - Back Exam Back Exam: NORMAL INSPECTION - Neurological Exam Neurological Exam: Alert - Psychiatric Exam Psychiatric exam: Normal Affect - Skin Skin Exam: Normal Color Assessment and Plan (1) Rapid atrial fibrillation Assessment & Plan: controlled on medical therapy. continue anticoagulation Status: Acute (2) Cardiomyopathy Assessment & Plan: severe LV dsyfunction, dialted nonischemic cardiomyopathy. patietn is at risk for sudden cardiac . recommend Lifevest. discussed with Sue. Status: Chronic
[2018-07-24] MEDS: Ipratropium 0.02% Inhal Soln (0.5 mg/2.5 ml) UD IH SCH ×6 (02:03→20:28)
[2018-07-24] MEDS: Promethazine/Cod 6.25mg-10mg/5ml Syr UD PO PRN ×2 (09:39→18:04)
--- NOTE | 2018-07-24 15:29 | CP.PCM.PN ---
Subjective - Date & Time of Evaluation Date of Evaluation: 07/24/18 Time of Evaluation: 07:15 - Subjective Subjective: clinically same Objective - Vital Signs/Intake and Output Vital Signs (last 24 hours): Temp Pulse Resp BP Pulse Ox 98.6 F 71 20 125/60 95 07/24/18 08:02 07/24/18 08:02 07/24/18 08:02 07/24/18 09:38 07/24/18 08:02 Intake and Output: 07/24/18 07/24/18 06:59 18:59 Intake Total 330 Balance 330 - Medications Medications: Current Medications Diltiazem HCl (Cardizem) 5 mg IVP Q4 PRN PRN Reason: Heart rate Docusate Sodium (Colace) 100 mg PO BID [facility] Last Admin: 07/24/18 09:40 Dose: 100 mg Famotidine (Pepcid) 20 mg PO DAILY [facility] Last Admin: 07/24/18 09:39 Dose: 20 mg Ipratropium [place] (Atrovent) 0.5 mg IH RQ4 [facility] Last Admin: 07/24/18 14:37 Dose: 0.5 mg Lactulose (Enulose) 20 gm PO HS [facility] Last Admin: 07/23/18 22:16 Dose: Not Given Lisinopril (Zestril) 2.5 mg PO DAILY [facility] Last Admin: 07/24/18 09:39 Dose: 2.5 mg Metoprolol Tartrate (Lopressor) 75 mg PO BID [facility] Last Admin: 07/24/18 09:38 Dose: 75 mg Promethazine HCl/Codeine (Phenergan/Codeine Oral Syrup) 5 ml PO Q4 PRN PRN Reason: Cough and congestion Last Admin: 07/24/18 09:39 Dose: 5 ml Rivaroxaban (Xarelto) 15 mg PO DAILY [facility] Last Admin: 07/24/18 09:39 Dose: 15 mg - Labs Labs: 07/20/18 06:09 07/20/18 06:09 PT 18.1 SECONDS (9.7-12.2) H 07/20/18 06:09 INR 1.7 07/20/18 06:09 APTT 35 SECONDS (21-34) H 07/20/18 06:09 - Constitutional Appears: Well - Head Exam Head Exam: ATRAUMATIC, NORMAL INSPECTION, NORMOCEPHALIC - Eye Exam Eye Exam: EOMI, Normal appearance, PERRL Pupil Exam: NORMAL ACCOMODATION, PERRL - ENT Exam ENT Exam: Mucous Membranes Moist, Normal Exam - Neck Exam Neck Exam: Full ROM, Normal Inspection. absent: Lymphadenopathy - Respiratory Exam Respiratory Exam: Decreased Breath Sounds - Cardiovascular Exam Cardiovascular Exam: REGULAR RHYTHM, +S1, +S2 - GI/Abdominal Exam GI & Abdominal Exam: Soft, Diminished Bowel Sounds - Rectal Exam Rectal Exam: Deferred Assessment and Plan - Assessment and Plan (Free Text) Plan: Spoke to every day On the process of getting life vest Continue diltiazem Continue Atrovent and lisinopril metoprolol Xarelto Status post seen by cardiology Dr. Ruffin As ordered
--- NOTE | 2018-07-24 16:09 | CP.PCM.PN ---
Subjective - Date & Time of Evaluation Date of Evaluation: 07/24/18 Time of Evaluation: 14:20 - Subjective Subjective: Patient seen and examined at bedside, lying down comfortably. Afebrile and in no acute distress. Patient states cough has improved and feeling much better; eating comfortably. Denies shortness of breath, chest pain. Switch from IV Abx. to PO Avelox. Waiting on life vest. Objective - Vital Signs/Intake and Output Vital Signs (last 24 hours): Temp Pulse Resp BP Pulse Ox 98.6 F 71 20 125/60 95 07/24/18 08:02 07/24/18 08:02 07/24/18 08:02 07/24/18 09:38 07/24/18 08:02 Intake and Output: 07/24/18 07/24/18 06:59 18:59 Intake Total 330 Balance 330 - Medications Medications: Current Medications Diltiazem HCl (Cardizem) 5 mg IVP Q4 PRN PRN Reason: Heart rate Docusate Sodium (Colace) 100 mg PO BID [facility] Last Admin: 07/24/18 09:40 Dose: 100 mg Famotidine (Pepcid) 20 mg PO DAILY [facility] Last Admin: 07/24/18 09:39 Dose: 20 mg Ipratropium [place] (Atrovent) 0.5 mg IH RQ4 [facility] Last Admin: 07/24/18 14:37 Dose: 0.5 mg Lactulose (Enulose) 20 gm PO HS [facility] Last Admin: 07/23/18 22:16 Dose: Not Given Lisinopril (Zestril) 2.5 mg PO DAILY [facility] Last Admin: 07/24/18 09:39 Dose: 2.5 mg Metoprolol Tartrate (Lopressor) 75 mg PO BID [facility] Last Admin: 07/24/18 09:38 Dose: 75 mg Promethazine HCl/Codeine (Phenergan/Codeine Oral Syrup) 5 ml PO Q4 PRN PRN Reason: Cough and congestion Last Admin: 07/24/18 09:39 Dose: 5 ml Rivaroxaban (Xarelto) 15 mg PO DAILY [facility] Last Admin: 07/24/18 09:39 Dose: 15 mg - Labs Labs: 07/20/18 06:09 07/20/18 06:09 PT 18.1 SECONDS (9.7-12.2) H 11/09/18 06:09 INR 1.7 07/20/18 06:09 APTT 35 SECONDS (21-34) H 07/20/18 06:09 Assessment and Plan (1) COPD (chronic obstructive pulmonary disease) Status: Acute (2) Pleural effusion due to CHF (congestive heart failure) Status: Acute (3) Atrial fibrillation Status: Chronic
--- NOTE | 2018-07-24 18:49 | CP.PCM.PN ---
Subjective - Date & Time of Evaluation Date of Evaluation: 07/24/18 Time of Evaluation: 18:40 - Subjective Subjective: patinet has no chest pain. lying flat in bed. talked to Lizzl today about the Lifevest. Objective - Vital Signs/Intake and Output Vital Signs (last 24 hours): Temp Pulse Resp BP Pulse Ox 98.9 F 108 H 20 121/71 98 07/24/18 17:28 07/24/18 17:28 07/24/18 17:28 07/24/18 17:43 07/24/18 17:28 Intake and Output: 07/24/18 07/24/18 06:59 18:59 Intake Total 330 Balance 330 - Medications Medications: Current Medications Diltiazem HCl (Cardizem) 5 mg IVP Q4 PRN PRN Reason: Heart rate Docusate Sodium (Colace) 100 mg PO BID [facility] Last Admin: 07/24/18 17:43 Dose: 100 mg Famotidine (Pepcid) 20 mg PO DAILY [facility] Last Admin: 07/24/18 09:39 Dose: 20 mg Ipratropium [place] (Atrovent) 0.5 mg IH RQ4 [facility] Last Admin: 07/24/18 14:37 Dose: 0.5 mg Lactulose (Enulose) 20 gm PO HS [facility] Last Admin: 07/23/18 22:16 Dose: Not Given Lisinopril (Zestril) 2.5 mg PO DAILY [facility] Last Admin: 07/24/18 09:39 Dose: 2.5 mg Metoprolol Tartrate (Lopressor) 75 mg PO BID [facility] Last Admin: 07/24/18 17:43 Dose: 75 mg Promethazine HCl/Codeine (Phenergan/Codeine Oral Syrup) 5 ml PO Q4 PRN PRN Reason: Cough and congestion Last Admin: 07/24/18 18:04 Dose: 5 ml Rivaroxaban (Xarelto) 15 mg PO DAILY [facility] Last Admin: 07/24/18 09:39 Dose: 15 mg - Labs Labs: 07/20/18 06:09 07/20/18 06:09 PT 18.1 SECONDS (9.7-12.2) H 07/20/18 06:09 INR 1.7 07/20/18 06:09 APTT 35 SECONDS (21-34) H 07/20/18 06:09 - Constitutional Appears: Non-toxic - Head Exam Head Exam: NORMAL INSPECTION - Eye Exam Eye Exam: Normal appearance - ENT Exam ENT Exam: Mucous Membranes Moist - Neck Exam Neck Exam: Full ROM - Respiratory Exam Respiratory Exam: Decreased Breath Sounds - Cardiovascular Exam Cardiovascular Exam: Irregular Rhythm - GI/Abdominal Exam GI & Abdominal Exam: Normal Bowel Sounds - Rectal Exam Rectal Exam: Deferred - Extremities Exam Extremities Exam: absent: Pedal Edema - Back Exam Back Exam: NORMAL INSPECTION - Neurological Exam Neurological Exam: Alert - Psychiatric Exam Psychiatric exam: Normal Affect - Skin Skin Exam: Normal Color Assessment and Plan (1) Rapid atrial fibrillation Assessment & Plan: rate is currently controlled on betablocker. continue Xarelto Status: Acute (2) Cardiomyopathy Assessment & Plan: awaiting Lifevest. stable for discharge from cardiac standpoint once Lifevest is fitted. Status: Chronic
[2018-07-25] MEDS: Ipratropium 0.02% Inhal Soln (0.5 mg/2.5 ml) UD IH SCH ×6 (00:10→19:35)
--- NOTE | 2018-07-25 14:37 | CP.PCM.PN ---
Subjective - Date & Time of Evaluation Date of Evaluation: 07/25/18 Time of Evaluation: 07:15 - Subjective Subjective: clinically same Objective - Vital Signs/Intake and Output Vital Signs (last 24 hours): Temp Pulse Resp BP Pulse Ox 98.7 F 73 20 114/83 96 07/25/18 07:44 07/25/18 07:44 07/25/18 07:44 07/25/18 12:04 07/25/18 07:44 Intake and Output: 07/25/18 07/25/18 06:59 18:59 Intake Total 400 Balance 400 - Medications Medications: Current Medications Diltiazem HCl (Cardizem) 5 mg IVP Q4 PRN PRN Reason: Heart rate Docusate Sodium (Colace) 100 mg PO BID [facility] Last Admin: 07/25/18 12:05 Dose: 100 mg Famotidine (Pepcid) 20 mg PO DAILY [facility] Last Admin: 07/25/18 12:05 Dose: 20 mg Ipratropium [place] (Atrovent) 0.5 mg IH RQ4 [facility] Last Admin: 07/25/18 12:57 Dose: Not Given Lactulose (Enulose) 20 gm PO HS [facility] Last Admin: 07/24/18 21:52 Dose: Not Given Lisinopril (Zestril) 2.5 mg PO DAILY [facility] Last Admin: 07/25/18 12:04 Dose: 2.5 mg Metoprolol Tartrate (Lopressor) 75 mg PO BID [facility] Last Admin: 07/25/18 12:04 Dose: 75 mg Promethazine HCl/Codeine (Phenergan/Codeine Oral Syrup) 5 ml PO Q4 PRN PRN Reason: Cough and congestion Last Admin: 07/24/18 18:04 Dose: 5 ml Rivaroxaban (Xarelto) 15 mg PO DAILY [facility] Last Admin: 07/25/18 12:04 Dose: 15 mg - Labs Labs: 07/20/18 06:09 07/20/18 06:09 PT 18.1 SECONDS (9.7-12.2) H 07/20/18 06:09 INR 1.7 07/20/18 06:09 APTT 35 SECONDS (21-34) H 07/20/18 06:09 - Constitutional Appears: Well - Head Exam Head Exam: ATRAUMATIC, NORMAL INSPECTION, NORMOCEPHALIC - Eye Exam Eye Exam: EOMI, Normal appearance, PERRL Pupil Exam: NORMAL ACCOMODATION, PERRL - ENT Exam ENT Exam: Mucous Membranes Moist, Normal Exam - Neck Exam Neck Exam: Full ROM, Normal Inspection. absent: Lymphadenopathy - Respiratory Exam Respiratory Exam: Decreased Breath Sounds - Cardiovascular Exam Cardiovascular Exam: REGULAR RHYTHM, +S1, +S2 - GI/Abdominal Exam GI & Abdominal Exam: Soft, Diminished Bowel Sounds - Rectal Exam Rectal Exam: Deferred
--- NOTE | 2018-07-25 16:54 | CP.PCM.PN ---
Subjective - Date & Time of Evaluation Date of Evaluation: 07/25/18 Time of Evaluation: 11:20 - Subjective Subjective: Patient seen and examined at bedside, lying down comfortably. Afebrile and in no acute distress. Patient states she feels much better; cough has improved. Denies shortness of breath, chest pain, fever. Switched from IV Abx. to PO Avelox. Waiting on life vest. Objective - Vital Signs/Intake and Output Vital Signs (last 24 hours): Temp Pulse Resp BP Pulse Ox 98.8 F 80 20 127/69 95 07/25/18 16:00 07/25/18 16:00 07/25/18 16:00 07/25/18 16:00 07/25/18 16:00 Intake and Output: 07/25/18 07/25/18 06:59 18:59 Intake Total 400 Balance 400 - Medications Medications: Current Medications Diltiazem HCl (Cardizem) 5 mg IVP Q4 PRN PRN Reason: Heart rate Docusate Sodium (Colace) 100 mg PO BID [facility] Last Admin: 07/25/18 12:05 Dose: 100 mg Famotidine (Pepcid) 20 mg PO DAILY [facility] Last Admin: 07/25/18 12:05 Dose: 20 mg Ipratropium [place] (Atrovent) 0.5 mg IH RQ4 [facility] Last Admin: 07/25/18 15:59 Dose: 0.5 mg Lactulose (Enulose) 20 gm PO HS [facility] Last Admin: 07/24/18 21:52 Dose: Not Given Lisinopril (Zestril) 2.5 mg PO DAILY [facility] Last Admin: 07/25/18 12:04 Dose: 2.5 mg Metoprolol Tartrate (Lopressor) 75 mg PO BID [facility] Last Admin: 07/25/18 12:04 Dose: 75 mg Moxifloxacin HCl (Avelox) 400 mg PO DAILY [facility]; Protocol Promethazine HCl/Codeine (Phenergan/Codeine Oral Syrup) 5 ml PO Q4 PRN PRN Reason: Cough and congestion Last Admin: 07/24/18 18:04 Dose: 5 ml Rivaroxaban (Xarelto) 15 mg PO DAILY [facility] Last Admin: 07/25/18 12:04 Dose: 15 mg - Labs Labs: 07/20/18 06:09 07/20/18 06:09 PT 18.1 SECONDS (9.7-12.2) H 07/20/18 06:09 INR 1.7 07/20/18 06:09 APTT 35 SECONDS (21-34) H 07/20/18 06:09 Assessment and Plan (1) COPD (chronic obstructive pulmonary disease) Status: Acute (2) Pleural effusion due to CHF (congestive heart failure) Status: Acute (3) Atrial fibrillation Status: Chronic
--- NOTE | 2018-07-25 18:20 | CP.PCM.PN ---
Subjective - Date & Time of Evaluation Date of Evaluation: 07/25/18 Time of Evaluation: 18:10 - Subjective Subjective: marlen is being fitted for Lifevest. No other complaints Objective - Vital Signs/Intake and Output Vital Signs (last 24 hours): Temp Pulse Resp BP Pulse Ox 98.8 F 80 20 127/69 95 07/25/18 16:00 07/25/18 16:00 07/25/18 16:00 07/25/18 16:00 07/25/18 16:00 Intake and Output: 07/25/18 07/25/18 06:59 18:59 Intake Total 400 Balance 400 - Medications Medications: Current Medications Diltiazem HCl (Cardizem) 5 mg IVP Q4 PRN PRN Reason: Heart rate Docusate Sodium (Colace) 100 mg PO BID [facility] Last Admin: 07/25/18 12:05 Dose: 100 mg Famotidine (Pepcid) 20 mg PO DAILY [facility] Last Admin: 07/25/18 12:05 Dose: 20 mg Ipratropium [place] (Atrovent) 0.5 mg IH RQ4 [facility] Last Admin: 07/25/18 15:59 Dose: 0.5 mg Lactulose (Enulose) 20 gm PO HS [facility] Last Admin: 07/24/18 21:52 Dose: Not Given Lisinopril (Zestril) 2.5 mg PO DAILY [facility] Last Admin: 07/25/18 12:04 Dose: 2.5 mg Metoprolol Tartrate (Lopressor) 75 mg PO BID [facility] Last Admin: 07/25/18 12:04 Dose: 75 mg Moxifloxacin HCl (Avelox) 400 mg PO DAILY [facility]; Protocol Promethazine HCl/Codeine (Phenergan/Codeine Oral Syrup) 5 ml PO Q4 PRN PRN Reason: Cough and congestion Last Admin: 07/24/18 18:04 Dose: 5 ml Rivaroxaban (Xarelto) 15 mg PO DAILY [facility] Last Admin: 07/25/18 12:04 Dose: 15 mg - Labs Labs: 07/20/18 06:09 07/20/18 06:09 PT 18.1 SECONDS (9.7-12.2) H 07/20/18 06:09 INR 1.7 07/20/18 06:09 APTT 35 SECONDS (21-34) H 07/20/18 06:09 - Constitutional Appears: Non-toxic - Head Exam Head Exam: NORMAL INSPECTION - Eye Exam Eye Exam: Normal appearance - ENT Exam ENT Exam: Mucous Membranes Moist - Neck Exam Neck Exam: Full ROM - Respiratory Exam Respiratory Exam: NORMAL BREATHING PATTERN - Cardiovascular Exam Cardiovascular Exam: Irregular Rhythm - GI/Abdominal Exam GI & Abdominal Exam: Normal Bowel Sounds - Rectal Exam Rectal Exam: Deferred - Extremities Exam Extremities Exam: absent: Pedal Edema - Back Exam Back Exam: NORMAL INSPECTION - Neurological Exam Neurological Exam: Alert - Psychiatric Exam Psychiatric exam: Normal Affect - Skin Skin Exam: Normal Color Assessment and Plan (1) Rapid atrial fibrillation Assessment & Plan: rate is controlled, I will continue betablocker. maintain anticoagulation. Status: Acute (2) Cardiomyopathy Assessment & Plan: Lifevest is being fitted now. Patient is receiving instruction on use. Patient is stable for discharge tomorrow. Status: Chronic
[2018-07-26] MEDS: Ipratropium 0.02% Inhal Soln (0.5 mg/2.5 ml) UD IH SCH ×4 (03:29→11:33)
[2018-07-26 07:53] VITALS: BP 133/85; PULSE 113; TEMP 97.8; O2SAT 96
--- NOTE | 2018-07-26 10:52 | PCM.HF ---
Heart Failure Core Measure - Heart Failure Ejection Fraction: Less Than 40 % (EF 10-15%) KAROLINE Inhibitor Prescribed: Yes Beta-Theresa Prescribed: Metoprolol Succinate Angiotensin II Receptor Theresa Prescribed: No Contraindication/Reason for not providing: on karoline AnticoagulationTherapy for Atrial Fibrillation/Atrialflutter: Yes Aldosterone Antagonist Prescribed: No Hydralazine Nitrate Prescribed: No Implantable Cardioverter Defibrillator Therapy: No Contraindication/Reason for not providing: life vest in place Cardiac Resynchronization Therapy Prescribed: No Contraindication/Reason for not providing: not indicated - Follow up Will be discharged to: Home Follow Up Date (must be within 7 days from discharge): 07/30/18
--- NOTE | 2018-07-26 10:57 | CP.PCM.PN ---
Subjective - Date & Time of Evaluation Date of Evaluation: 07/26/18 Time of Evaluation: 10:57 - Subjective Subjective: Alert , oriented, denies sob or chest pains, NAD. Objective - Vital Signs/Intake and Output Vital Signs (last 24 hours): Temp Pulse Resp BP Pulse Ox 97.8 F 113 H 20 133/85 96 07/26/18 07:52 07/26/18 07:52 07/26/18 07:52 07/26/18 10:26 07/26/18 07:52 Intake and Output: 07/26/18 07/26/18 06:59 18:59 Intake Total 400 Balance 400 - Medications Medications: Current Medications Diltiazem HCl (Cardizem) 5 mg IVP Q4 PRN PRN Reason: Heart rate Docusate Sodium (Colace) 100 mg PO BID [facility] Last Admin: 07/26/18 10:25 Dose: 100 mg Famotidine (Pepcid) 20 mg PO DAILY [facility] Last Admin: 07/26/18 10:26 Dose: 20 mg Ipratropium [place] (Atrovent) 0.5 mg IH RQ4 [facility] Last Admin: 07/26/18 08:00 Dose: Not Given Lactulose (Enulose) 20 gm PO HS [facility] Last Admin: 07/25/18 21:51 Dose: Not Given Lisinopril (Zestril) 2.5 mg PO DAILY [facility] Last Admin: 07/26/18 10:25 Dose: 2.5 mg Metoprolol Tartrate (Lopressor) 75 mg PO BID [facility] Last Admin: 07/26/18 10:26 Dose: 75 mg Moxifloxacin HCl (Avelox) 400 mg PO DAILY [facility]; Protocol Last Admin: 07/26/18 10:26 Dose: 400 mg Promethazine HCl/Codeine (Phenergan/Codeine Oral Syrup) 5 ml PO Q4 PRN PRN Reason: Cough and congestion Last Admin: 07/24/18 18:04 Dose: 5 ml Rivaroxaban (Xarelto) 15 mg PO DAILY [facility] Last Admin: 07/26/18 10:25 Dose: 15 mg - Labs Labs: 07/20/18 06:09 07/20/18 06:09 PT 18.1 SECONDS (9.7-12.2) H 07/20/18 06:09 INR 1.7 07/20/18 06:09 APTT 35 SECONDS (21-34) H 07/20/18 06:09 Assessment and Plan - Assessment and Plan (Free Text) Assessment: 72 year old female with CHF, seen and examined. Alert and responsive, received the life vest as per the education and training manager last night and she is instructed how to use it with her spouse at the bedside. Discussed with DR José Miguel Buchanan, plan to discharge home today with home care, home PT. Advised to follow up with PMD and the education and training manager in 1 week.
--- NOTE | 2018-07-26 12:58 | PQF ---
PROVIDER RESPONSE TEXT: Acute on Chronic Systolic CHF REVIEWER QUERY TEXT: CHF Acuity and Type Congestive Heart Failure is documented in the Medical Record. Please document the type and acuity (in cludes probable or suspected) Such as: -- Unable to determine. -- Other, please specify Also please document the underlying cause of the CHF (includes probable or suspected) The patient's Clinical Indicators include: ?72 year old female presents to the emergency department with complaints of cough and weakness for th e last four days. States had fever to 100.7 at home?. Respiratory: Positive for: Cough Respiratory: No Rales, Rhonchi (scattered), BNP: [id number] The left ventricular function is severely reduced, with diffuse hypokinesis. Best wall motion is in t he basal-lateral and basal-inferolateral griffin. The left ventricular ejection fraction is about 15% Query created by: Casey Novak on 07/25/2018 5:40 PM Electronically signed by: Emiliano LAURENT 07/26/2018 12:55 PM
== END 2018-07-26 11:38 | disposition home or self-care (01) | DRG 193 ==
LOC: C.ER 03:28 → C.6T 04:53 → C.9I 07-16 00:30 → C.3T 07-22 17:17
PROVIDERS: ADMIT Internal Medicine Nephrology; ATTEND Internal Medicine Nephrology
DX: J18.9 Pneumonia, unspecified organism (principal); I50.23 Acute on chronic systolic (congestive) heart failure; J44.0 Chronic obstructive pulmonary disease with (acute) lower respiratory infection; I42.9 Cardiomyopathy, unspecified; I11.0 Hypertensive heart disease with heart failure; E87.6 Hypokalemia; I48.0 Paroxysmal atrial fibrillation; Z79.01 Long term (current) use of anticoagulants; R00.1 Bradycardia, unspecified; I95.9 Hypotension, unspecified